=== PATIENT | male | born 1955 | race American Indian/Alaskan Native ===

== ENCOUNTER 2017-06-05 14:18 | Inpatient (IN) | payer MEDICARE, OTHER ==
[2017-06-05 14:28] VITALS: BMI 31.3
[2017-06-05] MEDS ORDERED: Levalbuterol 1.25 MG/3 ML Inhal Soln UD IH STA (14:48)
--- NOTE | 2017-06-05 14:50 | ED PDOC ---
Arrival/HPI - General Chief Complaint: Chest Pain Time Seen by Provider: 06/05/17 14:22 Historian: Patient - History of Present Illness Narrative History of Present Illness (Text): 06/05/17 14:45 A 61 year old male, whose past medical history includes dilated cardiomyopathy with ejection fraction of 25%, hypertension, hyperlipidemia, narcotic dependence and cocaine use, presents to the emergency department complaining of left sided chest pain for 2 days. Patient descries it as a squeezing sensation. He denies any relieving or exacerbating factors. Patient notes dyspnea on exertion but denies any fever, chills, nausea, vomiting, abdominal pain, cough, lower extremity pain, headache, dizziness or any other complaints. PMD: Dr. Ireland Time/Duration: Other (2 days) Symptom Course: Unchanged Quality: Other Context: Home Past Medical History - Provider Review Nursing Documentation Reviewed: Yes - Infectious Disease Hx of Infectious Diseases: None - Tetanus Immunization Tetanus Immunization: Unknown - Cardiac Hx Hypertension: Yes Other/Comment: weak heart - Pulmonary Hx Chronic Obstructive Pulmonary Disease (COPD): (dyspnea) - Neurological Hx Neurological Disorder: No - HEENT Hx HEENT Disorder: No - Renal Hx Renal Disorder: No - Endocrine/Metabolic Hx Endocrine Disorders: No - Hematological/Oncological Hx Blood Disorders: No - Integumentary Hx Dermatological Disorder: No - Musculoskeletal/Rheumatological Hx Musculoskeletal Disorders: Yes (BACK SX,ANKLE AND FOOT SX,HERNIATED DISC, BACK SX) Hx Arthritis: Yes Hx Back Pain: Yes Hx Falls: Yes Hx Fractures: Yes (ANKLE FX,) - Gastrointestinal Hx Gastrointestinal Disorders: Yes (POLYPS REMOVED -COLONOSCOPY) - Genitourinary/Gynecological Hx Genitourinary Disorders: No - Psychiatric Hx Psychophysiologic Disorder: No Hx Substance Use: Yes (H/O OF COCAINE USE.OPIATE USE) - Surgical History Hx Orthopedic Surgery: Yes (back surgery unspecified) - Anesthesia Hx Anesthesia: Yes Hx Anesthesia Reactions: No Hx Malignant Hyperthermia: No - Suicidal Assessment Feels Threatened In Home Enviroment: No Family/Social History - Physician Review Nursing Documentation Reviewed: Yes Family/Social History: No Known Family HX Smoking Status: Current Some Days Smoker Hx Alcohol Use: No Hx Substance Use: Yes (H/O OF COCAINE USE.OPIATE USE) Hx Substance Use Treatment: No Allergies/Home Meds Allergies/Adverse Reactions: Allergies No Known Allergies Allergy (Verified 08/28/16 14:24) Home Medications: Home Meds Medication Instructions Recorded Confirmed Oxycodone HCl [Oxycontin] 10 mg PO DAILY 01/28/17 06/05/17 Valsartan [Diovan] 80 mg PO DAILY 01/28/17 06/05/17 Furosemide [Lasix] 20 mg PO DAILY 06/05/17 06/05/17 Metoprolol Succinate [Toprol XL] 25 mg PO BRK 06/05/17 06/05/17 Review of Systems - Physician Review All systems were reviewed & negative as marked: Yes - Review of Systems Constitutional: absent: Fevers, Night Sweats Respiratory: absent: Cough Cardiovascular: Chest Pain, LENTZ. absent: Edema Gastrointestinal: absent: Abdominal Pain, Nausea, Vomiting Neurological: absent: Headache, Dizziness Physical Exam Vital Signs Pulse Pulse Resp BP Pulse Ox 06/05/17 15:51 119/78 06/05/17 15:17 91 H 18 136/89 100 06/05/17 14:20 99 H Temperature: Afebrile Blood Pressure: Normal Pulse: Tachycardic Respiratory Rate: Tachypneic (mild) Appearance: Positive for: Well-Appearing, Non-Toxic, Comfortable Pain Distress: None Mental Status: Positive for: Alert and Oriented X 3 - Systems Exam Head: Present: Atraumatic, Normocephalic Pupils: Present: PERRL Conjunctiva: Present: Normal Mouth: Present: Moist Mucous Membranes Pharnyx: Present: Normal. No: ERYTHEMA, EXUDATE Neck: Present: Normal Range of Motion, JVD Respiratory/Chest: Present: Decreased Breath Sounds (left side). No: Respiratory Distress, Accessory Muscle Use Cardiovascular: Present: Normal S1, S2, Tachycardic. No: Murmurs Abdomen: Present: Normal Bowel Sounds. No: Tenderness, Distention, Peritoneal Signs Back: Present: Normal Inspection Upper Extremity: Present: Normal Inspection, NORMAL PULSES. No: Cyanosis, Edema Lower Extremity: Present: Edema (1+ edema bilaterally), NORMAL PULSES. No: CALF TENDERNESS Neurological: Present: GCS=15, CN II-XII Intact, Speech Normal Skin: Present: Warm, Dry, Normal Color. No: Rashes Psychiatric: Present: Alert, Oriented x 3, Normal Insight, Normal Concentration Medical Decision Making ED Course and Treatment: 06/05/17 14:45 Impression: A 61 year old male with left sided chest pain. Patient notes dyspnea on exertion. Diff: CHF vs pneumonia vs acs Plan: -- Duplex lower extremity ultrasound -- Chest xray -- Labs -- Urinalysis -- Lasix and Xopenex -- Reassess and disposition Progress Notes: 06/05/17 16:21 Patient with history of DCM with EF of 25% - exam and history consistent with CHF, as well as possible cocaine induced chest pain. EKG is unchanged from previous. First CE is indeterminate at 0.06; creatinine is baseline. Anemia is noted, a change from previous levels. Given lasix - will need further observation in the hospital and diuresis for treatment. Discussed with hospitalist, Dr. Gentile, for placement on the hospitalist service. - Lab Interpretations Lab Results: 06/05/17 14:11 06/05/17 14:11 Lab Results 06/05/17 14:11: Sodium 146, Potassium 3.7, Chloride 110 H, Carbon Dioxide 24, Anion Gap 16, BUN 11, Creatinine 1.7 H, Est GFR ( Amer) 50, Est GFR (Non- Af Amer) 41, Random Glucose 135 H, Calcium 8.5, Magnesium 1.7, Total Bilirubin 1.0, Direct Bilirubin 0.4, AST 25, ALT 41, Alkaline Phosphatase 56, Lactate Dehydrogenase 562, Total Creatine Kinase 325 H, CK-MB (CK-2) 3.4, CK-MB (CK-2) % Cancelled, Troponin I 0.06, NT-Pro-B Natriuret Pep 5280 H, Total Protein 6.7, Albumin 3.9, Globulin 2.8, Albumin/Globulin Ratio 1.4, Lipase 23 06/05/17 14:11: PT 12.3, INR 1.13 H, APTT 34.0 06/05/17 14:11: WBC 5.3 D, RBC 3.35 L, Hgb 10.6 L, Hct 31.9 L, MCV 95.2, MCH 31.6, MCHC 33.2, RDW 13.7, Plt Count 136, MPV 10.0, Gran % 62.6, Lymph % (Auto) 26.6, Faulkner % (Auto) 6.6 H, Eos % (Auto) 4.0, Baso % (Auto) 0.2, Gran # 3.30, Lymph # 1.4, Faulkner # 0.4, Eos # 0.2, Baso # 0.01 I have reviewed the lab results: Yes - RAD Interpretation Narrative RAD Interpretations (Text): 06/05/17 15:22 CXR: FINDINGS: LUNGS: No active pulmonary disease. PLEURA: No significant pleural effusion identified, no pneumothorax apparent. CARDIOVASCULAR: Mild vascular congestion. The heart is normal in size OSSEOUS STRUCTURES: No significant abnormalities. VISUALIZED UPPER ABDOMEN: Normal. OTHER FINDINGS: None. IMPRESSION: Mild vascular congestion Radiology Orders: 06/05/17 14:45 CHEST PORTABLE [RAD] Stat 06/05/17 14:47 DUPLEX LOWER EXTRM VEIN BILAT [US] Stat Cell Technician: Radiologist - EKG Interpretation EKG Interpretation (Text): 06/05/17 16:26 sinus tachycardia @ 108; normal intervals; normal axis; nonspecific ST/T changes are old and similar to 08/30/16. - Medication Orders Current Medication Orders: Discontinued Medications Furosemide (Lasix) 40 mg IVP STAT STA Stop: 06/05/17 14:49 Last Admin: 06/05/17 15:51 Dose: 40 mg MAR Blood Pressure Document 06/05/17 15:51 [email or web address] (Rec: 06/05/17 15:51 [email or web address] [id number]) Blood Pressure Blood Pressure (100/60-150/90) 119/78 IVP Administration Document 06/05/17 15:51 [email or web address] (Rec: 06/05/17 15:51 [email or web address] [id number]) Charges for Administration # of IVP Administrations 1 Levalbuterol HCl (Xopenex) 1.25 mg IH STAT STA Stop: 06/05/17 14:49 Last Admin: 06/05/17 15:47 Dose: 1.25 mg - Scribe Statement The provider has reviewed the documentation as recorded by the Kwasi Mandujano Provider Scribe Attestation: All medical record entries made by the Scribe were at my direction and personally dictated by me. I have reviewed the chart and agree that the record accurately reflects my personal performance of the history, physical exam, medical decision making, and the department course for this patient. I have also personally directed, reviewed, and agree with the discharge instructions and disposition. Disposition/Present on Arrival - Present on Arrival Any Indicators Present on Arrival: No History of DVT/PE: No History of Uncontrolled Diabetes: No Urinary Catheter: No History of Decub. Ulcer: No History Surgical Site Infection Following: None - Disposition Have Diagnosis and Disposition been Completed?: Yes Diagnosis: Congestive heart failure Disposition: HOSPITALIZED Disposition Time: 16:00 Patient Plan: Observation, Telemetry Condition: FAIR Discharge Instructions (ExitCare): Heart Failure (ED) Forms: [employer] (Swedish)
[2017-06-05 15:08] LABS: BASO # 0.01 K/mm3 (0.0-2.0); BASO % 0.2 % (0.0-3.0); EOS # 0.2 (0.0-0.7); GRAN # 3.3 (1.4-6.5); GRAN % 62.6 % (50.0-68.0); HEMATOCRIT 31.9 % (42.0-52.0); LYMPH # 1.4 (1.2-3.4); LYMPH % 26.6 % (22.0-35.0); MEAN CELL VOLUME 95.2 fl (80.0-105.0); MEAN CORPUSCULAR HEMOGLOBIN 31.6 pg (25.0-35.0); MEAN CORPUSCULAR HGB CONC 33.2 g/dl (31.0-37.0); MONO # 0.4 (0.1-0.6); MONO % 6.6 % (1.0-6.0); RED CELL DISTRIBUTION WIDTH 13.7 % (11.5-14.5); WHITE BLOOD COUNT 5.3 10^3/ul (4.5-11.0)
[2017-06-05 15:18] LABS: ALB/GLOB RATIO 1.4 (1.1-1.8); BILIRUBIN,DIRECT 0.4 mg/dL (0.0-0.4); CALCIUM 8.5 mg/dL (8.4-10.5); MAGNESIUM 1.7 mg/dL (1.7-2.2); POTASSIUM 3.7 mmol/L (3.6-5.0); TOTAL PROTEIN 6.7 g/dL (5.8-8.3)
--- NOTE | 2017-06-05 15:18 | RAD ---
HISTORY: cp; sob COMPARISON: 08/30/2016 FINDINGS: LUNGS: No active pulmonary disease. PLEURA: No significant pleural effusion identified, no pneumothorax apparent. CARDIOVASCULAR: Mild vascular congestion. The heart is normal in size OSSEOUS STRUCTURES: No significant abnormalities. VISUALIZED UPPER ABDOMEN: Normal. OTHER FINDINGS: None. IMPRESSION: Mild vascular congestion
[2017-06-05 15:19] LABS: INR 1.13 (0.93-1.08)
[2017-06-05 15:29] LABS: TROPONIN I 0.06 ng/mL
[2017-06-05] MEDS ORDERED: Levalbuterol 1.25 MG/3 ML Inhal Soln UD ONE (15:44)
[2017-06-05 16:09] LABS: URINE BILIRUBIN NEGATIVE (NEGATIVE); URINE BLOOD NEGATIVE (NEGATIVE); URINE GLUCOSE (UA) NEGATIVE (NEGATIVE); URINE KETONE NEGATIVE (NEGATIVE); URINE LEUKOCYTE ESTERASE SMALL Leu/uL (NEGATIVE); URINE PROTEIN TRACE mg/dL (<30 mg/dL); URINE UROBILINOGEN 0.2 E.U./dL (<1 E.U./dL)
[2017-06-05 16:24] LABS: URINE APPEARANCE CLEAR (CLEAR); URINE COLOR YELLOW (YELLOW)
[2017-06-05 16:28] LABS: URINE BACTERIA FEW (NEG); URINE RBC NEGATIVE /hpf (0-2)
[2017-06-05] MEDS ORDERED: Metoprolol Succinate 50 mg XL Tab PO SCH (17:15)
[2017-06-05] MEDS ORDERED: Levalbuterol 0.63 MG/3 ML Inhal Soln UD IH PRN (17:21)
--- NOTE | 2017-06-05 17:47 | CP.PCM.HP ---
<Junior Bojorquez - Last Filed: 06/05/17 17:23> History of Present Illness - History of Present Illness History of Present Illness: IM H&P for Hospitalist Service CC: Chest pain x2 days HPI: This is a 61 yo M with PMH of HTN, HLD, Dilated CM with EF 29% (last echo on record 08/29/16), narcotic dependence, cocaine use, and suspected medication non-compliance who presents to [facility] with complaint of left-sided chest pain x2 days. Patient reports pain present on awakening, not worse with exertion, but does admit to some dyspnea on exertion. Initially tried to ignore the pain, and did not mention it to his PMD 2 days ago when presenting at the office for abdominal pain (now resolved), but the pain has persisted and slightly worsening through yesterday and today, so he presented to the ED. Admits to continued tobacco use (currently 1/2 ppd, previously 1.5-2 ppd x20yrs), admits to illicits (Cocaine) but denies IVDA. Initially reported complaint with medications, only missed today, but later told attending physician that he hasn' t taken his medications for the last 2-3 days. Also admits to worsening chest pain with deep breathing, but denies worse pain with palpation. Denies radiation of chest pain, shortness of breath at rest, nausea/emesis, fevers/ chills, diarrhea/constipation, melena/hematochezia, hemoptysis/hematemesis, dysuria/hematuria, focal weakness/parethesias, or acute vision changes. All other ROS in 12-point system review negative. Of note, labs in the ED were notable for a lower than usual Hgb (10.6, baseline per prior charting 13-14), and patient reports that his stomach pain was from taking non-coated aspirins for 2-3 weeks prior to his visit with [facility] PMD. Also admits to Colonoscopy in 2012 at [facility] where he had "numerous polyps," and was told to obtain a follow-up in 3 years, which he has not done. PMH: as above PSH: 4 back surgeries (unspecified), ankle and foot surgery with ORIF and plate/ screws placement, later removal of plate and screws (unspecified reason for removal) SHx: Admits cigarettes (currently 1/2 ppd x2-3 months, previously 1.5-2ppd, total time ~20 yrs), denies alcohol, admits to illicits (cocaine, recently, no additional detail provided) but denies ever IVDA FHx: HTN (mother) Home Meds:Oxycodone 15mg 5x daily PRN, Ambien 10mg nightly, Mobic 15mg daily, Diovan 80mg daily, Lopressor 25mg BID, Lasix 20mg daily, Protonix 40mg daily ( new prescription, not yet picked up) PMD: Dr. Ireland Cardio: Dr. Newberry Pain Management: Dr. Hinojosa (pain management in [place]) Pharmacy: [facility] Present on Admission - Present on Admission Any Indicators Present on Admission: No History of DVT/PE: No History of Uncontrolled Diabetes: No Review of Systems - Review of Systems All systems: reviewed and no additional remarkable complaints except (as per HPI ) Past Patient History - Infectious Disease Hx of Infectious Diseases: None - Tetanus Immunizations Tetanus Immunization: Unknown - Past Medical History & Family History Past Medical History?: Yes - Past Social History Smoking Status: Current Some Days Smoker - CARDIAC Hx Hypertension: Yes Other/Comment: weak heart - PULMONARY Hx Chronic Obstructive Pulmonary Disease (COPD): (dyspnea) - NEUROLOGICAL Hx Neurological Disorder: No - HEENT Hx HEENT Problems: No - RENAL Hx Chronic Kidney Disease: No - ENDOCRINE/METABOLIC Hx Endocrine Disorders: No - HEMATOLOGICAL/ONCOLOGICAL Hx Blood Disorders: No - INTEGUMENTARY Hx Dermatological Problems: No - MUSCULOSKELETAL/RHEUMATOLOGICAL Hx Musculoskeletal Disorders: Yes (BACK SX,ANKLE AND FOOT SX,HERNIATED DISC, BACK SX) Hx Arthritis: Yes Hx Back Pain: Yes Hx Falls: Yes Hx Fractures: Yes (ANKLE FX,) - GASTROINTESTINAL Hx Gastrointestinal Disorders: Yes (POLYPS REMOVED -COLONOSCOPY) - GENITOURINARY/GYNECOLOGICAL Hx Genitourinary Disorders: No - PSYCHIATRIC Hx Psychophysiologic Disorder: No Hx Substance Use: Yes (H/O OF COCAINE USE.OPIATE USE) - SURGICAL HISTORY Hx Orthopedic Surgery: Yes (back surgery unspecified) - ANESTHESIA Hx Anesthesia: Yes Hx Anesthesia Reactions: No Hx Malignant Hyperthermia: No Meds Allergies/Adverse Reactions: Allergies Allergy/AdvReac Type Severity Reaction Status Date / Time No Known Allergies Allergy Verified 08/28/16 14:24 Physical Exam - Constitutional Appears: Well, Non-toxic, No Acute Distress - Head Exam Head Exam: ATRAUMATIC, NORMAL INSPECTION, NORMOCEPHALIC - Eye Exam Eye Exam: EOMI, Normal appearance. absent: Conjunctival injection, Scleral icterus Pupil Exam: absent: Irregular, Unequal - ENT Exam ENT Exam: Mucous Membranes Moist. absent: Mucous Membranes Dry - Neck Exam Neck exam: Positive for: Full Rom. Negative for: Lymphadenopathy, Thyromegaly - Respiratory Exam Respiratory Exam: Decreased Breath Sounds (moderately decreased breath sounds in all griffith), Prolonged Expiratory Phase, Rales (mild bibasilar rales). absent: Accessory Muscle Use, Chest Wall Tenderness, Clear to Auscultation Bilateral, Rhonchi, Wheezes, Respiratory Distress, Stridor, NORMAL BREATHING PATTERN - Cardiovascular Exam Cardiovascular Exam: Tachycardia, REGULAR RHYTHM, RRR, +S1, +S2. absent: Bradycardia, Irregular Rhythm, JVD, +S4 - GI/Abdominal Exam GI & Abdominal Exam: Normal Bowel Sounds, Soft. absent: Diminished Bowel Sounds , Distended (obese, not distended), Firm, Hyperactive Bowel Sounds, Hypoactive Bowel Sounds, Rigid, Tenderness - Extremities Exam Extremities exam: Positive for: full ROM, pedal edema (LLE +1-2 pitting edema up to bottom 1/3rd gill, RLE trace pitting edema in foot and ankle), pedal pulses present (+2 radials, +1 dorsalis pedis, bilaterally). Negative for: calf tenderness, joint swelling, tenderness - Neurological Exam Neurological exam: Alert, CN II-XII Intact, Oriented x3 - Psychiatric Exam Psychiatric exam: Normal Affect, Normal Mood - Skin Skin Exam: Dry, Intact, Normal Color, Warm Results - Vital Signs Recent Vital Signs: Last Vital Signs Temp Pulse 91 H 06/05/17 15:17 Resp 18 06/05/17 15:17 BP 119/78 06/05/17 15:51 Pulse Ox 100 06/05/17 15:17 - Labs Result Diagrams: 06/05/17 14:11 06/05/17 14:11 Labs: Laboratory Results - last 24 hr 06/05/17 06/05/17 06/05/17 14:11 14:11 14:11 WBC 5.3 D RBC 3.35 L Hgb 10.6 L Hct 31.9 L MCV 95.2 MCH 31.6 MCHC 33.2 RDW 13.7 Plt Count 136 MPV 10.0 Gran % 62.6 Lymph % (Auto) 26.6 Hubbard % (Auto) 6.6 H Eos % (Auto) 4.0 Baso % (Auto) 0.2 Gran # 3.30 Lymph # 1.4 Hubbard # 0.4 Eos # 0.2 Baso # 0.01 PT 12.3 INR 1.13 H APTT 34.0 Sodium 146 Potassium 3.7 Chloride 110 H Carbon Dioxide 24 Anion Gap 16 BUN 11 Creatinine 1.7 H Est GFR ( Amer) 50 Est GFR (Non-Af Amer) 41 Random Glucose 135 H Calcium 8.5 Magnesium 1.7 Total Bilirubin 1.0 Direct Bilirubin 0.4 AST 25 ALT 41 Alkaline Phosphatase 56 Lactate Dehydrogenase 562 Total Creatine Kinase 325 H CK-MB (CK-2) 3.4 CK-MB (CK-2) % Cancelled Troponin I 0.06 NT-Pro-B Natriuret Pep 5280 H Total Protein 6.7 Albumin 3.9 Globulin 2.8 Albumin/Globulin Ratio 1.4 Lipase 23 Urine Color Urine Appearance Urine pH Ur Specific [place] Urine Protein Urine Glucose (UA) Urine Ketones Urine Blood Urine Nitrate Urine Bilirubin Urine Urobilinogen Ur Leukocyte Esterase Urine RBC Urine WBC Ur Epithelial Cells Urine Bacteria Urine Opiates Screen Urine Methadone Screen Ur Barbiturates Screen Ur Phencyclidine Scrn Ur Amphetamines Screen U Benzodiazepines Scrn U Oth Cocaine Metabols U Cannabinoids Screen 06/05/17 06/05/17 16:00 16:00 WBC RBC Hgb Hct MCV MCH MCHC RDW Plt Count MPV Gran % Lymph % (Auto) Hubbard % (Auto) Eos % (Auto) Baso % (Auto) Gran # Lymph # Hubbard # Eos # Baso # PT INR APTT Sodium Potassium Chloride Carbon Dioxide Anion Gap BUN Creatinine Est GFR ( Amer) Est GFR (Non-Af Amer) Random Glucose Calcium Magnesium Total Bilirubin Direct Bilirubin AST ALT Alkaline Phosphatase Lactate Dehydrogenase Total Creatine Kinase CK-MB (CK-2) CK-MB (CK-2) % Troponin I NT-Pro-B Natriuret Pep Total Protein Albumin Globulin Albumin/Globulin Ratio Lipase Urine Color Yellow Urine Appearance Clear Urine pH 6.0 Ur Specific [place] 1.015 Urine Protein Trace H Urine Glucose (UA) Negative Urine Ketones Negative Urine Blood Negative Urine Nitrate Negative Urine Bilirubin Negative Urine Urobilinogen 0.2 Ur Leukocyte Esterase Small H Urine RBC Negative Urine WBC 1 - 3 Ur Epithelial Cells 1 - 3 Urine Bacteria Few Urine Opiates Screen Positive H Urine Methadone Screen Negative Ur Barbiturates Screen Negative Ur Phencyclidine Scrn Negative Ur Amphetamines Screen Negative U Benzodiazepines Scrn Positive H U Oth Cocaine Metabols Positive H U Cannabinoids Screen Negative Assessment & Plan - Assessment and Plan (Free Text) Assessment: This is a 61 yo M with PMH of HTN, HLD, Dilated CM with EF 29% (last echo on record 08/29/16), narcotic dependence, cocaine use, and suspected medication non- compliance who presents to [facility] with complaint of left-sided chest pain x2 days. He is being admitted for CHF exacerbation vs ACS, and is being admitted for observation. Plan: 1) Left-sided chest pain -CHF exacerbation vs ACS vs cocaine-induced vasospasm vs Costocondritis vs PE -CXR obtained in ED, suspicious for possible fluid overload, especially when compared to most recent CXR during last admission -Trop 0.06, indeterminate, may be renal leak due to SILVINA on CKD vs worsening CKD (Cr 1.7, prior elevations to 1.7, prior baseline appears to be 1.2-1.4), will trend 2 more q8h -USD in ED positive for opioids, benzos, and cocaine -Echo on 08/29/16 notable for global hypokinesis with EF 29%, reported dilated cardiomyopathy as per Cardio during last admission; repeat Echo ordered -EKG in ED only notable for sinus tachy, normal intervals and ST-T wave segments , repeat EKG in AM -LE Duplex negative for DVT, not grossly tachycardic, and satting well on room air, so less likely PE; if symptoms persist or worsen, could consider V/Q scan, would avoid CTA given current elevated creatinine -Continue home metoprolol, aspirin; holding home diovan due to worsening Creatinine -holding home lasix, starting on IVP lasix 40mg daily, received one dose in ED -Cardio (Dr. Newberry) consulted, appreciate all recs -Given suspicion for fluid overload and pt currently hemodynamically stable, will hold off on IV fluids at this time 2) Dyspnea on Exertion -likely due to suspected fluid overload vs ACS vs presumed COPD (active tobacco abuser, > 30 pack years) -encourage smoking cessation -given Xopenex IH 1x in ED, will continue q6h adrianna and q4h prn -actively diuresing with Lasix, 40mg IVP x1 in ED, will continue with 40mg IVP daily -ACS vs CHF management as above 3) Elevated Cr (1.7) -SILVINA vs SILVINA on CKD -during prior admission from 08/28/16-09/01/16, Cr was noted to be 1.5-1.7, however previous baseline was 1.2-1.4 with noted elevations to 1.7 -unclear if worsening baseline renal disease with or without acute exacerbation -will hold home ARB for now due to elevated Cr, but will continue Lasix for diuresis in setting of suspected fluid overload/suspected CHF exacerbation; if creatinine worsens can consider holding lasix -Holding home Mobic, avoid NSAIDs for now 4) Suspected Hgb drop -10.6 on admission in ED, prior charting shows baseline of 13-14 -Reports recent use of non-enteric coated ASA, abd pain 2 days prior, and hx of multiple colonic polyps now overdue for followup Colonoscopy -Stool occult ordered -Currently only borderline tachycardic (more likely 2/2 chest pain/discomfort), hemodynamically stable (SBP in Ed 110's-130's), so unlikely active bleed occurring at this time; continue to monitor, will follow up Hgb on AM labs 5) HTN -holding home ARB, continue Lasix and Lopressor as above 6) HLD -Lipid panel ordered, heart-healthy diet ordered Dispo: Tele obs, pending Echo, repeat EKG, trended trops, Cardio eval and recs FEN: Heart-healthy, No IVF Access: Peripheral IV Consults: Cardio Ppx: SCDs for DVT (avoid AC given recent drop in Hgb, concern for possible GI loss), Protonix for GI Patient seen, reviewed, and discussed with attending, Dr. Gentile. Decision To Admit - Pt Status Changed To: Hospital Disposition Of: Observation - . Bed Request Type: Telemetry <Demar Gentile - Last Filed: 06/06/17 07:17> Results - Vital Signs Recent Vital Signs: Last Vital Signs Temp 99.1 F 06/06/17 06:00 Pulse 91 H 06/06/17 06:00 Resp 22 06/06/17 06:00 BP 134/90 06/06/17 06:00 Pulse Ox 99 06/06/17 06:00 - Labs Result Diagrams: 06/06/17 05:30 06/06/17 05:30 Labs: Laboratory Results - last 24 hr 06/05/17 06/06/17 06/06/17 22:20 05:30 05:30 WBC 5.6 RBC 3.64 Hgb 11.5 L Hct 34.1 L MCV 93.7 MCH 31.6 MCHC 33.7 RDW 13.7 Plt Count 158 MPV 10.2 Gran % 56.1 Lymph % (Auto) 32.5 Hubbard % (Auto) 7.5 H Eos % (Auto) 3.9 Baso % (Auto) 0.0 Gran # 3.12 Lymph # 1.8 Hubbard # 0.4 Eos # 0.2 Baso # 0.00 Sodium 144 Potassium 3.7 Chloride 107 Carbon Dioxide 29 Anion Gap 12 BUN 13 Creatinine 1.7 H Est GFR ( Amer) 50 Est GFR (Non-Af Amer) 41 Random Glucose 88 Calcium 8.9 Phosphorus 3.2 Magnesium 1.7 Total Bilirubin 1.0 AST 23 ALT 33 Alkaline Phosphatase 57 Troponin I 0.05 0.06 Total Protein 6.9 Albumin 3.9 Globulin 3.0 Albumin/Globulin Ratio 1.3 Triglycerides 74 Cholesterol 138 LDL Cholesterol Direct 82 HDL Cholesterol 42 Attending/Attestation - Attestation I have personally seen and examined this patient.: Yes I have fully participated in the care of the patient.: Yes I have reviewed all pertinent clinical information: Yes Notes (Text): 06/05/17 61 year old male with past medical history of hypertension, CHF and substance abuse (admits to recent cocaine use) who presents with complaint of chest pain and shortness of breath. CXR shows mild congestion. Probnp is elevated and initial troponin is indeterminant at 0.06. Will admit to telemetry unit for acute CHF exacerbation and to rule out ACS. Serial cardiac enzymes are ordered. Echocardiogram and cardiology evaluation are requested. Continue with iv lasix and aspirin. Will hold metoprolol for now due to recent cocaine use and hold ARB as well due to CKD. He was counselled on medication compliance. Counselled on risks of continued substance abuse. Counselled on smoking cessation. Demar Gentile MD Hospitalist.
--- NOTE | 2017-06-05 18:29 | US ---
HISTORY: Leg pain and swelling. Evaluate for DVT PHYSICIAN(S): Mike Schroeder MD. TECHNIQUE: Duplex sonography and color-flow Doppler with graded compression were used to evaluate the deep venous systems of both lower extremities. FINDINGS: The visualized deep venous systems of both lower extremities are sonographically normal and compressible. Normal wave forms and augmentation are seen. There is no sonographic evidence for deep venous thrombosis in the visualized segments of both lower extremities. IMPRESSION: No sonographic evidence for deep venous thrombosis in the visualized segments of both lower extremities.
[2017-06-05] MEDS: Levalbuterol 1.25 MG/3 ML Inhal Soln UD IH SCH (19:35)
[2017-06-05] MEDS ORDERED: Pneumococcal 23-Valent Vaccine IM ONE (20:43)
[2017-06-05] MEDS ORDERED: Influenza Vaccine 60 mcg/0.5 mL SYR (4YR UP) IM ONE (20:43)
[2017-06-06] MEDS: Levalbuterol 1.25 MG/3 ML Inhal Soln UD IH SCH ×4 (02:00→19:35)
[2017-06-06] MEDS: Pantoprazole 40 mg EC Tab PO SCH (05:48)
--- NOTE | 2017-06-06 06:02 | CP.PCM.PN ---
Subjective - Date & Time of Evaluation Date of Evaluation: 06/06/17 Time of Evaluation: 06:00 - Subjective Subjective: S: It was requested to insert a heparin lock. Patient has no complaints now. Medical record was reviewed. O: Last Vital Signs 3 Temp 98.2 F 06/06/17 00:01 Pulse 84 06/06/17 02:00 Resp 22 06/06/17 00:01 BP 128/80 06/06/17 00:01 Pulse Ox 99 06/06/17 00:01 Awake,alert ,not in distress. LUNGS:Normal breathing pattern. A: Poor venous access. Encounter for intravenous line placement. P: # 20 angiocath was inserted in right upper arm. Objective - Vital Signs/Intake and Output Vital Signs (last 24 hours): Temp Pulse Resp BP Pulse Ox 98.2 F 84 22 128/80 99 06/06/17 00:01 06/06/17 02:00 06/06/17 00:01 06/06/17 00:01 06/06/17 00:01 - Medications Medications: Current Medications Aspirin (Ecotrin) 81 mg PO DAILY [facility] Furosemide (Lasix) 40 mg IVP DAILY [facility] Levalbuterol HCl (Xopenex) 1.25 mg IH [id number] [facility] Last Admin: 06/06/17 02:00 Dose: 1.25 mg Levalbuterol HCl (Xopenex) 0.63 mg IH [id number] PRN PRN Reason: Shortness of Breath Metoprolol Succinate (Toprol Xl) 25 mg PO BRK [facility] Last Admin: 06/05/17 17:48 Dose: 25 mg Ondansetron HCl (Zofran Inj) 4 mg IVP Q6H PRN PRN Reason: Nausea/Vomiting Oxycodone HCl (Oxycontin Extended Release Tab) 10 mg PO DAILY [facility] Stop: 06/09/17 10:01 Pantoprazole Sodium (Protonix Ec Tab) 40 mg PO 0630 [facility] Last Admin: 06/06/17 05:48 Dose: 40 mg Zolpidem Tartrate (Ambien) 10 mg PO HS PRN; Protocol PRN Reason: Insomnia - Labs Labs: PT 12.3 SECONDS (9.4-12.5) 06/05/17 14:11 INR 1.13 (0.93-1.08) H 06/05/17 14:11 APTT 34.0 Seconds (25.1-36.5) 06/05/17 14:11
[2017-06-06 06:28] LABS: EOS # 0.2 (0.0-0.7); EOS % 3.9 % (1.5-5.0); GRAN # 3.12 (1.4-6.5); GRAN % 56.1 % (50.0-68.0); HEMATOCRIT 34.1 % (42.0-52.0); LYMPH # 1.8 (1.2-3.4); LYMPH % 32.5 % (22.0-35.0); MEAN CELL VOLUME 93.7 fl (80.0-105.0); MEAN CORPUSCULAR HEMOGLOBIN 31.6 pg (25.0-35.0); MEAN CORPUSCULAR HGB CONC 33.7 g/dl (31.0-37.0); MEAN PLATELET VOLUME 10.2 fl (7.0-11.0); MONO # 0.4 (0.1-0.6); MONO % 7.5 % (1.0-6.0); RED CELL DISTRIBUTION WIDTH 13.7 % (11.5-14.5); WHITE BLOOD COUNT 5.6 10^3/ul (4.5-11.0)
[2017-06-06 06:36] LABS: ALB/GLOB RATIO 1.3 (1.1-1.8); CALCIUM 8.9 mg/dL (8.4-10.5); MAGNESIUM 1.7 mg/dL (1.7-2.2); PHOSPHOROUS 3.2 mg/dL (2.5-4.5); POTASSIUM 3.7 mmol/L (3.6-5.0); TOTAL PROTEIN 6.9 g/dL (5.8-8.3)
[2017-06-06 06:48] LABS: TROPONIN I 0.06 ng/mL
--- NOTE | 2017-06-06 08:56 | CARD ---
APPROVED REPORT EKG Measurement Heart [id number] [place] [id number] <Conclusion> Sinus tachycardia LVH by voltage Nonspecific T wave abnormality T waves flat or upright now 1,L, V 4 - 6, c/w ECG 08/30/16
[2017-06-06] MEDS ORDERED: oxyCODONE 10 mg ER Tab (oxyCONTIN) PO SCH (10:00)
--- NOTE | 2017-06-06 11:10 | CARD ---
APPROVED REPORT EKG Measurement Heart [id number] [place] 174P59 [id number] <Conclusion> Sinus rhythm PVCs LVH by volyage NSSTW changes
--- NOTE | 2017-06-06 11:48 | CARD ---
APPROVED REPORT EKG Measurement Heart [id number] 170P58 [id number] <Conclusion> Sinus rhythm with one premature ventricular complex Minimal voltage criteria for LVH, may be normal variant Nonspecific T wave abnormality
--- NOTE | 2017-06-06 11:49 | CP.PCM.PN ---
<MargerafyJaclyn ospinan - Last Filed: 06/06/17 15:19> Subjective - Date & Time of Evaluation Date of Evaluation: 06/06/17 Time of Evaluation: 09:30 - Subjective Subjective: Medicine progress note Patient seen and examined at bedside this morning. Patient have multiple runs of PVC last night. Denies chest pain, shortness of breath or heart palpitations. Patient states he is doing significantly better than yesterday. He is OOB and walking with minimal to no shortness of breath. Objective - Vital Signs/Intake and Output Vital Signs (last 24 hours): Temp Pulse Resp BP Pulse Ox 99.1 F 94 H 22 137/89 99 06/06/17 06:00 06/06/17 09:50 06/06/17 06:00 06/06/17 09:11 06/06/17 06:00 Intake and Output: 06/06/17 06/06/17 06:59 18:59 Output Total 850 Balance -850 - Medications Medications: Current Medications Aspirin (Ecotrin) 81 mg PO DAILY [facility] Last Admin: 06/06/17 09:10 Dose: 81 mg Atorvastatin Calcium (Lipitor) 10 mg PO DIN [facility] Furosemide (Lasix) 40 mg IVP DAILY [facility] Last Admin: 06/06/17 09:11 Dose: 40 mg Levalbuterol HCl (Xopenex) 1.25 mg IH [id number] [facility] Last Admin: 06/06/17 07:17 Dose: 1.25 mg Levalbuterol HCl (Xopenex) 0.63 mg IH [id number] PRN PRN Reason: Shortness of Breath Lorazepam (Ativan) 2 mg IVP Q2 PRN; Protocol PRN Reason: Anxiety Metoprolol Succinate (Toprol Xl) 25 mg PO BRK [facility] Last Admin: 06/05/17 17:48 Dose: 25 mg Ondansetron HCl (Zofran Inj) 4 mg IVP Q6H PRN PRN Reason: Nausea/Vomiting Oxycodone HCl (Oxycontin Extended Release Tab) 10 mg PO DAILY [facility] Stop: 06/09/17 10:01 Last Admin: 06/06/17 09:11 Dose: 10 mg Pantoprazole Sodium (Protonix Ec Tab) 40 mg PO 0630 [facility] Last Admin: 06/06/17 05:48 Dose: 40 mg Zolpidem Tartrate (Ambien) 10 mg PO HS PRN; Protocol PRN Reason: Insomnia - Labs Labs: 06/06/17 05:30 06/06/17 05:30 PT 12.3 SECONDS (9.4-12.5) 06/05/17 14:11 INR 1.13 (0.93-1.08) H 06/05/17 14:11 APTT 34.0 Seconds (25.1-36.5) 06/05/17 14:11 - Constitutional Appears: Non-toxic, No Acute Distress - Head Exam Head Exam: ATRAUMATIC - Eye Exam Eye Exam: EOMI. absent: Scleral icterus - ENT Exam ENT Exam: Mucous Membranes Moist - Respiratory Exam Respiratory Exam: NORMAL BREATHING PATTERN. absent: Accessory Muscle Use, Respiratory Distress - Cardiovascular Exam Cardiovascular Exam: +S1, +S2. absent: Bradycardia, Tachycardia - GI/Abdominal Exam GI & Abdominal Exam: Soft, Normal Bowel Sounds. absent: Distended, Tenderness - Extremities Exam Extremities Exam: Normal Inspection, Pedal Edema. absent: Calf Tenderness Additional comments: +1 pedal edema. palpable pulses. - Neurological Exam Neurological Exam: Alert, Awake, Oriented x3 - Psychiatric Exam Psychiatric exam: Normal Affect, Normal Mood - Skin Skin Exam: Normal Color Assessment and Plan - Assessment and Plan (Free Text) Assessment: 61M pmhx of hypertension, CHF and substance abuse including cocaine and benzos presented with complaint of chest pain and shortness of breath. CXR shows mild congestion. Probnp is elevated. Trop x3 0.05, 0.06, 0.05 respectively. CHF exacerbation vs cocaine-induced vasospasm CXR mild congestion Echo performed in August of 2016 showed EF 29% Repeat echo final read pending Trop indeterminate 0.05, 0.06, 0.05 LE Duplex negative for DVT Xopenex q6h adrianna and q4h prn Cardio c/s Dr. Newberry appreciate all recs Will continue diuresis w/ Lasix 40mg Elevated Cr Cr. 1.7 ARB held; continue Lasix No NSAIDs at this time If Cr worsens will hold lasix H/O Hypertension holding home ARB and lopressor continue Lasix Anemia h/o colon polyp recommend outpatient follow up colonoscopy H/H stable HLD Lipid panel LDL 84. Start Atorvastatin Counseled patient on risks of using recreational drugs and advised to quit. Counselled on quitting smoking <Demar Gentile - Last Filed: 06/06/17 16:20> Objective - Vital Signs/Intake and Output Vital Signs (last 24 hours): Temp Pulse Resp BP Pulse Ox 97.4 F L 80 20 134/104 H 99 06/06/17 12:00 06/06/17 12:00 06/06/17 12:00 06/06/17 12:00 06/06/17 06:00 Intake and Output: 06/06/17 06/06/17 06:59 18:59 Output Total 850 Balance -850 - Medications Medications: Current Medications Aspirin (Ecotrin) 81 mg PO DAILY [facility] Last Admin: 06/06/17 09:10 Dose: 81 mg Atorvastatin Calcium (Lipitor) 10 mg PO DIN [facility] Furosemide (Lasix) 40 mg IVP DAILY [facility] Last Admin: 06/06/17 09:11 Dose: 40 mg Levalbuterol HCl (Xopenex) 1.25 mg IH [id number] [facility] Last Admin: 06/06/17 13:43 Dose: 1.25 mg Levalbuterol HCl (Xopenex) 0.63 mg IH [id number] PRN PRN Reason: Shortness of Breath Lorazepam (Ativan) 2 mg IVP Q2 PRN; Protocol PRN Reason: Anxiety Metoprolol Succinate (Toprol Xl) 25 mg PO BRK [facility] Last Admin: 06/05/17 17:48 Dose: 25 mg Ondansetron HCl (Zofran Inj) 4 mg IVP Q6H PRN PRN Reason: Nausea/Vomiting Oxycodone HCl (Oxycontin Extended Release Tab) 10 mg PO DAILY [facility] Stop: 06/09/17 10:01 Last Admin: 06/06/17 09:11 Dose: 10 mg Pantoprazole Sodium (Protonix Ec Tab) 40 mg PO 0630 [facility] Last Admin: 06/06/17 05:48 Dose: 40 mg Zolpidem Tartrate (Ambien) 10 mg PO HS PRN; Protocol PRN Reason: Insomnia - Labs Labs: 06/06/17 05:30 06/06/17 05:30 PT 12.3 SECONDS (9.4-12.5) 06/05/17 14:11 INR 1.13 (0.93-1.08) H 06/05/17 14:11 APTT 34.0 Seconds (25.1-36.5) 06/05/17 14:11 Attending/Attestation - Attestation I have personally seen and examined this patient.: Yes I have fully participated in the care of the patient.: Yes I have reviewed all pertinent clinical information, including history, physical exam and plan: Yes Notes (Text): 06/06/17 16:16 61 year old male with past medical history of hypertension, CHF and substance abuse (admits to recent cocaine use) who presented with complaint of chest pain and shortness of breath. CXR showed mild congestion with elevated probnp. Troponins are indeterminant at 0.06. Symptoms are improved with iv lasix. Echocardiogram was done today with pending report. Cardiology evaluation is pending as well. Continue with aspirin, statin and iv lasix. Metoprolol is on hold for now due to recent cocaine use and ARB is on hold as well due to CKD. He was counselled on medication compliance and on risks of continued substance abuse. He was counselled on smoking cessation. Demar Gentile MD Hospitalist.
[2017-06-07] MEDS: Levalbuterol 1.25 MG/3 ML Inhal Soln UD IH SCH ×3 (01:12→14:01)
[2017-06-07] MEDS: Pantoprazole 40 mg EC Tab PO SCH (05:50)
[2017-06-07 06:35] VITALS: O2SAT 94
--- NOTE | 2017-06-07 07:51 | CARD ---
APPROVED REPORT EXAM: Two-dimensional and M-mode echocardiogram with Doppler and color Doppler. Other Information Quality : AverageRhythm : INDICATION Chest Pain 2D DIMENSIONS Left Atrium (2D)4.8 (1.6-4.0cm)IVSd1.2 (0.7-1.1cm) LVDd5.9 (3.9-5.9cm)PWd1.2 (0.7-1.1cm) LVDs5.1 (2.5-4.0cm)LVEF (%)30.0 (>50%) M-Mode DIMENSIONS Aortic Root2.80 (2.2-3.7cm)Aortic Cusp Exc.1.90 (1.5-2.0cm) Aortic Valve AoV Peak Xpayqhfn906.0cm/s Mitral Valve MV E Vxdzwsgi33.8cm/sMV A Bxjaebzp62.0cm/sE/A ratio1.2 TDI E/Lateral E'0.0E/Medial E'0.0 Tricuspid Valve TR Peak [id number]/sRAP [id number] Peak Gr.34mmHg [id number] LEFT VENTRICLE The left ventricle is normal size. There is normal left ventricular wall thickness. Left ventricle systolic function is moderately to severely impaired. The Ejection Fraction is 25-30%. There is moderate to severe global hypokinesis. RIGHT VENTRICLE The right ventricle is normal size. ATRIA The left atrium is moderately dilated. The right atrium size is normal. The interatrial septum is intact with no evidence for an atrial septal defect. AORTIC VALVE The aortic valve is normal in structure. MITRAL VALVE The mitral valve is normal in structure. Mitral regurgitation is moderate. TRICUSPID VALVE The tricuspid valve is normal in structure. There is mild tricuspid regurgitation. There is mild-moderate pulmonary hypertension. PULMONIC VALVE The pulmonic valve is not well visualized. GREAT VESSELS The aortic root is normal in size. PERICARDIAL EFFUSION There is no pericardial effusion. <Conclusion> The left ventricle is normal size. There is normal left ventricular wall thickness. Left ventricle systolic function is moderately to severely impaired. The Ejection Fraction is 25-30%. There is moderate to severe global hypokinesis. Mitral regurgitation is moderate. There is mild tricuspid regurgitation. There is mild-moderate pulmonary hypertension.
[2017-06-07] MEDS ORDERED: oxyCODONE 15 mg Immediate Release Tab PO PRN (08:12)
[2017-06-07 09:02] LABS: ALB/GLOB RATIO 1.3 (1.1-1.8); CALCIUM 9.5 mg/dL (8.4-10.5); MAGNESIUM 1.8 mg/dL (1.7-2.2); PHOSPHOROUS 3.1 mg/dL (2.5-4.5); POTASSIUM 3.5 mmol/L (3.6-5.0); TOTAL PROTEIN 7.3 g/dL (5.8-8.3)
--- NOTE | 2017-06-07 10:48 | CON ---
DATE: 06/06/2017 CARDIOLOGY CONSULTATION HISTORY OF PRESENT ILLNESS: The patient presented to the emergency room with atypical chest pain which has currently resolved. He also complains of shortness of breath. The patient has documented dilated cardiomyopathy in the past with an ejection fraction of 25%. He also suffers from hypertension, hyperlipidemia, narcotic and cocaine abuse. His symptoms have now resolved. His previous cardiac workup includes a catheterization performed earlier this year that showed no significant coronary lesions with a dilated cardiomyopathy. The patient is noncompliant to medical advice and is currently on chronic oxycodone. SOCIAL HISTORY: The patient is a smoker. REVIEW OF SYSTEMS: A 14-point review of systems is reviewed in detail. No additional symptoms were elicited. PHYSICAL EXAMINATION: VITAL SIGNS: Blood pressure is 138/98, the heart rate is in the 80s. NECK: Negative JVD. LUNGS: Clear to auscultation. HEART: Reveals S1 and S2. EXTREMITIES: Without edema. IMAGING: EKG shows normal sinus rhythm with no acute changes. LABORATORIES: Hemoglobin is 11.5. The troponin is 0.06, which is unchanged from his previous when he underwent catheterization that showed no coronary lesions. The ProBNP is 5280. IMPRESSION: 1. Congestive heart failure which is better. 2. Atypical chest pain which has resolved. 3. No evidence for acute coronary syndrome. 4. End-stage dilated cardiomyopathy. 5. Renal insufficiency. 6. Hypertension. 7. Chronic obstructive pulmonary disease. 8. Narcotic abuse. Given these findings, the patient's cardiac status is at its best at this time. I have discussed with the patient about the need to change his life and live a healthier lifestyle. The patient understands. There is no further cardiac workup necessary. He is currently on the correct medications. We will discontinue telemetry today. Mike Newberry MD
[2017-06-07 12:15] VITALS: BP 122/78; PULSE 92; RESP 19; TEMP 99
--- NOTE | 2017-06-07 13:56 | CP.PCM.DIS ---
<MargerafyJaclyn ospinan - Last Filed: 06/07/17 14:47> Provider - Provider Date of Admission: 06/06/17 16:15 Attending physician: Demar Gentile MD Time Spent in preparation of Discharge (in minutes): 45 Hospital Course - Lab Results Lab Results: Most Recent Lab Values WBC 5.6 10^3/ul (4.5-11.0) 06/06/17 05:30 RBC 3.64 10^6/uL (3.5-6.1) 06/06/17 05:30 Hgb 11.5 g/dL (14.0-18.0) L 06/06/17 05:30 Hct 34.1 % (42.0-52.0) L 06/06/17 05:30 MCV 93.7 fl (80.0-105.0) 06/06/17 05:30 MCH 31.6 pg (25.0-35.0) 06/06/17 05:30 MCHC 33.7 g/dl (31.0-37.0) 06/06/17 05:30 RDW 13.7 % (11.5-14.5) 06/06/17 05:30 Plt Count 158 10^3/uL (120.0-450.0) 06/06/17 05:30 MPV 10.2 fl (7.0-11.0) 06/06/17 05:30 Gran % 56.1 % (50.0-68.0) 06/06/17 05:30 Lymph % (Auto) 32.5 % (22.0-35.0) 06/06/17 05:30 Woods % (Auto) 7.5 % (1.0-6.0) H 06/06/17 05:30 Eos % (Auto) 3.9 % (1.5-5.0) 06/06/17 05:30 Baso % (Auto) 0.0 % (0.0-3.0) 06/06/17 05:30 Gran # 3.12 (1.4-6.5) 06/06/17 05:30 Lymph # 1.8 (1.2-3.4) 06/06/17 05:30 Woods # 0.4 (0.1-0.6) 06/06/17 05:30 Eos # 0.2 (0.0-0.7) 06/06/17 05:30 Baso # 0.00 K/mm3 (0.0-2.0) 06/06/17 05:30 PT 12.3 SECONDS (9.4-12.5) 06/05/17 14:11 INR 1.13 (0.93-1.08) H 06/05/17 14:11 APTT 34.0 Seconds (25.1-36.5) 06/05/17 14:11 Sodium 145 mmol/L (132-148) 06/07/17 08:30 Potassium 3.5 mmol/L (3.6-5.0) L 06/07/17 08:30 Chloride 106 mmol/L (98-107) 06/07/17 08:30 Carbon Dioxide 28 mmol/L (21-33) 06/07/17 08:30 Anion Gap 15 (10-20) 06/07/17 08:30 BUN 16 mg/dL (7-21) 06/07/17 08:30 Creatinine 1.8 mg/dL (0.8-1.5) H 06/07/17 08:30 Est GFR ( Amer) 46 06/07/17 08:30 Est GFR (Non-Af Amer) 38 06/07/17 08:30 Random Glucose 106 mg/dL (70-110) 06/07/17 08:30 Calcium 9.5 mg/dL (8.4-10.5) 06/07/17 08:30 Phosphorus 3.1 mg/dL (2.5-4.5) 06/07/17 08:30 Magnesium 1.8 mg/dL (1.7-2.2) 06/07/17 08:30 Total Bilirubin 1.0 mg/dL (0.2-1.3) 06/07/17 08:30 Direct Bilirubin 0.4 mg/dL (0.0-0.4) 06/05/17 14:11 AST 22 U/L (17-59) 06/07/17 08:30 ALT 35 U/L (7-56) 06/07/17 08:30 Alkaline Phosphatase 58 U/L (38-126) 06/07/17 08:30 Lactate Dehydrogenase 562 U/L (333-699) 06/05/17 14:11 Total Creatine Kinase 325 U/L (35-230) H 06/05/17 14:11 CK-MB (CK-2) 3.4 ng/mL (0.0-3.6) 06/05/17 14:11 CK-MB (CK-2) % Cancelled 06/05/17 14:11 Troponin I 0.06 ng/mL 06/06/17 05:30 NT-Pro-B Natriuret Pep 5280 pg/mL (0-450) H 06/05/17 14:11 Total Protein 7.3 g/dL (5.8-8.3) 06/07/17 08:30 Albumin 4.1 g/dL (3.0-4.8) 06/07/17 08:30 Globulin 3.2 gm/dL 06/07/17 08:30 Albumin/Globulin Ratio 1.3 (1.1-1.8) 06/07/17 08:30 Triglycerides 74 mg/dL (35-160) 06/06/17 05:30 Cholesterol 138 mg/dL (130-200) 06/06/17 05:30 LDL Cholesterol Direct 82 mg/dL (0-129) 06/06/17 05:30 HDL Cholesterol 42 mg/dL (29-60) 06/06/17 05:30 Lipase 23 U/L (23-300) 06/05/17 14:11 Urine Color Yellow (YELLOW) 06/05/17 16:00 Urine Appearance Clear (CLEAR) 06/05/17 16:00 Urine pH 6.0 (4.7-8.0) 06/05/17 16:00 Ur Specific [place] 1.015 (1.005-1.035) 06/05/17 16:00 Urine Protein Trace mg/dL (<30 mg/dL) H 06/05/17 16:00 Urine Glucose (UA) Negative mg/dL (NEGATIVE) 06/05/17 16:00 Urine Ketones Negative mg/dL (NEGATIVE) 06/05/17 16:00 Urine Blood Negative (NEGATIVE) 06/05/17 16:00 Urine Nitrate Negative (NEGATIVE) 06/05/17 16:00 Urine Bilirubin Negative (NEGATIVE) 06/05/17 16:00 Urine Urobilinogen 0.2 E.U./dL (<1 E.U./dL) 06/05/17 16:00 Ur Leukocyte Esterase Small Tim/uL (NEGATIVE) H 06/05/17 16:00 Urine RBC Negative /hpf (0-2) 06/05/17 16:00 Urine WBC 1 - 3 /hpf (0-6) 06/05/17 16:00 Ur Epithelial Cells 1 - 3 /hpf (0-5) 06/05/17 16:00 Urine Bacteria Few (NEG) 06/05/17 16:00 Urine Opiates Screen Positive (NEGATIVE) H 06/05/17 16:00 Urine Methadone Screen Negative (NEGATIVE) 06/05/17 16:00 Ur Barbiturates Screen Negative (NEGATIVE) 06/05/17 16:00 Ur Phencyclidine Scrn Negative (NEGATIVE) 06/05/17 16:00 Ur Amphetamines Screen Negative (NEGATIVE) 06/05/17 16:00 U Benzodiazepines Scrn Positive (NEGATIVE) H 06/05/17 16:00 U Oth Cocaine Metabols Positive (NEGATIVE) H 06/05/17 16:00 U Cannabinoids Screen Negative (NEGATIVE) 06/05/17 16:00 - Hospital Course Hospital Course: 61 year old male with past medical history of hypertension, CHF and substance abuse (admits to recent cocaine use) who presented with complaint of chest pain and shortness of breath. CXR showed mild congestion with elevated probnp. Troponins are indeterminant at 0.06. Symptoms are improved with iv lasix. Echocardiogram showed decreased ejection fraction at 24-30% similar to previous Echo. Lower extremeity dopplers were negative for DVT, and Electrocardiogram shows no acute changes. Cardiology was consulted during visit. Patient improved during hospital stay and is able to ambulate without shortness of breath. Patient was counselled on medication compliance and on risks of continued substance abuse. He was counselled on smoking cessation. Counselled patient cessation of cocaine use and told patient about the risks of using betablocker and cocaine. Patient discharged in stable condition. Discharge Exam - Head Exam Head Exam: ATRAUMATIC - Eye Exam Eye Exam: EOMI. absent: Scleral icterus - ENT Exam ENT Exam: Mucous Membranes Dry - Respiratory Exam Respiratory Exam: Clear to PA & Lateral, NORMAL BREATHING PATTERN. absent: Accessory Muscle Use, Decreased Breath Sounds, Rales, Wheezes, Respiratory Distress - Cardiovascular Exam Cardiovascular Exam: +S1, +S2. absent: Bradycardia, Tachycardia, Gallop, Rubs - GI/Abdominal Exam GI & Abdominal Exam: Normal Bowel Sounds, Soft. absent: Distended, Firm, Tenderness - Extremities Exam Extremities exam: normal inspection - Neurological Exam Neurological exam: Alert, Oriented x3 - Skin Skin Exam: Dry, Normal Color Discharge Plan - Discharge Medications Prescriptions: Atorvastatin [Lipitor] 10 mg PO DIN 10 Days tab - Follow Up Plan Condition: FAIR Disposition: HOME/ ROUTINE Additional Instructions: Follow up with your pain management doctor. Recommend cessation of cocaine use and high risk of using beta teri with cocaine. Follow up with primary care doctor in one to two weeks. if symptoms get worse or new symptoms arise go the the emergency department. <Demar Gentile - Last Filed: 06/07/17 15:49> Provider - Provider Date of Admission: 06/06/17 16:15 Attending physician: Demar Gentile MD Hospital Course - Lab Results Lab Results: Most Recent Lab Values WBC 5.6 10^3/ul (4.5-11.0) 06/06/17 05:30 RBC 3.64 10^6/uL (3.5-6.1) 06/06/17 05:30 Hgb 11.5 g/dL (14.0-18.0) L 06/06/17 05:30 Hct 34.1 % (42.0-52.0) L 06/06/17 05:30 MCV 93.7 fl (80.0-105.0) 06/06/17 05:30 MCH 31.6 pg (25.0-35.0) 06/06/17 05:30 MCHC 33.7 g/dl (31.0-37.0) 06/06/17 05:30 RDW 13.7 % (11.5-14.5) 06/06/17 05:30 Plt Count 158 10^3/uL (120.0-450.0) 06/06/17 05:30 MPV 10.2 fl (7.0-11.0) 06/06/17 05:30 Gran % 56.1 % (50.0-68.0) 06/06/17 05:30 Lymph % (Auto) 32.5 % (22.0-35.0) 06/06/17 05:30 Woods % (Auto) 7.5 % (1.0-6.0) H 06/06/17 05:30 Eos % (Auto) 3.9 % (1.5-5.0) 06/06/17 05:30 Baso % (Auto) 0.0 % (0.0-3.0) 06/06/17 05:30 Gran # 3.12 (1.4-6.5) 06/06/17 05:30 Lymph # 1.8 (1.2-3.4) 06/06/17 05:30 Woods # 0.4 (0.1-0.6) 06/06/17 05:30 Eos # 0.2 (0.0-0.7) 06/06/17 05:30 Baso # 0.00 K/mm3 (0.0-2.0) 06/06/17 05:30 PT 12.3 SECONDS (9.4-12.5) 06/05/17 14:11 INR 1.13 (0.93-1.08) H 06/05/17 14:11 APTT 34.0 Seconds (25.1-36.5) 06/05/17 14:11 Sodium 145 mmol/L (132-148) 06/07/17 08:30 Potassium 3.5 mmol/L (3.6-5.0) L 06/07/17 08:30 Chloride 106 mmol/L (98-107) 06/07/17 08:30 Carbon Dioxide 28 mmol/L (21-33) 06/07/17 08:30 Anion Gap 15 (10-20) 06/07/17 08:30 BUN 16 mg/dL (7-21) 06/07/17 08:30 Creatinine 1.8 mg/dL (0.8-1.5) H 06/07/17 08:30 Est GFR ( Amer) 46 06/07/17 08:30 Est GFR (Non-Af Amer) 38 06/07/17 08:30 Random Glucose 106 mg/dL (70-110) 06/07/17 08:30 Calcium 9.5 mg/dL (8.4-10.5) 06/07/17 08:30 Phosphorus 3.1 mg/dL (2.5-4.5) 06/07/17 08:30 Magnesium 1.8 mg/dL (1.7-2.2) 06/07/17 08:30 Total Bilirubin 1.0 mg/dL (0.2-1.3) 06/07/17 08:30 Direct Bilirubin 0.4 mg/dL (0.0-0.4) 06/05/17 14:11 AST 22 U/L (17-59) 06/07/17 08:30 ALT 35 U/L (7-56) 06/07/17 08:30 Alkaline Phosphatase 58 U/L (38-126) 06/07/17 08:30 Lactate Dehydrogenase 562 U/L (333-699) 06/05/17 14:11 Total Creatine Kinase 325 U/L (35-230) H 06/05/17 14:11 CK-MB (CK-2) 3.4 ng/mL (0.0-3.6) 06/05/17 14:11 CK-MB (CK-2) % Cancelled 06/05/17 14:11 Troponin I 0.06 ng/mL 06/06/17 05:30 NT-Pro-B Natriuret Pep 5280 pg/mL (0-450) H 06/05/17 14:11 Total Protein 7.3 g/dL (5.8-8.3) 06/07/17 08:30 Albumin 4.1 g/dL (3.0-4.8) 06/07/17 08:30 Globulin 3.2 gm/dL 06/07/17 08:30 Albumin/Globulin Ratio 1.3 (1.1-1.8) 06/07/17 08:30 Triglycerides 74 mg/dL (35-160) 06/06/17 05:30 Cholesterol 138 mg/dL (130-200) 06/06/17 05:30 LDL Cholesterol Direct 82 mg/dL (0-129) 06/06/17 05:30 HDL Cholesterol 42 mg/dL (29-60) 06/06/17 05:30 Lipase 23 U/L (23-300) 06/05/17 14:11 Urine Color Yellow (YELLOW) 06/05/17 16:00 Urine Appearance Clear (CLEAR) 06/05/17 16:00 Urine pH 6.0 (4.7-8.0) 06/05/17 16:00 Ur Specific [place] 1.015 (1.005-1.035) 06/05/17 16:00 Urine Protein Trace mg/dL (<30 mg/dL) H 06/05/17 16:00 Urine Glucose (UA) Negative mg/dL (NEGATIVE) 06/05/17 16:00 Urine Ketones Negative mg/dL (NEGATIVE) 06/05/17 16:00 Urine Blood Negative (NEGATIVE) 06/05/17 16:00 Urine Nitrate Negative (NEGATIVE) 06/05/17 16:00 Urine Bilirubin Negative (NEGATIVE) 06/05/17 16:00 Urine Urobilinogen 0.2 E.U./dL (<1 E.U./dL) 06/05/17 16:00 Ur Leukocyte Esterase Small Tim/uL (NEGATIVE) H 06/05/17 16:00 Urine RBC Negative /hpf (0-2) 06/05/17 16:00 Urine WBC 1 - 3 /hpf (0-6) 06/05/17 16:00 Ur Epithelial Cells 1 - 3 /hpf (0-5) 06/05/17 16:00 Urine Bacteria Few (NEG) 06/05/17 16:00 Urine Opiates Screen Positive (NEGATIVE) H 06/05/17 16:00 Urine Methadone Screen Negative (NEGATIVE) 06/05/17 16:00 Ur Barbiturates Screen Negative (NEGATIVE) 06/05/17 16:00 Ur Phencyclidine Scrn Negative (NEGATIVE) 06/05/17 16:00 Ur Amphetamines Screen Negative (NEGATIVE) 06/05/17 16:00 U Benzodiazepines Scrn Positive (NEGATIVE) H 06/05/17 16:00 U Oth Cocaine Metabols Positive (NEGATIVE) H 06/05/17 16:00 U Cannabinoids Screen Negative (NEGATIVE) 06/05/17 16:00 Attending/Attestation - Attestation I have personally seen and examined this patient.: Yes I have fully participated in the care of the patient.: Yes I have reviewed all pertinent clinical information, including history, physical exam and plan: Yes Notes (Text): 06/07/17 15:14 61 year old male with past medical history of hypertension, CHF and substance ( cocaine) abuse who presented with complaint of chest pain and shortness of breath. He was admitted for CHF exacerbation. Symptoms improved with iv lasix. He was seen by cardiology. He was counselled on risks of continued substance abuse. Counselled on risks of narcotic abuse. Counselled on risks of concominant cocaine and BB use. Counselled on smoking cessation. Overall patient's symptoms have improved. He is discharged home to follow up with his pmd. Monitor creatinine closely as outpatient and resume ARB per pmd if creatinine improves. Demar Gentile MD Hospitalist.
== END 2017-06-07 17:00 | disposition home or self-care (01) | DRG 293 ==
LOC: ED 14:18 → ERH 16:11 → 2RNO 17:33 → OBSVTOIN 06-06 16:15
PROVIDERS: ADMIT Internal Medicine; ATTEND Internal Medicine
DX: I13.0 Hypertensive heart and chronic kidney disease with heart failure and stage 1 through stage 4 chronic kidney disease, or unspecified chronic kidney disease (principal); I50.9 Heart failure, unspecified; I42.0 Dilated cardiomyopathy; N18.9 Chronic kidney disease, unspecified; F14.10 Cocaine abuse, uncomplicated; F13.10 Sedative, hypnotic or anxiolytic abuse, uncomplicated; F17.200 Nicotine dependence, unspecified, uncomplicated; E78.5 Hyperlipidemia, unspecified; R07.1 Chest pain on breathing; D64.9 Anemia, unspecified; J44.9 Chronic obstructive pulmonary disease, unspecified; Z86.010 Personal history of colon polyps; Z91.19 Patient's noncompliance with other medical treatment and regimen

== ENCOUNTER 2017-09-20 09:40 | Inpatient (IN) | payer MEDICARE, OTHER ==
--- NOTE | 2017-09-20 10:08 | ED PDOC ---
Arrival/HPI - General Time Seen by Provider: 09/20/17 09:44 Historian: Patient - History of Present Illness Narrative History of Present Illness (Text): 09/20/17 10:04 61 year old male, whose past medical history includes hypertension, arthritis and chronic back pain, presents to the Emergency department for possible substance abuse today. Patient was driving erratically when pulled over by the police. Police believes the patient is under the influence and requests medical evaluation. Patient currently denies any somatic complaints. Patient denies any fever, chills, nausea, vomiting, abdominal pain, diarrhea, chest pain, shortness of breath or any other complaints. Patient has a history of opiod abuse. 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 Past Medical History - Provider Review Nursing Documentation Reviewed: Yes - Infectious Disease Hx of Infectious Diseases: None - Tetanus Immunization Tetanus Immunization: Unknown - Cardiac Hx Congestive Heart Failure: Yes Hx Hypertension: Yes Hx Peripheral Edema: Yes (+1 pitting edema ble) - Pulmonary Hx Chronic Obstructive Pulmonary Disease (COPD): Yes (dyspnea) - Neurological Hx Seizures: No - HEENT Hx HEENT Disorder: No - Renal Hx Renal Disorder: No - Endocrine/Metabolic Hx Endocrine Disorders: No - Hematological/Oncological Hx Cancer: No - Integumentary Other/Comment: r ankle deformity from fx - Musculoskeletal/Rheumatological Hx Arthritis: Yes (knees hands) Hx Fractures: Yes (ANKLE FX,) - Gastrointestinal Hx Gastrointestinal Disorders: Yes Other/Comment[place] [facility] [place] - Genitourinary/Gynecological Hx Sexually Transmitted Diseases: No - Psychiatric Hx Substance Use: Yes - Surgical History Hx Orthopedic Surgery: Yes (back / L knee) Other/Comment: 4 back sx's fusion, plate and alen inserted, plate and alen removed , and another sx after that pt uncertain what was done, from work related injury , left ankle/ft fx orif with plate and screws, hardware was removed happened years ago not work related - Anesthesia Hx Anesthesia: Yes Hx Anesthesia Reactions: No Hx Malignant Hyperthermia: No - Suicidal Assessment Feels Threatened In Home Enviroment: No Family/Social History - Physician Review Nursing Documentation Reviewed: Yes Family/Social History: No Known Family HX Smoking Status: Former Smoker Hx Alcohol Use: No Hx Substance Use: Yes Hx Substance Use Treatment: No Allergies/Home Meds Allergies/Adverse Reactions: Allergies No Known Allergies Allergy (Verified 09/20/17 16:52) Home Medications: Home Meds Medication Instructions Recorded Confirmed Furosemide [Lasix] 20 mg PO DAILY 09/20/17 09/20/17 Pantoprazole Sodium [Protonix] 40 mg PO DAILY 09/20/17 09/20/17 Valsartan [Diovan] 160 mg PO DAILY 09/20/17 09/20/17 Zolpidem [Ambien] 10 mg PO HS 09/20/17 09/20/17 oxyCODONE [oxyCODONE Immediate 15 mg PO 5XD PRN 09/20/17 09/20/17 Release Tab] Review of Systems - Physician Review All systems were reviewed & negative as marked: Yes - Review of Systems Constitutional: Normal. absent: Fevers Eyes: Normal ENT: Normal Respiratory: Normal. absent: SOB Cardiovascular: Normal. absent: Chest Pain Gastrointestinal: Normal. absent: Abdominal Pain, Diarrhea, Nausea, Vomiting Genitourinary Male: Normal Musculoskeletal: Normal Skin: Normal Neurological: Normal Endocrine: Normal Hemo/Lymphatic: Normal Psychiatric: Normal Physical Exam Vital Signs Reviewed: Yes Vital Signs Temp Pulse Resp BP Pulse Ox 09/20/17 22:45 89 17 101/79 98 09/20/17 22:40 86 09/20/17 19:30 84 17 124/60 100 09/20/17 19:05 98.8 F 80 16 105/69 09/20/17 18:33 126/62 09/20/17 15:10 80 16 105/69 100 09/20/17 13:09 77 18 115/73 97 09/20/17 11:30 86 18 115/74 96 09/20/17 10:01 98.8 F 91 H 18 117/87 96 Temperature: Afebrile Blood Pressure: Normal Pulse: Regular Respiratory Rate: Normal Appearance: Positive for: Comfortable, Other (pinpoint pupils) Pain Distress: None Mental Status: Positive for: Alert and Oriented X 3 Finger Stick Blood Glucose: 126 - Systems Exam Head: Present: Atraumatic, Normocephalic Pupils: Present: Pinpoint Extroacular Muscles: Present: EOMI Conjunctiva: Present: Normal Mouth: Present: Moist Mucous Membranes Neck: Present: Normal Range of Motion Respiratory/Chest: Present: Clear to Auscultation, Good Air Exchange. No: Respiratory Distress, Accessory Muscle Use Cardiovascular: Present: Regular Rate and Rhythm, Normal S1, S2. No: Murmurs Abdomen: Present: Normal Bowel Sounds. No: Tenderness, Distention, Peritoneal Signs Back: Present: Normal Inspection Upper Extremity: Present: Normal Inspection. No: Cyanosis, Edema Lower Extremity: Present: Normal Inspection. No: Edema Neurological: Present: GCS=15, CN II-XII Intact, Speech Normal Skin: Present: Warm, Dry, Normal Color. No: Rashes Psychiatric: Present: Alert, Oriented x 3, Normal Insight, Normal Concentration Medical Decision Making ED Course and Treatment: 09/20/17 10:10 Impression: 61 year old male presents to the Emergency department for possible opiod abuse. pt somulent, easily arousable pinpoint pupuls no bradypnea, no indication for narcan. labs pending Plan: -- Labs -- Urinalysis -- Reassess and disposition Progress Notes: 09/20/17 10:10 EKG: Ordered, reviewed, and independently interpreted the EKG. Rate : 95 BPM Rhythm : NSR Interpretation : No ST-segment elevations or depressions, no T-wave inversions, normal intervals. 09/20/17 14:25 pt noted to have acute hyperkalemia, no ekg changes noted increased cr. pt of dr barron, accpeted by hospitalist. remains somulent, howver easily arousable in er. stable for tele. admitted for silvina with hyperkalemia. 09/24/17 11:36 - Lab Interpretations Lab Results: 09/20/17 10:20 09/20/17 10:20 Lab Results 09/20/17 10:20: Alcohol, Quantitative < 10 09/20/17 10:20: Salicylates < 1 L, Acetaminophen < 10.0 L 09/20/17 10:20: Sodium 143, Potassium 6.2 H* D, Chloride 108 H, Carbon Dioxide 19 L, Anion Gap 22 H, BUN 49 H, Creatinine 2.9 H, Est GFR ( Amer) 27, Est GFR (Non-Af Amer) 22, Random Glucose 122 H, Calcium 9.8, Total Bilirubin 0.4 , AST 105 H D, ALT 50, Alkaline Phosphatase 45, Total Protein 7.5, Albumin 4.2, Globulin 3.3, Albumin/Globulin Ratio 1.3 09/20/17 10:20: WBC 6.9 D, RBC 3.89, Hgb 12.6 L, Hct 38.6 L, MCV 99.2 D, MCH 32.4, MCHC 32.6, RDW 15.6 H, Plt Count 198, MPV 10.4, Gran % 66.9, Lymph % (Auto ) 24.0, [place] % (Auto) 8.6 H, Eos % (Auto) 0.4 L, Baso % (Auto) 0.1, Gran # 4.60 , Lymph # (Auto) 1.7, [place] # (Auto) 0.6, Eos # (Auto) 0.0, Baso # (Auto) 0.01 09/20/17 09:58: POC Glucose (mg/dL) 126 H - Medication Orders Current Medication Orders: Discontinued Medications Acetylcysteine (Acetylcysteine 20%) 6 ml PO STAT STA Stop: 09/20/17 15:34 Last Admin: 09/20/17 16:04 Dose: Acetylcysteine (Acetylcysteine 20%) 6 ml PO Q12H SHAMAR Stop: 09/21/17 20:31 Acetylcysteine (Acetylcysteine 20%) 6 ml PO 0600,1800 SHAMAR Stop: 09/22/17 06:01 Acetylcysteine (Acetylcysteine 20%) 6 ml PO 0600,1800 SHAMAR Stop: 09/22/17 06:01 Last Admin: 09/21/17 17:42 Dose: 6 ml Albuterol Sulfate (Albuterol 0.5% Inhal Vikki (2.5 Mg/0.5 Ml) Ud) 2.5 mg IH STAT STA Stop: 09/20/17 12:09 Last Admin: 09/20/17 15:00 Dose: 2.5 mg Aspirin (Aspirin) 325 mg PO STAT STA Stop: 09/20/17 16:19 Last Admin: 09/20/17 17:38 Dose: 325 mg Benzocaine/Menthol (Cepacol Sore Throat) 1 ramos MT Q2H PRN PRN Reason: Sore Throat Last Admin: 09/23/17 13:08 Dose: 1 ramos Carvedilol (Coreg) 3.125 mg PO BID SHAMAR Dextrose (Dextrose 50% Inj) 50 ml IVP STAT STA Stop: 09/20/17 11:11 Last Admin: 09/20/17 11:49 Dose: 50 ml IVP Administration Document 09/20/17 11:49 [facility] [place]: 09/20/17 11:49 [facility] [id number] Charges for Administration # of IVP Administrations 1 Furosemide (Lasix) 40 mg IVP STAT STA Stop: 09/20/17 18:11 Last Admin: 09/20/17 18:33 Dose: 40 mg MAR Blood Pressure Document 09/20/17 18:33 JJ (Rec: 09/20/17 18:35 [email or web address] Blood Pressure Blood Pressure (100/60-150/90) 126/62 IVP Administration Document 09/20/17 18:33 J (Rec: 09/20/17 18:35 [email or web address]) Charges for Administration # of IVP Administrations 1 Heparin Sodium (Porcine) (Heparin) 5,000 units SC Q8 [facility] PRN Reason: Protocol Last Admin: 09/23/17 15:26 Dose: Not Given Non-Admin Reason: Patient Refused Sodium Chloride (Sodium Chloride 0.9%) 1,000 mls @ 100 mls/hr IV .Q10H [facility] Last Admin: 09/21/17 01:30 Dose: 100 mls/hr eMAR Start Stop Document 09/21/17 01:30 SGG (Rec: 09/21/17 03:39 SGG [id number]) Intravenous Solution Start Date 09/21/17 Start Time 01:30 Sodium Chloride (Sodium Chloride 0.9%) 500 mls @ 500 mls/hr IV .Q1H [facility] Last Admin: 09/20/17 23:03 Dose: Sodium Chloride (Sodium Chloride 0.9%) 1,000 mls @ 50 mls/hr IV .Q20H [facility] Last Admin: 09/22/17 09:43 Dose: 50 mls/hr eMAR Start Stop Document 09/22/17 09:43 KL (Rec: 09/22/17 09:43 KL [id number]) Intravenous Solution Start Date 09/22/17 Start Time 09:43 Sodium Chloride (Sodium Chloride 0.9%) 1,000 mls @ 100 mls/hr IV .Q10H [facility] Last Admin: 09/22/17 17:59 Dose: 100 mls/hr eMAR Start Stop Document 09/22/17 17:59 KL (Rec: 09/22/17 17:59 [id number]) Intravenous Solution Start Date 09/22/17 Start Time 17:59 Dobutamine HCl/Dextrose (Dobutamine/Dextrose 5% 500mg/250ml) 500 mg in 250 mls @ 13.479 mls/hr IVPB .[id number] PRN; 5 MCG/KG/MIN PRN Reason: CMP Last Admin: 09/23/17 12:07 Dose: 13.479 mls/hr eMAR Start Stop Document 09/23/17 12:07 FG (Rec: 09/23/17 12:10 FG [id number]) Intravenous Solution Start Date 09/23/17 Start Time 12:09 MAR Pulse and Blood Pressure Document 09/23/17 12:07 FG (Rec: 09/23/17 12:10 FG [id number]) Pulse Pulse Rate (60-90) 87 Blood Pressure Blood Pressure (100/60-150/90) 161/99 Insulin Human Regular (Humulin R) 5 units IV STAT STA Stop: 09/20/17 11:11 Last Admin: 09/20/17 11:49 Dose: 5 units eMAR Start Stop Document 09/20/17 11:49 [facility] (Rec: 09/20/17 11:51 LM [id number]) Intravenous Solution Start Date 09/20/17 Start Time 11:49 End Date 09/20/17 End time 11:52 Total Infusion Time 3 MAR Blood Glucose Document 09/20/17 11:49 [facility] (Rec: 09/20/17 11:51 [facility] [id number]) Blood Glucose Finger Stick Blood Glucose (70-120) 190 Pantoprazole Sodium (Protonix Inj) 40 mg IVP DAILY [facility] Last Admin: 09/22/17 09:41 Dose: 40 mg IVP Administration Document 09/22/17 09:41 (Rec: 09/22/17 09:42 [id number]) Charges for Administration # of IVP Administrations 1 Pantoprazole Sodium (Protonix Ec Tab) 40 mg PO 0600 [facility] Last Admin: 09/23/17 05:33 Dose: 40 mg Pneumococcal Polyvalent Vaccine (Pneumovax 23 Vaccine) 0.5 ml IM .ONCE ONE Stop: 09/20/17 19:16 Sodium Polystyrene Sulfonate (Kayexalate Susp) 15 gm PO STAT STA Stop: 09/20/17 12:09 Last Admin: 09/20/17 16:00 Dose: 15 gm Sodium Polystyrene Sulfonate (Kayexalate Susp) 30 gm PO STAT STA Stop: 09/20/17 17:44 Last Admin: 09/20/17 18:32 Dose: 30 gm NIHSS Scale ([place]) Time Performed: 16:55 - How Severe is the Stoke Baseline Level of Consciousness: 0=Alert LOC to Questions: 0=Both comments correct LOC to commands: 0=Obeys both correctly Best Gaze: 0=Normal Visual: 0=No visual loss Facial: 0=Normal Motor Arm - Left: 0=No drift Motor Arm - Right: 0=No drift Motor Leg - Left: 0=No drift Motor Leg - Right: 0=No drift Limb Ataxia: 0=Absent Sensory: 0=Normal Best Language: 0=No aphasia Dysarthia: 0=Normal articulation Extinction & Inattention (Neglect): 0=Normal, no object Score: 0 Risk Level: No Stroke Risk rTPA Inclusion/Exclusion - Refusal of Treatment Patient Refused Treatment: No - Inclusion Criteria for Altepase Patient is 18 years or Older: Yes The Clinical Diagnosis of Ischemic Stroke That is Causing a Potentially Disabling Neurological Deficit: No Time of Onset is Well Established to be Less Than 270 Minute Before Treatment Would Begin: No Risk/Benefit Discussed With Patient/Family Member Present: No - Scribe Statement The provider has reviewed the documentation as recorded by the Scribe Jen Moraes. All medical record entries made by the Scribe were at my direction and personally dictated by me. I have reviewed the chart and agree that the record accurately reflects my personal performance of the history, physical exam, medical decision making, and the department course for this patient. I have also personally directed, reviewed, and agree with the discharge instructions and disposition. Disposition/Present on Arrival - Present on Arrival Any Indicators Present on Arrival: No History of DVT/PE: No History of Uncontrolled Diabetes: No Urinary Catheter: No History Surgical Site Infection Following: None - Disposition Have Diagnosis and Disposition been Completed?: Yes Diagnosis: SILVINA (acute kidney injury), Hyperkalemia, Substance abuse Disposition: HOSPITALIZED Disposition Time: 12:00 Condition: STABLE
[2017-09-20 10:43] LABS: BASO # 0.01 K/mm3 (0.0-2.0); BASO % 0.1 % (0.0-3.0); EOS % 0.4 % (1.5-5.0); GRAN # 4.6 (1.4-6.5); GRAN % 66.9 % (50.0-68.0); HEMOGLOBIN 12.6 g/dL (14.0-18.0); LYMPH # 1.7 (1.2-3.4); MEAN CELL VOLUME 99.2 fl (80.0-105.0); MEAN CORPUSCULAR HEMOGLOBIN 32.4 pg (25.0-35.0); MEAN CORPUSCULAR HGB CONC 32.6 g/dl (31.0-37.0); MEAN PLATELET VOLUME 10.4 fl (7.0-11.0); MONO # 0.6 (0.1-0.6); MONO % 8.6 % (1.0-6.0); RBC 3.89 10^6/uL (3.5-6.1); RED CELL DISTRIBUTION WIDTH 15.6 % (11.5-14.5); WHITE BLOOD COUNT 6.9 10^3/ul (4.5-11.0)
[2017-09-20 10:57] LABS: ACETAMINOPHEN < 10.0 ug/ml (10.0-20.0); SALICYLATE < 1 mg/dL (2.0-20.0)
[2017-09-20 11:08] LABS: ALB/GLOB RATIO 1.3 (1.1-1.8); ALBUMIN 4.2 g/dL (3.0-4.8); CALCIUM 9.8 mg/dL (8.4-10.5)
[2017-09-20] MEDS ORDERED: Insulin Regular 1 UNITS/0.01 ML ML IV STA (11:10)
[2017-09-20] MEDS ORDERED: Dextrose 50% SYRINGE Inj (50 ml) IVP STA (11:10)
[2017-09-20] MEDS ORDERED: Albuterol 0.5% Inhal Sol (2.5 mg/0.5 ml) UD IH STA (12:08)
[2017-09-20 12:19] VITALS: BMI 31.8
[2017-09-20 12:20] LABS: ARTERIAL BLOOD GAS HCO3 21.2 mmol/L (21-28); ARTERIAL BLOOD GAS HEMOGLOBIN 11.5 g/dL (11.7-17.4); ARTERIAL BLOOD GAS O2 CAPACITY 15.7 mL/dl (16-24); ARTERIAL BLOOD GAS O2 CONTENT 15.5 ML/dl (15-23); ARTERIAL BLOOD GAS O2 SAT 98.8 % (95-98); ARTERIAL BLOOD GAS PCO2 44 mm/Hg (35-45); ARTERIAL BLOOD GAS PH 7.29 (7.35-7.45); ARTERIAL BLOOD GAS TCO2 22.6 mmol.L (22-28)
[2017-09-20] MEDS: Sod Polystyrene Sulf 15 gm/60 ml Susp PO STA ×2 (12:30→16:00)
--- NOTE | 2017-09-20 13:47 | CP.PCM.HP ---
Addendum entered and electronically signed by Clover Baptiste DO 09/20/17 15:33 : CT head report read as interval acute or subacute left parietal infarct. Patient upgraded to ICU for closer monitoring and frequent neurochecks. Consulted neurology. Original Note: <Clover Baptiste - Last Filed: 09/20/17 13:41> History of Present Illness - History of Present Illness History of Present Illness: Clover Baptiste DO PGY1 - IM H&P CC: altered mental status HPI: 61 yo M with PMH of HTN, HLD, Dilated CM with EF 29% (last echo on record ), narcotic dependence, cocaine use, (obtained from chart review) who presents brought by police after being found driving erratically. Patient is lethargic, though easily arousable, seems somewhat confused. Patient is not aware of how he got to the hospital, and was unable to provide me details of the preceding events. He has no particular complaints, though does admit to bilateral thigh pain upon inquiry. Patient reports last using heroin 8 months ago. Patient unable to report how much oxycodone he has taken today or any of his other medications. Remainder of history obtained from chart review 12 point ROS was obtained and was negative, except as in HPI, though due to patient's current mental status, ROS was unreliable. PMH: As above PSH: 4 back surgeries (unspecified), ankle and foot surgery with ORIF and plate/ screws placement, later removal of plate and screws (unspecified reason for removal) SHx: Admits cigarettes (currently 1/2 ppd x2-3 months, previously 1.5-2ppd, total time ~20 yrs), denies alcohol, admits to illicits (heroin) but denies ever IVDA, last used 8 months ago. FHx: HTN (mother) Home Meds:Oxycodone 15mg 5x daily PRN, Ambien 10mg nightly, Mobic 15mg daily, Diovan 80mg daily, Lopressor 25mg BID, Lasix 20mg daily, Protonix 40mg daily PMD: Dr. Ireland Cardio: Dr. Newberry Pain Management: Dr. Hinojosa (pain management in [place]) Pharmacy: [facility] Present on Admission - Present on Admission Any Indicators Present on Admission: No Past Patient History - Infectious Disease Hx of Infectious Diseases: None - Tetanus Immunizations Tetanus Immunization: Unknown - Past Medical History & Family History Past Medical History?: Yes - Past Social History Smoking Status: Former Smoker - CARDIAC Hx Congestive Heart Failure: Yes Hx Hypertension: Yes Hx Peripheral Edema: Yes (+1 pitting edema ble) - PULMONARY Hx Chronic Obstructive Pulmonary Disease (COPD): Yes (dyspnea) - NEUROLOGICAL Hx Seizures: No - HEENT Hx HEENT Problems: No - RENAL Hx Chronic Kidney Disease: No - ENDOCRINE/METABOLIC Hx Endocrine Disorders: No - HEMATOLOGICAL/ONCOLOGICAL Hx Cancer: No - INTEGUMENTARY Other/Comment: r ankle deformity from fx - MUSCULOSKELETAL/RHEUMATOLOGICAL Hx Arthritis: Yes (knees hands) Hx Fractures: Yes (ANKLE FX,) - GASTROINTESTINAL Hx Gastrointestinal Disorders: Yes Other/Comment[place] [facility] [place] - GENITOURINARY/GYNECOLOGICAL Hx Sexually Transmitted Disorders: No - PSYCHIATRIC Hx Substance Use: Yes - SURGICAL HISTORY Hx Orthopedic Surgery: Yes (back / L knee) Other/Comment: 4 back sx's fusion, plate and alen inserted, plate and alen removed , and another sx after that pt uncertain what was done, from work related injury , left ankle/ft fx orif with plate and screws, hardware was removed happened years ago not work related - ANESTHESIA Hx Anesthesia: Yes Hx Anesthesia Reactions: No Hx Malignant Hyperthermia: No Meds Allergies/Adverse Reactions: Allergies Allergy/AdvReac Type Severity Reaction Status Date / Time No Known Allergies Allergy Verified 09/20/17 16:52 Physical Exam - Constitutional Appears: Non-toxic, No Acute Distress, Confused, Other (lethargic, easily arousable) - Head Exam Head Exam: ATRAUMATIC, NORMOCEPHALIC - Eye Exam Eye Exam: EOMI, Normal appearance Pupil Exam: Miosis - ENT Exam ENT Exam: Mucous Membranes Moist - Neck Exam Neck exam: Positive for: Normal Inspection - Respiratory Exam Respiratory Exam: Clear to Auscultation Bilateral, NORMAL BREATHING PATTERN - Cardiovascular Exam Cardiovascular Exam: RRR, +S1, +S2 - GI/Abdominal Exam GI & Abdominal Exam: Distended, Normal Bowel Sounds, Soft. absent: Tenderness Additional comments: Hyperresonant - Extremities Exam Extremities exam: Negative for: calf tenderness, pedal edema Additional comments: Mild bilateral thigh tenderness - Back Exam Back exam: CVA tenderness (L), CVA tenderness (R), NORMAL INSPECTION - Neurological Exam Additional comments: Patient is lethargic, poorly cooperating with exam. No obvious focal deficits. Moving bilateral upper extremities symmetrically, with 5/5 strength. Withdrawing to pain in bilateral lower extremities. Sensation intact throughout. CN II-XII grossly intact, but difficult to assess thoroughly - Psychiatric Exam Additional comments: Unable to assess - Skin Skin Exam: Dry, Intact, Normal Color Results - Vital Signs Recent Vital Signs: Last Vital Signs Temp 98.8 F 09/20/17 10:01 Pulse 77 09/20/17 13:09 Resp 18 09/20/17 13:09 BP 115/73 09/20/17 13:09 Pulse Ox 97 09/20/17 13:09 - Labs Result Diagrams: 09/20/17 10:20 09/20/17 10:20 Labs: Laboratory Results - last 24 hr 09/20/17 12:16 pCO2 44 pO2 94.0 HCO3 21.2 ABG pH 7.29 L ABG Total CO2 22.6 ABG O2 Saturation 98.8 H ABG O2 Content 15.5 ABG Base Excess -5.2 L ABG Hemoglobin 11.5 L ABG Carboxyhemoglobin 3.0 H POC ABG HHb (Measured) 1.2 ABG Methemoglobin 0.6 ABG O2 Capacity 15.7 L Hgb O2 Saturation 95.2 FiO2 21.0 Assessment & Plan - Assessment and Plan (Free Text) Assessment: 61 yo M with PMH of HTN, HLD, Dilated CM with EF 29% (last echo on record ), narcotic dependence, cocaine use brought to ER by police after being stopped for driving erratically. Patient is lethargic, with pinpoint and sluggish pupils, arousable, responding to questions appropriately. Also with SILVINA and hyperkalemia Altered mental status - Patient is lethargic, with pinpoint and sluggish pupils, arousable, responding to questions appropriately. - Likely 2/2 to opioid abuse vs overdose vs CVA vs metabolic encephalopathy ( uremia, hyperkalemia) - Ordered stat CT head - Alcohol level low; Ordered UDS - Start IVF NS @100cc/hr - Fall precautions - NPO; aspiration precautions - Neuro checks - Admit to telemetry for close monitoring SILVINA on CKD - Cr markedly elevated compared to baseline - Ordered urine studies to calculate FENa - Ordered CPK - Requested nephro consult; appreciate recs Hyperkalemia - Patient received D50 and insulin in the ER - Ordered albuterol and kayexalate - Ordered repeat BNP at 1415 - EKG unremarkable - Likely 2/2 renal failure vs rhabdomyolysis - Ordered CPK Metabolic acidosis - pH 7.29 with low bicarb and high/normal PCO2 - AG 16 - Likely 2/2 renal loss of bicarbonate vs hyperkalemia - Ordered lactate r/o lactic acidosis - Will likely improve with IVF administration h/o CHF - Patient had echocardiogram done on 05/2017 which showed global hypokinesis and LVEF 25-30% - Patient also had cardiac cath done 08/29/2017 which revealed diffuse atherosclerosis without any critical or physiologically significant stenosis; no stents placed - Hold all oral medications at this time - EKG unchanged from prior exams - CXR pending; clinically does not appear to be in acute CHF h/o HTN - BP stable - Hold oral antihypertensives at this time; monitor h/o HLD - Hold all oral medications at this time - Most recent lipid panel on record 05/2017, unremarkable GI/DVT Ppx: SCD's, IV Protonix Patient seen, discussed, and reviewed with attending Dr. Cabrera <Jesse Cabrera - Last Filed: 09/21/17 14:49> Results - Vital Signs Recent Vital Signs: Last Vital Signs Temp 98.3 F 09/21/17 12:00 Pulse 91 H 09/21/17 12:00 Resp 17 09/21/17 12:00 BP 122/79 09/21/17 12:00 Pulse Ox 94 L 09/21/17 06:00 - Labs Result Diagrams: 09/21/17 07:00 09/21/17 07:00 Labs: Laboratory Results - last 24 hr 09/20/17 09/20/17 09/20/17 15:20 15:20 15:45 WBC RBC Hgb Hct MCV MCH MCHC RDW Plt Count MPV Gran % Lymph % (Auto) [place] % (Auto) Eos % (Auto) Baso % (Auto) Gran # Lymph # (Auto) [place] # (Auto) Eos # (Auto) Baso # (Auto) Sodium 142 Potassium 6.2 H* Chloride 107 Carbon Dioxide 24 Anion Gap 17 BUN 48 H Creatinine 2.6 H Est GFR ( Amer) 30 Est GFR (Non-Af Amer) 25 Random Glucose 74 Lactic Acid 1.1 Calcium 9.5 Phosphorus Magnesium 2.0 Total Bilirubin AST ALT Alkaline Phosphatase Total Creatine Kinase 9183 H CK-MB (CK-2) 90.2 H CK-MB (CK-2) % 1.0 L Total Protein Albumin Globulin Albumin/Globulin Ratio Urine Color Yellow Urine Appearance Clear Urine pH 6.0 Ur Specific [place] 1.015 Urine Protein Negative Urine Glucose (UA) Negative Urine Ketones Negative Urine Blood Large H Urine Nitrate Negative Urine Bilirubin Negative Urine Urobilinogen 0.2 Ur Leukocyte Esterase Negative Urine RBC 1 - 3 Urine WBC 2 - 5 Ur Epithelial Cells 1 - 3 Urine Bacteria Many Hyaline Casts 0 - 2 Ur Random Creatinine Ur Random Sodium Ur Random Potassium Urine Microalbumin Urine Opiates Screen Urine Methadone Screen Ur Barbiturates Screen Ur Phencyclidine Scrn Ur Amphetamines Screen U Benzodiazepines Scrn U Oth Cocaine Metabols U Cannabinoids Screen 09/20/17 09/20/17 09/20/17 15:45 15:45 23:20 WBC RBC Hgb Hct MCV MCH MCHC RDW Plt Count MPV Gran % Lymph % (Auto) [place] % (Auto) Eos % (Auto) Baso % (Auto) Gran # Lymph # (Auto) [place] # (Auto) Eos # (Auto) Baso # (Auto) Sodium 143 Potassium 5.2 H Chloride 106 Carbon Dioxide 26 Anion Gap 17 BUN 45 H Creatinine 2.4 H Est GFR ( Amer) 33 Est GFR (Non-Af Amer) 28 Random Glucose 78 Lactic Acid Calcium 9.7 Phosphorus Magnesium Total Bilirubin AST ALT Alkaline Phosphatase Total Creatine Kinase CK-MB (CK-2) CK-MB (CK-2) % Total Protein Albumin Globulin Albumin/Globulin Ratio Urine Color Urine Appearance Urine pH Ur Specific [place] Urine Protein Urine Glucose (UA) Urine Ketones Urine Blood Urine Nitrate Urine Bilirubin Urine Urobilinogen Ur Leukocyte Esterase Urine RBC Urine WBC Ur Epithelial Cells Urine Bacteria Hyaline Casts Ur Random Creatinine 77 Ur Random Sodium 69 Ur Random Potassium 36.5 Urine Microalbumin Urine Opiates Screen Positive H Urine Methadone Screen Negative Ur Barbiturates Screen Negative Ur Phencyclidine Scrn Negative Ur Amphetamines Screen Negative U Benzodiazepines Scrn Positive U Oth Cocaine Metabols Negative U Cannabinoids Screen Negative 09/21/17 09/21/17 09/21/17 02:27 02:27 07:00 WBC 4.9 D RBC 4.02 Hgb 12.9 L Hct 38.9 L MCV 96.8 MCH 32.1 MCHC 33.2 RDW 15.5 H Plt Count 195 MPV 10.2 Gran % 53.8 Lymph % (Auto) 36.3 H [place] % (Auto) 6.6 H Eos % (Auto) 3.1 Baso % (Auto) 0.2 Gran # 2.61 Lymph # (Auto) 1.8 [place] # (Auto) 0.3 Eos # (Auto) 0.2 Baso # (Auto) 0.01 Sodium Potassium Chloride Carbon Dioxide Anion Gap BUN Creatinine Est GFR ( Amer) Est GFR (Non-Af Amer) Random Glucose Lactic Acid Calcium Phosphorus Magnesium Total Bilirubin AST ALT Alkaline Phosphatase Total Creatine Kinase CK-MB (CK-2) CK-MB (CK-2) % Total Protein Albumin Globulin Albumin/Globulin Ratio Urine Color Urine Appearance Urine pH Ur Specific [place] Urine Protein Urine Glucose (UA) Urine Ketones Urine Blood Urine Nitrate Urine Bilirubin Urine Urobilinogen Ur Leukocyte Esterase Urine RBC Urine WBC Ur Epithelial Cells Urine Bacteria Hyaline Casts Ur Random Creatinine 52 Ur Random Sodium Ur Random Potassium Urine Microalbumin 11.2 Urine Opiates Screen Urine Methadone Screen Ur Barbiturates Screen Ur Phencyclidine Scrn Ur Amphetamines Screen U Benzodiazepines Scrn U Oth Cocaine Metabols U Cannabinoids Screen 09/21/17 07:00 WBC RBC Hgb Hct MCV MCH MCHC RDW Plt Count MPV Gran % Lymph % (Auto) [place] % (Auto) Eos % (Auto) Baso % (Auto) Gran # Lymph # (Auto) [place] # (Auto) Eos # (Auto) Baso # (Auto) Sodium 142 Potassium 5.1 H Chloride 108 H Carbon Dioxide 25 Anion Gap 14 BUN 42 H Creatinine 2.2 H Est GFR ( Amer) 37 Est GFR (Non-Af Amer) 30 Random Glucose 83 Lactic Acid Calcium 9.1 Phosphorus 2.6 Magnesium 2.0 Total Bilirubin 0.7 AST 151 H D ALT 54 Alkaline Phosphatase 43 Total Creatine Kinase CK-MB (CK-2) CK-MB (CK-2) % Total Protein 6.8 Albumin 3.6 Globulin 3.1 Albumin/Globulin Ratio 1.2 Urine Color Urine Appearance Urine pH Ur Specific [place] Urine Protein Urine Glucose (UA) Urine Ketones Urine Blood Urine Nitrate Urine Bilirubin Urine Urobilinogen Ur Leukocyte Esterase Urine RBC Urine WBC Ur Epithelial Cells Urine Bacteria Hyaline Casts Ur Random Creatinine Ur Random Sodium Ur Random Potassium Urine Microalbumin Urine Opiates Screen Urine Methadone Screen Ur Barbiturates Screen Ur Phencyclidine Scrn Ur Amphetamines Screen U Benzodiazepines Scrn U Oth Cocaine Metabols U Cannabinoids Screen Attending/Attestation - Attestation I have personally seen and examined this patient.: Yes I have fully participated in the care of the patient.: Yes I have reviewed all pertinent clinical information: Yes Notes (Text): 09/21/17 14:45 attending note; Patient seen and examined with resident in ER. Patient is lethargic. Opens his eyes for commands. Moves all extremities. Pupil small/equal and reactive. additional history from chart review. Patient is a 61-year-old male with a past medical history of hypertension, hyperlipidemia Dilated cardiomyopathy with EF 29% (last echo on record 08/29/16) , narcotic dependence, cocaine use, (obtained from chart review) who presents brought by police after being found driving erratically. possible opiates and benzo overuse. Currently hemodynamically stable. Still lethargic. hyperkalemia; started on IV fluids. Dextrose and insulin given. Kayexalate ordered. EKG showed no acute T-wave changes. No QRS widening noted. acute on chronic kidney disease; monitor creatinine closely. Nephrology evaluation requested. CT head showed possible acute versus subacute infarct. MRI without contrast ordered. Neurology evaluation requested. monitor neurological status closely. Upon discharge the patient will follow-up with PMD of choice. 09/21/17 14:49
[2017-09-20] MEDS: Sodium Chloride 0.9% 1,000 ML IV SCH (13:56)
--- NOTE | 2017-09-20 14:20 | CT ---
PROCEDURE: CT HEAD WITHOUT CONTRAST. HISTORY: ams COMPARISON: Unenhanced head CT 05/17/2015. TECHNIQUE: Axial computed tomography images were obtained through the head/brain without intravenous contrast. Radiation dose: Total exam DLP = 916.96 mGy-cm. This CT exam was performed using one or more of the following dose reduction techniques: Automated exposure control, adjustment of the mA and/or kV according to patient size, and/or use of iterative reconstruction technique. FINDINGS: HEMORRHAGE: No intracranial hemorrhage. BRAIN: Interval lucency is appreciated and cytotoxic pattern and left parietal lobe suspicious for developing left parietal lobar infarction. Very limited local mass effect is appreciated. No midline shift is encountered nevertheless. Remaining owen white matter density is within normal limits once again with the ventricular sulcal and cisternal spaces stable. No suspicious extra-axial collection is identified in the posterior fossa contents appear unremarkable. VENTRICLES: Unremarkable. No hydrocephalus. CALVARIUM: Unremarkable. PARANASAL SINUSES: Unremarkable as visualized. No significant inflammatory changes. MASTOID AIR CELLS: Unremarkable as visualized. No inflammatory changes. OTHER FINDINGS: None. IMPRESSION: Findings suspicious for an acute or subacute infarct at the left parietal lobe for which follow-up CT or MRI is recommended for additional characterization. Remainder the examination appears stable in the interval. Findings were discussed with Dr. Cabrera 09/20/2017 2:15 p.m. with written down and read back verification.
--- NOTE | 2017-09-20 14:32 | RAD ---
HISTORY: ams COMPARISON: Chest radiograph dated 06/05/2017. FINDINGS: LUNGS: Prominence of pulmonary vasculature may be secondary to AP technique and/or pulmonary vascular congestion. No focal consolidation. PLEURA: No significant pleural effusion identified, no pneumothorax apparent. CARDIOVASCULAR: Cardiomediastinal silhouette stably enlarged. OSSEOUS STRUCTURES: Unchanged. VISUALIZED UPPER ABDOMEN: Normal. OTHER FINDINGS: None. IMPRESSION: Prominence of the pulmonary vasculature may be secondary to AP technique and/or pulmonary vascular congestion. No focal consolidation or pleural effusion.
[2017-09-20] MEDS ORDERED: Acetylcysteine 20% Inhal Soln (4ml) PO STA (15:33)
--- NOTE | 2017-09-20 15:48 | CP.PCM.PN ---
Subjective - Date & Time of Evaluation Date of Evaluation: 09/20/17 Time of Evaluation: 15:41 - Subjective Subjective: 61 yo M w/ pmh of CHF, CKD, drug abuse, presented with AMS; nephrology service being consulted for SILVINA; We are being asked regarding IV contrast risk as patient is in need of CTA due to finding of acute/subacute infarct on head CT; patient has moderately increased risk for SILVINA given that he has baseline CKD and may currently have some degree of volume depletion (BP lower than usual); if urgent need for CTA is is present, then should keep patient volume replete and give acetylcysteine; -ordering NS bolus 500 cc now, can continue with NS at 100 cc/hr thereafter; -ordering acetylcysteine 1200 mg PO now Full consult to follow. Objective - Vital Signs/Intake and Output Vital Signs (last 24 hours): Temp Pulse Resp BP Pulse Ox 98.8 F 80 16 105/69 100 09/20/17 10:01 09/20/17 15:10 09/20/17 15:10 09/20/17 15:10 09/20/17 15:10 - Medications Medications: Current Medications Sodium Chloride (Sodium Chloride 0.9%) 1,000 mls @ 100 mls/hr IV .Q10H SHAMAR Last Admin: 09/20/17 13:56 Dose: 100 mls/hr
[2017-09-20] MEDS: Sodium Chloride 0.9% 500 ML IV SCH ×4 (16:07→23:03)
--- NOTE | 2017-09-20 16:18 | CP.PCM.CON ---
History of Present Illness - History of Present Illness History of Present Illness: CRITICAL CARE CONSULT NOTE HPI Patient is 61yo male with PMhx of HTN, HLD, CHF EF 29%, narcotic abuse, cocaine use, presented after being found to be driving erratically by the police. Pt is currently awake, alert, in NAD, comfortable moving all 4 extremities, providing full history. Pt was initially drowsy. Pt reports he "took some medicine" for sleep and then drove. Pt currently denies any major complaints, reports to be doing well. PMH: As above PSH: 4 back surgeries (unspecified), ankle and foot surgery with ORIF and plate/ screws placement SHx: Admits cigarettes (currently 1/2 ppd, previously 1.5-2ppd, total time ~20 yrs), denies alcohol, admits to illicits (heroin) but denies ever IVDA, last used 8 months ago. FHx: HTN (mother) Home Meds:Oxycodone 15mg 5x daily PRN, Ambien 10mg nightly, Mobic 15mg daily, Diovan 80mg daily, Lopressor 25mg BID, Lasix 20mg daily, Protonix 40mg daily Review of Systems - Review of Systems Review of Systems: as per HPI Past Patient History - Infectious Disease Hx of Infectious Diseases: None - Tetanus Immunizations Tetanus Immunization: Unknown - Past Medical History & Family History Past Medical History?: Yes - Past Social History Smoking Status: Former Smoker - CARDIAC Hx Congestive Heart Failure: Yes Hx Hypertension: Yes Hx Peripheral Edema: Yes (+1 pitting edema ble) - PULMONARY Hx Chronic Obstructive Pulmonary Disease (COPD): Yes (dyspnea) - NEUROLOGICAL Hx Seizures: No - HEENT Hx HEENT Problems: No - RENAL Hx Chronic Kidney Disease: No - ENDOCRINE/METABOLIC Hx Endocrine Disorders: No - HEMATOLOGICAL/ONCOLOGICAL Hx Cancer: No - INTEGUMENTARY Other/Comment: r ankle deformity from fx - MUSCULOSKELETAL/RHEUMATOLOGICAL Hx Arthritis: Yes (knees hands) Hx Fractures: Yes (ANKLE FX,) - GASTROINTESTINAL Hx Gastrointestinal Disorders: Yes Other/Comment: [place] [facility] [place] - GENITOURINARY/GYNECOLOGICAL Hx Sexually Transmitted Disorders: No - PSYCHIATRIC Hx Substance Use: Yes - SURGICAL HISTORY Hx Orthopedic Surgery: Yes (back / L knee) Other/Comment: 4 back sx's fusion, plate and alen inserted, plate and alen removed , and another sx after that pt uncertain what was done, from work related injury , left ankle/ft fx orif with plate and screws, hardware was removed happened years ago not work related - ANESTHESIA Hx Anesthesia: Yes Hx Anesthesia Reactions: No Hx Malignant Hyperthermia: No Meds Allergies/Adverse Reactions: Allergies Allergy/AdvReac Type Severity Reaction Status Date / Time Unobtainable Allergy Verified 09/20/17 10:08 - Medications Medications: Current Medications Sodium Chloride (Sodium Chloride 0.9%) 1,000 mls @ 100 mls/hr IV .Q10H SHAMAR Last Admin: 09/20/17 13:56 Dose: 100 mls/hr Sodium Chloride (Sodium Chloride 0.9%) 500 mls @ 500 mls/hr IV .Q1H SHAMAR Last Admin: 09/20/17 16:07 Dose: 500 mls/hr Physical Exam - Constitutional Appears: Non-toxic, No Acute Distress - Head Exam Head Exam: NORMAL INSPECTION - Eye Exam Eye Exam: Normal appearance - ENT Exam ENT Exam: Mucous Membranes Moist - Neck Exam Neck exam: Positive for: Full Rom - Respiratory Exam Respiratory Exam: Clear to Auscultation Bilateral, NORMAL BREATHING PATTERN - Cardiovascular Exam Cardiovascular Exam: REGULAR RHYTHM, +S1, +S2 - GI/Abdominal Exam GI & Abdominal Exam: Normal Bowel Sounds, Soft - Extremities Exam Extremities exam: Positive for: normal inspection - Back Exam Back exam: NORMAL INSPECTION - Neurological Exam Neurological exam: Alert, CN II-XII Intact, Oriented x3 - Psychiatric Exam Psychiatric exam: Normal Affect - Skin Skin Exam: Normal Color, Warm Results - Vital Signs Recent Vital Signs: Last Vital Signs Temp 98.8 F 09/20/17 10:01 Pulse 80 09/20/17 15:10 Resp 16 09/20/17 15:10 BP 105/69 09/20/17 15:10 Pulse Ox 100 09/20/17 15:10 - Labs Result Diagrams: 09/20/17 10:20 09/20/17 10:20 Labs: Laboratory Results - last 24 hr 09/20/17 09/20/17 12:16 15:20 pCO2 44 pO2 94.0 HCO3 21.2 ABG pH 7.29 L ABG Total CO2 22.6 ABG O2 Saturation 98.8 H ABG O2 Content 15.5 ABG Base Excess -5.2 L ABG Hemoglobin 11.5 L ABG Carboxyhemoglobin 3.0 H POC ABG HHb (Measured) 1.2 ABG Methemoglobin 0.6 ABG O2 Capacity 15.7 L Hgb O2 Saturation 95.2 FiO2 21.0 Lactic Acid 1.1 - Imaging and Cardiology CT scan - head Status: Image reviewed by me, Report reviewed by me Assessment & Plan - Assessment and Plan (Free Text) Assessment: 61yo male a/w AMS, opiod abuse. AMS, resolved Opiod abuse CHF, chronic systolic - currnetly afebrile, HD stable, comfortable in NAD, awake, alert, providing full history - on exam, Lungs CTABL, benign abd exam, non focal neurological exam - labs with acute on chronic renal failure, hyperkalemia - CT head with questionable LEFT parietal acute vs subacute infarct - UTox pending Recommend: - supp o2 as needed - cheng culture - IVF hydration - repeat BMP, check K+ - neuro checks q4hrs - MRI BRAIN without contrast - neurology follow up - check lipid panel, HgbA1C - UA, Ulytes, Renal Sono, Renal consult - patient stable, can be monitored on telemetry
[2017-09-20 16:25] LABS: CALCIUM 9.5 mg/dL (8.4-10.5)
[2017-09-20 16:34] LABS: URINE BILIRUBIN NEGATIVE (NEGATIVE); URINE BLOOD LARGE (NEGATIVE); URINE GLUCOSE (UA) NEGATIVE (NEGATIVE); URINE LEUKOCYTE ESTERASE NEGATIVE Leu/uL (NEGATIVE); URINE NITRATE NEGATIVE (NEGATIVE); URINE PROTEIN NEGATIVE mg/dL (<30 mg/dL); URINE UROBILINOGEN 0.2 E.U./dL (<1 E.U./dL)
[2017-09-20 16:48] LABS: BARBITURATES, UR NEGATIVE (NEGATIVE); PHENCYCLIDINE, UR NEGATIVE (NEGATIVE)
[2017-09-20 16:53] LABS: URINE APPEARANCE CLEAR (CLEAR); URINE COLOR YELLOW (YELLOW)
[2017-09-20 16:54] LABS: BENZODIAZEPINES, UR POSITIVE (NEGATIVE); OPIATES, UR POSITIVE (NEGATIVE)
[2017-09-20 16:55] LABS: CK-MB 90.2 ng/mL (0.0-3.6)
[2017-09-20 17:12] LABS: URINE BACTERIA MANY (NEG); URINE HYALINE CAST 0 - 2 /hpf
[2017-09-20] MEDS ORDERED: Sod Polystyrene Sulf 15 gm/60 ml Susp PO STA (17:43)
--- NOTE | 2017-09-20 18:16 | MRI ---
PROCEDURE: MRI of the brain dated 09/20/2017. HISTORY: Follow-up left parietal lobe infarct. COMPARISON: None. TECHNIQUE: Multiplanar, multisequence MR images of the brain were obtained without intravenous contrast enhancement. FINDINGS: HEMORRHAGE: No acute parenchymal, subarachnoid or extra-axial hemorrhage. No evidence of hemosiderin deposition is identified on gradient echo weighted sequence DWI: There is a relatively large wedge-shaped area of increased T2 signal in the left posterior temporoparietal watershed zone that demonstrates restricted diffusion and apparent shine through artifact on the ADC maps. Findings are consistent with chronic ischemic focus with what could represent a small amount of peripheral hemosiderin deposition seen on GRE weighted sequence. There are also linear areas of shortened (bright) T1 signal along the cortical surfaces which could represent laminar necrosis or residual methemoglobin. Clinical correlation recommended. . Clinical correlation recommended. A smaller area of increased T2 signal seen in the right periatrial/very occipital horn white matter is well also of uncertain etiology though felt to represent a nonspecific gliosis. Clinical correlation recommended. BRAIN PARENCHYMA: As above. Few tiny focal areas of increased T2 signal also seen scattered about the deep and subcortical white matter both cerebral hemispheres. VENTRICLES: No obstructive hydrocephalus. CRANIUM: Unremarkable. ORBITS: Hannah orbits and contents appear grossly unremarkable. PARANASAL SINUSES/MASTOIDS: Mild mucoperiosteal inflammatory changes seen within the ethmoid air complex. Minimal mucosal thickening both maxillary antra. VASCULAR SYSTEM: Visualized major vascular flow voids at skull base patent. OTHER FINDINGS: None. IMPRESSION: There is a relatively large wedge-shaped area of increased T2 signal in the left posterior temporoparietal watershed zone that demonstrates restricted diffusion and apparent shine through artifact on the ADC maps. Findings consistent with a chronic ischemic focus with what could represent a small amount of peripheral hemosiderin deposition seen on GRE weighted sequence. There are also linear areas shortened (bright) T1 signal along the cortical surfaces which could represent laminar necrosis or residual methemoglobin. Clinical correlation recommended. . Clinical correlation recommended. A smaller area of increased T2 signal seen in the right periatrial/very occipital horn white matter is well also of uncertain etiology though felt to represent a nonspecific gliosis. Clinical correlation recommended. Present
[2017-09-20] MEDS ORDERED: Pneumococcal 23-Valent Vaccine IM ONE (19:15)
[2017-09-20] MEDS ORDERED: Influenza Vaccine 60 mcg/0.5 mL SYR (4YR UP) IM ONE (19:15)
[2017-09-20] MEDS ORDERED: Acetylcysteine 20% Inhal Soln (4ml) PO SCH (20:30)
--- NOTE | 2017-09-20 23:34 | CARD ---
APPROVED REPORT EKG Measurement Heart [id number] <Conclusion> Normal sinus rhythm Nonspecific ST and T wave abnormality Abnormal ECG
[2017-09-20 23:38] LABS: CALCIUM 9.7 mg/dL (8.4-10.5)
[2017-09-21] MEDS: Sodium Chloride 0.9% 1,000 ML IV SCH ×3 (01:30→17:46)
[2017-09-21] MEDS ORDERED: Acetylcysteine 20% Inhal Soln (4ml) PO SCH (06:05)
[2017-09-21] MEDS: Acetylcysteine 20% Inhal Soln (4ml) PO SCH ×2 (06:30→17:42)
--- NOTE | 2017-09-21 07:37 | CON ---
DATE: NEPHROLOGY CONSULTATION HISTORY OF PRESENT ILLNESS: A 61-year-old male with past medical history of hypertension, dilated cardiomyopathy with EF 29%, illicit drug use, chronic back pain, presented after being brought by police, after being found to be driving erratically; patient found to have increased serum creatinine. Nephrology being consulted for acute renal failure. Per review of chart, patient was initially found to be lethargic and confused on presentation, was not able to provide details of the events leading up to his presentation, was admitting to bilateral thigh pain. Patient is seen several hours after his presentation and is not giving more history; patient reports having chronic back pain for which he takes oxycodone and was taking Mobic up until he saw his continuous improvement coach yesterday who was subsequently stopped Mobic; patient reports also being told by continuous improvement coach that his heart function had improved significantly; patient went to continuous improvement coach in order to get clearance for upcoming back surgery. Patient, otherwise, reports having no shortness of breath or dyspnea on exertion, can walk many blocks; denies any swelling in his legs; patient also was started on valsartan yesterday. Patient denies any difficulty urinating, but does urinate 3 to 4 times per night; no difficulty with urinary stream; no urgency. Patient denies any trauma lately; he is very uncomfortable during the initial encounter, but denied having any pain at the moment; history from patient, however, is somewhat unreliable as he denied having any surgeries to me while he has had several surgeries as mentioned in the medical record. PAST MEDICAL HISTORY: As above. PAST SURGICAL HISTORY: Four back surgeries and foot and ankle surgery. SOCIAL HISTORY: Reports quitting smoking several months ago. FAMILY HISTORY: Mother with hypertension. REVIEW OF SYSTEMS: CONSTITUTIONAL: Denies any decreased appetite, had been eating well. HEENT: Denies any change in vision. No sore throat, no runny nose. RESPIRATORY: Denies any cough. CARDIOVASCULAR: Denies any chest pain. GASTROINTESTINAL: Denies any nausea, vomiting or diarrhea. GENITOURINARY: As per HPI. MUSCULOSKELETAL: Currently, denies any pain; reports taking Mobic 1 to 2 times per week, otherwise was taking oxycodone once a day. NEUROLOGIC: Denies any numbness in feet. SKIN: Denies any foot ulcers. PHYSICAL EXAMINATION: VITAL SIGNS: In the ED, blood pressure 105/69, heart rate 80, respirations 16, temperature 98.8, O2 sat 100% on room air. GENERAL: No distress. Initially drowsy during interview. HEENT: Moist mucous membranes. Nonicteric. No cervical lymphadenopathy. RESPIRATORY: Lungs clear to auscultation bilaterally. No rales, no rhonchi, no wheezes. CARDIOVASCULAR: Heart S1, S2 normal. No murmurs, no gallops, no rubs. GASTROINTESTINAL: Abdomen soft, nontender, nondistended. GENITOURINARY: No obvious bladder distention. EXTREMITIES: No leg edema. NEUROLOGIC: 3/5 motor strength in left lower extremity, 4+/5 in left upper extremity, 5/5 in right upper extremity, 4+/5 in right lower extremity. SKIN: Warm. No cyanosis. No ulcers of the feet. PSYCHIATRIC: Normal mood, normal affect. LABORATORY DATA: CBC: WBC 6.9, hemoglobin 12.6, hematocrit 38.6, platelets 198. Chemistry panel: Sodium 142, potassium 6.2, chloride 107, bicarb 24, BUN 48, creatinine 2.6, glucose 74, calcium 9.5, magnesium 2.0, albumin 4.2. CK level 9183. Urine studies: UA, large blood, negative protein, 1 to 3 rbc's, 2 to 5 wbc's per high-powered field, many bacteria. Urine toxicology positive for opiates and benzodiazepines. Blood gas on presentation: ABG, pH 7.29, pCO2 44, pO2 94 on 21% FiO2. ASSESSMENT AND PLAN: 1. Acute kidney injury on chronic kidney disease: Baseline serum creatinine approximately 1.5 back in 08/2016, increasing to 2.9 on presentation; mildly improved after receiving IV fluids with creatinine coming down to 2.6; patient appears has history of substance abuse and was taking NSAIDs; history is seemingly unreliable; patient may have continued taking NSAIDs and was also recently started on valsartan (although he reports that this was just started yesterday, so one dose should not have resulted in this much change in renal function). For now, we will continue intravenous fluids with NS at 100 mL/hour. Should call pharmacy to get any more accurate list of the medications that he has been on. 2. Hyperkalemia in the setting of acute kidney injury: Potassium not improved with first dose of Kayexalate; second dose given later today. We will give Lasix IV push 40 mg to force kaliuresis while continuing intravenous fluids as above. If no improvement on repeat labs, we will give one dose of Florinef 0.1 mg. Mild rhabdomyolysis is likely contributory as well, should intravenous fluids will help in this regard. 3. Chronic kidney disease: Patient appears to have mostly non-proteinuric kidney disease with etiology unclear. Patient does reportedly have a history of cocaine use, so he may have suffered ischemic injury causing renal infarcts at some point; we will check renal ultrasound. We will check bladder ultrasound with postvoid residual measurement as the patient may have some element of reflux nephropathy that is worsening his chronic kidney disease. 4. Metabolic acidosis with increased anion gap seen on presentation, but now resolved. Again, etiology is unclear. Lactate done on repeat labs is normal, but may have been elevated at presentation. We will check serum osmolality as well to assess for any osmolal gap. 5. Congestive heart failure with systolic dysfunction. Patient appears asymptomatic at this time; should be restarted on Coreg; hold angiotensin receptor teri for now in the setting of hyperkalemia. 6. Hypertension. Blood pressure currently on the lower end of normal; restart blood pressure medications with low-dose Coreg. Thank you for this referral. We will be following closely. Jefe So MD
[2017-09-21 08:11] LABS: BASO # 0.01 K/mm3 (0.0-2.0); BASO % 0.2 % (0.0-3.0); EOS # 0.2 (0.0-0.7); EOS % 3.1 % (1.5-5.0); GRAN # 2.61 (1.4-6.5); GRAN % 53.8 % (50.0-68.0); HEMOGLOBIN 12.9 g/dL (14.0-18.0); LYMPH # 1.8 (1.2-3.4); LYMPH % 36.3 % (22.0-35.0); MEAN CELL VOLUME 96.8 fl (80.0-105.0); MEAN CORPUSCULAR HEMOGLOBIN 32.1 pg (25.0-35.0); MEAN CORPUSCULAR HGB CONC 33.2 g/dl (31.0-37.0); MEAN PLATELET VOLUME 10.2 fl (7.0-11.0); MONO # 0.3 (0.1-0.6); MONO % 6.6 % (1.0-6.0); RBC 4.02 10^6/uL (3.5-6.1); RED CELL DISTRIBUTION WIDTH 15.5 % (11.5-14.5); WHITE BLOOD COUNT 4.9 10^3/ul (4.5-11.0)
[2017-09-21 08:39] LABS: ALB/GLOB RATIO 1.2 (1.1-1.8); ALBUMIN 3.6 g/dL (3.0-4.8); CALCIUM 9.1 mg/dL (8.4-10.5)
--- NOTE | 2017-09-21 12:56 | CP.PCM.PN ---
<ShaiRolando rodas - Last Filed: 09/21/17 12:43> Subjective - Date & Time of Evaluation Date of Evaluation: 09/21/17 Time of Evaluation: 09:00 - Subjective Subjective: Dr. Cabrera Service Patient was seen and examined at bedside. Patient was found to be resting comfortably. He does not endorse any acute complaints at this time. No acute or adverse events overnight. He states that he is tolerating oral intake and has been moving his bowels and bladder regularly. He denied fever, chills, shortness of breath, chest pains, abdominal pain, nausea, vomiting, diarrhea, constipation or urinary symptoms. Objective - Vital Signs/Intake and Output Vital Signs (last 24 hours): Temp Pulse Resp BP Pulse Ox 98.3 F 91 H 17 122/79 94 L 09/21/17 12:00 09/21/17 12:00 09/21/17 12:00 09/21/17 12:00 09/21/17 06:00 Intake and Output: 09/21/17 09/21/17 06:59 18:59 Intake Total 800 Output Total 650 Balance 150 - Medications Medications: Current Medications Acetylcysteine (Acetylcysteine 20%) 6 ml PO 0600,1800 SHAMAR Stop: 09/22/17 06:01 Last Admin: 09/21/17 06:30 Dose: 6 ml Sodium Chloride (Sodium Chloride 0.9%) 1,000 mls @ 50 mls/hr IV .Q20H SHAMAR Pantoprazole Sodium (Protonix Inj) 40 mg IVP DAILY [facility] Last Admin: 09/21/17 09:16 Dose: 40 mg - Labs Labs: 09/21/17 07:00 09/21/17 07:00 - Constitutional Appears: No Acute Distress - Head Exam Head Exam: ATRAUMATIC, NORMAL INSPECTION, NORMOCEPHALIC - Eye Exam Eye Exam: EOMI, Normal appearance, PERRL Pupil Exam: NORMAL ACCOMODATION, PERRL - ENT Exam ENT Exam: Mucous Membranes Moist, Normal Exam - Neck Exam Neck Exam: Full ROM, Normal Inspection. absent: Lymphadenopathy - Respiratory Exam Respiratory Exam: Clear to Ausculation Bilateral, NORMAL BREATHING PATTERN - Cardiovascular Exam Cardiovascular Exam: REGULAR RHYTHM, +S1, +S2. absent: Murmur - GI/Abdominal Exam GI & Abdominal Exam: Soft, Normal Bowel Sounds. absent: Tenderness - Extremities Exam Extremities Exam: Full ROM, Normal Capillary Refill, Normal Inspection. absent : Joint Swelling, Pedal Edema - Back Exam Back Exam: NORMAL INSPECTION - Neurological Exam Neurological Exam: Alert, Awake, CN II-XII Intact, Normal Gait, Oriented x3 - Psychiatric Exam Psychiatric exam: Normal Affect, Normal Mood - Skin Skin Exam: Dry, Intact, Normal Color, Warm Assessment and Plan - Assessment and Plan (Free Text) Assessment: 61 AA M with PMHx of HTN, HLD, Dilated CM with EF 29% (last echo on record ), narcotic dependence, cocaine use brought to ER by police after being stopped for driving erratically admitted with Acute renal failure and hyperkalemia Altered mental status - resolved - Patient is AAO3 responding to questions appropriately. - CT head with questionable LEFT parietal acute vs subacute infarct - MRI Head demonstrated large wedge shaped area of increased T2 signal in the left posterior temproparietal watershed zone, findings consistent with chronic ischemic focus - IVF NS @100cc/hr > 50cc/hr - Fall precautions - HHD low potassium - telemetry for close monitoring - Neurology consulted, Dr. Tomas appreciate reccs SILVINA on CKD - Cr elevated compared to baseline, downtrending 2.9 >2.2 - CPK elevated, conitnue hydration - Requested nephro consult; Dr. So, rec Renal US, NAC, IVF Hyperkalemia - improving, 6.2 >5.1 - EKG unremarkable - Likely 2/2 renal failure vs rhabdomyolysis Metabolic acidosis - improved with IVF administration h/o CHF - Patient had echocardiogram done on 05/2017 which showed global hypokinesis and LVEF 25-30% - Patient also had cardiac cath done 08/29/2017 which revealed diffuse atherosclerosis without any critical or physiologically significant stenosis; no stents placed - conservative fluids - EKG unchanged from prior exams - CXR negative for acute cardio-pulm pathology h/o HTN - BP stable - Hold oral antihypertensives at this time; monitor h/o HLD - Hold all oral medications at this time - Most recent lipid panel on record 05/2017, unremarkable GI/DVT Ppx: SCD's, IV Protonix Patient seen, discussed, and reviewed with attending Dr. Cabrera <Jesse Cabrera - Last Filed: 09/21/17 14:53> Objective - Vital Signs/Intake and Output Vital Signs (last 24 hours): Temp Pulse Resp BP Pulse Ox 98.3 F 91 H 17 122/79 94 L 09/21/17 12:00 09/21/17 12:00 09/21/17 12:00 09/21/17 12:00 09/21/17 06:00 Intake and Output: 09/21/17 09/21/17 06:59 18:59 Intake Total 800 Output Total 650 Balance 150 - Medications Medications: Current Medications Acetylcysteine (Acetylcysteine 20%) 6 ml PO 0600,1800 SHAMAR Stop: 09/22/17 06:01 Last Admin: 09/21/17 06:30 Dose: 6 ml Sodium Chloride (Sodium Chloride 0.9%) 1,000 mls @ 50 mls/hr IV .Q20H SHAMAR Pantoprazole Sodium (Protonix Inj) 40 mg IVP DAILY SHAMAR Last Admin: 09/21/17 09:16 Dose: 40 mg - Labs Labs: 09/21/17 07:00 09/21/17 07:00 Attending/Attestation - Attestation I have personally seen and examined this patient.: Yes I have fully participated in the care of the patient.: Yes I have reviewed all pertinent clinical information, including history, physical exam and plan: Yes Notes (Text): 09/21/17 14:50 attending note; Patient seen and examined with resident. patient is completely alert, awake and oriented. No focal neurological deficit. Patient apparently took Xanax and Roxicodone before started driving the car. He was stopped by police and brought in to the ER. Patient denies any suicidal, homicidal ideation. psychiatric evaluation requested. Patient is a 61-year-old male with a past medical history of hypertension, hyperlipidemia Dilated cardiomyopathy with EF 29% (last echo on record 08/29/16) , narcotic dependence, cocaine use, (obtained from chart review) who presents brought by police after being found driving erratically. possible opiates and benzo overuse. hyperkalemia; resolved. started on low potassium diet. acute on chronic kidney disease; monitor creatinine closely. Nephrology evaluation appreciated. Creatinine is improving. CT head showed chronic infarct. MRI showed chronic infarct and gliosis. Neurology evaluation appreciated. PT evaluation requested. patient was transferred to 's service from tomorrow. Case discussed with him in detail. 09/21/17 14:53
--- NOTE | 2017-09-21 13:38 | CP.PCM.CON ---
History of Present Illness - History of Present Illness History of Present Illness: 61 yr old male who was admitted to [facility], and found to have an incidental left parietal subacute stroke on CT Head. He was admitted to the hospital for an overdose of opiods and ambien, but now is well. He denies any old stroke, or symptoms of weakness or aphasia, seizures or headache. There is no history right sided symptoms. On my exam today, the patient has a normal neurological exam, with no focal deficits. Of note, he has an extensive pmh of htn, hld, dilated cm with ef of 29% ( last echo on 08/29/16), narcotic and cocaine use, and recent heroin use,and initially came in when he was found to be driving erratically. PMH: As above PSH: 4 back surgeries (unspecified), ankle and foot surgery with ORIF and plate/ screws placement, later removal of plate and screws (unspecified reason for removal) SHx: Admits cigarettes (currently 1/2 ppd x2-3 months, previously 1.5-2ppd, total time ~20 yrs), denies alcohol, admits to illicits (heroin) but denies ever IVDA, last used 8 months ago. FHx: HTN (mother) Home Meds:Oxycodone 15mg 5x daily PRN, Ambien 10mg nightly, Mobic 15mg daily, Diovan 80mg daily, Lopressor 25mg BID, Lasix 20mg daily, Protonix 40mg daily PMD: Dr. Ireland Cardio: Dr. Newberry Pain Management: Dr. Hinojosa (pain management in [place]) [facility]: normal strenght and mentation. MMS: 30/30 symmetric reflexes, normal gait. Past Patient History - Infectious Disease Hx of Infectious Diseases: None - Tetanus Immunizations Tetanus Immunization: Unknown - Past Medical History & Family History Past Medical History?: Yes - Past Social History Smoking Status: Former Smoker - CARDIAC Hx Congestive Heart Failure: Yes Hx Hypertension: Yes Hx Peripheral Edema: Yes (+1 pitting edema ble) - PULMONARY Hx Chronic Obstructive Pulmonary Disease (COPD): Yes (dyspnea) - NEUROLOGICAL Hx Seizures: No - HEENT Hx HEENT Problems: No - RENAL Hx Chronic Kidney Disease: No - ENDOCRINE/METABOLIC Hx Endocrine Disorders: No - HEMATOLOGICAL/ONCOLOGICAL Hx Cancer: No - INTEGUMENTARY Other/Comment: r ankle deformity from fx - MUSCULOSKELETAL/RHEUMATOLOGICAL Hx Arthritis: Yes (knees hands) Hx Fractures: Yes (ANKLE FX,) - GASTROINTESTINAL Hx Gastrointestinal Disorders: Yes Other/Comment: [place] [facility] [place] [place] - GENITOURINARY/GYNECOLOGICAL Hx Sexually Transmitted Disorders: No - PSYCHIATRIC Hx Substance Use: Yes - SURGICAL HISTORY Hx Orthopedic Surgery: Yes (back / L knee) Other/Comment: 4 back sx's fusion, plate and alen inserted, plate and alen removed , and another sx after that pt uncertain what was done, from work related injury , left ankle/ft fx orif with plate and screws, hardware was removed happened years ago not work related - ANESTHESIA Hx Anesthesia: Yes Hx Anesthesia Reactions: No Hx Malignant Hyperthermia: No Meds Allergies/Adverse Reactions: Allergies Allergy/AdvReac Type Severity Reaction Status Date / Time No Known Allergies Allergy Verified 09/20/17 16:52 - Medications Medications: Current Medications Sodium Chloride (Sodium Chloride 0.9%) 1,000 mls @ 100 mls/hr IV .Q10H SHAMAR Last Admin: 09/20/17 13:56 Dose: 100 mls/hr Sodium Chloride (Sodium Chloride 0.9%) 500 mls @ 500 mls/hr IV .Q1H SHAMAR Last Admin: 09/20/17 16:07 Dose: 500 mls/hr Results - Vital Signs Recent Vital Signs: Last Vital Signs Temp 98.8 F 09/20/17 10:01 Pulse 80 09/20/17 15:10 Resp 16 09/20/17 15:10 BP 105/69 09/20/17 15:10 Pulse Ox 100 09/20/17 15:10 - Labs Result Diagrams: 09/21/17 07:00 09/21/17 07:00 Labs: Laboratory Results - last 24 hr 09/20/17 09/20/17 09/20/17 12:16 15:20 15:20 pCO2 44 pO2 94.0 HCO3 21.2 ABG pH 7.29 L ABG Total CO2 22.6 ABG O2 Saturation 98.8 H ABG O2 Content 15.5 ABG Base Excess -5.2 L ABG Hemoglobin 11.5 L ABG Carboxyhemoglobin 3.0 H POC ABG HHb (Measured) 1.2 ABG Methemoglobin 0.6 ABG O2 Capacity 15.7 L Hgb O2 Saturation 95.2 FiO2 21.0 Sodium 142 Potassium 6.2 H* Chloride 107 Carbon Dioxide 24 Anion Gap 17 BUN 48 H Creatinine 2.6 H Est GFR ( Amer) 30 Est GFR (Non-Af Amer) 25 Random Glucose 74 Lactic Acid 1.1 Calcium 9.5 Magnesium 2.0 Total Creatine Kinase 9183 H Ur Random Creatinine Ur Random Sodium Ur Random Potassium 09/20/17 15:45 pCO2 pO2 HCO3 ABG pH ABG Total CO2 ABG O2 Saturation ABG O2 Content ABG Base Excess ABG Hemoglobin ABG Carboxyhemoglobin POC ABG HHb (Measured) ABG Methemoglobin ABG O2 Capacity Hgb O2 Saturation FiO2 Sodium Potassium Chloride Carbon Dioxide Anion Gap BUN Creatinine Est GFR ( Amer) Est GFR (Non-Af Amer) Random Glucose Lactic Acid Calcium Magnesium Total Creatine Kinase Ur Random Creatinine 77 Ur Random Sodium 69 Ur Random Potassium 36.5 Assessment & Plan - Assessment and Plan (Free Text) Assessment: 61 yr old male with old stroke on CT head and multiple risk factors for stroke. Plan: 1. Have counselled patient about aspirin and regular check ups with pmd. 2. ECHo needed, as is carotid doppler--can be done outpatient. 3. Psychiatry consult.
--- NOTE | 2017-09-21 14:44 | US ---
PROCEDURE: Ultrasound of the Kidneys HISTORY: acute renal failure COMPARISON: None available. TECHNIQUE: Sonogram of the kidneys. FINDINGS: RIGHT KIDNEY: Measures: 5.7 x 10.3 cm. Normal in size, contour and echogenicity. Nonobstructing calculus lower pole right kidney 7 mm. Incidental finding(s): Simple cyst 3.1 x 3.4 cm LEFT KIDNEY: Measures: 4.9 x 9.6 cm. Normal in size, contour and echogenicity. No stone, solid mass lesion or hydronephrosis visualized. Simple cyst midpole region 1.2 cm OTHER FINDINGS: None. IMPRESSION: No acute findings related to/accounting for the clinical presentation. Additional benign and/or incidental findings described above.
--- NOTE | 2017-09-21 14:45 | US ---
PROCEDURE: Bladder ultrasound HISTORY: nocturia COMPARISON: None TECHNIQUE: Standard protocol for this study/examination. FINDINGS: Dictation voided prior to this study. Postvoid residual 23.2 mL. IMPRESSION: Incomplete study. Postvoid residual 23.2 mL.
--- NOTE | 2017-09-21 22:04 | CP.PCM.PN ---
Subjective - Date & Time of Evaluation Date of Evaluation: 09/21/17 Time of Evaluation: 10:00 - Subjective Subjective: Patient reports feeling well; no shortness of breath, nausea/vomiting; Objective - Vital Signs/Intake and Output Vital Signs (last 24 hours): Temp Pulse Resp BP Pulse Ox 90 F L 87 20 114/68 94 L 09/21/17 18:00 09/21/17 18:00 09/21/17 18:00 09/21/17 18:00 09/21/17 06:00 - Medications Medications: Current Medications Acetylcysteine (Acetylcysteine 20%) 6 ml PO 0600,1800 [facility] Stop: 09/22/17 06:01 Last Admin: 09/21/17 17:42 Dose: 6 ml Sodium Chloride (Sodium Chloride 0.9%) 1,000 mls @ 50 mls/hr IV .Q20H [facility] Last Admin: 09/21/17 17:46 Dose: Not Given Pantoprazole Sodium (Protonix Inj) 40 mg IVP DAILY [facility] Last Admin: 09/21/17 09:16 Dose: 40 mg - Labs Labs: 09/21/17 07:00 09/21/17 07:00 - Constitutional Appears: Non-toxic, No Acute Distress - Eye Exam Eye Exam: Normal appearance - ENT Exam ENT Exam: Mucous Membranes Moist - Respiratory Exam Respiratory Exam: Clear to Ausculation Bilateral. absent: Respiratory Distress - Cardiovascular Exam Cardiovascular Exam: REGULAR RHYTHM, +S1, +S2 - GI/Abdominal Exam GI & Abdominal Exam: Soft. absent: Distended, Tenderness - Extremities Exam Additional comments: no leg edema; - Neurological Exam Neurological Exam: Alert, Awake - Psychiatric Exam Psychiatric exam: Normal Affect, Normal Mood. absent: Agitated - Skin Skin Exam: Warm. absent: Cyanosis Assessment and Plan (1) SILVINA (acute kidney injury) Assessment & Plan: Improving; etiology unclear but likely related to medication overdose with some pre-renal component as well (was on diuretics and recently started on valsartan , possibly overdosed on these); -continue NS at 50 cc/hr -hold diuretics and ARB Status: Acute (2) CKD (chronic kidney disease) stage 3, GFR 30-59 ml/min Assessment & Plan: CKD IIIA with baseline serum creat ~1.7; non-proteinuric kidney disease likely secondary to renovascular disease but may have also had previous ischemic injury from cocaine use; renal US images reviewed, scalloped appearance not normal but cortical echogenecity largely preserved; doubt any hemodynamically significant renal artery stenosis as BP are well controlled; no urinary retention to suggest reflux nephropathy; -continue atherosclerotic risk factor reduction; -checking PTH and vitamin D 25-OH levels; Status: Chronic (3) Hyperkalemia Assessment & Plan: Improved after multiple medical measures; likely worsened by ARB that was recently started; if BARRIE blockade is needed for CHF management, will need to be on standing dose of kayexalate/veltassa for potassium lowering; Status: Acute (4) Hypertension Assessment & Plan: BP well controlled off any anti-htn agents; apparently was on coreg so should restart at low dose for CHF management; Status: Chronic (5) Congestive heart failure Assessment & Plan: With severe systolic dysfunction though patient asymptomatic lately; see recs for LORI-I/ARB and B-teri above; Status: Chronic
[2017-09-22 07:35] LABS: BASO # 0.01 K/mm3 (0.0-2.0); BASO % 0.2 % (0.0-3.0); EOS # 0.2 (0.0-0.7); EOS % 3.5 % (1.5-5.0); GRAN # 2.45 (1.4-6.5); GRAN % 50.9 % (50.0-68.0); HEMOGLOBIN 12.7 g/dL (14.0-18.0); LYMPH # 1.8 (1.2-3.4); LYMPH % 38.3 % (22.0-35.0); MEAN CELL VOLUME 95.5 fl (80.0-105.0); MEAN CORPUSCULAR HEMOGLOBIN 31.7 pg (25.0-35.0); MEAN CORPUSCULAR HGB CONC 33.2 g/dl (31.0-37.0); MEAN PLATELET VOLUME 9.9 fl (7.0-11.0); MONO # 0.3 (0.1-0.6); MONO % 7.1 % (1.0-6.0); RBC 4.01 10^6/uL (3.5-6.1); RED CELL DISTRIBUTION WIDTH 15.1 % (11.5-14.5); WHITE BLOOD COUNT 4.8 10^3/ul (4.5-11.0)
[2017-09-22 07:51] LABS: TROPONIN I 0.07 ng/mL
[2017-09-22 08:00] LABS: FREE T4 0.69 ng/dL (0.78-2.19)
[2017-09-22 08:05] LABS: ALB/GLOB RATIO 1.1 (1.1-1.8); ALBUMIN 3.4 g/dL (3.0-4.8); ALT/SGPT 52 U/L (7-56); AST/SGOT 91 U/L (17-59); BILIRUBIN,DIRECT 0.4 mg/dL (0.0-0.4); BLOOD UREA NITROGEN 32 mg/dL (7-21); GFR AFRICAN-AMERICAN 39; GFR NON-AFRICAN AMERICAN 32; MAGNESIUM 1.7 mg/dL (1.7-2.2); URIC ACID 7.7 mg/dL (3.5-8.5)
[2017-09-22] MEDS: Sodium Chloride 0.9% 1,000 ML IV SCH (09:43)
[2017-09-22 10:37] LABS: CK-MB 11.7 ng/mL (0.0-3.6)
--- NOTE | 2017-09-22 11:53 | CP.PCM.PN ---
Subjective - Date & Time of Evaluation Date of Evaluation: 09/22/17 Time of Evaluation: 11:49 - Subjective Subjective: 61 yo M w/ pmh of CHF w/ systolic dysfunction, hyperlipidemia and CKD, presented with AMS after taking extra sedative/pain meds; Patient reports feeling well; no shortness of breath, nausea/vomiting; Objective - Vital Signs/Intake and Output Vital Signs (last 24 hours): Temp Pulse Resp BP Pulse Ox 98.0 F 74 20 109/63 98 09/22/17 06:00 09/22/17 10:00 09/22/17 06:00 09/22/17 06:00 09/22/17 06:00 Intake and Output: 09/22/17 09/22/17 06:59 18:59 Intake Total 1320 Output Total 1000 Balance 320 - Medications Medications: Current Medications Sodium Chloride (Sodium Chloride 0.9%) 1,000 mls @ 50 mls/hr IV .Q20H [facility] Last Admin: 09/22/17 09:43 Dose: 50 mls/hr Pantoprazole Sodium (Protonix Inj) 40 mg IVP DAILY [facility] Last Admin: 09/22/17 09:41 Dose: 40 mg - Labs Labs: 09/22/17 07:00 09/22/17 07:00 - Constitutional Appears: Non-toxic, No Acute Distress - Eye Exam Eye Exam: absent: Scleral icterus - ENT Exam ENT Exam: Mucous Membranes Moist - Respiratory Exam Respiratory Exam: Clear to Ausculation Bilateral. absent: Respiratory Distress - Cardiovascular Exam Cardiovascular Exam: RRR, +S1, +S2 - GI/Abdominal Exam GI & Abdominal Exam: Soft. absent: Distended, Tenderness - Extremities Exam Additional comments: no leg edema; - Neurological Exam Neurological Exam: Alert, Awake - Psychiatric Exam Psychiatric exam: Normal Affect, Normal Mood. absent: Agitated - Skin Skin Exam: Warm. absent: Cyanosis Assessment and Plan (1) SILVINA (acute kidney injury) Assessment & Plan: SILVINA on CKD; improving; appears to have been precipitate by meds including possibly extra dose of diuretics; may have also had an exaggerated response to valsartan which was just started on day of presentation; Otherwise, stable electrolyte and volume status; -continue gentle IVF w/ NS at 50 cc/hr (mild rhabdo which is resolving) Status: Acute (2) CKD (chronic kidney disease) stage 3, GFR 30-59 ml/min Assessment & Plan: CKD IIIA; non-proteinuric kidney disease possibly caused by ischemic injury from cocaine use; awaiting PTH level for evidence of CKD mineral bone disorder; vitamin D 25-OH level low, will start ergocalciferol 50,000 u weekly; Status: Chronic (3) Hyperkalemia Assessment & Plan: Resolved; however, concern for exaggerated response to valsartan; if felt needed by cardiology for cardiomyopathy, should restart at low dose (40 mg daily ) once renal function stabilizes; need to avoid NSAIDS: Status: Resolved (4) Hypertension Assessment & Plan: Reports SBP usually being around 100; was on metoprolol 25 mg bid per pharmacy records but not filled since June 2017; concern for unopposed alpha agonist activity with cocaine use (patient reports last use ~3 months ago), may benefit from change to low dose coreg; will defer to cardiology; Status: Chronic (5) Congestive heart failure Assessment & Plan: Currently asymptomatic; should restart lasix 20 mg daily as outpatient; counseled on need to avoid over-diuresis (takes additional dose haphazardly), needs to check weights daily; see above regarding B-teri/ARB; Status: Chronic
--- NOTE | 2017-09-22 12:46 | CP.PCM.PN ---
Subjective - Date & Time of Evaluation Date of Evaluation: 09/22/17 Time of Evaluation: 12:45 - Subjective Subjective: Mr. Packer was seenand examined at the bedside. He is alert, oriented in all spheres. He is able to answer questions appropriately and follow commands. He denies any headache, dizziness, lightheadedness, nausea, vomiting, blurred vision or diplopia. He had episode of disorientation yesterday but able to redirect. MRI of the brain showed left posterior tempoparietal watershed zone that demonstrate restricted diffusion and apparent shine through artifact on the ADC maps. Findings consistent of chronic ischemic focus with what would represent a small peripheral hemosiderin deposition seen on GRE weighted sequence.There was no untoward events overnight. Objective - Vital Signs/Intake and Output Vital Signs (last 24 hours): Temp Pulse Resp BP Pulse Ox 98.0 F 81 20 104/52 L 98 09/22/17 12:00 09/22/17 12:00 09/22/17 12:00 09/22/17 12:00 09/22/17 06:00 Intake and Output: 09/22/17 09/22/17 06:59 18:59 Intake Total 1320 Output Total 1000 Balance 320 - Medications Medications: Current Medications Sodium Chloride (Sodium Chloride 0.9%) 1,000 mls @ 50 mls/hr IV .Q20H [facility] Last Admin: 09/22/17 09:43 Dose: 50 mls/hr Pantoprazole Sodium (Protonix Inj) 40 mg IVP DAILY [facility] Last Admin: 09/22/17 09:41 Dose: 40 mg - Labs Labs: 09/22/17 07:00 09/22/17 07:00 - Constitutional Appears: No Acute Distress - Head Exam Head Exam: NORMAL INSPECTION - Neurological Exam Neurological Exam: Alert, Awake, Oriented x3 Neuro motor strength exam: Left Upper Extremity: 5, Right Upper Extremity: 5, Left Lower Extremity: 5, Right Lower Extremity: 5 Additional comments: He is alert, oriented, able to foloow simple commands. Sensation remains intact. Assessment and Plan (1) Ischemic stroke Assessment & Plan: Case discussed with Dr. Tomas, continue all current medical, physical, occupational therapies. Recommend echocardiogram and carotid doppler. Status: Acute
[2017-09-22] MEDS ORDERED: Sodium Chloride 0.9% 1,000 ML IV SCH (17:00)
[2017-09-22] MEDS: DOBUTamine 500mg/250ml D5W 500 MG/250 ML BAG IVPB PRN (17:57)
[2017-09-22] MEDS: Benzocaine/Menthol (Cepacol) Lozenge MT PRN ×3 (17:57→23:42)
--- NOTE | 2017-09-23 00:25 | CON ---
DATE: CARDIOLOGY CONSULTATION REASON FOR CONSULTATION: Cardiomyopathy and worsening renal insufficiency. HISTORY OF PRESENT ILLNESS: The patient is a 61-year-old male who has a history of hypertension, arthritis, chronic back pain and history of substance abuse, history of preexisting renal insufficiency, initially presented because of altered mental status. The patient denies any retrosternal chest pain. The patient was found to have on admission BUN and creatinine of 49 and 2.9 and his potassium was 6.2. The patient is positive for opiates. SOCIAL HISTORY: Nonsmoker. MEDICATIONS: Protonix 40 mg intravenously daily, normal saline 50 mL an hour. The patient's home medications include Ambien, Protonix, Percocet, Diovan and Lasix. The patient was recently placed on 160 mg of Diovan about a week ago. REVIEW OF SYSTEMS: No nausea or vomiting. No fever or chills. No palpitation. No dizziness or syncope. PHYSICAL EXAMINATION: GENERAL: The patient is a middle-aged male, who does not appear to be in any acute distress. VITAL SIGNS: Blood pressure 104/52, heart rate 81, temperature 98, respiration 20. HEENT: Normocephalic. CHEST: Minimal basilar rhonchi. HEART: S1 and S2 regular. ABDOMEN: Soft. EXTREMITIES: No edema. LABORATORY DATA: Today's SMA-7: Sodium 142, potassium 4.3, chloride 108, CO2 of 24, glucose 92, BUN 32, creatinine 2.1. TSH level is 0.14. T4 is within normal limit. Free T4 is below normal. Urine drug screen is positive for opiates. EKG revealed sinus rhythm with nonspecific ST-T wave changes. Heart rate is 95. Echocardiography study in 05/2017 revealed ejection fraction ranged 25-30%, [id number] pulmonary attention. The patient had moderate to severe global hypokinesis of the left ventricle. Cardiac catheterization in August of last year revealed was consistent with nonischemic cardiomyopathy with ejection fraction measured at 25%. ASSESSMENT: 1. Nonischemic cardiomyopathy. 2. Worsening renal insufficiency. 3. Hypertension. RECOMMENDATIONS: The case was discussed with assistant broker, Dr. So. Continue current normal saline infusion at 50 mL an hour. We will follow the patient for any signs of volume overload. Diovan is on hold for now. The patient is not a suitable candidate for Aldactone therapy either. Beta-blockers maybe used if there is any evidence of significant ventricular ectopy; however, in view of prior cocaine abuse documented last May, it is not safe to place the patient on beta-blockers as an outpatient. Dread Singh MD
[2017-09-23] MEDS: Benzocaine/Menthol (Cepacol) Lozenge MT PRN ×2 (05:34→13:08)
[2017-09-23] MEDS ORDERED: Pantoprazole 40 mg EC Tab PO SCH (06:00)
[2017-09-23 06:20] VITALS: RESP 20
[2017-09-23 06:42] LABS: EOS # 0.1 (0.0-0.7); GRAN # 3.74 (1.4-6.5); GRAN % 66.9 % (50.0-68.0); LYMPH # 1.4 (1.2-3.4); LYMPH % 24.5 % (22.0-35.0); MEAN CELL VOLUME 94.8 fl (80.0-105.0); MEAN CORPUSCULAR HEMOGLOBIN 31.2 pg (25.0-35.0); MEAN CORPUSCULAR HGB CONC 32.9 g/dl (31.0-37.0); MEAN PLATELET VOLUME 9.9 fl (7.0-11.0); MONO # 0.4 (0.1-0.6); MONO % 6.6 % (1.0-6.0); RBC 3.85 10^6/uL (3.5-6.1); RED CELL DISTRIBUTION WIDTH 14.8 % (11.5-14.5); WHITE BLOOD COUNT 5.6 10^3/ul (4.5-11.0)
[2017-09-23 07:38] LABS: ALB/GLOB RATIO 1.2 (1.1-1.8); ALBUMIN 3.4 g/dL (3.0-4.8); BILIRUBIN,DIRECT 0.4 mg/dL (0.0-0.4); CALCIUM 8.9 mg/dL (8.4-10.5); CK MB% 0.4 % (2.5-3.0); MAGNESIUM 1.7 mg/dL (1.7-2.2); TROPONIN I 0.07 ng/mL
--- NOTE | 2017-09-23 09:42 | CP.PCM.PCO ---
Physician Communication Note - Physician Communication Note Physician Communication Note: pt was at ECHO, discussed with RN, no agitation, no SI, will f/u tomorrow
--- NOTE | 2017-09-23 10:03 | PN ---
DATE: 09/22/2017 LOCATION: The patient is seen and examined in room 372, bed 1. SUBJECTIVE: The patient's diagnostic data and therapeutic intervention was reviewed. The patient is seen lying in the bed in room 372, bed 1. Overnight nurse's notes were reviewed. The patient has been found to be alert, awake, oriented. The patient denies any chest pain, denies shortness of breath, denies nausea, denies vomiting, denies diarrhea, denies hemoptysis, hematemesis, melena. PHYSICAL EXAMINATION: VITAL SIGNS: Telemetry monitoring shows sinus rhythm, heart rate 86, 74, 90, 82. Vital signs, T-max 98. Telemetry heart rate 81, 86, 74, 75. Blood pressure 109/63, 104/52, respiration 20, O2 sat 98%. HEENT: Head examination normocephalic, atraumatic. HEENT examination shows pinkish pale conjunctivae. Anicteric sclerae. No oropharyngeal lesion. No jugular venous distention. No audible carotid bruit. CHEST: Examination kyphosis. LUNG: Examination shows no rales, crackles, or wheezing. CARDIOVASCULAR: Examination is S1, S2, regular rhythm. Questionable soft systolic murmur, left sternal border, right second intercostal space, left second intercostal space. ABDOMEN: Soft. Positive bowel sounds. No hepatosplenomegaly. No guarding. No rigidity or rebound tenderness. GENITALIA: Male. RECTAL: Examination is deferred. EXTREMITY: Shows no pitting edema. No calf tenderness. No Homans' signs. NEUROLOGIC: The patient is alert, awake, oriented x3, is able to move upper and lower extremity without assistance. Gait examination is not tested. Cranial nerves II-XII intact. VASCULAR: Examination is palpable pulses. MUSCULOSKELETAL: Examination shows a body mass index of 31. LABORATORY DATA: September 22, WBC 4.8, hemoglobin/hematocrit 12.7/38.3, platelet 184. Sodium 142, potassium 4.3, chloride 108, CO2 of 24, anion gap 14, BUN down to 32, creatinine down to 2.1, glucose 92, uric acid 7.7, calcium 9.0. AST is down to 91. CPK greater than 1600. Initial CPK 9183. Troponin is 0.07 which is indeterminate. Vitamin D is less than 13. TSH 0.14, T4 is 6.0. Urine drug screen positive for opiates. IMAGING: Renal ultrasound, bladder ultrasound, brain MRI, chest x-ray, CT of the head all reviewed. IMPRESSION: 1. Altered mental status versus opioid overdose. 2. Acute renal failure with underlying chronic kidney disease. 3. Nonhemolyzed hyperkalemia. 4. Metabolic acidosis. 5. History of hypertension. 6. Drug overdose with altered mental status. 7. Acute kidney injury. 8. History of narcotic and cocaine abuse. 9. Altered mental status with opioid abuse. 10. Cardiomyopathy with history of cardiomyopathy and systolic congestive heart failure. 11. Acute kidney injury with underlying chronic kidney disease 3A. 12. Normocytic anemia. 13. Transaminitis. 14. Rhabdomyolysis. 15. Hypovitaminosis D. 16. Microscopic hematuria. 17. Urine drug screen positive for opiate. 19. Right nonobstructing nephrolithiasis. 20. Right renal cyst. 21. Chronic ischemic infarct of the left posterior temporoparietal area with some peripheral hemosiderin deposition. 22. Possible nonspecific gliosis of the right occipital horn white matter. 23. Bilateral areas of increased T2 signal in the deep and subcortical white matter. 24. Ethmoid and maxillary sinus area mucosal thickening and mucoperiosteal inflammatory processes. 25. History of congestive heart failure and cardiomyopathy. 26. History of lumbar, ankle, and foot surgery. 27. History of lumbar herniated disc. 28. History of lumbar spine surgery. 29. History of degenerative joint disease of the knees and arthritis in ankle. 30. History of substance abuse. 31. 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 32. Narcotic dependent pain syndrome. 33. Systolic congestive heart failure. 34. History of cocaine abuse. 35. Moderate mitral regurgitation. 36. Pulmonary arterial hypertension with right ventricular systolic pressure of 48 mmHg. 37. Diffuse left ventricular hypokinesis with severe left ventricular dysfunction, with left ventricular ejection fraction of 25%. 38. Chronic left posterior temporoparietal infarct. PLAN: At this time, the patient has been ordered repeat CMP, CPK, LFT, magnesium, troponin. The patient has been ordered repeat CBC. Current consultation Cardiology, next the patient is being seen by Nephrology, Neurology, and Psychiatry. CURRENT MEDICATIONS: Cepacol q.2 h. p.r.n. The patient is started on dobutamine drip at 5 mcg/kg/minute. The patient is started on DVT prophylaxis, heparin 5000 SubQ q.8, Protonix 40 mg daily. The patient is on IV fluid 0.9 at 100 mL an hour. Repeat chest x-ray PA and lateral ordered. The patient was seen by the Neurology service who had ordered an echo with Doppler. Carotid Doppler ordered by Neurology today. The patient is on heart healthy diet. The patient has been ordered out of bed, SHELLIE stockings, SCDs. MUGA scan has been ordered. Daily weights have been ordered. The patient has been advised about the details of his medical condition, diagnosis. All questions concerned answered, which he acknowledged and understands. At present, the patient's vital signs are stable. The patient home medications including Lasix and Diovan have been held. At present, the patient is undergoing further diagnostic therapeutic intervention. The patient will be cleared for discharge once the patient is cleared by all subspecialty. Again, the patient is transferred under my service as of today, September 22. The patient was admitted by the hospitalist service from September 20 and the patient was provided care by the hospitalist service on September 20 and September 21. Dictated and electronically signed, not read. Barber Sharma MD
[2017-09-23] MEDS: DOBUTamine 500mg/250ml D5W 500 MG/250 ML BAG IVPB PRN (12:07)
[2017-09-23 12:12] VITALS: BP 161/99; PULSE 87
[2017-09-23 12:42] VITALS: TEMP 97.8; O2SAT 100
--- NOTE | 2017-09-23 13:46 | CP.PCM.PN ---
Subjective - Date & Time of Evaluation Date of Evaluation: 09/23/17 Time of Evaluation: 13:44 - Subjective Subjective: Mr. Packer was seen and examined at the bedside. He is alert, oriented in all spheres. He is able to follow simple commands and answer questions appropriately. He states that he had his carotid ultrasound done this am. He had an episode of irregular heart rhythm this morning, Engineering Production Liaison made aware. Objective - Vital Signs/Intake and Output Vital Signs (last 24 hours): Temp Pulse Resp BP Pulse Ox 97.8 F 87 20 161/99 H 100 09/23/17 12:00 09/23/17 12:07 09/23/17 12:00 09/23/17 12:07 09/23/17 12:00 Intake and Output: 09/23/17 09/23/17 06:59 18:59 Intake Total 1761 Output Total 1300 Balance 461 - Medications Medications: Current Medications Benzocaine/Menthol (Cepacol Sore Throat) 1 ramos MT Q2H PRN PRN Reason: Sore Throat Last Admin: 09/23/17 13:08 Dose: 1 ramos Carvedilol (Coreg) 3.125 mg PO BID [facility] Heparin Sodium (Porcine) (Heparin) 5,000 units SC Q8 SHAMAR PRN Reason: Protocol Last Admin: 09/23/17 05:31 Dose: 5,000 units Pantoprazole Sodium (Protonix Ec Tab) 40 mg PO 0600 [facility] Last Admin: 09/23/17 05:33 Dose: 40 mg - Labs Labs: 09/23/17 06:00 09/23/17 06:00 - Constitutional Appears: No Acute Distress - Head Exam Head Exam: NORMAL INSPECTION - Neurological Exam Neurological Exam: Alert, Awake, Oriented x3 Neuro motor strength exam: Left Upper Extremity: 5, Right Upper Extremity: 5, Left Lower Extremity: 5, Right Lower Extremity: 5 Additional comments: Neurological unchanged from previous examination. Assessment and Plan (1) Ischemic stroke Assessment & Plan: Case discussed with Dr. Amos, continue all current medical, physical, and occupational therapies. Pending Carotid ultrasound and echocardiogram. Status: Acute
--- NOTE | 2017-09-23 15:03 | RAD ---
HISTORY: COMPARISON: 09/20/2017 TECHNIQUE: Chest PA and lateral FINDINGS: LINES AND TUBES: None. LUNG AND PLEURA: The lungs are well inflated and clear. There is mild pulmonary venous congestion. HEART AND MEDIASTINUM: There is persistent mild cardiomegaly. The hilar and mediastinal contours are within normal limits. SKELETAL STRUCTURES: The bony structures are within normal limits for the patient's age. VISUALIZED UPPER ABDOMEN: Normal. OTHER FINDINGS: None. IMPRESSION: Mild cardiomegaly and pulmonary venous congestion. No radiographic evidence for congestive heart failure.
--- NOTE | 2017-09-23 15:39 | CP.PCM.PCO ---
Physician Communication Note - Physician Communication Note Physician Communication Note: Elected to leave AMA. Understands risks, paperwork signed and witnessed.
--- NOTE | 2017-09-23 15:45 | PN ---
DATE: SUBJECTIVE: It was reported to me that the patient had a 10-beat run of non-sustained ventricular tachycardia. When I saw the patient earlier, the patient denied any symptoms of chest pain or shortness of breath. PHYSICAL EXAMINATION: VITAL SIGNS: Blood pressure 161/99, heart rate 87, temperature 97.8, and respirations 20. HEENT: Normocephalic. CHEST: Bilateral rhonchi. HEART: S1 and S2, regular. ABDOMEN: Soft. EXTREMITIES: No edema. LABORATORY DATA: Hemoglobin and hematocrit 12 and 36.5, white count and platelet count are within normal limit. SMA-7: Sodium 144, potassium 4, chloride 112, CO2 of 22, glucose 91, BUN 22, creatinine 1.8. Urine drug screen is positive for opiates and benzodiazepines. Today's chest x-ray revealed cardiomegaly with prominent bronchovascular markings, possible mild CHF. MUGA scan was performed, the report is still pending. ASSESSMENT: 1. Congestive heart failure, non-ischemic cardiomyopathy. 2. Worsening renal insufficiency. 3. Hypertension. 4. Non-sustained ventricular tachycardia. The patient is currently normokalemic and normomagnesemic. RECOMMENDATIONS: Discontinue Dobutrex, start Coreg 3.125 mg twice a day. Dread Singh MD
--- NOTE | 2017-09-23 17:35 | US ---
PROCEDURE: Bilateral carotid artery duplex ultrasound HISTORY: Carotid stenosis PHYSICIAN(S): Mike Schroeder MD. TECHNIQUE: Duplex sonography and color-flow Doppler were used to evaluate the carotid bifurcations and limited segments of the vertebral arteries bilaterally. FINDINGS: There is mild smooth heterogeneous plaque noted at the carotid bifurcations bilaterally. The peak systolic velocity in the proximal right internal carotid artery is 91 cm/sec. This corresponds to a 20 to 39% proximal right ICA stenosis. Normal systolic velocities are noted in the proximal right external carotid artery. There is antegrade flow in the right vertebral artery. The peak systolic velocity in the proximal left internal carotid artery is 134 cm/sec. This corresponds to a 40-59 percent proximal left ICA stenosis. Normal systolic velocities are noted in the proximal left external carotid artery. There is antegrade flow in the left vertebral artery. IMPRESSION: 1. 40-59 percent proximal left ICA stenosis. 2. 20- 39 percent proximal right ICA stenosis. 3. Antegrade flow in both vertebral arteries
--- NOTE | 2017-09-23 18:47 | CP.PCM.PN ---
Subjective - Date & Time of Evaluation Date of Evaluation: 09/23/17 Time of Evaluation: 10:00 - Subjective Subjective: Patient reports breathing well; wanting to go home; Objective - Vital Signs/Intake and Output Vital Signs (last 24 hours): Temp Pulse Resp BP Pulse Ox 97.8 F 87 20 161/99 H 100 09/23/17 12:00 09/23/17 12:07 09/23/17 12:00 09/23/17 12:07 09/23/17 12:00 Intake and Output: 09/23/17 09/23/17 06:59 18:59 Intake Total 1761 Output Total 1300 Balance 461 - Labs Labs: 09/23/17 06:00 09/23/17 06:00 - Constitutional Appears: Non-toxic, No Acute Distress - Eye Exam Eye Exam: absent: Scleral icterus - ENT Exam ENT Exam: Mucous Membranes Moist - Respiratory Exam Respiratory Exam: Clear to Ausculation Bilateral. absent: Respiratory Distress - Cardiovascular Exam Cardiovascular Exam: RRR, +S1, +S2 - GI/Abdominal Exam GI & Abdominal Exam: Soft. absent: Distended, Tenderness - Extremities Exam Additional comments: no leg edema; - Neurological Exam Neurological Exam: Alert, Awake - Psychiatric Exam Psychiatric exam: Normal Affect, Normal Mood. absent: Agitated - Skin Skin Exam: Warm. absent: Cyanosis Assessment and Plan (1) SILVINA (acute kidney injury) Assessment & Plan: Resolving; concern for exaggerated response to valsartan; patient advised that the med should be restarted at very low dose as outpatient (40 mg) and monitored closely; Status: Acute (2) CKD (chronic kidney disease) stage 3, GFR 30-59 ml/min Assessment & Plan: Non-proteinuric kidney disease; needs to avoid illicit drug use; advised about avoiding NSAIDS as well; Status: Chronic (3) Hyperkalemia Assessment & Plan: Possibly due to both NSAIDS and ARB combination; see above regarding restarting ARB; Status: Resolved (4) Hypertension Assessment & Plan: BP markedly elevated today after MUGA scan; IVF discontinued; Status: Chronic (5) Congestive heart failure Assessment & Plan: Clinically has appeared euvolemic; cardio recommending starting low dose coreg; Status: Chronic - Assessment and Plan (Free Text) Assessment: Patient noted to have signed out AMA later today; will seek to f/u with him as outpatient.
--- NOTE | 2017-09-23 22:06 | CARD ---
APPROVED REPORT INDICATION CMP,EVALUATE LV EJECTION FRACTION PROCEDURE The above named patient recieved 27.8 millicuries of Tc99m tagged red blood cells intravenously. After achieving equilibrium, gated imaging of 16/frame/cycle was performed utillizing Gamma camera interfaced with a digital computer and gated device. Gated imaging was then performed in the left anterior oblique, anterior, and the left lateral projections. Findings Left Ventricle: The quality of the study is good. The left ventricle is moderately enlarged. The right ventricle is normal in size. Wall motion study shows mild diffuse hypokinesis of the left ventricle. RV wall motion is normal. The right atrium is dynamic. The left atrium is prominent. The remainder of the study is unremarkable. Impressions MIld LV dysfunction with diffuse hypokinesis. LVEF = 46%. Normal RV wall motion. Prominent left atrium is suggestive of mitral regurgitation.
--- NOTE | 2017-09-24 09:26 | CP.PCM.PCO ---
Physician Communication Note - Physician Communication Note Physician Communication Note: pt was d/c AMA yesterday
--- NOTE | 2017-09-24 22:51 | DS ---
FINAL PROGRESS NOTE AND DISCHARGE SUMMARY HISTORY OF PRESENT ILLNESS: Patient signed out against medical advice on 09/29/2017, despite patient was advised against signing out medical advice, but patient was seen and examined by the territory sales manager medical. Patient was seen by Psychiatry, Cardiology, Neurology and Nephrology, but patient signed out against medical advice. Patient's AMA form was signed and witnessed by the nurses and the territory sales manager medical. PHYSICAL EXAMINATION: VITAL SIGNS: T-max 98.2, heart rate 92, 94, 81, 89. Telemetry shows sinus rhythm. Blood pressure in the last 24 hours 120/80, 148/84. Respirations 20, O2 sat 99% to 100%. Output 1000. Today's output is 800. DIAGNOSTIC DATA: From 09/23, WBC 5.6, hemoglobin/hematocrit 12 and 36.5, platelets 176. Sodium 144, potassium 4.0, chloride 112, CO2 22, anion gap 14, BUN 22, creatinine down to 1.8, GFR 46, glucose 91, calcium 8.9, magnesium 1.7. AST is down to 61. CPK is down to 5.0. PTH is high at 116. Patient had a carotid ultrasound, which shows 40% to 59% proximal left internal carotid artery stenosis and 20% to 39% proximal right internal carotid artery stenosis. MUGA scan shows diffuse LV hypokinesis and LV dysfunction with ejection fraction of 46% and prominent left atriums suggestive of mitral regurgitation. Chest x-ray was done, PA and lateral, which shows lungs are clear, mild pulmonary venous congestion, cardiomegaly. IMPRESSION AND PLAN: 1. Status post possible drug overdose. 2. Acute kidney injury and acute renal failure (resolving). 3. Chronic kidney disease, stage III. 4. Non-hemolyzed hyperkalemia. 5. Hypertension. 6. Chronic ischemic infarct of the brain. 7. Poor compliance and noncompliance. 8. Asymptomatic nonsustained ventricular tachycardia. 9. Obesity with elevated body mass index. 10. Normocytic anemia. 11. Transaminitis. 12. Rhabdomyolysis with elevated CPK. 13. Secondary hyperparathyroidism. 14. Hypovitaminosis D. 15. Microscopic hematuria. 16. Bacteriuria. 17. Urine drug screen positive for opiate. 18. Deconditioning. 19. A 40% to 59% proximal left internal carotid artery stenosis and 20% to 39% proximal right internal carotid artery stenosis. 20. Left ventricular diffuse hypokinesis and left ventricular dysfunction with left ventricle ejection fraction of 46%. 21. Prominent left atrium suggestive of mitral regurgitation. 22. Cardiomegaly with mild pulmonary vascular congestion. 23. Nonischemic cardiomyopathy. Patient signed out against medical advise. Patient's AMA formalities and paperwork was signed and witnessed by the nurses and the territory sales manager medical Dictated and electronically signed, not read. Barber Sharma MD
== END 2017-09-23 16:17 | disposition left against medical advice (07) | DRG 918 ==
LOC: ED 09:40 → OBSVTOIN 11:54 → ERH 11:54 → 3RSO 22:37
PROVIDERS: ADMIT Internal Medicine; ATTEND Internal Medicine
DX: T40.2X1A Poisoning by other opioids, accidental (unintentional), initial encounter (principal); I47.2 Ventricular tachycardia; N17.9 Acute kidney failure, unspecified; M62.82 Rhabdomyolysis; I13.0 Hypertensive heart and chronic kidney disease with heart failure and stage 1 through stage 4 chronic kidney disease, or unspecified chronic kidney disease; I50.22 Chronic systolic (congestive) heart failure; E87.2 Acidosis; I42.0 Dilated cardiomyopathy; G93.89 Other specified disorders of brain; F11.20 Opioid dependence, uncomplicated; E87.5 Hyperkalemia; N18.3 Chronic kidney disease, stage 3 (moderate); N28.1 Cyst of kidney, acquired; F14.10 Cocaine abuse, uncomplicated; E78.5 Hyperlipidemia, unspecified; D64.9 Anemia, unspecified; E55.9 Vitamin D deficiency, unspecified; N20.0 Calculus of kidney; M51.26 Other intervertebral disc displacement, lumbar region; M19.079 Primary osteoarthritis, unspecified ankle and foot; M17.0 Bilateral primary osteoarthritis of knee; I34.0 Nonrheumatic mitral (valve) insufficiency; I27.21 Secondary pulmonary arterial hypertension; Z86.73 Personal history of transient ischemic attack (TIA), and cerebral infarction without residual deficits; Z87.891 Personal history of nicotine dependence

== ENCOUNTER 2018-02-01 20:45 | Inpatient (IN) | payer MEDICARE, OTHER ==
[2018-02-01 21:53] LABS: BASO # 0.01 K/mm3 (0.0-2.0); BASO % 0.2 % (0.0-3.0); EOS # 0.2 (0.0-0.7); EOS % 3.7 % (1.5-5.0); GRAN # 3.25 (1.4-6.5); GRAN % 54.4 % (50.0-68.0); HEMOGLOBIN 11.5 g/dL (14.0-18.0); LYMPH # 1.9 (1.2-3.4); LYMPH % 32.6 % (22.0-35.0); MEAN CELL VOLUME 93.5 fl (80.0-105.0); MEAN CORPUSCULAR HEMOGLOBIN 31.3 pg (25.0-35.0); MEAN CORPUSCULAR HGB CONC 33.5 g/dl (31.0-37.0); MEAN PLATELET VOLUME 9.7 fl (7.0-11.0); MONO # 0.5 (0.1-0.6); MONO % 9.1 % (1.0-6.0); RBC 3.67 10^6/uL (3.5-6.1)
[2018-02-01 22:01] LABS: INR 1.01 (0.93-1.08); PARTIAL THROMBOPLASTIN TIME 28.5 Seconds (25.1-36.5); PROTHROMBIN TIME 11.5 SECONDS (9.4-12.5)
[2018-02-01 22:04] LABS: ALB/GLOB RATIO 1.3 (1.1-1.8); ALBUMIN 3.9 g/dL (3.0-4.8); CALCIUM 8.6 mg/dL (8.4-10.5)
[2018-02-01] MEDS ORDERED: Enoxaparin 100 mg Syringe SC SCH (22:15)
[2018-02-01 22:16] LABS: TROPONIN I 0.06 ng/mL
[2018-02-01 22:24] LABS: CK-MB 6.1 ng/mL (0.0-3.6)
[2018-02-01] MEDS ORDERED: Enoxaparin 100 mg Syringe SC STA (22:57)
[2018-02-02] MEDS ORDERED: Nitroglycerin 2% Ointment Foilpak UD TOP STA (00:38)
--- NOTE | 2018-02-02 00:45 | ED PDOC ---
Arrival/HPI - General Chief Complaint: Chest Pain Time Seen by Provider: 02/01/18 20:48 Historian: Patient - History of Present Illness Narrative History of Present Illness (Text): 02/02/18 00:42 62 year old male, with no significant past medical history, presents to the emergency department complaining of left sided chest pain. Patient denies any fevers, chills, shortness of breath, abdominal pain, nausea, vomiting, diarrhea , back pain, neck pain, headache, dizziness, or any other complaint. Symptom Onset: Gradual Symptom Course: Unchanged Activities at Onset: Light Context: Home Past Medical History - Provider Review Nursing Documentation Reviewed: Yes - Infectious Disease Hx of Infectious Diseases: None - Tetanus Immunization Tetanus Immunization: Unknown - Cardiac Hx Cardiac Disorders: Yes Hx Congestive Heart Failure: Yes Hx Hypertension: Yes Hx Peripheral Edema: Yes - Pulmonary Hx Respiratory Disorders: Yes Hx Asthma: Yes Hx Chronic Obstructive Pulmonary Disease (COPD): Yes Hx Tuberculosis: No Other/Comment: smoker - Neurological Hx Neurological Disorder: No - HEENT Hx HEENT Disorder: No - Renal Hx Renal Disorder: Yes Hx Renal Failure: Yes - Endocrine/Metabolic Hx Endocrine Disorders: No - Hematological/Oncological Hx Blood Disorders: No - Integumentary Hx Dermatological Disorder: No - Musculoskeletal/Rheumatological Hx Musculoskeletal Disorders: Yes Hx Arthritis: Yes Hx Back Pain: Yes Hx Fractures: Yes Hx Herniated Disk: Yes Hx Unsteady Gait: Yes Other/Comment: R SHOULDER PAIN - Gastrointestinal Hx Gastrointestinal Disorders: Yes Other/Comment: polyps removed - Genitourinary/Gynecological Hx Genitourinary Disorders: No - Psychiatric Hx Psychophysiologic Disorder: No Hx Substance Use: Yes - Surgical History Hx Musculoskeletal Surgery: Yes Hx Orthopedic Surgery: Yes (BACK, L ANKLE, R SHOULDER) - Anesthesia Hx Anesthesia: Yes Hx Anesthesia Reactions: No Hx Malignant Hyperthermia: No - Suicidal Assessment Feels Threatened In Home Enviroment: No Family/Social History - Physician Review Nursing Documentation Reviewed: Yes Family/Social History: No Known Family HX Smoking Status: Heavy Smoker > 10 Cigarettes Daily Hx Alcohol Use: No Hx Substance Use: Yes Hx Substance Use Treatment: No Allergies/Home Meds Allergies/Adverse Reactions: Allergies No Known Allergies Allergy (Verified 02/01/18 20:55) Home Medications: Home Meds Medication Instructions Recorded Confirmed Furosemide [Lasix] 20 mg PO DAILY 09/20/17 02/02/18 Valsartan [Diovan] 160 mg PO DAILY 09/20/17 02/02/18 Zolpidem [Ambien] 10 mg PO HS 09/20/17 02/02/18 oxyCODONE [oxyCODONE Immediate 15 mg PO 5XD PRN 09/20/17 02/02/18 Release Tab] Metoprolol Succinate XL [Toprol XL] 25 mg PO BID 11/25/17 02/02/18 Review of Systems - Physician Review All systems were reviewed & negative as marked: Yes - Review of Systems Constitutional: Normal Eyes: Normal ENT: Normal Respiratory: Normal. absent: SOB, Cough Cardiovascular: Chest Pain (left sided CP) Gastrointestinal: Normal. absent: Abdominal Pain, Diarrhea, Nausea, Vomiting Genitourinary Male: Normal. absent: Dysuria, Frequency Musculoskeletal: Normal. absent: Back Pain, Neck Pain Skin: Normal. absent: Rash Neurological: Normal. absent: Headache, Dizziness Endocrine: Normal Hemo/Lymphatic: Normal Psychiatric: Normal Physical Exam Vital Signs Reviewed: Yes Vital Signs Temp Pulse Resp BP Pulse Ox 02/02/18 03:32 99.3 F 92 H 20 02/02/18 02:52 98.6 F 86 20 132/96 H 100 02/02/18 02:13 131/95 H 02/02/18 02:08 96 H 20 131/95 H 100 02/01/18 23:13 98.8 F 83 20 133/93 H 100 Temperature: Afebrile Blood Pressure: Normal Pulse: Regular Respiratory Rate: Normal Appearance: Positive for: Well-Appearing, Non-Toxic, Comfortable Pain Distress: None Mental Status: Positive for: Alert and Oriented X 3 - Systems Exam Head: Present: Atraumatic, Normocephalic Pupils: Present: PERRL Extroacular Muscles: Present: EOMI Conjunctiva: Present: Normal Mouth: Present: Moist Mucous Membranes Neck: Present: Normal Range of Motion. No: Meningeal Signs, MIDLINE TENDERNESS Respiratory/Chest: Present: Clear to Auscultation, Good Air Exchange. No: Respiratory Distress, Accessory Muscle Use Cardiovascular: Present: Regular Rate and Rhythm, Normal S1, S2. No: Murmurs Abdomen: No: Tenderness, Distention, Peritoneal Signs Back: Present: Normal Inspection. No: CVA Tenderness, Midline Tenderness, Paraspinal Tenderness Upper Extremity: Present: Normal Inspection. No: Cyanosis, Edema Lower Extremity: Present: Normal Inspection. No: Edema, CALF TENDERNESS Neurological: Present: GCS=15, CN II-XII Intact, Speech Normal Skin: Present: Warm, Dry, Normal Color. No: Rashes Psychiatric: Present: Alert, Oriented x 3, Normal Insight, Normal Concentration Medical Decision Making ED Course and Treatment: 02/02/18 00:45 Impression: 62 year old male presents to the emergency department complaining of left sided chest pain. Plan: -- EKG -- Chest X-ray --- Lasix -- Lovenox -- Nitrogycerin -- Lung Perf & Vent Scan -- UA -- Reassess and disposition Progress Notes: 02/02/18 01:21 Lung Perf and Vent scan reviewed, shows: Ventilation: Unremarkable. No ventilation defects. Perfusion: Unremarkable. No perfusion defects. IMPRESSION: No acute findings. Low probability for PE. case d/w dr melissa will obs on tele for cp - Lab Interpretations Microbiology Results: Microbiology Results 02/02/18 11:00 Naris MRSA Culture (Admit) - Final MRSA NOT DETECTED Lab Results: 02/02/18 09:45 02/02/18 09:45 Lab Results 02/02/18 09:55: pCO2 31 L, pO2 128.0 H, HCO3 21.5, ABG pH 7.45, ABG Total CO2 22.5, ABG O2 Saturation 99.7 H, ABG Base Excess -1.6, ABG Potassium 3.9, Glucose 104, Lactate 1.2, FiO2 50.0, Sodium 144.0, Chloride 116.0 H, Arterial Blood Potassium 3.9 02/02/18 09:45: ESR 25 H 02/02/18 09:45: PT 12.8 H, INR 1.11 H 02/02/18 09:45: WBC 6.7, RBC 3.91, Hgb 12.4 L, Hct 36.1 L, MCV 92.3, MCH 31.7, MCHC 34.3, RDW 13.9, Plt Count 190, MPV 9.8 02/02/18 09:45: Sodium 147, Potassium 4.6, Chloride 110 H, Carbon Dioxide 26, Anion Gap 16, BUN 19, Creatinine 1.9 H, Est GFR ( Amer) 44, Est GFR (Non- Af Amer) 36, Random Glucose 110, Calcium 9.2, Phosphorus 3.8, Magnesium 1.8, Total Bilirubin 0.4, AST 22, ALT 30, Alkaline Phosphatase 67, Troponin I 0.05, Total Protein 7.4, Albumin 4.2, Globulin 3.2, Albumin/Globulin Ratio 1.3 02/02/18 06:30: Free T4 1.06, TSH 3rd Generation 0.25 L 02/02/18 06:30: Hemoglobin A1c 5.3 02/02/18 06:30: Sodium 146, Potassium 4.4, Chloride 111 H, Carbon Dioxide 23, Anion Gap 17, BUN 19, Creatinine 1.9 H, Est GFR ( Amer) 44, Est GFR (Non- Af Amer) 36, Random Glucose 111 H, Calcium 8.8, Phosphorus 4.1, Magnesium 1.8, Total Bilirubin 0.5, AST 23, ALT 32, Alkaline Phosphatase 68, Troponin I 0.05, Total Protein 7.2, Albumin 3.8, Globulin 3.4, Albumin/Globulin Ratio 1.1, Triglycerides 138, Cholesterol 153, LDL Cholesterol Direct 91, HDL Cholesterol 38 02/02/18 06:30: WBC 6.5, RBC 3.80, Hgb 12.0 L, Hct 35.2 L, MCV 92.6, MCH 31.6, MCHC 34.1, RDW 14.0, Plt Count 195, MPV 10.1, Gran % 52.9, Lymph % (Auto) 34.1, [place] % (Auto) 9.1 H, Eos % (Auto) 3.7, Baso % (Auto) 0.2, Gran # 3.43, Lymph # ( Auto) 2.2, [place] # (Auto) 0.6, Eos # (Auto) 0.2, Baso # (Auto) 0.01 02/02/18 02:23: Urine Opiates Screen Positive H, Urine Methadone Screen Negative , Ur Barbiturates Screen Negative, Ur Phencyclidine Scrn Negative, Ur Amphetamines Screen Negative, U Benzodiazepines Scrn Positive H, U Oth Cocaine Metabols Positive H, U Cannabinoids Screen Negative 02/02/18 02:23: Urine Color Yellow, Urine Appearance Clear, Urine pH 6.0, Ur Specific Fisher 1.015, Urine Protein Negative, Urine Glucose (UA) Negative, Urine Ketones Negative, Urine Blood Negative, Urine Nitrate Negative, Urine Bilirubin Negative, Urine Urobilinogen 0.2, Ur Leukocyte Esterase Negative 02/01/18 21:35: PT 11.5, INR 1.01, APTT 28.5, D-Dimer, Quantitative 452 H 02/01/18 21:35: Sodium 145, Potassium 4.2, Chloride 112 H, Carbon Dioxide 22, Anion Gap 15, BUN 21, Creatinine 2.0 H, Est GFR ( Amer) 41, Est GFR (Non- Af Amer) 34, Random Glucose 109, Calcium 8.6, Magnesium 1.9, Total Bilirubin 0.4 , AST 28, ALT 29, Alkaline Phosphatase 62, Lactate Dehydrogenase 602, Total Creatine Kinase 617 H, CK-MB (CK-2) 6.1 H, CK-MB (CK-2) % 1.0 L, Troponin I 0.06 , NT-Pro-B Natriuret Pep 581 H, Total Protein 7.0, Albumin 3.9, Globulin 3.1, Albumin/Globulin Ratio 1.3 02/01/18 21:35: WBC 6.0, RBC 3.67, Hgb 11.5 L, Hct 34.3 L, MCV 93.5, MCH 31.3, MCHC 33.5, RDW 14.0, Plt Count 183, MPV 9.7, Gran % 54.4, Lymph % (Auto) 32.6, [place] % (Auto) 9.1 H, Eos % (Auto) 3.7, Baso % (Auto) 0.2, Gran # 3.25, Lymph # ( Auto) 1.9, [place] # (Auto) 0.5, Eos # (Auto) 0.2, Baso # (Auto) 0.01 - RAD Interpretation Radiology Orders: 02/01/18 21:16 CHEST PORTABLE [RAD] Stat 02/01/18 22:06 LUNG PERF & VENT SCAN [NM] Stat 02/02/18 10:17 CXR [CHEST PORTABLE] [RAD] Stat 02/02/18 11:12 ABDOMEN & PELVIS [ABD & PELVIS W/O PO OR IV CONT] [CT] Routine - EKG Interpretation EKG Interpretation (Text): 02/02/18 04:35 sinus rate [address] s changes rare pvc - Medication Orders Current Medication Orders: Discontinued Medications Acetaminophen (Tylenol 325mg Tab) 650 mg PO Q6 PRN PRN Reason: TEMP>=99.5F Acetaminophen (Tylenol 650 Mg Supp) 650 mg RC Q6H PRN PRN Reason: TEMP>=99.5F Aspirin (Ecotrin) 81 mg PO DAILY [facility] Last Admin: 02/04/18 10:34 Dose: 81 mg Atorvastatin Calcium (Lipitor) 40 mg PO DIN [facility] Last Admin: 02/04/18 17:14 Dose: 40 mg Clopidogrel Bisulfate (Plavix) 75 mg PO DAILY [facility] Last Admin: 02/04/18 10:41 Dose: 75 mg Docusate Sodium (Colace) 100 mg PO TID [facility] Last Admin: 02/04/18 17:14 Dose: 100 mg Last Bowel Movement Document 02/04/18 17:14 BIR (Rec: 02/04/18 17:14 BIR [id number]) Last Bowel Movement Last Bowel Movement 02/04/18 Enoxaparin Sodium (Lovenox) 90 mg SC Q12H SHAMAR PRN Reason: Protocol Enoxaparin Sodium (Lovenox) 90 mg SC STAT STA PRN Reason: Protocol Stop: 02/01/18 22:58 Last Admin: 02/02/18 02:13 Dose: 90 mg Subcutaneous Administrations Document 02/02/18 02:13 (Rec: 02/02/18 02:14 [id number][facility] Charges for Administration # of Subcutaneous Administrations 1 Furosemide (Lasix) 20 mg IVP ONCE ONE Stop: 02/02/18 00:39 Last Admin: 02/02/18 02:13 Dose: 20 mg MAR Blood Pressure Document 02/02/18 02:13 (Rec: 02/02/18 02:13 [id number]) Blood Pressure Blood Pressure (100/60-150/90) 131/95 IVP Administration Document 02/02/18 02:13 (Rec: 02/02/18 02:13 [id number]) Charges for Administration # of IVP Administrations 1 Furosemide (Lasix) 20 mg IVP DAILY [facility] Last Admin: 02/04/18 10:36 Dose: 20 mg MAR Blood Pressure Document 02/04/18 10:36 DORIAN (Rec: 02/04/18 10:37 DORIAN [id number]) Blood Pressure Blood Pressure (100/60-150/90) 162/100 IVP Administration Document 02/04/18 10:36 DORIAN (Rec: 02/04/18 10:37 [facility] Charges for Administration # of IVP Administrations 1 Heparin Sodium (Porcine) (Heparin) 5,000 units SC Q8 SHAMAR PRN Reason: Protocol Last Admin: 02/04/18 05:34 Dose: 5,000 units Subcutaneous Administrations Document 02/04/18 05:34 B.P (Rec: 02/04/18 05:35 B.P [facility]) Charges for Administration # of Subcutaneous Administrations 1 Hydromorphone HCl (Dilaudid) 1 mg IVP STAT STA Stop: 02/02/18 12:05 Hydromorphone HCl (Dilaudid) 1 mg IVP STAT STA Stop: 02/02/18 12:09 Last Admin: 02/02/18 12:20 Dose: 1 mg MAR Pain Assessment Document 02/02/18 12:20 MMA (Rec: 02/02/18 12:20 MMA [facility]) Pain Reassessment Is this a pain reassessment? No Sleep Is patient sleeping during reassessment? No Presence of Pain Presence of Pain Yes Pain Scale Used Pain Scale Used Numeric Location Left, Right or Bilateral Left Upper or Lower Upper Pain Location Body Site Abdomen Description Description Constant Pain Behavior Moaning Rubbing Site Perspiration Facial Grimacing IVP Administration Document 02/02/18 12:20 MMA (Rec: 02/02/18 12:20 MMA [facility]) Charges for Administration # of IVP Administrations 1 Re-Assess: MAR Pain Assessment Document 02/02/18 13:20 MMA (Rec: 02/02/18 14:13 MMA [facility]) Pain Reassessment Is this a pain reassessment? Yes Sleep Is patient sleeping during reassessment? No Presence of Pain Presence of Pain Yes Pain Scale Used Pain Scale Used Numeric Location Left, Right or Bilateral Left Upper or Lower Upper Pain Location Body Site Abdomen Description Description Constant Intensity of Pain at present 5 Hydromorphone HCl (Dilaudid) 1 mg IVP Q6H PRN PRN Reason: Pain, severe (8-10) Last Admin: 02/02/18 23:17 Dose: 1 mg MAR Pain Assessment Document 02/02/18 23:17 AP (Rec: 02/02/18 23:18 AP [facility]) Pain Reassessment Is this a pain reassessment? No Presence of Pain Presence of Pain Yes Pain Scale Used Pain Scale Used Numeric Location Left, Right or Bilateral Left Pain Location Body Site Abdomen Description Description Constant Intensity of Pain at present 9 Pain Behavior Guarding Irritability Facial Grimacing Alleviating Factors/Management Medication Techniques IVP Administration Document 02/02/18 23:17 AP (Rec: 02/02/18 23:18 AP [facility]) Charges for Administration # of IVP Administrations 2 Re-Assess: MAR Pain Assessment Document 02/03/18 00:17 AP (Rec: 02/03/18 01:51 AP [facility]) Pain Reassessment Is this a pain reassessment? Yes Sleep Is patient sleeping during reassessment? Yes Hydromorphone HCl (Dilaudid) 0.5 mg IVP Q6H PRN PRN Reason: Pain, severe (8-10) Last Admin: 02/04/18 05:35 Dose: 0.5 mg [place]NER Pain Assessment Document 02/04/18 05:35 B.P (Rec: 02/04/18 05:35 B.P [facility]-[address] [place] [address]) Pain Reassessment Is this a pain reassessment? No Presence of Pain Presence of Pain Yes Description Intensity of Pain at present 9 IVP Administration Document 02/04/18 05:35 B.P (Rec: 02/04/18 05:35 B.P [id number]) Charges for Administration # of IVP Administrations 1 Nitroglycerin/Dextrose (Nitroglycerin 50 Mg/250 Ml D5w) 50 mg in 250 mls @ 1.5 mls/hr IV .Q24H PRN; Protocol; 5 MCG/MIN PRN Reason: Pain, severe (8-10) Last Titration: 02/02/18 13:00 Dose: 10 mcg/min, 3 mls/hr Titration Intervention Document 02/02/18 13:00 MMA (Rec: 02/02/18 14:14 MMA [facility]) Titration Intake Titration Intake 40 Cumulative Intake 50 Cumulative Intake (Rx) 50 Waste Amount 0 Container Volume 200 Titration Dosing Titration Dose 10 IV Rate 3 Intake/Decrease Decreased Cumulative Dose 10 Sodium Chloride (Sodium Chloride 0.9%) 1,000 mls @ 75 mls/hr IV .[id number] SHAMAR Last Admin: 02/02/18 17:49 Dose: 75 mls/hr eMAR Start Stop Document 02/02/18 17:49 MMA (Rec: 02/02/18 17:50 [facility]) Intravenous Solution Start Date 02/02/18 Start Time 17:50 End Date 02/03/18 Dextrose/Sodium Chloride (Dextrose 5%/0.9% Ns 1000 Ml) 1,000 mls @ 75 mls/hr IV .[id number] SHAMAR Last Admin: 02/02/18 18:58 Dose: 75 mls/hr eMAR Start Stop Document 02/02/18 18:58 MMA (Rec: 02/02/18 18:58 [facility]) Intravenous Solution Start Date 02/02/18 Start Time 18:58 End Date 02/03/18 Magnesium Sulfate (Magnesium Sulfate 2 Gm/50 Ml Water) 2 gm in 50 mls @ 50 mls/ hr IVPB Q3H SHAMAR Stop: 02/04/18 12:14 Last Admin: 02/04/18 10:45 Dose: 50 mls/hr eMAR Start Stop Document 02/04/18 10:45 DORIAN (Rec: 02/04/18 10:47 [facility]IAN [id number]) Intravenous Solution Start Date 02/04/18 Start Time 10:46 End Date 02/04/18 End time 11:45 Total Infusion Time 59 Levalbuterol HCl (Xopenex) 0.63 mg IH [id number] PRN PRN Reason: ATELACTASIS Levalbuterol HCl (Xopenex) 0.63 mg IH [id number] SHAMAR Last Admin: 02/04/18 19:50 Dose: 0.63 mg Lidocaine (Lidoderm) 1 ea TD DAILY [facility] Last Admin: 02/04/18 10:38 Dose: 1 ea MAR Transdermal Patch Site Document 02/04/18 10:38 DORIAN (Rec: 02/04/18 10:38 [facility]IAN [id number]) Transdermal Patch Site Transdermal Patch Site Right Shoulder Losartan Potassium (Cozaar) 100 mg PO DAILY [facility] Last Admin: 02/04/18 10:32 Dose: 100 mg Metoclopramide HCl (Reglan) 5 mg IVP Q6H PRN PRN Reason: BLOATING Last Admin: 02/03/18 01:52 Dose: 5 mg IVP Administration Document 02/03/18 01:52 AP (Rec: 02/03/18 01:52 AP [facility]) Charges for Administration # of IVP Administrations 1 Metoclopramide HCl (Reglan) 5 mg IVP Q6H [facility] Last Admin: 02/04/18 17:15 Dose: 5 mg IVP Administration Document 02/04/18 17:15 BIR (Rec: 02/04/18 17:15 BIR [id number]) Charges for Administration # of IVP Administrations 1 Metoprolol Tartrate (Lopressor) 25 mg PO BID [facility] Last Admin: 02/04/18 17:14 Dose: 25 mg MAR Pulse and Blood Pressure Document 02/04/18 17:14 BIR (Rec: 02/04/18 17:15 BIR [id number]) Pulse Pulse Rate (60-90) 76 Blood Pressure Blood Pressure (100/60-150/90) 140/80 Morphine Sulfate (Morphine) 2 mg IVP ONCE ONE Stop: 02/02/18 09:50 Last Admin: 02/02/18 10:02 Dose: 2 mg MAR Pain Assessment Document 02/02/18 10:02 BK (Rec: 02/02/18 10:03 BK [id number]) Pain Reassessment Is this a pain reassessment? No Sleep Is patient sleeping during reassessment? No Presence of Pain Presence of Pain Yes Location Pain Location Body Site Chest IVP Administration Document 02/02/18 10:02 BK (Rec: 02/02/18 10:03 BK [id number]) Charges for Administration # of IVP Administrations 1 Re-Assess: MAR Pain Assessment Document 02/02/18 11:02 MMA (Rec: 02/02/18 12:23 MMA [facility]) Pain Reassessment Is this a pain reassessment? Yes Sleep Is patient sleeping during reassessment? No Presence of Pain Presence of Pain Yes Nicotine (Nicoderm Cq) 1 patch TD DAILY [facility] Last Admin: 02/04/18 10:40 Dose: 1 patch MAR Transdermal Patch Site Document 02/04/18 10:40 DORIAN (Rec: 02/04/18 10:40 DORIAN [id number]) Transdermal Patch Site Transdermal Patch Site Right Outer Upper Arm Nitroglycerin (Nitro-Bid 2% Oint) 1 ea TOP ONCE STA Stop: 02/02/18 00:39 Last Admin: 02/02/18 02:41 Dose: 1 ea Ondansetron HCl (Zofran Inj) 4 mg IVP Q4H PRN PRN Reason: Nausea/Vomiting Pantoprazole Sodium (Protonix Inj) 40 mg IVP DAILY [facility] Last Admin: 02/04/18 10:42 Dose: 40 mg IVP Administration Document 02/04/18 10:42 DORIAN (Rec: 02/04/18 10:42 [facility]IAN [id number]) Charges for Administration # of IVP Administrations 1 Polyethylene Glycol (Miralax) 17 gm PO BID [facility] Polyethylene Glycol (Miralax) 17 gm PO TID [facility] Last Admin: 02/04/18 17:15 Dose: 17 gm Sodium Phosphate (Fleet Enema) 135 ml RC ONCE ONE Stop: 02/03/18 07:43 Last Admin: 02/03/18 16:27 Dose: Tamsulosin HCl (Flomax) 0.4 mg PO DAILY [facility] Last Admin: 02/04/18 10:35 Dose: 0.4 mg - Scribe Statement The provider has reviewed the documentation as recorded by the Scribannette Means All medical record entries made by the Kwasi were at my direction and personally dictated by me. I have reviewed the chart and agree that the record accurately reflects my personal performance of the history, physical exam, medical decision making, and the department course for this patient. I have also personally directed, reviewed, and agree with the discharge instructions and disposition. Disposition/Present on Arrival - Present on Arrival Any Indicators Present on Arrival: No History of DVT/PE: No History of Uncontrolled Diabetes: No Urinary Catheter: No History of Decub. Ulcer: No History Surgical Site Infection Following: None - Disposition Have Diagnosis and Disposition been Completed?: Yes Diagnosis: Chest pain Disposition: HOSPITALIZED Disposition Time: 01:15 Condition: GOOD
--- NOTE | 2018-02-02 02:40 | CP.PCM.HP ---
History of Present Illness - History of Present Illness History of Present Illness: History and Physical - Dr. Sharma CC: "My chest hurts" HPI: Patient is a 62 year old male with past medical history of HTN, dilated cardiomyopathy, polysubstance abuse presents to the ED for chest pain that started four hours ago prior to arrival. Patient states that he was walking in park when the chest pain started. States that the chest pain was located on his entire left side. Pain is constant in nature and rated 8/10. Pain is worse when laying down and better with sitting up. Admits to feeling diaphoretic and shortness of breath at that time. Reports that he is complaint with his medications. Denies fevers, chills, headaches, dizziness, palpitations, abdominal pain, urinary symptoms, changes in bowel habits. ED course: Lovenox 90mg SC, Lasix 20mg IV x 1, Nitroglycerin x 1 PMD: Dr Sharma Allergies: NKDA Medications: Metoprolol 25mg PO BID, Diovan 160mg PO daily, Lasix 20mg PO daily , Oxycodone 15mg 5x day, Ambien 10mg PO HS, Protonix 40mg PO daily Medical History: HTN, dilated cardiomyopathy, polysubstance abuse Surgical History: Rotator cuff repair, hemorroidectomy, 4 back surgeries, polypectomy Social History: Heavy cigarette smoker, denies alcohol, drug use Family History: Mother - Diabetes Mellitus; Father - Diabetes Mellitus; denies any family hx of cardiac problems Present on Admission - Present on Admission Any Indicators Present on Admission: No Past Patient History - Infectious Disease Hx of Infectious Diseases: None - Tetanus Immunizations Tetanus Immunization: Unknown - Past Medical History & Family History Past Medical History?: Yes - Past Social History Smoking Status: Heavy Smoker > 10 Cigarettes Daily - CARDIAC Hx Cardiac Disorders: Yes Hx Congestive Heart Failure: Yes Hx Hypertension: Yes Hx Peripheral Edema: Yes - PULMONARY Hx Respiratory Disorders: Yes Hx Asthma: Yes Hx Chronic Obstructive Pulmonary Disease (COPD): Yes Hx Tuberculosis: No Other/Comment: smoker - NEUROLOGICAL Hx Neurological Disorder: No - HEENT Hx HEENT Problems: No - RENAL Hx Chronic Kidney Disease: Yes Hx Renal Failure: Yes - ENDOCRINE/METABOLIC Hx Endocrine Disorders: No - HEMATOLOGICAL/ONCOLOGICAL Hx Blood Disorders: No - INTEGUMENTARY Hx Dermatological Problems: No - MUSCULOSKELETAL/RHEUMATOLOGICAL Hx Musculoskeletal Disorders: Yes Hx Arthritis: Yes Hx Back Pain: Yes Hx Fractures: Yes Hx Herniated Disk: Yes Hx Unsteady Gait: Yes Other/Comment: R SHOULDER PAIN - GASTROINTESTINAL Hx Gastrointestinal Disorders: Yes Other/Comment: polyps removed - GENITOURINARY/GYNECOLOGICAL Hx Genitourinary Disorders: No - PSYCHIATRIC Hx Psychophysiologic Disorder: No Hx Substance Use: Yes - SURGICAL HISTORY Hx Musculoskeletal Surgery: Yes Hx Orthopedic Surgery: Yes (BACK, L ANKLE, R SHOULDER) - ANESTHESIA Hx Anesthesia: Yes Hx Anesthesia Reactions: No Hx Malignant Hyperthermia: No Meds Allergies/Adverse Reactions: Allergies Allergy/AdvReac Type Severity Reaction Status Date / Time No Known Allergies Allergy Verified 02/01/18 20:55 Physical Exam - Constitutional Appears: Non-toxic, No Acute Distress - Head Exam Head Exam: NORMAL INSPECTION - Eye Exam Eye Exam: EOMI, Normal appearance Pupil Exam: NORMAL ACCOMODATION - Neck Exam Neck exam: Positive for: Full Rom - Respiratory Exam Respiratory Exam: Decreased Breath Sounds, NORMAL BREATHING PATTERN. absent: Rales, Rhonchi, Wheezes - Cardiovascular Exam Cardiovascular Exam: REGULAR RHYTHM - GI/Abdominal Exam GI & Abdominal Exam: Normal Bowel Sounds, Soft. absent: Guarding, Rebound, Rigid, Tenderness - Rectal Exam Rectal Exam: Deferred - Extremities Exam Extremities exam: Positive for: full ROM, normal inspection, pedal pulses present - Back Exam Back exam: NORMAL INSPECTION - Neurological Exam Neurological exam: Alert, Oriented x3 - Psychiatric Exam Psychiatric exam: Normal Affect, Normal Mood - Skin Skin Exam: Dry, Normal Color, Warm Results - Vital Signs Recent Vital Signs: Last Vital Signs Temp 98.8 F 02/01/18 23:13 Pulse 96 H 02/02/18 02:08 Resp 20 02/02/18 02:08 BP 131/95 H 02/02/18 02:13 Pulse Ox 100 02/02/18 02:08 - Labs Result Diagrams: 02/01/18 21:35 02/01/18 21:35 Assessment & Plan - Assessment and Plan (Free Text) Assessment: A/P: Patient is a 62 year old male with past medical history of HTN, dilated cardiomyopathy presents to [facility] [place] for chest pain that started a few hours ago. Patient was given Lovenox, Nitroglycerin, Lasix in the ED. Chest Pain R/O ACS -Stable, afebrile -Monitor on telemetry -EKG showed NSR HR 94, No ST-T wave changes -Last echo 08/2016 showed LVEF 29%, systolic function moderately to severely impaired; moderate MR; moderate/severe global hypokinesis -Initial troponin 0.06, Trend troponins q4 hours x 3 -F/U am EKG -F/U echocardiogram -F/U TSH/Free T4, Lipid panel, HgA1C -Continue aspirin 81mg PO daily, Plavix 75mg PO daily -D Dimer was elevated 452; Lung Perf and Vent scan No acute findings. Low probability for PE. -Cardiology on consult, help appreciated History of Dilated Cardiomyopathy/Systolic CHF -Continue Lasix 20mg IVP daily -F/U echocardiogram -Daily weights, strict I/Os History of Hypertension -Continue Metoprolol 25mg PO BID -Continue Diovan 160mg PO daily History of polysubstance -UTOX ordered GI/DVT ppx: -Protonix 40mg IVP daily -SCDs Plan discussed with Dr Edith Perales DO PGY-1
[2018-02-02 02:44] LABS: URINE BILIRUBIN NEGATIVE (NEGATIVE); URINE BLOOD NEGATIVE (NEGATIVE); URINE GLUCOSE (UA) NEGATIVE (NEGATIVE); URINE LEUKOCYTE ESTERASE NEGATIVE Leu/uL (NEGATIVE); URINE PROTEIN NEGATIVE mg/dL (<30 mg/dL); URINE UROBILINOGEN 0.2 E.U./dL (<1 E.U./dL)
[2018-02-02 02:53] LABS: URINE APPEARANCE CLEAR (CLEAR); URINE COLOR YELLOW (YELLOW)
[2018-02-02 04:25] VITALS: BMI 31.0
[2018-02-02 05:08] LABS: BARBITURATES, UR NEGATIVE (NEGATIVE); BENZODIAZEPINES, UR POSITIVE (NEGATIVE); OPIATES, UR POSITIVE (NEGATIVE); PHENCYCLIDINE, UR NEGATIVE (NEGATIVE)
[2018-02-02 07:27] LABS: BASO # 0.01 K/mm3 (0.0-2.0); BASO % 0.2 % (0.0-3.0); EOS # 0.2 (0.0-0.7); EOS % 3.7 % (1.5-5.0); GRAN # 3.43 (1.4-6.5); GRAN % 52.9 % (50.0-68.0); LYMPH # 2.2 (1.2-3.4); LYMPH % 34.1 % (22.0-35.0); MEAN CELL VOLUME 92.6 fl (80.0-105.0); MEAN CORPUSCULAR HEMOGLOBIN 31.6 pg (25.0-35.0); MEAN CORPUSCULAR HGB CONC 34.1 g/dl (31.0-37.0); MEAN PLATELET VOLUME 10.1 fl (7.0-11.0); MONO # 0.6 (0.1-0.6); MONO % 9.1 % (1.0-6.0); RBC 3.8 10^6/uL (3.5-6.1); WHITE BLOOD COUNT 6.5 10^3/ul (4.5-11.0)
[2018-02-02 07:39] LABS: ALB/GLOB RATIO 1.1 (1.1-1.8); ALBUMIN 3.8 g/dL (3.0-4.8); CALCIUM 8.8 mg/dL (8.4-10.5)
[2018-02-02 07:50] LABS: TROPONIN I 0.05 ng/mL
[2018-02-02 07:57] LABS: FREE T4 1.06 ng/dL (0.78-2.19)
[2018-02-02] MEDS ORDERED: Morphine 2 mg/ml ISec IVP ONE (09:49)
[2018-02-02] MEDS ORDERED: Nitroglycerin 50mg in D5W 50 MG/250 ML BOTTLE IV PRN (09:57)
[2018-02-02 09:59] LABS: ARTERIAL BLOOD GAS HCO3 21.5 mmol/L (21-28); ARTERIAL BLOOD GAS O2 SAT 99.7 % (95-98); ARTERIAL BLOOD GAS PCO2 31 mm/Hg (35-45); ARTERIAL BLOOD GAS PH 7.45 (7.35-7.45); ARTERIAL BLOOD GAS TCO2 22.5 mmol.L (22-28)
[2018-02-02 10:00] LABS: HEMOGLOBIN 12.4 g/dL (14.0-18.0); MEAN CELL VOLUME 92.3 fl (80.0-105.0); MEAN CORPUSCULAR HEMOGLOBIN 31.7 pg (25.0-35.0); MEAN CORPUSCULAR HGB CONC 34.3 g/dl (31.0-37.0); MEAN PLATELET VOLUME 9.8 fl (7.0-11.0); RBC 3.91 10^6/uL (3.5-6.1); RED CELL DISTRIBUTION WIDTH 13.9 % (11.5-14.5); WHITE BLOOD COUNT 6.7 10^3/ul (4.5-11.0)
[2018-02-02] MEDS ORDERED: Metoprolol Succinate 25 mg XL Tab PO SCH (10:00)
[2018-02-02 10:07] LABS: ALB/GLOB RATIO 1.3 (1.1-1.8); ALBUMIN 4.2 g/dL (3.0-4.8); CALCIUM 9.2 mg/dL (8.4-10.5)
[2018-02-02 10:18] LABS: TROPONIN I 0.05 ng/mL
[2018-02-02 10:31] LABS: INR 1.11 (0.93-1.08); PROTHROMBIN TIME 12.8 SECONDS (9.4-12.5)
[2018-02-02] MEDS ORDERED: HYDROmorphone 1 mg/ml ISec IVP STA (12:04)
[2018-02-02] MEDS ORDERED: HYDROmorphone 0.5 mg/0.5 ml ISec IVP STA (12:08)
[2018-02-02] MEDS ORDERED: Pantoprazole 40 mg EC Tab PO SCH (12:30)
--- NOTE | 2018-02-02 12:36 | CT ---
PROCEDURE: CT Abdomen and Pelvis without intravenous contrast HISTORY: Abdominal pain radiating to L chest COMPARISON: Comparison made with CT scan of the abdomen and pelvis dated 04/13/2014. TECHNIQUE: Contiguous helical/transaxial sections of the abdomen pelvis performed without oral or intravenous contrast material. Additional 2D sagittal and coronal reformats generated. Radiation dose: Total exam DLP = 1109.03 mGy-cm. This CT exam was performed using one or more of the following dose reduction techniques: Automated exposure control, adjustment of the mA and/or kV according to patient size, and/or use of iterative reconstruction technique. FINDINGS: LOWER THORAX: Heart is mildly enlarged. No significant pericardial effusion. There is a small hiatal hernia. Patchy bilateral atelectatic and or infiltrate is both posterior lower lower lobes. No effusion or basilar pneumothorax. . LIVER: Evaluation of the liver is somewhat limited due to crossing streak and beam hardening artifact arising from the upper extremities which have not been moved from the field of view. Liver exhibits normal size. Minimal fatty hepatic infiltration. . No obvious hepatic mass or collection. GALLBLADDER AND BILE DUCTS: Gallbladder appears collapsed likely due to nonfasting state. Collapse presumably accounts for thick-walled appearance. No definitive evidence of intraluminal gallbladder calculi. PANCREAS: The pancreas is atrophic and fatty replaced. . SPLEEN: Unremarkable. ADRENALS: Adrenal glands are nodular in appearance KIDNEYS AND URETERS: Kidneys that demonstrate relatively symmetric size. Bilateral renal cysts are present. There is a small approximately 3.7 mm nonobstructing calculus lower pole right kidney. VASCULATURE: Unremarkable. No aortic aneurysm. BOWEL: Evaluation of the bowel is somewhat limited due to the lack of oral contrast material. Stomach is distended with liquid food debris and air. Visualized loops of small bowel exhibit normal contour and caliber. No evidence of acute mechanical small bowel obstruction. Postoperative changes mid transverse colon evidence by an anastomosis at this level. This postoperative segment about bowel is patulous and dilated containing a large amount of stool consistent with localized fecal retention/ constipation. APPENDIX: Normal appendix PERITONEUM: Unremarkable. No free fluid. No free air. Small fat containing umbilical hernia. There is a small elliptical shaped left-sided inguinal hernia somewhat hyperdense appearance possibly contain some scar tissue. LYMPH NODES: Unremarkable. No enlarged lymph nodes. BLADDER: Significant urinary bladder distention. Rule out bladder outlet obstruction at the level of the prostate gland. Clinical correlation recommended. REPRODUCTIVE: Unremarkable. BONES: No acute fracture. Discectomy changes L5-S1 level with in situ metallic prostatic disc. Posterior bony fusion mass seen at the L4-L5 and L5-S1 levels. Degenerative changes both hip joints. OTHER FINDINGS: None. IMPRESSION: Bibasilar bilateral lower lobe atelectatic and or infiltrate changes. Cardiomegaly. Mild fatty hepatic infiltration. Multiple bilateral renal cysts. Nonobstructing calculus lower pole right kidney as described. Marked urinary bladder enlargement ; rule out bladder outlet obstruction. Postoperative changes mid transverse colon with a localized patulous dilatation of this segment of bowel of containing a large amount of stool consistent with focal fecal retention/ constipation. Postoperative discectomy L5-S1 level with posterior bony fusion mass L4-L5 and L5-S1 levels Small fat containing umbilical hernia. Small slightly dense appearing left inguinal hernia possibly containing some scar tissue See above discussion for additional details and findings.
[2018-02-02] MEDS ORDERED: Levalbuterol 0.63 MG/3 ML Inhal Soln UD IH PRN (12:47)
[2018-02-02] MEDS: Levalbuterol 0.63 MG/3 ML Inhal Soln UD IH SCH ×2 (13:36→20:47)
--- NOTE | 2018-02-02 13:42 | CARD ---
APPROVED REPORT EKG Measurement Heart [id number] <Conclusion> Normal sinus rhythm Possible Left atrial enlargement Cannot rule out Inferior infarct, age undetermined Abnormal ECG
--- NOTE | 2018-02-02 13:45 | CARD ---
APPROVED REPORT EKG Measurement Heart [id number] <Conclusion> Sinus rhythm with occasional premature ventricular complexes Possible Inferior infarct, age undetermined Cannot rule out Anterior infarct, age undetermined Abnormal ECG
[2018-02-02 14:04] LABS: VENOUS BLOOD GAS BASE EXCESS -1.2 mmol/L (0.0-2.0); VENOUS BLOOD GAS PO2 29 mm/Hg (30-55); VENOUS BLOOD PH 7.31 (7.32-7.43)
[2018-02-02] MEDS: POLYETHYLENE GLYCOL 3350 17 GM/Dose PACKET PO SCH ×2 (14:12→17:53)
--- NOTE | 2018-02-02 15:47 | CP.PCM.CON ---
History of Present Illness - History of Present Illness History of Present Illness: General Surgery Consult Re: R/O mesenteric ischemia. L inguinal and umbilical hernias HPI: 62M initially presented to ED for chest pain that started four hours prior to arrival. Pt was walking in park when the pain started. States that the chest pain was located on his entire left side to his hip. Pain is constant in nature. Pain is worse when laying down and better with sitting up. Admits to feeling diaphoretic and shortness of breath at that time. His last use of cocaine was 3 days ago. Currently he is complaining more of L sided abdominal pain but says it has improved slightly. Denies fevers, chills, dizziness, palpitations, abdominal pain, urinary symptoms, changes in bowel habits. Last BM was yesterday and was nonbloody but loose. His inguinal hernia has been present since he was young and the umbilical hernia occurred after the prostate surgery. The hernias do not bother him or cause him pain. PMH: HTN, dilated cardiomyopathy, polysubstance abuse, renal insufficiency, arthritis, chronic back pain PSH: Rotator cuff repair, prostatectomy, hemorroidectomy, 4 back surgeries, polypectomy. He does not recall having a bowel resection SH: Heavy cigarette smoker, denies alcohol, drug use FH: Non contributory All: NKDA Meds: See MAR Review of Systems - Review of Systems All systems: reviewed and no additional remarkable complaints except (as per HPI ) Past Patient History - Infectious Disease Hx of Infectious Diseases: None - Tetanus Immunizations Tetanus Immunization: Unknown - Past Medical History & Family History Past Medical History?: Yes - Past Social History Smoking Status: Heavy Smoker > 10 Cigarettes Daily - CARDIAC Hx Cardiac Disorders: Yes Hx Congestive Heart Failure: Yes Hx Hypertension: Yes Hx Peripheral Edema: Yes - PULMONARY Hx Respiratory Disorders: Yes Hx Asthma: Yes Hx Chronic Obstructive Pulmonary Disease (COPD): Yes Hx Tuberculosis: No Other/Comment: smoker - NEUROLOGICAL Hx Neurological Disorder: No - HEENT Hx HEENT Problems: No - RENAL Hx Chronic Kidney Disease: Yes Hx Renal Failure: Yes - ENDOCRINE/METABOLIC Hx Endocrine Disorders: No - HEMATOLOGICAL/ONCOLOGICAL Hx Blood Disorders: No - INTEGUMENTARY Hx Dermatological Problems: No - MUSCULOSKELETAL/RHEUMATOLOGICAL Hx Musculoskeletal Disorders: Yes Hx Arthritis: Yes Hx Back Pain: Yes Hx Fractures: Yes Hx Herniated Disk: Yes Hx Unsteady Gait: Yes Other/Comment: R SHOULDER PAIN - GASTROINTESTINAL Hx Gastrointestinal Disorders: Yes Other/Comment: polyps removed - GENITOURINARY/GYNECOLOGICAL Hx Genitourinary Disorders: No - PSYCHIATRIC Hx Psychophysiologic Disorder: No Hx Substance Use: Yes - SURGICAL HISTORY Hx Musculoskeletal Surgery: Yes Hx Orthopedic Surgery: Yes (BACK, L ANKLE, R SHOULDER) - ANESTHESIA Hx Anesthesia: Yes Hx Anesthesia Reactions: No Hx Malignant Hyperthermia: No Meds Allergies/Adverse Reactions: Allergies Allergy/AdvReac Type Severity Reaction Status Date / Time No Known Allergies Allergy Verified 02/01/18 20:55 - Medications Medications: Current Medications Acetaminophen (Tylenol 325mg Tab) 650 mg PO Q6 PRN PRN Reason: TEMP>=99.5F Acetaminophen (Tylenol 650 Mg Supp) 650 mg RC Q6H PRN PRN Reason: TEMP>=99.5F Aspirin (Ecotrin) 81 mg PO DAILY [facility] Last Admin: 02/02/18 11:08 Dose: 81 mg Atorvastatin Calcium (Lipitor) 40 mg PO DIN [facility] Clopidogrel Bisulfate (Plavix) 75 mg PO DAILY [facility] Last Admin: 02/02/18 11:07 Dose: 75 mg Docusate Sodium (Colace) 100 mg PO TID [facility] Last Admin: 02/02/18 14:12 Dose: 100 mg Furosemide (Lasix) 20 mg IVP DAILY [facility] Last Admin: 02/02/18 11:07 Dose: 20 mg Heparin Sodium (Porcine) (Heparin) 5,000 units SC Q8 SHAMAR PRN Reason: Protocol Last Admin: 02/02/18 14:13 Dose: 5,000 units Levalbuterol HCl (Xopenex) 0.63 mg IH [id number] [facility] Last Admin: 02/02/18 13:36 Dose: 0.63 mg Losartan Potassium (Cozaar) 100 mg PO DAILY [facility] Last Admin: 02/02/18 11:07 Dose: 100 mg Metoclopramide HCl (Reglan) 5 mg IVP Q6H PRN PRN Reason: BLOATING Nicotine (Nicoderm Cq) 1 patch TD DAILY [facility] Last Admin: 02/02/18 14:11 Dose: 1 patch Ondansetron HCl (Zofran Inj) 4 mg IVP Q4H PRN PRN Reason: Nausea/Vomiting Pantoprazole Sodium (Protonix Inj) 40 mg IVP DAILY [facility] Last Admin: 02/02/18 11:07 Dose: 40 mg Polyethylene Glycol (Miralax) 17 gm PO TID [facility] Last Admin: 02/02/18 14:12 Dose: 17 gm Tamsulosin HCl (Flomax) 0.4 mg PO DAILY [facility] Last Admin: 02/02/18 14:13 Dose: 0.4 mg Physical Exam - Constitutional Appears: Non-toxic, No Acute Distress - Head Exam Head Exam: ATRAUMATIC, NORMOCEPHALIC - Eye Exam Eye Exam: EOMI. absent: Scleral icterus - ENT Exam ENT Exam: Mucous Membranes Dry Additional comments: trachea midline - Neck Exam Neck exam: Positive for: Full Rom. Negative for: Tenderness - Respiratory Exam Respiratory Exam: absent: Chest Wall Tenderness, Respiratory Distress, NORMAL BREATHING PATTERN (short inspirations due to pain) - Cardiovascular Exam Cardiovascular Exam: RRR. absent: Bradycardia, Tachycardia - GI/Abdominal Exam GI & Abdominal Exam: Hernia (umbilical and L inguinal), Soft, Tenderness (over L side from almost the umbilicus to the L flank from hip to rib 7-8). absent: Distended, Firm, Guarding, Rebound, Rigid Additional comments: old surgical scars present. Small reducible umbilical hernia Small reducible L inguinal hernia - Rectal Exam Rectal Exam: Deferred - Extremities Exam Extremities exam: Positive for: normal capillary refill. Negative for: calf tenderness - Back Exam Back exam: absent: CVA tenderness (L), CVA tenderness (R) - Neurological Exam Neurological exam: Alert, Oriented x3 - Skin Skin Exam: Dry, Warm Results - Vital Signs Recent Vital Signs: Last Vital Signs Temp 98 F 02/02/18 13:58 Pulse 89 02/02/18 13:46 Resp 25 H 02/02/18 13:46 BP 141/53 L 02/02/18 13:46 Pulse Ox 100 02/02/18 13:46 - Labs Result Diagrams: 02/02/18 09:45 02/02/18 09:45 Labs: Laboratory Results - last 24 hr 02/02/18 13:55 pO2 29 L VBG pH 7.31 L VBG pCO2 51.0 VBG HCO3 25.7 VBG Total CO2 27.3 VBG O2 Sat (Calc) 62.6 VBG Base Excess -1.2 L VBG Potassium 4.7 Sodium 142.0 Chloride 111.0 H Glucose 116 H Lactate 1.1 FiO2 21.0 Venous Blood Potassium 4.7 - Imaging and Cardiology CT scan - abdomen Status: Image reviewed by me, Report reviewed by me Assessment & Plan - Assessment and Plan (Free Text) Assessment: 62M with L sided abdominal pain, constipation, R/O mesenteric ischemia Plan: F/U ultrasound of abd NPO IVF Analgesia PRN Serial abd exams, monitor for BMs Repeat CBC and lactate tonight, sooner if exam worsens F/U GI evaluation Hernias are not painful, are reducible, and can be repaired electively. D/W Dr. Aleshia Hillman PGY4
--- NOTE | 2018-02-02 16:08 | RAD ---
HISTORY: cp COMPARISON: Comparison chest 11/29/2017. FINDINGS: LUNGS: Mild bibasilar atelectasis. Questionable small amount of pleural thickening or pleural fat right CP angle region. PLEURA: No significant pleural effusion identified, no pneumothorax apparent. CARDIOVASCULAR: Heart appears enlarged OSSEOUS STRUCTURES: No significant abnormalities. VISUALIZED UPPER ABDOMEN: Normal. OTHER FINDINGS: None. IMPRESSION: Mild bibasilar atelectasis. Questionable small amount of pleural thickening or pleural fat right CP angle region.
--- NOTE | 2018-02-02 16:18 | RAD ---
HISTORY: chf COMPARISON: Comparison chest dated 02/02/2018. Study was read in conjunction with CT scan abdomen pelvis obtained same day FINDINGS: LUNGS: Mild bibasilar atelectasis and/or infiltrates PLEURA: No significant pleural effusion identified, no pneumothorax apparent. CARDIOVASCULAR: Normal. OSSEOUS STRUCTURES: No significant abnormalities. VISUALIZED UPPER ABDOMEN: Normal. OTHER FINDINGS: None. IMPRESSION: Mild bibasilar atelectasis and/or infiltrates. . Pleural fat noted right CP angle better ability generalized on CT scan
--- NOTE | 2018-02-02 17:40 | US ---
PROCEDURE: Duplex ultrasound of the mesenteric arteries. HISTORY: Abdominal pain. Evaluate for mesenteric ischemia. PHYSICIAN(S): Mike Schroeder MD. TECHNIQUE: Duplex sonography with color-flow Doppler was used to evaluate limited segments of the abdominal aorta and proximal segments of the mesenteric arteries. FINDINGS: The exam is very limited by body habitus and bowel gas Visualization of the origin of the celiac axis and SMA is suboptimal. The peak systolic velocity in the proximal celiac axis is 155cm/sec. This is consistent with a 0-49 percentstenosis of the proximal celiac axis. The peak systolic velocity in the proximal SMA is 195cm/sec. This is consistent with a 0 to 49% proximal SMA stenosis. The PAMELA was not visualized and evaluated. IMPRESSION: 1. 0-49 percent proximal celiac axis stenosis. 2. 0 to 49% proximal SMA stenosis. 3. The PAMELA was not visualized.
[2018-02-02] MEDS ORDERED: Sodium Chloride 0.9% 1,000 ML IV SCH (17:45)
[2018-02-02] MEDS: HYDROmorphone 0.5 mg/0.5 ml ISec IVP PRN ×2 (17:54→23:17)
[2018-02-02] MEDS ORDERED: POLYETHYLENE GLYCOL 3350 17 GM/Dose PACKET PO SCH (18:00)
[2018-02-02] MEDS ORDERED: Dextrose 5%/0.9% NS 1,000 ML IV SCH (19:00)
[2018-02-02 19:54] LABS: ARTERIAL BLOOD GAS HCO3 21.5 mmol/L (21-28); ARTERIAL BLOOD GAS O2 SAT 97.5 % (95-98); ARTERIAL BLOOD GAS PCO2 31 mm/Hg (35-45); ARTERIAL BLOOD GAS PH 7.45 (7.35-7.45); ARTERIAL BLOOD GAS TCO2 22.5 mmol.L (22-28)
[2018-02-02] MEDS: Lidocaine 5% Patch TD SCH (20:09)
[2018-02-02 20:19] LABS: EOS # 0.1 (0.0-0.7); EOS % 0.7 % (1.5-5.0); GRAN # 4.93 (1.4-6.5); GRAN % 72.5 % (50.0-68.0); HEMOGLOBIN 12.4 g/dL (14.0-18.0); LYMPH # 1.3 (1.2-3.4); LYMPH % 19.6 % (22.0-35.0); MEAN CELL VOLUME 92.3 fl (80.0-105.0); MEAN CORPUSCULAR HEMOGLOBIN 31.6 pg (25.0-35.0); MEAN CORPUSCULAR HGB CONC 34.3 g/dl (31.0-37.0); MEAN PLATELET VOLUME 9.7 fl (7.0-11.0); MONO # 0.5 (0.1-0.6); MONO % 7.2 % (1.0-6.0); RBC 3.92 10^6/uL (3.5-6.1); RED CELL DISTRIBUTION WIDTH 13.6 % (11.5-14.5); WHITE BLOOD COUNT 6.8 10^3/ul (4.5-11.0)
--- NOTE | 2018-02-02 21:32 | CON ---
HISTORY OF PRESENT ILLNESS: This is a 62-year-old gentleman who presented with left-sided chest pain to [facility] yesterday, which was somewhat alleviated by nitroglycerin. Concern for acute coronary syndrome was raised and the patient was given Lovenox first therapeutic dose. He was also given Lasix and nitroglycerin. Pain was severe and constant in nature, worse when lying down and better when sitting up . At times, the patient reports diaphoresis associated with chest pain as well as shortness of breath. No fever, no chills, no sweats, no headache, no dizziness, no palpitation, no losing consciousness. No abdominal pain. Pain appeared to be sharp. During another episode of chest pain later in the morning today, ICU consult was called out of concern for ongoing myocardial ischemia. Upon questioning, the patient reports that the pain occurs mostly on deep inspiration and related to respiratory cycle. He is diaphoretic and appears that morphine as well as nitroglycerin helped pain as well. The patient has crackles in the left basilar area; however, right basilar area is clear. Chest x-ray yesterday did not show any active pulmonary disease. PAST MEDICAL HISTORY: Dilated cardiomyopathy, hypertension, polysubstance abuse, questionable history of COPD and asthma. HOME MEDICATIONS: Metoprolol, Diovan, Lasix, oxycodone, Ambien, and Protonix. SURGICAL HISTORY: Rotator cuff repair, hemorrhoidectomy, and back surgeries. SOCIAL HISTORY: Patient is active smoker about pack a day. The patient denied alcohol abuse. He, however, admits using of cocaine. FAMILY HISTORY: Noncontributory. REVIEW OF SYSTEMS: Review of 12-organ system other than mentioned in the history of present illness is negative. ALLERGIES: NKDA. CURRENT MEDICATIONS: Aspirin, Plavix, Lovenox, Lasix, Cozaar, nitroglycerin drip, and Protonix. PHYSICAL EXAMINATION: GENERAL: The patient is in distress, diaphoretic. VITAL SIGNS: Blood pressure 119/76, temperature 97, oxygen saturation 98% on room air, heart rate 81. ENT, HEAD, AND NECK: Atraumatic. LUNGS: Scattered crackles in the left basilar area, otherwise clear to auscultation. HEART: Regular rate and rhythm. S1 and S2 normal. ABDOMEN: Soft, nontender, and nondistended. MUSCULOSKELETAL: Trace bilateral pedal and ankle edema. NEURO: The patient moves all extremities spontaneously. SKIN: Moist. PSYCH: The patient is alert and awake, but in some distress due to chest pain. LABORATORY DATA: Sodium 147, potassium 4.6, chloride 110, carbon dioxide 26. BUN 19, creatinine 1.9 down from 2. Glucose 110. AST 22, ALT 30, total bilirubin 0.4. Troponin 0.05 which is negative x3. Free T4 of 1.06. ABG showed 7.45/31/128 on FiO2 of 50%. Lactic acid 1.2. D-dimer is 452. U-tox positive for opiates, benzodiazepines, and cocaine. Urinalysis negative for nitrites and leukocyte esterase. EKG did not reveal significant new ischemic changes. ASSESSMENT AND PLAN: This is a 62-year-old gentleman with chest pain of unclear etiology. The patient has three troponin's negative. No EKG changes. At the time of patient reports that the pain associated with respiratory cycle. Nevertheless, cannot rule out myocardial ischemia at the present time. However, I will proceed with repeating chest x-ray to rule out pneumothorax and new findings that would point toward diagnosis. Cardiology service is on its way to evaluate the patient as well. V/Q scan reportedly was low probability and the patient did receive therapeutic Lovenox early in the morning. The patient does not have fever and does not have leukocytosis as well as his worse chest x-ray did not show any distinct infiltrate. His abdominal exam is benign and his urine negative for urine nitrites and leukocyte esterase. Until further information available, the patient will be going to ICU for nitroglycerin drip, aspirin, Plavix, and beta-blockade. Cardiologic followup. GI prophylaxis. Echocardiogram. Pascual Stinson MD
[2018-02-03] MEDS: Levalbuterol 0.63 MG/3 ML Inhal Soln UD IH SCH ×4 (03:58→20:04)
[2018-02-03 07:15] LABS: EOS # 0.1 (0.0-0.7); EOS % 0.7 % (1.5-5.0); GRAN # 5.36 (1.4-6.5); GRAN % 74.1 % (50.0-68.0); HEMOGLOBIN 12.1 g/dL (14.0-18.0); LYMPH # 1.3 (1.2-3.4); LYMPH % 18.3 % (22.0-35.0); MEAN CELL VOLUME 91.3 fl (80.0-105.0); MEAN CORPUSCULAR HEMOGLOBIN 30.9 pg (25.0-35.0); MEAN CORPUSCULAR HGB CONC 33.9 g/dl (31.0-37.0); MEAN PLATELET VOLUME 10.2 fl (7.0-11.0); MONO # 0.5 (0.1-0.6); MONO % 6.9 % (1.0-6.0); RBC 3.91 10^6/uL (3.5-6.1); RED CELL DISTRIBUTION WIDTH 13.5 % (11.5-14.5); WHITE BLOOD COUNT 7.2 10^3/ul (4.5-11.0)
--- NOTE | 2018-02-03 07:21 | HP ---
HISTORY OF PRESENT ILLNESS: Patient is a 62-year-old male who presented to the emergency room according to the emergency room triage notes and the ER physician and the director medical science evaluation when the patient complained of evaluation. The patient came to the emergency room as an ambulatory walk-in, complaining of left-sided chest pain, rib cage pain, left-sided flank pain, abdominal pain associated with shortness of breath according to the patient. The patient states that he was in the usual state of health till yesterday. According to the director medical science evaluation, patient stated that he was walking in the park last night when the chest pain started and patient stated that the pain was around the entire left rib cage, radiating to the left side of the abdomen, left flank associated with diaphoresis, shortness of breath and pain increased with movements. The patient was examined in ICU. The patient's vital sign, diagnostic data was reviewed. Please refer to the history and physical examination by the director medical science for further details. IMPRESSION AND PLAN: 1. Left-sided chest pain and rib cage pain, etiology undetermined. 2. Left-sided abdominal pain, left flank pain, etiology undetermined. 3. Transient tachycardia. 4. Transient uncontrolled hypertension. 5. Tachypnea. 6. Shortness of breath. 7. Mild normocytic anemia. 8. Elevated erythrocyte sedimentation rate of 25. 9. Elevated D-dimer of 452. 10. Acute kidney injury versus underlying chronic kidney disease, stage III. 11. Mild rhabdomyolysis. 12. Indeterminate troponin. 13. Hyperlipidemia. 14. Urine drug screen positive for opiates, benzodiazepines and cocaine. 15. Positive nicotine and polysubstance abuse and dependence. 16. Bibasilar atelectasis and possible right pleural effusion versus infiltrate. 17. History of poor compliance. 18. Bibasilar infiltrates versus atelectasis. 19. Cardiomegaly. 20. Small hiatal hernia. 21. Bibasilar atelectasis and patchy infiltrate at the lower lobes. 22. Hepatic steatosis. 23. Questionable gallbladder wall thickening. 24. Atrophic and fatty replacement of the pancreas. 25. Bilateral renal cyst. 26. Right nonobstructing nephrolithiasis, 3.7 mm. 27. Gastric distention versus gastroparesis. 28. Mid-transverse colon anastomotic postoperative changes. 29. Fecal stasis, fecal retention and constipation. 30. Small fat-containing umbilical hernia. 31. Left inguinal hernia. 32. Urinary bladder distention versus questionable bladder outlet obstruction. 33. L5-S1 diskectomy and L4-L5 and L5-S1 bony fusion. 34. Degenerative joint disease of the hips. 35. Fatty infiltration of the liver. 36. History of dilated cardiomyopathy and congestive heart failure. 37. History of hypertension. 38. History of hemorrhoidectomy. 39. History of lumbar laminectomy. 40. History of polypectomy. 41. History of right rotator cuff shoulder surgery. 42. Age indeterminate inferior and anterior infarct. 43. History of heroin abuse and cocaine abuse. 44. History of narcotic-dependent pain syndrome. 45. History of opiate withdrawal, cocaine use disorder and opiate use disorder. 46. History of drug overdose. 47. History of hyperkalemia. 48. Chronic ischemic infarct of the brain with left posterior temporoparietal area and peripheral hemosiderin deposition. 49. History of asymptomatic nonsustained ventricular tachycardia. 50. Obesity. 51. Transaminitis. 52. Secondary hyperparathyroidism. 53. Hypovitaminosis D. 54. Deconditioning. 55. History of 40% to 59% proximal left internal carotid artery stenosis and 20% to 39% proximal right internal carotid artery stenosis. 56. Left ventricular diffuse hypokinesis and left ventricular dysfunction with ejection fraction of 46%. 57. Questionable mitral regurgitation. 58. 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 59. Altered mental status. 60. History of narcotic and cocaine abuse. 61. Nonspecific gliosis of the right occipital horn white matter. 62. History of lumbar spine degenerative disk disease. 63. Moderate mitral regurgitation. Tricuspid regurgitation. 64. Pulmonary hypertension with elevated right ventricular systolic pressure. 65. Chronic left posterior temporoparietal infarct. 66. History of intra-abdominal abscess. 67. Left knee medial meniscal tear and degenerative joint disease of the left knee. 68. History of abdominal abscess surgery and drainage. 69. History of partial right colectomy. 70. History of ileocolonic anastomotic abscess. 71. History of nonobstructive coronary artery disease. 72. History of multiple lumbar spine surgery. Plan at this time, the patient was admitted and upgraded to ICU because of persistent chest pain. The patient has to be ordered repeat labs, CBC, CMP, thyroid panel, lipid panel, LFTs, magnesium, phosphorus. PSA has been ordered. The patient has been ordered repeat troponin, vitamin D. Repeat CBC has been ordered. CURRENT CONSULTATIONS: Cardiology, Gastroenterology, Surgery. CURRENT MEDICATIONS: Colace 100 mg three times a day, Cozaar 100 mg daily. Patient is started on D5 normal saline at 75 mL an hour. The patient started on Dilaudid 1 mg IV every 6 hours p.r.n., aspirin 81 daily, Flomax 0.4 mg daily, heparin 5000 subcu every 8 hours, Lasix 20 mg IV daily, Lipitor 40 mg daily. The patient is on MiraLax 17 g three times a day. The patient is on received a dose of Lovenox 90 mg last night. Patient is on nicotine patch 21 mg daily. The patient is on Plavix 75 daily, Protonix 40 daily, Reglan 5 mg IV every 6 hours p.r.n., Tylenol p.r.n., Xopenex nebulizer 0.63 mg every 6 hours, Zofran 4 IV every 4 hours. Patient's V/Q scan was done in the ER, which was negative. Chest PT ordered. Oxygen 2 liters continuous. Repeat EKG ordered. Echo with Doppler ordered. The patient has been consulted with Gastroenterology, Cardiology, Surgery. Their recommendation by GI and Surgery is n.p.o. diet. The patient has been put on out of bed, SCDs, SHELLIE stockings. At present, the patient has been continued on the above therapeutic interventions. At present, the patient is to be continued in the ICU setting. The patient was initially started on Tridil drip. At present, the patient was seen and evaluated. The patient was updated about his condition, diagnoses, test results, recommendation. The patient was counseled about cessation of smoking and polysubstance abuse/use and drug use, which he acknowledged and understand. The patient will be continued on ICU till patient is stabilized. Please refer to the detailed history and physical examination by the director medical science from this morning for further details. The patient will be continued to be treated as above mentioned. The patient's further management will be dependent upon the patient's clinical condition, hemodynamic status and as per the patient response to therapeutic intervention as per the patient's subjective and objective data and as per Cardiology, Gastroenterology, and Surgical recommendations. Please refer to the detailed history and physical examination by the director medical science from 02/02/2018. Dictated and electronically signed, not read. Barber MD [facility] # [id number]
[2018-02-03 07:34] LABS: ALB/GLOB RATIO 1.2 (1.1-1.8); ALBUMIN 3.8 g/dL (3.0-4.8); BILIRUBIN,DIRECT 0.3 mg/dL (0.0-0.4)
[2018-02-03 07:35] LABS: TROPONIN I 0.06 ng/mL
--- NOTE | 2018-02-03 07:43 | CON ---
DATE: 02/02/[address] Mike Newberry. REASON FOR CONSULTATION: Chest pain and abdominal pain. BRIEF CLINICAL HISTORY: This is a 62-year-old male with past medical history of significant hypertension, dilated cardiomyopathy status post cardiac catheterization nonobstructive coronary artery disease, polysubstance abuse, came to the emergency room with complaint of chest pain, left upper quadrant pain, very tender. The patient was keep on complaining of chest pain, I have been called while he was in the [facility]. On talking to the resident, Dr. Gentile suggested to start Tridil and move the patient to ICU. I saw the patient in ICU. The patient has severe tenderness in the left upper quadrant, but no complaint of chest pain. The patient was on IV Tridil. CAT scan reviewed no fracture. The patient has no history of fall. Discussed with Dr. Stinson. Discussed with Dr. Caceres. Discussed with Dr. Gentile. So far, no evidence of acute angina or ischemic chest pain. PAST MEDICAL HISTORY: Significant for hypertension, dilated cardiomyopathy, history of cardiac catheterization a year ago, nonobstructive coronary artery disease. PREVIOUS CARDIAC WORKUP: As follows, the patient had MUGA scan done dated 09/23/2017 that shows ejection fraction 46%. The patient had echocardiography done on 06/06/2017 that showed ejection fraction 25% to 30%, moderate to severe global hypokinesis, moderate mitral regurgitation, mild tricuspid regurgitation, RV systolic pressure 44. Mitral regurgitation moderate as mentioned. Ejection fraction 25% to . This patient had a MUGA scan done that shows ejection fraction 46%. The patient had a cardiac catheterization done dated 08/29/2016 that shows left main unremarkable LAD and diagonal revealed diffuse without any critical disease. Circumflex and obtuse marginal 1 obstructive stenosis noted. Right coronary artery centrally cannulated, diffuse interval but no flow obstructive stenosis noted. In summary, procedure revealed cardiomyopathy ejection fraction 25%. His coronary revealed critical stenosis, done by Dr. Newberry dated 08/29/2016. The patient had also a stress test on 01/28/2017 that showed abnormal study, no reversible ischemia, ejection fraction 25%, pattern show suggestive of cardiomyopathy. CURRENT MEDICATIONS: The patient is taking at home oxycodone, zolpidem, valsartan, , metoprolol, furosemide. REVIEW OF SYSTEMS: As per HPI. LABORATORY DATA: EKG shows normal sinus, LVH, no acute ST-T changes noted. Workup, WBC 6.3, hemoglobin 12.4, hematocrit 36.1, platelets of 190. Chemistry shows sodium 140, potassium 4.6, chloride 110, carbon dioxide 26, anion gap of 16, BUN 19, creatinine 1.9. Troponin 0.05. IMPRESSION: This is a 62-year-old male with past medical history significant for nonobstructive coronary artery disease status post cardiac catheterization a year ago, history of MUGA scan, ejection fraction 46%, nonischemic cardiomyopathy, history of substance abuse, admitted with abdominal pain, complaining of chest pain. So far, troponin remains indeterminate range. Toxicology screen is positive for opium, benzodiazepine and cocaine. Tenderness noted in the lateral abdominal wall. No evidence of acute myocardial infarction. EKG is pretty benign. RECOMMENDATIONS: We will discontinue Tridil. Discussed with Dr. Stinson, discussed with Dr. Caceres. Discussed with Dr. Gentile also. Continue aggressive medical treatment. No further cardiac workup is planned. May consider echo to assess LV function. We will transfer care tomorrow to Dr. Newberry. We will get lipid profile, TSH, hemoglobin A1c. Further recommendations depending on the hospital course. We will follow with you. Thank you, Dr. Gentile for providing us the opportunity in taking care of our patient Howard Packer. Juan Pablo Ireland MD
[2018-02-03 07:47] LABS: FREE T4 0.99 ng/dL (0.78-2.19); T4 6.4 ug/dL (5.5-11.0)
--- NOTE | 2018-02-03 07:51 | CP.PCM.PN ---
Subjective - Date & Time of Evaluation Date of Evaluation: 02/03/18 Time of Evaluation: 06:50 - Subjective Subjective: Tripp Craig PGY1 Surgery Progress Note for Dr. Monk Patient was seen and examined at bedside. Patient states that his abdominal pain has slightly improved, and that he is passing flatus but no BM. He also states that his hernia has been there for many years and has not given him issues. no acute overnight events. Objective - Vital Signs/Intake and Output Vital Signs (last 24 hours): Temp Pulse Resp BP Pulse Ox 98 F 103 H 21 138/90 100 02/02/18 13:58 02/03/18 05:50 02/03/18 05:00 02/03/18 05:00 02/03/18 05:00 Intake and Output: 02/03/18 02/03/18 06:59 18:59 Intake Total 975 Output Total 750 Balance 225 - Medications Medications: Current Medications Acetaminophen (Tylenol 325mg Tab) 650 mg PO Q6 PRN PRN Reason: TEMP>=99.5F Acetaminophen (Tylenol 650 Mg Supp) 650 mg RC Q6H PRN PRN Reason: TEMP>=99.5F Aspirin (Ecotrin) 81 mg PO DAILY [facility] Last Admin: 02/02/18 11:08 Dose: 81 mg Atorvastatin Calcium (Lipitor) 40 mg PO DIN [facility] Last Admin: 02/02/18 17:53 Dose: 40 mg Clopidogrel Bisulfate (Plavix) 75 mg PO DAILY [facility] Last Admin: 02/02/18 11:07 Dose: 75 mg Docusate Sodium (Colace) 100 mg PO TID [facility] Last Admin: 02/02/18 17:53 Dose: 100 mg Furosemide (Lasix) 20 mg IVP DAILY [facility] Last Admin: 02/02/18 11:07 Dose: 20 mg Heparin Sodium (Porcine) (Heparin) 5,000 units SC Q8 SH[facility]AR PRN Reason: Protocol Last Admin: 02/03/18 05:07 Dose: 5,000 units Hydromorphone HCl (Dilaudid) 1 mg IVP Q6H PRN PRN Reason: Pain, severe (8-10) Last Admin: 02/02/18 23:17 Dose: 1 mg Dextrose/Sodium Chloride (Dextrose 5%/0.9% Ns 1000 Ml) 1,000 mls @ 75 mls/hr IV .[id number] [facility] Last Admin: 02/02/18 18:58 Dose: 75 mls/hr Levalbuterol HCl (Xopenex) 0.63 mg IH [id number] [facility] Last Admin: 02/03/18 07:38 Dose: 0.63 mg Lidocaine (Lidoderm) 1 ea TD DAILY [facility] Last Admin: 02/02/18 20:09 Dose: 1 ea Losartan Potassium (Cozaar) 100 mg PO DAILY [facility] Last Admin: 02/02/18 11:07 Dose: 100 mg Metoclopramide HCl (Reglan) 5 mg IVP Q6H PRN PRN Reason: BLOATING Last Admin: 02/03/18 01:52 Dose: 5 mg Metoprolol Tartrate (Lopressor) 25 mg PO BID [facility] Nicotine (Nicoderm Cq) 1 patch TD DAILY [facility] Last Admin: 02/02/18 14:11 Dose: 1 patch Ondansetron HCl (Zofran Inj) 4 mg IVP Q4H PRN PRN Reason: Nausea/Vomiting Pantoprazole Sodium (Protonix Inj) 40 mg IVP DAILY [facility] Last Admin: 02/02/18 11:07 Dose: 40 mg Polyethylene Glycol (Miralax) 17 gm PO TID [facility] Last Admin: 02/02/18 17:53 Dose: 17 gm Sodium Phosphate (Fleet Enema) 135 ml RC ONCE ONE Stop: 02/03/18 07:43 Tamsulosin HCl (Flomax) 0.4 mg PO DAILY [facility] Last Admin: 02/02/18 14:13 Dose: 0.4 mg - Labs Labs: 02/03/18 06:00 02/03/18 06:00 PT 12.8 SECONDS (9.4-12.5) H 02/02/18 09:45 INR 1.11 (0.93-1.08) H 02/02/18 09:45 APTT 28.5 Seconds (25.1-36.5) 02/01/18 21:35 - Constitutional Appears: Well, Non-toxic, No Acute Distress - Head Exam Head Exam: NORMAL INSPECTION - Eye Exam Eye Exam: Normal appearance - ENT Exam ENT Exam: Normal Exam - Neck Exam Neck Exam: Normal Inspection - Respiratory Exam Respiratory Exam: NORMAL BREATHING PATTERN - Cardiovascular Exam Cardiovascular Exam: RRR - GI/Abdominal Exam GI & Abdominal Exam: Guarding (mild epigastric guarding), Soft, Hernia. absent : Distended, Rigid, Tenderness, Rebound Additional comments: old surgical scars present Small reducible umbilical hernia Small reducible L inguinal hernia - Extremities Exam Extremities Exam: Full ROM, Normal Inspection - Back Exam Back Exam: NORMAL INSPECTION - Neurological Exam Neurological Exam: Alert, Awake - Psychiatric Exam Psychiatric exam: Normal Mood - Skin Skin Exam: Normal Color Assessment and Plan - Assessment and Plan (Free Text) Assessment: 62yo AAM with L sided abdominal pain, and constipation. given improvement in symptoms and abd US showing <50% stenoses in celiac and proximal SMA, this is unlikely due to mesenteric ischemia. Hernias are reproducible. Likely, etiology is constipation. Plan: - advanced to CLD; monitor tolerance - monitor abdomen w/ serial exams, monitor for BMs - f/u GI recommendations - Hernias can be repaired electively - cont IVF, can d/c if patient tolerated CLD well - No surgical intervention needed at this time - Further recs per attending Case will be reviewed and discussed with Dr. Monk
[2018-02-03] MEDS: POLYETHYLENE GLYCOL 3350 17 GM/Dose PACKET PO SCH ×3 (11:07→19:08)
[2018-02-03] MEDS: Lidocaine 5% Patch TD SCH (11:07)
--- NOTE | 2018-02-03 12:33 | NM ---
COMPARISON: 02/02/2018. Single-view chest TECHNIQUE: 30.3 mCi technetium 99-m DTPA aerosol. 5.1 mCI technetium 99-m MAA administered intravenously. FINDINGS: VENTILATION COMPONENT: Mildly heterogeneous ventilation. Retention of radionuclide in the tracheobronchial tree and ingestion of radionuclide in the stomach, incidental findings PERFUSION COMPONENT: Heterogeneous distribution of radionuclide. No geographic, segmental, lobar abnormalities apparent on the present examination. IMPRESSION: Low probability ventilation perfusion scan for pulmonary embolism. Concordant results (preliminary interpretation) provided by [facility]. Procedure Completed: 23:52 Preliminary ([facility]) Report: Dictated and Authenticated: 00:20 Final Interpretation: 12:31 February 03, 2018.
--- NOTE | 2018-02-03 12:36 | CP.PCM.PN ---
Subjective - Date & Time of Evaluation Date of Evaluation: 02/03/18 Time of Evaluation: 07:30 - Subjective Subjective: Clover Baptiste DO PGY1 - IM Progress Note for Dr. Sharma Patient seen and examined at bedside in the ICU. Per nursing staff, no acute events overnight. Patient reports that chest pain, abdominal pain are slightly improved. He is passing gas, but has not had a bowel movement since Saturday. He denies fever, chills, nausea, vomiting, diarrhea, shortness of breath, cough. Worst pain is in left lower ribs. Pain is worse with palpation and with deep inspiration. Objective - Vital Signs/Intake and Output Vital Signs (last 24 hours): Temp Pulse Resp BP Pulse Ox 98 F 108 H 21 136/91 H 100 02/02/18 13:58 02/03/18 11:06 02/03/18 05:00 02/03/18 11:21 02/03/18 05:00 Intake and Output: 02/03/18 02/03/18 06:59 18:59 Intake Total 975 Output Total 750 Balance 225 - Medications Medications: Current Medications Acetaminophen (Tylenol 325mg Tab) 650 mg PO Q6 PRN PRN Reason: TEMP>=99.5F Acetaminophen (Tylenol 650 Mg Supp) 650 mg RC Q6H PRN PRN Reason: TEMP>=99.5F Aspirin (Ecotrin) 81 mg PO DAILY [facility] Last Admin: 02/03/18 11:06 Dose: 81 mg Atorvastatin Calcium (Lipitor) 40 mg PO DIN [facility] Last Admin: 02/02/18 17:53 Dose: 40 mg Clopidogrel Bisulfate (Plavix) 75 mg PO DAILY [facility] Last Admin: 02/03/18 11:06 Dose: 75 mg Docusate Sodium (Colace) 100 mg PO TID [facility] Last Admin: 02/02/18 17:53 Dose: 100 mg Furosemide (Lasix) 20 mg IVP DAILY [facility] Last Admin: 02/03/18 11:21 Dose: 20 mg Heparin Sodium (Porcine) (Heparin) 5,000 units SC Q8 [facility] PRN Reason: Protocol Last Admin: 02/03/18 05:07 Dose: 5,000 units Hydromorphone HCl (Dilaudid) 0.5 mg IVP Q6H PRN PRN Reason: Pain, severe (8-10) Dextrose/Sodium Chloride (Dextrose 5%/0.9% Ns 1000 Ml) 1,000 mls @ 75 mls/hr IV .[id number] [facility] Last Admin: 02/02/18 18:58 Dose: 75 mls/hr Levalbuterol HCl (Xopenex) 0.63 mg IH [id number] [facility] Last Admin: 02/03/18 07:38 Dose: 0.63 mg Lidocaine (Lidoderm) 1 ea TD DAILY [facility] Last Admin: 02/03/18 11:07 Dose: 1 ea Losartan Potassium (Cozaar) 100 mg PO DAILY [facility] Last Admin: 02/03/18 11:06 Dose: 100 mg Metoclopramide HCl (Reglan) 5 mg IVP Q6H [facility] Metoprolol Tartrate (Lopressor) 25 mg PO BID [facility] Last Admin: 02/03/18 11:06 Dose: 25 mg Nicotine (Nicoderm Cq) 1 patch TD DAILY [facility] Last Admin: 02/03/18 11:07 Dose: 1 patch Ondansetron HCl (Zofran Inj) 4 mg IVP Q4H PRN PRN Reason: Nausea/Vomiting Pantoprazole Sodium (Protonix Inj) 40 mg IVP DAILY [facility] Last Admin: 02/03/18 11:06 Dose: 40 mg Polyethylene Glycol (Miralax) 17 gm PO TID [facility] Last Admin: 02/03/18 11:07 Dose: 17 gm Tamsulosin HCl (Flomax) 0.4 mg PO DAILY [facility] Last Admin: 02/03/18 11:06 Dose: 0.4 mg - Labs Labs: 02/03/18 06:00 02/03/18 06:00 PT 12.8 SECONDS (9.4-12.5) H 02/02/18 09:45 INR 1.11 (0.93-1.08) H 02/02/18 09:45 APTT 28.5 Seconds (25.1-36.5) 02/01/18 21:35 - Additional Findings Additional findings: - Constitutional Appears: Non-toxic, No Acute Distress - Head Exam Head Exam: NORMAL INSPECTION - Eye Exam Eye Exam: EOMI, Normal appearance Pupil Exam: NORMAL ACCOMODATION - Neck Exam Neck exam: Positive for: Full Rom - Respiratory Exam Respiratory Exam: Decreased Breath Sounds, NORMAL BREATHING PATTERN, chest wall tenderness. Absent: Rales, Rhonchi, Wheezes - Cardiovascular Exam Cardiovascular Exam: REGULAR RHYTHM - GI/Abdominal Exam GI & Abdominal Exam: Tender LUQ and left lower ribs - Rectal Exam Rectal Exam: Deferred - Extremities Exam Extremities exam: Positive for: full ROM, normal inspection, pedal pulses present - Back Exam Back exam: NORMAL INSPECTION - Neurological Exam Neurological exam: Alert, Oriented x3 - Psychiatric Exam Psychiatric exam: Normal Affect, Normal Mood - Skin Skin Exam: Dry, Normal Color, Warm Assessment and Plan - Assessment and Plan (Free Text) Assessment: A/P: Patient is a 62 year old male with past medical history of HTN, dilated cardiomyopathy presents to [facility] for chest pain and abdominal pain Chest Pain R/O ACS -Chest pain improved; ACS workup negative -Per cardio, no further cardio workup -Chest pain likely 2/2 polysubstance abuse vs costochondritis -Monitor on telemetry -Last echo 08/2016 showed LVEF 29%, systolic function moderately to severely impaired; moderate MR; moderate/severe global hypokinesis -F/U echocardiogram; done, pending report -Cardiology on consult, help appreciated Abdominal pain -Yesterday, surgery was consulted due to concern for mesenteric ischemia -Abd US done, shows 0-49 stenosis of proximal celiac and SMA; nonvisualized PAMELA -Abdominal pain improving; more likely 2/2 constipation -Rectal exam reveals no hematochezia -Advance diet as tolerated -Continue to monitor History of Dilated Cardiomyopathy/Systolic CHF -Continue Lasix 20mg IVP daily -F/U echocardiogram -Daily weights, strict I/Os History of Hypertension -Resume Metoprolol 25mg PO BID -Continue Diovan 160mg PO daily GI/DVT ppx: -Protonix 40mg IVP daily -SCDs Plan discussed with Dr Sharma
--- NOTE | 2018-02-03 12:57 | CARD ---
APPROVED REPORT EXAM: Two-dimensional and M-mode echocardiogram with Doppler and color Doppler. INDICATION Chest Pain CMP 2D DIMENSIONS Left Atrium (2D)4.3 (1.6-4.0cm)IVSd1.3 (0.7-1.1cm) LVDd6.1 (3.9-5.9cm)PWd1.1 (0.7-1.1cm) LVDs5.2 (2.5-4.0cm)FS (%) 15.3 % LVEF (%)31.7 (>50%) M-Mode DIMENSIONS Aortic Root2.80 (2.2-3.7cm)Aortic Cusp Exc.1.60 (1.5-2.0cm) Aortic Valve AoV Peak Dblpctac918.0cm/[place] Peak GR.10mmHg Mitral Valve E/A ratio0.0 TDI E/Lateral E'0.0E/Medial E'0.0 Tricuspid Valve TR Peak [id number] [id number] Peak Gr.23mmHg [id number] LEFT VENTRICLE The left ventricle is normal size. There is borderline concentric left ventricular hypertrophy. The systolic function is severely impaired. Severly Hypokinetic basal septum Transmitral Doppler flow pattern is Grade I-abnormal relaxation pattern. No left ventricle thrombus noted on this study. RIGHT VENTRICLE The right ventricle is normal size. There is normal right ventricular wall thickness. The right ventricular systolic function is normal. ATRIA The left atrium is borderline dilated. The right atrium size is normal. AORTIC VALVE The aortic valve is not well visualized. There is trace aortic regurgitation. MITRAL VALVE The mitral valve is not well visualized. Mitral regurgitation is mild to moderate. TRICUSPID VALVE There is mild tricuspid regurgitation. GREAT VESSELS The aortic root is normal in size. PERICARDIAL EFFUSION There is no pericardial effusion. <Conclusion> The left ventricle is normal size. There is borderline concentric left ventricular hypertrophy. The systolic function is severely impaired. Severly Hypokinetic basal septum Transmitral Doppler flow pattern is Grade I-abnormal relaxation pattern. No left ventricle thrombus noted on this study. Mitral regurgitation is mild to moderate. There is mild tricuspid regurgitation.
--- NOTE | 2018-02-03 13:05 | PN ---
DATE: 02/03/2018 SUBJECTIVE: The patient is seen in ICU bed 3. The patient is lying in the bed. The patient appears to be sleeping. Overnight nurse's notes were reviewed. The patient had intermittent mild complaint of the left-sided abdominal pain. The patient was noted by the nurses overnight to be sleeping without any adverse events documented. PHYSICAL EXAMINATION: VITAL SIGNS: T-max 99.3; telemetry shows sinus tachycardia, blood pressure is 138/90, heart rate 103, respirations 20, O2 sat 100%. HEENT: Head examination is normocephalic, atraumatic. HEENT examination shows pink conjunctivae, anicteric sclerae. No oropharyngeal lesion. No neck rigidity. CHEST: Kyphosis. LUNGS: Shows no rales, crackles or wheezing. CARDIOVASCULAR: S1 and S2. Regular rhythm. Questionable soft systolic murmur, left sternal border, right second intercostal space, left second intercostal space. ABDOMEN: Protuberant. Positive voluntary guarding of the left sided of the abdomen and left flank area. Questionable left costovertebral ankle tenderness. GENITALIA: Male. RECTAL: Deferred. EXTREMITY: Shows no pitting edema. No calf tenderness. No Homans sign. MUSCULOSKELETAL: Shows a body mass index of 32. NEUROLOGIC: The patient is alert, awake, oriented x3. Cranial nerves II through XII grossly intact. Motor strength is 5/5 in upper and lower extremity. Gait examination is not tested. DIAGNOSTICS: On 02/03/2018: WBC 7.2, hemoglobin and hematocrit 12.1 and 35.7, platelet 179, granulocytes 74. ABG done yesterday shows pH of 7.45, pCO2 of 31, pO2 of 70, bicarb 21, saturation of 97.5. WBC 7.2, hemoglobin and hematocrit 12.1 and 35.7, platelet 179, granulocytes 74% segs. Chemistry from 02/03/2018: Sodium 146, potassium 4, chloride 110, CO2 of 23, anion gap 18, BUN 19, creatinine 1.6, GFR 53. Glucose 123, 129, 105. Calcium 9, phosphorus 3, magnesium 1.7. LFTs are normal. Troponin is 0.06. Cholesterol is 147, LDL 94, HDL 37. PSA is 0.6. Thyroid profile shows a TSH of 0.10. EKG done today shows sinus tachycardia, Q-wave in III, hypertensive cardiovascular disease, heart rate 113. IMPRESSION AND PLAN: 1. Left-sided chest pain and left-sided abdominal pain, etiology unclear and undetermined at this time. 2. History of nonobstructive coronary artery disease. 3. Nonischemic cardiomyopathy. 4. Tachycardia. 5. Transient uncontrolled hypertension. 6. Normocytic anemia. 7. Elevated erythrocyte sedimentation rate of 25. 8. Elevated D-dimer, etiology undetermined. 9. Hypoxemia. 10. Acute kidney injury with underlying chronic kidney disease stage 3. 11. Hyperlipidemia with elevated LDL and decreased HDL. 12. Elevated CPK, questionable mild rhabdomyolysis. 13. Indeterminate troponin. 14. Decreased TSH level of 0.25 and 0.10. 15. Active nicotine and polysubstance abuse with urine drug screen positive for opiates, benzodiazepines and cocaine. 16. Sinus tachycardia. 17. Hypertensive cardiovascular disease. 18. Age indeterminate inferior infarct. 19. Age indeterminate anterior inferior infarct. 20. Left ventricular dysfunction. 21. Cardiomegaly. 22. Small hiatal hernia. 23. Bibasilar atelectasis versus infiltrate versus pleural effusion. 24. Hepatic steatosis with fatty infiltration of the liver. 25. Gallbladder wall thickening. 26. Atrophic fatty replacement of the pancreas. 27. Bilateral renal cyst. 28. Right-sided 3.7 mm nonobstructing nephrolithiasis. 29. Gastric distention. 30. Postoperative mid transverse colon anastomotic changes. 31. Fecal retention, fecal stasis and constipation. 32. Fat-containing umbilical hernia. 33. Left-inguinal hernia. 34. Urinary bladder distention. 35. L5-S1 diskectomy with L4-L5 and L5-S1 posterior bony fusion. 36. Degenerative joint disease of the hips. 37. Constipation. 38. Prostatic hypertrophy. 39. Hyperlipidemia. 40. History of poor compliance. 41. Obesity with elevated body mass index. Plan at this time, the patient will be considered for transfer out of the Intensive Care Unit after cleared by Cardiology. The patient has been ordered repeat labs. Current consultation: Cardiology, Gastroenterology, Surgery. The patient's current medications: Colace 100 mg three times a day, Cozaar 100 mg daily, IV fluid D5 normal saline at 75 mL an hour. The patient's parenteral pain medications will be adjusted depending on the patient's severity of symptoms. The patient is on Ecotrin 81 mg daily. The patient was seen by the surgical services tech. Ordered the Fleet Enema. The patient is on Flomax 0.4 mg daily, heparin 5000 subcutaneous every 8, Lasix 20 mg IV daily, Lidoderm 5% patch to the affected area, Lipitor 40 mg daily, Lopressor 25 mg twice a day, MiraLax 17 g three times a day, nicotine patch 21 mg daily, Plavix 75 mg daily, Protonix 40 IV daily, Reglan 5 mg IV push every 6, Tylenol p.r.n. Xopenex nebulizer every 6 hours, Zofran 4 IV every 4. Chest PT, oxygen 2 L, EKG. Echocardiogram with Doppler ordered, results pending. The patient is started on liquid diet by the Surgery. The patient has been ordered tap water enema. Out of bed, thromboembolic disease stockings, sequential compression devices. The patient has been updated about his condition, diagnoses, test results, recommendations by all the physicians involving the care with the patient was explained to the patient at length and all questions concerned answered. The patient was again counseled about cessation of smoking and polysubstance drug use. Time spent is more than 35 minutes. Dictated and electronically signed, not read. Barber Sharma MD
--- NOTE | 2018-02-03 13:21 | CP.CCUPN ---
<Conchita Still - Last Filed: 02/03/18 13:34> CCU Subjective - Physician Review Subjective (Free Text): 02/03/18 13:09 No more chest pain. LUQ pain improves. Controlled by current pain regimen. Refused enema, but able to produce 1 big pasty bowel movement around noon CCU Objective - Vital Signs / Intake & Output Vital Signs (Last 4 hours): Vital Signs Pulse BP 02/03/18 11:21 136/91 H 02/03/18 11:06 108 H 136/91 H Intake and Output (Last 8hrs): Intake & Output 02/02/18 02/03/18 02/03/18 22:59 06:59 14:59 Intake Total 75 975 Output Total 1500 750 Balance -1425 225 Weight 200 lb 9.6 oz Intake: IV 75 975 Right AC 975 Right Proximal Port 75 Forearm Output: Urine 1500 750 Urine, Voided 1500 750 - Physical Exam Head: Positive for: Atraumatic, Normocephalic Pupils: Positive for: PERRL Extroacular Muscles: Positive for: EOMI Conjunctiva: Positive for: Normal Mouth: Positive for: Moist Mucous Membranes Neck: Positive for: Normal Range of Motion. Negative for: Meningeal Signs, MIDLINE TENDERNESS Respiratory/Chest: Positive for: Clear to Auscultation, Good Air Exchange. Negative for: Respiratory Distress, Accessory Muscle Use Cardiovascular: Positive for: Regular Rate and Rhythm, Normal S1, S2. Negative for: Murmurs Abdomen: Positive for: Other (tender LUQ, LLQ). Negative for: Tenderness, Distention, Normal Bowel Sounds (hypoactive), Peritoneal Signs, Rebound Back: Positive for: Normal Inspection. Negative for: CVA Tenderness, Midline Tenderness, Paraspinal Tenderness Upper Extremity: Positive for: Normal Inspection. Negative for: Cyanosis, Edema Lower Extremity: Positive for: Normal Inspection. Negative for: Edema, CALF TENDERNESS Neurological: Positive for: GCS=15, CN II-XII Intact, Speech Normal Skin: Positive for: Warm, Dry, Normal Color. Negative for: Rashes Psychiatric: Positive for: Alert, Oriented x 3, Normal Insight, Normal Concentration - Medications Active Medications: Active Medications Generic Name Dose Route Start Last Admin Trade Name Freq PRN Reason Stop Dose Admin Acetaminophen 650 mg 02/02/18 12:20 Tylenol 325mg Tab PO Q6 PRN TEMP>=99.5F Acetaminophen 650 mg 02/02/18 12:20 Tylenol 650 Mg Supp RC Q6H PRN TEMP>=99.5F Aspirin 81 mg 02/02/18 10:00 02/03/18 11:06 Ecotrin PO 81 mg DAILY ADRIANNA Administration Atorvastatin Calcium 40 mg 02/02/18 17:00 02/02/18 17:53 Lipitor PO 40 mg DIN ADRIANNA Administration Clopidogrel Bisulfate 75 mg 02/02/18 10:00 02/03/18 11:06 Plavix PO 75 mg DAILY ADRIANNA Administration Docusate Sodium 100 mg 02/02/18 14:00 02/02/18 17:53 Colace PO 100 mg TID ADRIANNA Administration Furosemide 20 mg 02/02/18 10:00 02/03/18 11:21 Lasix IVP 20 mg DAILY ADRIANNA Administration Heparin Sodium (Porcine) 5,000 units 02/02/18 14:00 02/03/18 05:07 Heparin SC 5,000 units Q8 ADRIANNA Administration Protocol Hydromorphone HCl 0.5 mg 02/03/18 11:15 Dilaudid IVP Q6H PRN Pain, severe (8-10) Dextrose/Sodium Chloride 1,000 mls @ 75 mls/hr 02/02/18 19:00 02/02/18 18:58 Dextrose 5%/0.9% Ns 1000 Ml IV 75 mls/hr .[id number] ADRIANNA Administration Levalbuterol HCl 0.63 mg 02/02/18 12:50 02/03/18 07:38 Xopenex IH 0.63 mg [id number] ADRIANNA Administration Lidocaine 1 ea 02/02/18 20:00 02/03/18 11:07 Lidoderm TD 1 ea DAILY ADRIANNA Administration Losartan Potassium 100 mg 02/02/18 10:00 02/03/18 11:06 Cozaar PO 100 mg DAILY ADRIANNA Administration Metoclopramide HCl 5 mg 02/03/18 11:15 Reglan IVP Q6H ADRIANNA Metoprolol Tartrate 25 mg 02/03/18 07:00 02/03/18 11:06 Lopressor PO 25 mg BID ADRIANNA Administration Nicotine 1 patch 02/02/18 13:15 02/03/18 11:07 Nicoderm Cq TD 1 patch DAILY ADRIANNA Administration Ondansetron HCl 4 mg 02/02/18 12:20 Zofran Inj IVP Q4H PRN Nausea/Vomiting Pantoprazole Sodium 40 mg 02/02/18 10:00 02/03/18 11:06 Protonix Inj IVP 40 mg DAILY ADRIANNA Administration Polyethylene Glycol 17 gm 02/02/18 14:00 02/03/18 11:07 Miralax PO 17 gm TID ADRIANNA Administration Tamsulosin HCl 0.4 mg 02/02/18 13:00 02/03/18 11:06 Flomax PO 0.4 mg DAILY ADRIANNA Administration - Patient Studies Lab Studies: Lab Studies 02/03/18 02/03/18 02/03/18 Range/Units 06:01 06:00 06:00 WBC (4.5-11.0) 10^3/ul RBC (3.5-6.1) 10^6/uL Hgb (14.0-18.0) g/dL Hct (42.0-52.0) % MCV (80.0-105.0) fl MCH (25.0-35.0) pg MCHC (31.0-37.0) g/dl RDW (11.5-14.5) % Plt Count (120.0-450.0) 10^3/uL MPV (7.0-11.0) fl Gran % (50.0-68.0) % Lymph % (Auto) (22.0-35.0) % [place] % (Auto) (1.0-6.0) % Eos % (Auto) (1.5-5.0) % Baso % (Auto) (0.0-3.0) % Gran # (1.4-6.5) Lymph # (Auto) (1.2-3.4) [place] # (Auto) (0.1-0.6) Eos # (Auto) (0.0-0.7) Baso # (Auto) (0.0-2.0) K/mm3 pCO2 (35-45) mm/Hg pO2 (30-55) mm/Hg HCO3 (21-28) mmol/L ABG pH (7.35-7.45) ABG Total CO2 (22-28) mmol.L ABG O2 Saturation (95-98) % ABG Base Excess (-2.0-3.0) mmol/L ABG Potassium (3.6-5.2) mmol/L VBG pH (7.32-7.43) VBG pCO2 (40-60) VBG HCO3 (21-28) mmol/l VBG Total CO2 (22-28) mmol.L VBG O2 Sat (Calc) (40-65) % VBG Base Excess (0.0-2.0) mmol/L VBG Potassium (3.6-5.2) mmol/L Sodium (132-148) mmol/L Chloride (98-107) mmol/L Glucose (75-110) mg/dl Lactate (0.7-2.1) mmol/L FiO2 % Potassium (3.6-5.0) mmol/L Carbon Dioxide (21-33) mmol/L Anion Gap (10-20) BUN (7-21) mg/dL Creatinine (0.8-1.5) mg/dl Est GFR ( Amer) Est GFR (Non-Af Amer) POC Glucose (mg/dL) 123 H (65-110) mg/dL Random Glucose (70-110) mg/dL Calcium (8.4-10.5) mg/dL Phosphorus (2.5-4.5) mg/dL Magnesium (1.7-2.2) mg/dL Total Bilirubin (0.2-1.3) mg/dL Direct Bilirubin (0.0-0.4) mg/dL AST (17-59) U/L ALT (7-56) U/L Alkaline Phosphatase (38-126) U/L Total Creatine Kinase (35-230) U/L Troponin I ng/mL Total Protein (5.8-8.3) g/dL Albumin (3.0-4.8) g/dL Globulin gm/dL Albumin/Globulin Ratio (1.1-1.8) Triglycerides (35-160) mg/dL Cholesterol (130-200) mg/dL LDL Cholesterol Direct (0-129) mg/dL HDL Cholesterol (29-60) mg/dL Prostate Specific Ag 0.6 (0.00-2.5) ng/mL 25-OH Vitamin D Total 14.6 L (30.0-100.0) NG/ML Free T4 0.99 (0.78-2.19) ng/dL Thyroxine (T4) 6.4 (5.5-11.0) ug/dL TSH 3rd Generation 0.10 L (0.46-4.68) mIU/mL Arterial Blood Potassium (3.6-5.2) mmol/L Venous Blood Potassium (3.6-5.2) mmol/L 02/03/18 02/03/18 02/02/18 Range/Units 06:00 06:00 23:44 WBC 7.2 (4.5-11.0) 10^3/ul RBC 3.91 (3.5-6.1) 10^6/uL Hgb 12.1 L (14.0-18.0) g/dL Hct 35.7 L (42.0-52.0) % MCV 91.3 (80.0-105.0) fl MCH 30.9 (25.0-35.0) pg MCHC 33.9 (31.0-37.0) g/dl RDW 13.5 (11.5-14.5) % Plt Count 179 (120.0-450.0) 10^3/uL MPV 10.2 (7.0-11.0) fl Gran % 74.1 H (50.0-68.0) % Lymph % (Auto) 18.3 L (22.0-35.0) % [place] % (Auto) 6.9 H (1.0-6.0) % Eos % (Auto) 0.7 L (1.5-5.0) % Baso % (Auto) 0.0 (0.0-3.0) % Gran # 5.36 (1.4-6.5) Lymph # (Auto) 1.3 (1.2-3.4) [place] # (Auto) 0.5 (0.1-0.6) Eos # (Auto) 0.1 (0.0-0.7) Baso # (Auto) 0.00 (0.0-2.0) K/mm3 pCO2 (35-45) mm/Hg pO2 (30-55) mm/Hg HCO3 (21-28) mmol/L ABG pH (7.35-7.45) ABG Total CO2 (22-28) mmol.L ABG O2 Saturation (95-98) % ABG Base Excess (-2.0-3.0) mmol/L ABG Potassium (3.6-5.2) mmol/L VBG pH (7.32-7.43) VBG pCO2 (40-60) VBG HCO3 (21-28) mmol/l VBG Total CO2 (22-28) mmol.L VBG O2 Sat (Calc) (40-65) % VBG Base Excess (0.0-2.0) mmol/L VBG Potassium (3.6-5.2) mmol/L Sodium 146 (132-148) mmol/L Chloride 110 H (98-107) mmol/L Glucose (75-110) mg/dl Lactate (0.7-2.1) mmol/L FiO2 % Potassium 4.0 (3.6-5.0) mmol/L Carbon Dioxide 23 (21-33) mmol/L Anion Gap 18 (10-20) BUN 19 (7-21) mg/dL Creatinine 1.6 H (0.8-1.5) mg/dl Est GFR ( Amer) 53 Est GFR (Non-Af Amer) 44 POC Glucose (mg/dL) 105 (65-110) mg/dL Random Glucose 129 H (70-110) mg/dL Calcium 9.0 (8.4-10.5) mg/dL Phosphorus 3.0 (2.5-4.5) mg/dL Magnesium 1.7 (1.7-2.2) mg/dL Total Bilirubin 0.9 (0.2-1.3) mg/dL Direct Bilirubin 0.3 (0.0-0.4) mg/dL AST 16 L D (17-59) U/L ALT 27 (7-56) U/L Alkaline Phosphatase 63 (38-126) U/L Total Creatine Kinase 148 (35-230) U/L Troponin I 0.06 ng/mL Total Protein 7.1 (5.8-8.3) g/dL Albumin 3.8 (3.0-4.8) g/dL Globulin 3.2 gm/dL Albumin/Globulin Ratio 1.2 (1.1-1.8) Triglycerides 111 (35-160) mg/dL Cholesterol 147 (130-200) mg/dL LDL Cholesterol Direct 94 (0-129) mg/dL HDL Cholesterol 37 (29-60) mg/dL Prostate Specific Ag (0.00-2.5) ng/mL 25-OH Vitamin D Total (30.0-100.0) NG/ML Free T4 (0.78-2.19) ng/dL Thyroxine (T4) (5.5-11.0) ug/dL TSH 3rd Generation (0.46-4.68) mIU/mL Arterial Blood Potassium (3.6-5.2) mmol/L Venous Blood Potassium (3.6-5.2) mmol/L 02/02/18 02/02/18 02/02/18 Range/Units 20:00 19:50 17:51 WBC 6.8 (4.5-11.0) 10^3/ul RBC 3.92 (3.5-6.1) 10^6/uL Hgb 12.4 L (14.0-18.0) g/dL Hct 36.2 L (42.0-52.0) % MCV 92.3 (80.0-105.0) fl MCH 31.6 (25.0-35.0) pg MCHC 34.3 (31.0-37.0) g/dl RDW 13.6 (11.5-14.5) % Plt Count 179 (120.0-450.0) 10^3/uL MPV 9.7 (7.0-11.0) fl Gran % 72.5 H (50.0-68.0) % Lymph % (Auto) 19.6 L (22.0-35.0) % [place] % (Auto) 7.2 H (1.0-6.0) % Eos % (Auto) 0.7 L (1.5-5.0) % Baso % (Auto) 0.0 (0.0-3.0) % Gran # 4.93 (1.4-6.5) Lymph # (Auto) 1.3 (1.2-3.4) [place] # (Auto) 0.5 (0.1-0.6) Eos # (Auto) 0.1 (0.0-0.7) Baso # (Auto) 0.00 (0.0-2.0) K/mm3 pCO2 31 L (35-45) mm/Hg pO2 70.0 L (30-55) mm/Hg HCO3 21.5 (21-28) mmol/L ABG pH 7.45 (7.35-7.45) ABG Total CO2 22.5 (22-28) mmol.L ABG O2 Saturation 97.5 (95-98) % ABG Base Excess -1.6 (-2.0-3.0) mmol/L ABG Potassium 3.8 (3.6-5.2) mmol/L VBG pH (7.32-7.43) VBG pCO2 (40-60) VBG HCO3 (21-28) mmol/l VBG Total CO2 (22-28) mmol.L VBG O2 Sat (Calc) (40-65) % VBG Base Excess (0.0-2.0) mmol/L VBG Potassium (3.6-5.2) mmol/L Sodium 145.0 (132-148) mmol/L Chloride 118.0 H (98-107) mmol/L Glucose 106 (75-110) mg/dl Lactate 1.3 (0.7-2.1) mmol/L FiO2 28.0 % Potassium (3.6-5.0) mmol/L Carbon Dioxide (21-33) mmol/L Anion Gap (10-20) BUN (7-21) mg/dL Creatinine (0.8-1.5) mg/dl Est GFR ( Amer) Est GFR (Non-Af Amer) POC Glucose (mg/dL) 87 (65-110) mg/dL Random Glucose (70-110) mg/dL Calcium (8.4-10.5) mg/dL Phosphorus (2.5-4.5) mg/dL Magnesium (1.7-2.2) mg/dL Total Bilirubin (0.2-1.3) mg/dL Direct Bilirubin (0.0-0.4) mg/dL AST (17-59) U/L ALT (7-56) U/L Alkaline Phosphatase (38-126) U/L Total Creatine Kinase (35-230) U/L Troponin I ng/mL Total Protein (5.8-8.3) g/dL Albumin (3.0-4.8) g/dL Globulin gm/dL Albumin/Globulin Ratio (1.1-1.8) Triglycerides (35-160) mg/dL Cholesterol (130-200) mg/dL LDL Cholesterol Direct (0-129) mg/dL HDL Cholesterol (29-60) mg/dL Prostate Specific Ag (0.00-2.5) ng/mL 25-OH Vitamin D Total (30.0-100.0) NG/ML Free T4 (0.78-2.19) ng/dL Thyroxine (T4) (5.5-11.0) ug/dL TSH 3rd Generation (0.46-4.68) mIU/mL Arterial Blood Potassium 3.8 (3.6-5.2) mmol/L Venous Blood Potassium (3.6-5.2) mmol/L 02/02/18 Range/Units 13:55 WBC (4.5-11.0) 10^3/ul RBC (3.5-6.1) 10^6/uL Hgb (14.0-18.0) g/dL Hct (42.0-52.0) % MCV (80.0-105.0) fl MCH (25.0-35.0) pg MCHC (31.0-37.0) g/dl RDW (11.5-14.5) % Plt Count (120.0-450.0) 10^3/uL MPV (7.0-11.0) fl Gran % (50.0-68.0) % Lymph % (Auto) (22.0-35.0) % [place] % (Auto) (1.0-6.0) % Eos % (Auto) (1.5-5.0) % Baso % (Auto) (0.0-3.0) % Gran # (1.4-6.5) Lymph # (Auto) (1.2-3.4) [place] # (Auto) (0.1-0.6) Eos # (Auto) (0.0-0.7) Baso # (Auto) (0.0-2.0) K/mm3 pCO2 (35-45) mm/Hg pO2 29 L (30-55) mm/Hg HCO3 (21-28) mmol/L ABG pH (7.35-7.45) ABG Total CO2 (22-28) mmol.L ABG O2 Saturation (95-98) % ABG Base Excess (-2.0-3.0) mmol/L ABG Potassium (3.6-5.2) mmol/L VBG pH 7.31 L (7.32-7.43) VBG pCO2 51.0 (40-60) VBG HCO3 25.7 (21-28) mmol/l VBG Total CO2 27.3 (22-28) mmol.L VBG O2 Sat (Calc) 62.6 (40-65) % VBG Base Excess -1.2 L (0.0-2.0) mmol/L VBG Potassium 4.7 (3.6-5.2) mmol/L Sodium 142.0 (132-148) mmol/L Chloride 111.0 H (98-107) mmol/L Glucose 116 H (75-110) mg/dl Lactate 1.1 (0.7-2.1) mmol/L FiO2 21.0 % Potassium (3.6-5.0) mmol/L Carbon Dioxide (21-33) mmol/L Anion Gap (10-20) BUN (7-21) mg/dL Creatinine (0.8-1.5) mg/dl Est GFR ( Amer) Est GFR (Non-Af Amer) POC Glucose (mg/dL) (65-110) mg/dL Random Glucose (70-110) mg/dL Calcium (8.4-10.5) mg/dL Phosphorus (2.5-4.5) mg/dL Magnesium (1.7-2.2) mg/dL Total Bilirubin (0.2-1.3) mg/dL Direct Bilirubin (0.0-0.4) mg/dL AST (17-59) U/L ALT (7-56) U/L Alkaline Phosphatase (38-126) U/L Total Creatine Kinase (35-230) U/L Troponin I ng/mL Total Protein (5.8-8.3) g/dL Albumin (3.0-4.8) g/dL Globulin gm/dL Albumin/Globulin Ratio (1.1-1.8) Triglycerides (35-160) mg/dL Cholesterol (130-200) mg/dL LDL Cholesterol Direct (0-129) mg/dL HDL Cholesterol (29-60) mg/dL Prostate Specific Ag (0.00-2.5) ng/mL 25-OH Vitamin D Total (30.0-100.0) NG/ML Free T4 (0.78-2.19) ng/dL Thyroxine (T4) (5.5-11.0) ug/dL TSH 3rd Generation (0.46-4.68) mIU/mL Arterial Blood Potassium (3.6-5.2) mmol/L Venous Blood Potassium 4.7 (3.6-5.2) mmol/L Laboratory Results - last 24 hr 02/02/18 02/02/18 02/02/18 13:55 17:51 19:50 WBC RBC Hgb Hct MCV MCH MCHC RDW Plt Count MPV Gran % Lymph % (Auto) [place] % (Auto) Eos % (Auto) Baso % (Auto) Gran # Lymph # (Auto) [place] # (Auto) Eos # (Auto) Baso # (Auto) pCO2 31 L pO2 29 L 70.0 L HCO3 21.5 ABG pH 7.45 ABG Total CO2 22.5 ABG O2 Saturation 97.5 ABG Base Excess -1.6 ABG Potassium 3.8 VBG pH 7.31 L VBG pCO2 51.0 VBG HCO3 25.7 VBG Total CO2 27.3 VBG O2 Sat (Calc) 62.6 VBG Base Excess -1.2 L VBG Potassium 4.7 Sodium 142.0 145.0 Chloride 111.0 H 118.0 H Glucose 116 H 106 Lactate 1.1 1.3 FiO2 21.0 28.0 Potassium Carbon Dioxide Anion Gap BUN Creatinine Est GFR ( Amer) Est GFR (Non-Af Amer) POC Glucose (mg/dL) 87 Random Glucose Calcium Phosphorus Magnesium Total Bilirubin Direct Bilirubin AST ALT Alkaline Phosphatase Total Creatine Kinase Troponin I Total Protein Albumin Globulin Albumin/Globulin Ratio Triglycerides Cholesterol LDL Cholesterol Direct HDL Cholesterol Prostate Specific Ag 25-OH Vitamin D Total Free T4 Thyroxine (T4) TSH 3rd Generation Arterial Blood Potassium 3.8 Venous Blood Potassium 4.7 02/02/18 02/02/18 02/03/18 20:00 23:44 06:00 WBC 6.8 7.2 RBC 3.92 3.91 Hgb 12.4 L 12.1 L Hct 36.2 L 35.7 L MCV 92.3 91.3 MCH 31.6 30.9 MCHC 34.3 33.9 RDW 13.6 13.5 Plt Count 179 179 MPV 9.7 10.2 Gran % 72.5 H 74.1 H Lymph % (Auto) 19.6 L 18.3 L [place] % (Auto) 7.2 H 6.9 H Eos % (Auto) 0.7 L 0.7 L Baso % (Auto) 0.0 0.0 Gran # 4.93 5.36 Lymph # (Auto) 1.3 1.3 [place] # (Auto) 0.5 0.5 Eos # (Auto) 0.1 0.1 Baso # (Auto) 0.00 0.00 pCO2 pO2 HCO3 ABG pH ABG Total CO2 ABG O2 Saturation ABG Base Excess ABG Potassium VBG pH VBG pCO2 VBG HCO3 VBG Total CO2 VBG O2 Sat (Calc) VBG Base Excess VBG Potassium Sodium Chloride Glucose Lactate FiO2 Potassium Carbon Dioxide Anion Gap BUN Creatinine Est GFR ( Amer) Est GFR (Non-Af Amer) POC Glucose (mg/dL) 105 Random Glucose Calcium Phosphorus Magnesium Total Bilirubin Direct Bilirubin AST ALT Alkaline Phosphatase Total Creatine Kinase Troponin I Total Protein Albumin Globulin Albumin/Globulin Ratio Triglycerides Cholesterol LDL Cholesterol Direct HDL Cholesterol Prostate Specific Ag 25-OH Vitamin D Total Free T4 Thyroxine (T4) TSH 3rd Generation Arterial Blood Potassium Venous Blood Potassium 02/03/18 02/03/18 02/03/18 06:00 06:00 06:00 WBC RBC Hgb Hct MCV MCH MCHC RDW Plt Count MPV Gran % Lymph % (Auto) [place] % (Auto) Eos % (Auto) Baso % (Auto) Gran # Lymph # (Auto) [place] # (Auto) Eos # (Auto) Baso # (Auto) pCO2 pO2 HCO3 ABG pH ABG Total CO2 ABG O2 Saturation ABG Base Excess ABG Potassium VBG pH VBG pCO2 VBG HCO3 VBG Total CO2 VBG O2 Sat (Calc) VBG Base Excess VBG Potassium Sodium 146 Chloride 110 H Glucose Lactate FiO2 Potassium 4.0 Carbon Dioxide 23 Anion Gap 18 BUN 19 Creatinine 1.6 H Est GFR ( Amer) 53 Est GFR (Non-Af Amer) 44 POC Glucose (mg/dL) Random Glucose 129 H Calcium 9.0 Phosphorus 3.0 Magnesium 1.7 Total Bilirubin 0.9 Direct Bilirubin 0.3 AST 16 L D ALT 27 Alkaline Phosphatase 63 Total Creatine Kinase 148 Troponin I 0.06 Total Protein 7.1 Albumin 3.8 Globulin 3.2 Albumin/Globulin Ratio 1.2 Triglycerides 111 Cholesterol 147 LDL Cholesterol Direct 94 HDL Cholesterol 37 Prostate Specific Ag 0.6 25-OH Vitamin D Total 14.6 L Free T4 0.99 Thyroxine (T4) 6.4 TSH 3rd Generation 0.10 L Arterial Blood Potassium Venous Blood Potassium 02/03/18 06:01 WBC RBC Hgb Hct MCV MCH MCHC RDW Plt Count MPV Gran % Lymph % (Auto) [place] % (Auto) Eos % (Auto) Baso % (Auto) Gran # Lymph # (Auto) [place] # (Auto) Eos # (Auto) Baso # (Auto) pCO2 pO2 HCO3 ABG pH ABG Total CO2 ABG O2 Saturation ABG Base Excess ABG Potassium VBG pH VBG pCO2 VBG HCO3 VBG Total CO2 VBG O2 Sat (Calc) VBG Base Excess VBG Potassium Sodium Chloride Glucose Lactate FiO2 Potassium Carbon Dioxide Anion Gap BUN Creatinine Est GFR ( Amer) Est GFR (Non-Af Amer) POC Glucose (mg/dL) 123 H Random Glucose Calcium Phosphorus Magnesium Total Bilirubin Direct Bilirubin AST ALT Alkaline Phosphatase Total Creatine Kinase Troponin I Total Protein Albumin Globulin Albumin/Globulin Ratio Triglycerides Cholesterol LDL Cholesterol Direct HDL Cholesterol Prostate Specific Ag 25-OH Vitamin D Total Free T4 Thyroxine (T4) TSH 3rd Generation Arterial Blood Potassium Venous Blood Potassium Fingerstick Blood Sugar Results: 123 Critical Care Progress Note - Nutrition Nutrition: Nutrition Category Date Time Status Liquid Diet [DIET] Diets 02/03/18 Breakfast Ordered Assessment/Plan - Assessment and Plan (Free Text) Plan: chest pain r/o ACS - negative trops/ EKG unchange Abdominal pain out of proportion with Cocaine use 3 days ago; Had ruled out ischemic bowel Likely withdrawal from cocaine or benzo - sinus tachycarida, diaphoresis, hightened sensation of pain Cardiomyopathy - EF 25-30% (2017) Constipation Neuro - seizure precaution, neuro check Q4, maintain nomothermia lidoderm nicoderm Card - ASA, Plavix 75, lopressor 25 bid; Lipitor 40, lasix 20 ivp; losartan 100 Pulm - No crackles on ascultation. xopenex 0.63 Q6 GI: DC fluid. CLD; colace 100 tid; miralax; protonix reglan 5q6 adrianna per primary dilaudid 0.5Q6 : flomax PVX: heparin sc q8; protonix Dispo: transfer to [facility]. cleared by Dr Newberry and Dr Sharma s/r/d/w Dr. Reid <Mg Reid - Last Filed: 02/03/18 14:19> CCU Objective - Vital Signs / Intake & Output Vital Signs (Last 4 hours): Vital Signs Pulse BP 02/03/18 11:21 136/91 H 02/03/18 11:06 108 H 136/91 H Intake and Output (Last 8hrs): Intake & Output 02/02/18 02/03/18 02/03/18 22:59 06:59 14:59 Intake Total 75 975 Output Total 1500 750 Balance -1425 225 Weight 200 lb 9.6 oz Intake: IV 75 975 Right AC 975 Right Proximal Port 75 Forearm Output: Urine 1500 750 Urine, Voided 1500 750 - Medications Active Medications: Active Medications Generic Name Dose Route Start Last Admin Trade Name Freq PRN Reason Stop Dose Admin Acetaminophen 650 mg 02/02/18 12:20 Tylenol 325mg Tab PO Q6 PRN TEMP>=99.5F Acetaminophen 650 mg 02/02/18 12:20 Tylenol 650 Mg Supp RC Q6H PRN TEMP>=99.5F Aspirin 81 mg 02/02/18 10:00 02/03/18 11:06 Ecotrin PO 81 mg DAILY ADRIANNA Administration Atorvastatin Calcium 40 mg 02/02/18 17:00 02/02/18 17:53 Lipitor PO 40 mg DIN ADRIANNA Administration Clopidogrel Bisulfate 75 mg 02/02/18 10:00 02/03/18 11:06 Plavix PO 75 mg DAILY ADRIANNA Administration Docusate Sodium 100 mg 02/02/18 14:00 02/02/18 17:53 Colace PO 100 mg TID ADRIANNA Administration Furosemide 20 mg 02/02/18 10:00 02/03/18 11:21 Lasix IVP 20 mg DAILY ADRIANNA Administration Heparin Sodium (Porcine) 5,000 units 02/02/18 14:00 02/03/18 05:07 Heparin SC 5,000 units Q8 ADRIANNA Administration Protocol Hydromorphone HCl 0.5 mg 02/03/18 11:15 Dilaudid IVP Q6H PRN Pain, severe (8-10) Levalbuterol HCl 0.63 mg 02/02/18 12:50 02/03/18 13:21 Xopenex IH 0.63 mg [id number] ADRIANNA Administration Lidocaine 1 ea 02/02/18 20:00 02/03/18 11:07 Lidoderm TD 1 ea DAILY ADRIANNA Administration Losartan Potassium 100 mg 02/02/18 10:00 02/03/18 11:06 Cozaar PO 100 mg DAILY ADRIANNA Administration Metoclopramide HCl 5 mg 02/03/18 11:15 Reglan IVP Q6H ADRIANNA Metoprolol Tartrate 25 mg 02/03/18 07:00 02/03/18 11:06 Lopressor PO 25 mg BID ADRIANNA Administration Nicotine 1 patch 02/02/18 13:15 02/03/18 11:07 Nicoderm Cq TD 1 patch DAILY ADRIANNA Administration Ondansetron HCl 4 mg 02/02/18 12:20 Zofran Inj IVP Q4H PRN Nausea/Vomiting Pantoprazole Sodium 40 mg 02/02/18 10:00 02/03/18 11:06 Protonix Inj IVP 40 mg DAILY ADRIANNA Administration Polyethylene Glycol 17 gm 02/02/18 14:00 02/03/18 11:07 Miralax PO 17 gm TID ADRIANNA Administration Tamsulosin HCl 0.4 mg 02/02/18 13:00 02/03/18 11:06 Flomax PO 0.4 mg DAILY ADRIANNA Administration - Patient Studies Lab Studies: Lab Studies 02/03/18 02/03/18 02/03/18 Range/Units 06:01 06:00 06:00 WBC (4.5-11.0) 10^3/ul RBC (3.5-6.1) 10^6/uL Hgb (14.0-18.0) g/dL Hct (42.0-52.0) % MCV (80.0-105.0) fl MCH (25.0-35.0) pg MCHC (31.0-37.0) g/dl RDW (11.5-14.5) % Plt Count (120.0-450.0) 10^3/uL MPV (7.0-11.0) fl Gran % (50.0-68.0) % Lymph % (Auto) (22.0-35.0) % [place] % (Auto) (1.0-6.0) % Eos % (Auto) (1.5-5.0) % Baso % (Auto) (0.0-3.0) % Gran # (1.4-6.5) Lymph # (Auto) (1.2-3.4) [place] # (Auto) (0.1-0.6) Eos # (Auto) (0.0-0.7) Baso # (Auto) (0.0-2.0) K/mm3 pCO2 (35-45) mm/Hg pO2 (80-100) mm/Hg HCO3 (21-28) mmol/L ABG pH (7.35-7.45) ABG Total CO2 (22-28) mmol.L ABG O2 Saturation (95-98) % ABG Base Excess (-2.0-3.0) mmol/L ABG Potassium (3.6-5.2) mmol/L Sodium (132-148) mmol/L Chloride (98-107) mmol/L Glucose (75-110) mg/dl Lactate (0.7-2.1) mmol/L FiO2 % Potassium (3.6-5.0) mmol/L Carbon Dioxide (21-33) mmol/L Anion Gap (10-20) BUN (7-21) mg/dL Creatinine (0.8-1.5) mg/dl Est GFR ( Amer) Est GFR (Non-Af Amer) POC Glucose (mg/dL) 123 H (65-110) mg/dL Random Glucose (70-110) mg/dL Calcium (8.4-10.5) mg/dL Phosphorus (2.5-4.5) mg/dL Magnesium (1.7-2.2) mg/dL Total Bilirubin (0.2-1.3) mg/dL Direct Bilirubin (0.0-0.4) mg/dL AST (17-59) U/L ALT (7-56) U/L Alkaline Phosphatase (38-126) U/L Total Creatine Kinase (35-230) U/L Troponin I ng/mL Total Protein (5.8-8.3) g/dL Albumin (3.0-4.8) g/dL Globulin gm/dL Albumin/Globulin Ratio (1.1-1.8) Triglycerides (35-160) mg/dL Cholesterol (130-200) mg/dL LDL Cholesterol Direct (0-129) mg/dL HDL Cholesterol (29-60) mg/dL Prostate Specific Ag 0.6 (0.00-2.5) ng/mL 25-OH Vitamin D Total 14.6 L (30.0-100.0) NG/ML Free T4 0.99 (0.78-2.19) ng/dL Thyroxine (T4) 6.4 (5.5-11.0) ug/dL TSH 3rd Generation 0.10 L (0.46-4.68) mIU/mL Arterial Blood Potassium (3.6-5.2) mmol/L 02/03/18 02/03/18 02/02/18 Range/Units 06:00 06:00 23:44 WBC 7.2 (4.5-11.0) 10^3/ul RBC 3.91 (3.5-6.1) 10^6/uL Hgb 12.1 L (14.0-18.0) g/dL Hct 35.7 L (42.0-52.0) % MCV 91.3 (80.0-105.0) fl MCH 30.9 (25.0-35.0) pg MCHC 33.9 (31.0-37.0) g/dl RDW 13.5 (11.5-14.5) % Plt Count 179 (120.0-450.0) 10^3/uL MPV 10.2 (7.0-11.0) fl Gran % 74.1 H (50.0-68.0) % Lymph % (Auto) 18.3 L (22.0-35.0) % [place] % (Auto) 6.9 H (1.0-6.0) % Eos % (Auto) 0.7 L (1.5-5.0) % Baso % (Auto) 0.0 (0.0-3.0) % Gran # 5.36 (1.4-6.5) Lymph # (Auto) 1.3 (1.2-3.4) [place] # (Auto) 0.5 (0.1-0.6) Eos # (Auto) 0.1 (0.0-0.7) Baso # (Auto) 0.00 (0.0-2.0) K/mm3 pCO2 (35-45) mm/Hg pO2 (80-100) mm/Hg HCO3 (21-28) mmol/L ABG pH (7.35-7.45) ABG Total CO2 (22-28) mmol.L ABG O2 Saturation (95-98) % ABG Base Excess (-2.0-3.0) mmol/L ABG Potassium (3.6-5.2) mmol/L Sodium 146 (132-148) mmol/L Chloride 110 H (98-107) mmol/L Glucose (75-110) mg/dl Lactate (0.7-2.1) mmol/L FiO2 % Potassium 4.0 (3.6-5.0) mmol/L Carbon Dioxide 23 (21-33) mmol/L Anion Gap 18 (10-20) BUN 19 (7-21) mg/dL Creatinine 1.6 H (0.8-1.5) mg/dl Est GFR ( Amer) 53 Est GFR (Non-Af Amer) 44 POC Glucose (mg/dL) 105 (65-110) mg/dL Random Glucose 129 H (70-110) mg/dL Calcium 9.0 (8.4-10.5) mg/dL Phosphorus 3.0 (2.5-4.5) mg/dL Magnesium 1.7 (1.7-2.2) mg/dL Total Bilirubin 0.9 (0.2-1.3) mg/dL Direct Bilirubin 0.3 (0.0-0.4) mg/dL AST 16 L D (17-59) U/L ALT 27 (7-56) U/L Alkaline Phosphatase 63 (38-126) U/L Total Creatine Kinase 148 (35-230) U/L Troponin I 0.06 ng/mL Total Protein 7.1 (5.8-8.3) g/dL Albumin 3.8 (3.0-4.8) g/dL Globulin 3.2 gm/dL Albumin/Globulin Ratio 1.2 (1.1-1.8) Triglycerides 111 (35-160) mg/dL Cholesterol 147 (130-200) mg/dL LDL Cholesterol Direct 94 (0-129) mg/dL HDL Cholesterol 37 (29-60) mg/dL Prostate Specific Ag (0.00-2.5) ng/mL 25-OH Vitamin D Total (30.0-100.0) NG/ML Free T4 (0.78-2.19) ng/dL Thyroxine (T4) (5.5-11.0) ug/dL TSH 3rd Generation (0.46-4.68) mIU/mL Arterial Blood Potassium (3.6-5.2) mmol/L 02/02/18 02/02/18 02/02/18 Range/Units 20:00 19:50 17:51 WBC 6.8 (4.5-11.0) 10^3/ul RBC 3.92 (3.5-6.1) 10^6/uL Hgb 12.4 L (14.0-18.0) g/dL Hct 36.2 L (42.0-52.0) % MCV 92.3 (80.0-105.0) fl MCH 31.6 (25.0-35.0) pg MCHC 34.3 (31.0-37.0) g/dl RDW 13.6 (11.5-14.5) % Plt Count 179 (120.0-450.0) 10^3/uL MPV 9.7 (7.0-11.0) fl Gran % 72.5 H (50.0-68.0) % Lymph % (Auto) 19.6 L (22.0-35.0) % [place] % (Auto) 7.2 H (1.0-6.0) % Eos % (Auto) 0.7 L (1.5-5.0) % Baso % (Auto) 0.0 (0.0-3.0) % Gran # 4.93 (1.4-6.5) Lymph # (Auto) 1.3 (1.2-3.4) [place] # (Auto) 0.5 (0.1-0.6) Eos # (Auto) 0.1 (0.0-0.7) Baso # (Auto) 0.00 (0.0-2.0) K/mm3 pCO2 31 L (35-45) mm/Hg pO2 70.0 L (80-100) mm/Hg HCO3 21.5 (21-28) mmol/L ABG pH 7.45 (7.35-7.45) ABG Total CO2 22.5 (22-28) mmol.L ABG O2 Saturation 97.5 (95-98) % ABG Base Excess -1.6 (-2.0-3.0) mmol/L ABG Potassium 3.8 (3.6-5.2) mmol/L Sodium 145.0 (132-148) mmol/L Chloride 118.0 H (98-107) mmol/L Glucose 106 (75-110) mg/dl Lactate 1.3 (0.7-2.1) mmol/L FiO2 28.0 % Potassium (3.6-5.0) mmol/L Carbon Dioxide (21-33) mmol/L Anion Gap (10-20) BUN (7-21) mg/dL Creatinine (0.8-1.5) mg/dl Est GFR ( Amer) Est GFR (Non-Af Amer) POC Glucose (mg/dL) 87 (65-110) mg/dL Random Glucose (70-110) mg/dL Calcium (8.4-10.5) mg/dL Phosphorus (2.5-4.5) mg/dL Magnesium (1.7-2.2) mg/dL Total Bilirubin (0.2-1.3) mg/dL Direct Bilirubin (0.0-0.4) mg/dL AST (17-59) U/L ALT (7-56) U/L Alkaline Phosphatase (38-126) U/L Total Creatine Kinase (35-230) U/L Troponin I ng/mL Total Protein (5.8-8.3) g/dL Albumin (3.0-4.8) g/dL Globulin gm/dL Albumin/Globulin Ratio (1.1-1.8) Triglycerides (35-160) mg/dL Cholesterol (130-200) mg/dL LDL Cholesterol Direct (0-129) mg/dL HDL Cholesterol (29-60) mg/dL Prostate Specific Ag (0.00-2.5) ng/mL 25-OH Vitamin D Total (30.0-100.0) NG/ML Free T4 (0.78-2.19) ng/dL Thyroxine (T4) (5.5-11.0) ug/dL TSH 3rd Generation (0.46-4.68) mIU/mL Arterial Blood Potassium 3.8 (3.6-5.2) mmol/L Laboratory Results - last 24 hr 02/02/18 02/02/18 02/02/18 17:51 19:50 20:00 WBC 6.8 RBC 3.92 Hgb 12.4 L Hct 36.2 L MCV 92.3 MCH 31.6 MCHC 34.3 RDW 13.6 Plt Count 179 MPV 9.7 Gran % 72.5 H Lymph % (Auto) 19.6 L [place] % (Auto) 7.2 H Eos % (Auto) 0.7 L Baso % (Auto) 0.0 Gran # 4.93 Lymph # (Auto) 1.3 [place] # (Auto) 0.5 Eos # (Auto) 0.1 Baso # (Auto) 0.00 pCO2 31 L pO2 70.0 L HCO3 21.5 ABG pH 7.45 ABG Total CO2 22.5 ABG O2 Saturation 97.5 ABG Base Excess -1.6 ABG Potassium 3.8 Sodium 145.0 Chloride 118.0 H Glucose 106 Lactate 1.3 FiO2 28.0 Potassium Carbon Dioxide Anion Gap BUN Creatinine Est GFR ( Amer) Est GFR (Non-Af Amer) POC Glucose (mg/dL) 87 Random Glucose Calcium Phosphorus Magnesium Total Bilirubin Direct Bilirubin AST ALT Alkaline Phosphatase Total Creatine Kinase Troponin I Total Protein Albumin Globulin Albumin/Globulin Ratio Triglycerides Cholesterol LDL Cholesterol Direct HDL Cholesterol Prostate Specific Ag 25-OH Vitamin D Total Free T4 Thyroxine (T4) TSH 3rd Generation Arterial Blood Potassium 3.8 02/02/18 02/03/18 02/03/18 23:44 06:00 06:00 WBC 7.2 RBC 3.91 Hgb 12.1 L Hct 35.7 L MCV 91.3 MCH 30.9 MCHC 33.9 RDW 13.5 Plt Count 179 MPV 10.2 Gran % 74.1 H Lymph % (Auto) 18.3 L [place] % (Auto) 6.9 H Eos % (Auto) 0.7 L Baso % (Auto) 0.0 Gran # 5.36 Lymph # (Auto) 1.3 [place] # (Auto) 0.5 Eos # (Auto) 0.1 Baso # (Auto) 0.00 pCO2 pO2 HCO3 ABG pH ABG Total CO2 ABG O2 Saturation ABG Base Excess ABG Potassium Sodium 146 Chloride 110 H Glucose Lactate FiO2 Potassium 4.0 Carbon Dioxide 23 Anion Gap 18 BUN 19 Creatinine 1.6 H Est GFR ( Amer) 53 Est GFR (Non-Af Amer) 44 POC Glucose (mg/dL) 105 Random Glucose 129 H Calcium 9.0 Phosphorus 3.0 Magnesium 1.7 Total Bilirubin 0.9 Direct Bilirubin 0.3 AST 16 L D ALT 27 Alkaline Phosphatase 63 Total Creatine Kinase 148 Troponin I 0.06 Total Protein 7.1 Albumin 3.8 Globulin 3.2 Albumin/Globulin Ratio 1.2 Triglycerides 111 Cholesterol 147 LDL Cholesterol Direct 94 HDL Cholesterol 37 Prostate Specific Ag 25-OH Vitamin D Total Free T4 Thyroxine (T4) TSH 3rd Generation Arterial Blood Potassium 02/03/18 02/03/18 02/03/18 06:00 06:00 06:01 WBC RBC Hgb Hct MCV MCH MCHC RDW Plt Count MPV Gran % Lymph % (Auto) [place] % (Auto) Eos % (Auto) Baso % (Auto) Gran # Lymph # (Auto) [place] # (Auto) Eos # (Auto) Baso # (Auto) pCO2 pO2 HCO3 ABG pH ABG Total CO2 ABG O2 Saturation ABG Base Excess ABG Potassium Sodium Chloride Glucose Lactate FiO2 Potassium Carbon Dioxide Anion Gap BUN Creatinine Est GFR ( Amer) Est GFR (Non-Af Amer) POC Glucose (mg/dL) 123 H Random Glucose Calcium Phosphorus Magnesium Total Bilirubin Direct Bilirubin AST ALT Alkaline Phosphatase Total Creatine Kinase Troponin I Total Protein Albumin Globulin Albumin/Globulin Ratio Triglycerides Cholesterol LDL Cholesterol Direct HDL Cholesterol Prostate Specific Ag 0.6 25-OH Vitamin D Total 14.6 L Free T4 0.99 Thyroxine (T4) 6.4 TSH 3rd Generation 0.10 L Arterial Blood Potassium Critical Care Progress Note - Nutrition Nutrition: Nutrition Category Date Time Status Liquid Diet [DIET] Diets 02/03/18 Breakfast Ordered Attending/Attestation - Attestation I have personally seen and examined this patient.: Yes I have fully participated in the care of the patient.: Yes I have reviewed all pertinent clinical information: Yes Notes (Text): 02/03/18 14:18 The patient was seen and examined at the bedside. Patient care was discussed with resident Medical records, lab studies were reviewed and management issues were discussed and formulated. Last 24H events reviewed. Agree with above treatment plans as outlined in 's note. Pt remains hemodynamically stable in no distress. No events overnight.
[2018-02-03] MEDS: HYDROmorphone 0.5 mg/0.5 ml ISec IVP PRN (22:42)
--- NOTE | 2018-02-03 22:43 | CARD ---
APPROVED REPORT EKG Measurement Heart [id number] <Conclusion> Sinus tachycardia with occasional premature ventricular complexes Possible Left atrial enlargement Left ventricular hypertrophy Nonspecific T wave abnormality Abnormal ECG
[2018-02-04] MEDS: Levalbuterol 0.63 MG/3 ML Inhal Soln UD IH SCH ×4 (02:41→19:50)
[2018-02-04] MEDS: HYDROmorphone 0.5 mg/0.5 ml ISec IVP PRN (05:35)
[2018-02-04 06:37] LABS: EOS % 0.3 % (1.5-5.0); GRAN # 7.05 (1.4-6.5); GRAN % 77.2 % (50.0-68.0); HEMOGLOBIN 12.5 g/dL (14.0-18.0); LYMPH # 1.5 (1.2-3.4); LYMPH % 16.4 % (22.0-35.0); MEAN CELL VOLUME 91.3 fl (80.0-105.0); MEAN CORPUSCULAR HEMOGLOBIN 31.2 pg (25.0-35.0); MEAN CORPUSCULAR HGB CONC 34.2 g/dl (31.0-37.0); MEAN PLATELET VOLUME 9.7 fl (7.0-11.0); MONO # 0.6 (0.1-0.6); MONO % 6.1 % (1.0-6.0); RBC 4.01 10^6/uL (3.5-6.1); RED CELL DISTRIBUTION WIDTH 13.5 % (11.5-14.5); WHITE BLOOD COUNT 9.1 10^3/ul (4.5-11.0)
[2018-02-04 07:07] LABS: ALB/GLOB RATIO 1.1 (1.1-1.8); BILIRUBIN,DIRECT 0.2 mg/dL (0.0-0.4); CALCIUM 9.3 mg/dL (8.4-10.5)
--- NOTE | 2018-02-04 07:26 | CP.PCM.PN ---
Subjective - Date & Time of Evaluation Date of Evaluation: 02/04/18 Time of Evaluation: 07:23 - Subjective Subjective: Tripp Craig PGY1 Surgery Progress Note for Dr. Monk Patient was seen and examined at bedside. He states that he has had BMs and that his pain has improved. he has also tolerated his diet and denies n/v, f/c. Objective - Vital Signs/Intake and Output Vital Signs (last 24 hours): Temp Pulse Resp BP Pulse Ox 98.0 F 88 18 138/90 99 02/03/18 13:14 02/04/18 06:00 02/04/18 05:00 02/04/18 06:00 02/04/18 06:00 Intake and Output: 02/04/18 02/04/18 06:59 18:59 Intake Total 1660 Output Total 1300 Balance 360 - Medications Medications: Current Medications Acetaminophen (Tylenol 325mg Tab) 650 mg PO Q6 PRN PRN Reason: TEMP>=99.5F Acetaminophen (Tylenol 650 Mg Supp) 650 mg RC Q6H PRN PRN Reason: TEMP>=99.5F Aspirin (Ecotrin) 81 mg PO DAILY [facility] Last Admin: 02/03/18 11:06 Dose: 81 mg Atorvastatin Calcium (Lipitor) 40 mg PO DIN [facility] Last Admin: 02/03/18 19:07 Dose: Not Given Clopidogrel Bisulfate (Plavix) 75 mg PO DAILY [facility] Last Admin: 02/03/18 11:06 Dose: 75 mg Docusate Sodium (Colace) 100 mg PO TID [facility] Last Admin: 02/03/18 18:00 Dose: Not Given Furosemide (Lasix) 20 mg IVP DAILY [facility] Last Admin: 02/03/18 11:21 Dose: 20 mg Heparin Sodium (Porcine) (Heparin) 5,000 units SC Q8 SHAMAR PRN Reason: Protocol Last Admin: 02/04/18 05:34 Dose: 5,000 units Hydromorphone HCl (Dilaudid) 0.5 mg IVP Q6H PRN PRN Reason: Pain, severe (8-10) Last Admin: 02/04/18 05:35 Dose: 0.5 mg Levalbuterol HCl (Xopenex) 0.63 mg IH [id number] [facility] Last Admin: 02/04/18 02:41 Dose: 0.63 mg Lidocaine (Lidoderm) 1 ea TD DAILY [facility] Last Admin: 02/03/18 11:07 Dose: 1 ea Losartan Potassium (Cozaar) 100 mg PO DAILY [facility] Last Admin: 02/03/18 11:06 Dose: 100 mg Metoclopramide HCl (Reglan) 5 mg IVP Q6H [facility] Last Admin: 02/04/18 05:34 Dose: 5 mg Metoprolol Tartrate (Lopressor) 25 mg PO BID [facility] Last Admin: 02/03/18 19:09 Dose: 25 mg Nicotine (Nicoderm Cq) 1 patch TD DAILY [facility] Last Admin: 02/03/18 11:07 Dose: 1 patch Ondansetron HCl (Zofran Inj) 4 mg IVP Q4H PRN PRN Reason: Nausea/Vomiting Pantoprazole Sodium (Protonix Inj) 40 mg IVP DAILY [facility] Last Admin: 02/03/18 11:06 Dose: 40 mg Polyethylene Glycol (Miralax) 17 gm PO TID [facility] Last Admin: 02/03/18 19:08 Dose: Not Given Tamsulosin HCl (Flomax) 0.4 mg PO DAILY [facility] Last Admin: 02/03/18 11:06 Dose: 0.4 mg - Labs Labs: 02/04/18 06:28 02/04/18 06:28 PT 12.8 SECONDS (9.4-12.5) H 02/02/18 09:45 INR 1.11 (0.93-1.08) H 02/02/18 09:45 APTT 28.5 Seconds (25.1-36.5) 02/01/18 21:35 - Additional Findings Additional findings: - Constitutional Appears: Well, Non-toxic, No Acute Distress - Head Exam Head Exam: NORMAL INSPECTION - Eye Exam Eye Exam: Normal appearance - ENT Exam ENT Exam: Normal Exam - Neck Exam Neck Exam: Normal Inspection - Respiratory Exam Respiratory Exam: NORMAL BREATHING PATTERN - Cardiovascular Exam Cardiovascular Exam: RRR - GI/Abdominal Exam GI & Abdominal Exam: Soft, Hernia. absent: Distended, Rigid, Tenderness, Rebound, Guarding Additional comments: old surgical scars present Small reducible umbilical hernia Small reducible L inguinal hernia - Extremities Exam Extremities Exam: Full ROM, Normal Inspection - Back Exam Back Exam: NORMAL INSPECTION - Neurological Exam Neurological Exam: Alert, Awake - Psychiatric Exam Psychiatric exam: Normal Mood - Skin Skin Exam: Normal Color Assessment and Plan - Assessment and Plan (Free Text) Assessment: 62yo AAM with L sided abdominal pain, and constipation. Given improvement in symptoms and abd US showing <50% stenoses in celiac and proximal SMA, this is unlikely due to mesenteric ischemia. Hernias are reproducible. Likely, etiology is constipation. Plan: - advanced to soft HHD; advance as tolerated - monitor abdomen w/ serial exams, monitor for BMs - f/u GI recommendations - Hernias can be repaired electively at a later time - No surgical intervention needed at this time - Further recs per attending Case reviewed and discussed with Dr. Monk
[2018-02-04] MEDS ORDERED: Magnesium Sulfate 2 gm/50 ml 2 GM/50 ML BAG IVPB SCH (08:15)
--- NOTE | 2018-02-04 08:32 | CON ---
DATE: 02/03/2018 GASTROENTEROLOGY CONSULTATION REQUESTING PHYSICIAN: Barber Sharma MD REASON FOR CONSULTATION AND HISTORY OF PRESENT ILLNESS: I have been asked to see this 62-year-old male with chronic back pain, on opioids at home who comes to the hospital with several days of left-sided chest pain and abdominal pain. He denies any nausea, vomiting, rectal bleeding or melena. CT scan of the abdomen and pelvis shows a dilated stool-filled transverse colon. The patient has a history of cocaine abuse. Duplex scan of the mesenteric vessels show nonsignificant stenosis of the celiac and SMA less than 50%. He denies any trauma to his chest or abdomen. He denies any shortness of breath, fevers or chills. PAST MEDICAL HISTORY: Notable for chronic back pain, hypertension, dilated cardiomyopathy, coronary artery disease. His last cardiac catheterization in August 2016 showed an ejection fraction 25%. SOCIAL HISTORY: He smokes between a half pack and a pack of cigarettes per day. He uses opiates for chronic back pain. He uses cocaine. He denies alcohol abuse. FAMILY HISTORY: Noncontributory. REVIEW OF SYSTEMS: A 14-point review of systems is positive for left-sided chest pain and abdominal pain. MEDICATIONS AT HOME: Include oxycodone, Ambien, , metoprolol and furosemide. PHYSICAL EXAMINATION GENERAL: Well-developed male lying in bed in no acute distress. He is afebrile. VITAL SIGNS: Blood pressure 136/91, heart rate of 108. HEENT: Reveals sclerae to be white. Conjunctivae pink. NECK: Supple. CHEST: Reveals scattered rales. HEART: Reveals regular rate and rhythm. ABDOMEN: Soft. There is mild tenderness over his left side of his abdomen, left flank and left chest. EXTREMITIES: Show no edema. LABORATORY DATA: Revealed white blood cell count 7.2, hemoglobin 12.1, sed rate of 25. Chemistries reveal BUN 19, creatinine 1.6, AST 16, ALT and alkaline phosphatase were all normal. IMPRESSION: A 62-year-old male with dilated cardiomyopathy, coronary artery disease with left-sided chest pain, abdominal pain and flank pain. His toxicology screen is positive for opiates, benzodiazepines and cocaine metabolites. Urinalysis is negative for blood. Etiology of the left-sided chest and abdominal pain most likely musculoskeletal. He does have chronic back pain. CT scan of the abdomen and pelvis shows a stool-filled dilated transverse colon. This may be related to his chronic opiate use. RECOMMENDATIONS: Continue stool softeners and MiraLax. There is no further GI workup planned at this time. Again, I believe his left-sided abdominal pain, flank pain and chest pain are musculoskeletal in etiology. Neto Mcclelland MD
--- NOTE | 2018-02-04 09:17 | PN ---
DATE: 02/03/2018 CARDIOLOGY FOLLOWUP SUBJECTIVE: The patient is resting comfortably without chest pain or shortness of breath. PHYSICAL EXAMINATION: VITAL SIGNS: Blood pressure is with the heart rate in the 90s. NECK: Negative JVD. LUNGS: Clear to auscultation. HEART: Reveals S1, S2. murmur. EXTREMITIES: Without edema. LABORATORY DATA: Reveals toxicology is positive for opiates as well as benzodiazepine. Laboratory also included the BUN and creatinine of 19 and 1.6 which is unchanged from previous. IMPRESSION: 1. Nonobstructive coronary artery disease, catheterization in the past. 2. History of cardiomyopathy. 3. Hyperlipidemia. 4. Hypertension. PLAN: Given these findings, patient is hemodynamically stable. findings. We will sign off the case today. Mike Newberry MD
[2018-02-04] MEDS: Lidocaine 5% Patch TD SCH (10:38)
[2018-02-04] MEDS: POLYETHYLENE GLYCOL 3350 17 GM/Dose PACKET PO SCH ×2 (10:40→17:15)
--- NOTE | 2018-02-04 11:37 | PN ---
DATE: 02/04/2018 CARDIOLOGY FOLLOWUP SUBJECTIVE: The patient is comfortable, eating. OBJECTIVE: VITAL SIGNS: Blood pressure is 138/90, heart rate is in the 80s. NECK: Negative JVD. LUNGS: Decreased breath sounds. HEART: Reveal S1, S2. EXTREMITIES: Without edema. DATA: Hemoglobin is 12.5, BUN and creatinine is 17 and 1.6. The glucose 154. IMPRESSION: 1. History of cardiomyopathy. 2. Hyperlipidemia. 3. Hypertension. 4. Recurrent drug abuse. Given these findings, the patient be transferred to Remote Telemetry. Mike Newberry MD
[2018-02-04 17:17] VITALS: BP 140/80
[2018-02-04 19:34] VITALS: PULSE 52; RESP 20; TEMP 98; O2SAT 98
--- NOTE | 2018-02-04 20:30 | CP.PCM.DIS ---
Provider - Provider Date of Admission: 02/02/18 13:39 Attending physician: Barber Sharma MD Hospital Course - Lab Results Lab Results: Most Recent Lab Values WBC 9.1 10^3/ul (4.5-11.0) D 02/04/18 06:28 RBC 4.01 10^6/uL (3.5-6.1) 02/04/18 06:28 Hgb 12.5 g/dL (14.0-18.0) L 02/04/18 06:28 Hct 36.6 % (42.0-52.0) L 02/04/18 06:28 MCV 91.3 fl (80.0-105.0) 02/04/18 06: MCH 31.2 pg (25.0-35.0) 02/04/18 06: MCHC 34.2 g/dl (31.0-37.0) 02/04/18 06: RDW 13.5 % (11.5-14.5) 02/04/18 06:28 Plt Count 168 10^3/uL (120.0-450.0) 02/04/18 06:28 MPV 9.7 fl (7.0-11.0) 02/04/18 06: Gran % 77.2 % (50.0-68.0) H 02/04/18 06:28 Lymph % (Auto) 16.4 % (22.0-35.0) L 02/04/18 06: [place] % (Auto) 6.1 % (1.0-6.0) H 02/04/18 06:28 Eos % (Auto) 0.3 % (1.5-5.0) L 02/04/18 06:28 Baso % (Auto) 0.0 % (0.0-3.0) 02/04/18 06: Gran # 7.05 (1.4-6.5) H 02/04/18 06: Lymph # (Auto) 1.5 (1.2-3.4) 02/04/18 06:28 [place] # (Auto) 0.6 (0.1-0.6) 02/04/18 06: Eos # (Auto) 0.0 (0.0-0.7) 02/04/18 06:28 Baso # (Auto) 0.00 K/mm3 (0.0-2.0) 02/04/18 06:28 ESR 25 mm/hr (0.00-15.0) H 02/02/18 09:45 PT 12.8 SECONDS (9.4-12.5) H 02/02/18 09:45 INR 1.11 (0.93-1.08) H 02/02/18 09:45 APTT 28.5 Seconds (25.1-36.5) 02/01/18 21:35 D-Dimer, Quantitative 452 ng/mL (0-243) H 02/01/18 21:35 pCO2 31 mm/Hg (35-45) L 02/02/18 19:50 pO2 70.0 mm/Hg (80-100) L 02/02/18 19:50 HCO3 21.5 mmol/L (21-28) 02/02/18 19:50 ABG pH 7.45 (7.35-7.45) 02/02/18 19:50 ABG Total CO2 22.5 mmol.L (22-28) 02/02/18 19:50 ABG O2 Saturation 97.5 % (95-98) 02/02/18 19:50 ABG Base Excess -1.6 mmol/L (-2.0-3.0) 02/02/18 19:50 ABG Potassium 3.8 mmol/L (3.6-5.2) 02/02/18 19:50 VBG pH 7.31 (7.32-7.43) L 02/02/18 13:55 VBG pCO2 51.0 (40-60) 02/02/18 13:55 VBG HCO3 25.7 mmol/l (21-28) 02/02/18 13:55 VBG Total CO2 27.3 mmol.L (22-28) 02/02/18 13:55 VBG O2 Sat (Calc) 62.6 % (40-65) 02/02/18 13:55 VBG Base Excess -1.2 mmol/L (0.0-2.0) L 02/02/18 13:55 VBG Potassium 4.7 mmol/L (3.6-5.2) 02/02/18 13:55 Sodium 145.0 mmol/L (132-148) 02/02/18 19:50 Chloride 118.0 mmol/L (98-107) H 02/02/18 19:50 Glucose 106 mg/dl (75-110) 02/02/18 19:50 Lactate 1.3 mmol/L (0.7-2.1) 02/02/18 19:50 FiO2 28.0 % 02/02/18 19:50 Sodium 146 mmol/L (132-148) 02/04/18 06:28 Potassium 4.0 mmol/L (3.6-5.0) 02/04/18 06:28 Chloride 108 mmol/L (98-107) H 02/04/18 06:28 Carbon Dioxide 26 mmol/L (21-33) 02/04/18 06:28 Anion Gap 16 (10-20) 02/04/18 06:28 BUN 17 mg/dL (7-21) 02/04/18 06:28 Creatinine 1.6 mg/dl (0.8-1.5) H 02/04/18 06:28 Est GFR ( Amer) 53 02/04/18 06:28 Est GFR (Non-Af Amer) 44 02/04/18 06:28 POC Glucose (mg/dL) 93 mg/dL (65-110) 02/03/18 23:40 Random Glucose 154 mg/dL (70-110) H 02/04/18 06:28 Hemoglobin A1c 5.3 % (4.2-6.5) 02/02/18 06:30 Calcium 9.3 mg/dL (8.4-10.5) 02/04/18 06:28 Phosphorus 3.3 mg/dL (2.5-4.5) 02/04/18 06:28 Magnesium 1.6 mg/dL (1.7-2.2) L 02/04/18 06:28 Total Bilirubin 0.8 mg/dL (0.2-1.3) 02/04/18 06:28 Direct Bilirubin 0.2 mg/dL (0.0-0.4) 02/04/18 06:28 AST 17 U/L (17-59) 02/04/18 06:28 ALT 20 U/L (7-56) 02/04/18 06:28 Alkaline Phosphatase 65 U/L (38-126) 02/04/18 06:28 Lactate Dehydrogenase 602 U/L (333-699) 02/01/18 21:35 Total Creatine Kinase 148 U/L (35-230) 02/03/18 06:00 CK-MB (CK-2) 6.1 ng/mL (0.0-3.6) H 02/01/18 21:35 CK-MB (CK-2) % 1.0 % (2.5-3.0) L 02/01/18 21:35 Troponin I 0.06 ng/mL 02/03/18 06:00 NT-Pro-B Natriuret Pep 581 pg/mL (0-450) H 02/01/18 21:35 Total Protein 7.7 g/dL (5.8-8.3) 02/04/18 06:28 Albumin 4.0 g/dL (3.0-4.8) 02/04/18 06:28 Globulin 3.6 gm/dL 02/04/18 06:28 Albumin/Globulin Ratio 1.1 (1.1-1.8) 02/04/18 06:28 Triglycerides 111 mg/dL (35-160) 02/03/18 06:00 Cholesterol 147 mg/dL (130-200) 02/03/18 06:00 LDL Cholesterol Direct 94 mg/dL (0-129) 02/03/18 06:00 HDL Cholesterol 37 mg/dL (29-60) 02/03/18 06:00 Prostate Specific Ag 0.6 ng/mL (0.00-2.5) 02/03/18 06:00 25-OH Vitamin D Total 14.6 NG/ML (30.0-100.0) L 02/03/18 06:00 Free T4 0.99 ng/dL (0.78-2.19) 02/03/18 06:00 Thyroxine (T4) 6.4 ug/dL (5.5-11.0) 02/03/18 06:00 TSH 3rd Generation 0.10 mIU/mL (0.46-4.68) L 02/03/18 06:00 Arterial Blood Potassium 3.8 mmol/L (3.6-5.2) 02/02/18 19:50 Venous Blood Potassium 4.7 mmol/L (3.6-5.2) 02/02/18 13:55 Urine Color Yellow (YELLOW) 02/02/18 02:23 Urine Appearance Clear (CLEAR) 02/02/18 02:23 Urine pH 6.0 (4.7-8.0) 02/02/18 02:23 Ur Specific [place] 1.015 (1.005-1.035) 02/02/18 02:23 Urine Protein Negative mg/dL (<30 mg/dL) 02/02/18 02:23 Urine Glucose (UA) Negative mg/dL (NEGATIVE) 02/02/18 02:23 Urine Ketones Negative mg/dL (NEGATIVE) 02/02/18 02:23 Urine Blood Negative (NEGATIVE) 02/02/18 02:23 Urine Nitrate Negative (NEGATIVE) 02/02/18 02:23 Urine Bilirubin Negative (NEGATIVE) 02/02/18 02:23 Urine Urobilinogen 0.2 E.U./dL (<1 E.U./dL) 02/02/18 02:23 Ur Leukocyte Esterase Negative Tim/uL (NEGATIVE) 02/02/18 02:23 Urine Opiates Screen Positive (NEGATIVE) H 02/02/18 02:23 Urine Methadone Screen Negative (NEGATIVE) 02/02/18 02:23 Ur Barbiturates Screen Negative (NEGATIVE) 02/02/18 02:23 Ur Phencyclidine Scrn Negative (NEGATIVE) 02/02/18 02:23 Ur Amphetamines Screen Negative (NEGATIVE) 02/02/18 02:23 U Benzodiazepines Scrn Positive (NEGATIVE) H 02/02/18 02:23 U Oth Cocaine Metabols Positive (NEGATIVE) H 02/02/18 02:23 U Cannabinoids Screen Negative (NEGATIVE) 02/02/18 02:23 Discharge Exam - Head Exam Head Exam: NORMAL INSPECTION Discharge Plan - Discharge Medications Prescriptions: Aspirin [Ecotrin] 81 mg PO DAILY #30 tabec Atorvastatin [Lipitor] 40 mg PO DIN #30 tab Docusate [Colace] 100 mg PO TID #90 cap Lidocaine [Lidocaine Pain Relief] 1 each TP DAILY #14 adh..patch Naloxegol Oxalate [Movantik] 25 mg PO DAILY #30 tab Nicotine 21 mg/24 hr [Nicoderm Cq] 1 patch TD DAILY #30 patch Tamsulosin [Flomax] 0.4 mg PO HS #30 cap - Follow Up Plan Condition: GOOD Disposition: HOME/ ROUTINE Additional Instructions: Follow up with Dr. Sharma in 7-10 days Follow up with Dr. Newberry in 7-10 days Continue taking all medications as previously prescribed You must quit smoking, as discussed, especially while using nicotine patches Return to the ER for any new or worsening concerns Referrals: Barber Sharma MD [Staff Provider] - Mike Newberry MD [Staff Provider] -
--- NOTE | 2018-02-04 22:24 | DS ---
The patient was initially seen in ICU, bed 3, then the patient was seen in room 364, bed 1. Overnight nurse's notes were reviewed. The patient states that his abdominal pain has completely resolved after having 4 to 5 large bowel movements. The patient states that his chest pain has completely resolved. REVIEW OF SYSTEMS: A 13-system review was done, pertinent positive and negative dictated above. PHYSICAL EXAMINATION: VITAL SIGNS: T-max 98. Telemetry shows sinus rhythm, heart rate 90, 92, 95, 88, and 84; respirations are 20; blood pressure is 139/85, 117/74, 139/90, 162/100, 140/80; O2 sat is 99%-98%. HEAD: Normocephalic, atraumatic. EENT: Shows pink conjunctivae. Anicteric sclerae. No oropharyngeal lesion. No neck rigidity. CHEST: Kyphosis. LUNGS: No rales, crackles, or wheezing. CARDIOVASCULAR: S1 and S2, regular rhythm. Questionable soft systolic murmur in left sternal border, right second intercostal space, left second intercostal space. ABDOMEN: Completely soft and nontender. No costovertebral angle tenderness. No left-sided abdominal tenderness. No rebound tenderness. No guarding. No rigidity noted. Positive bowel sounds noted. GENITALIA: Male. RECTAL: Deferred. EXTREMITIES: Show no pitting edema, no calf tenderness, no Homans sign. NEUROLOGIC: The patient is alert, awake, oriented x3. Cranial nerves II through XII intact. Motor strength is 5/5. Gait examination, not tested. MUSCULOSKELETAL: Shows a body mass index of 30. DIAGNOSTICS: On 02/04/2018, WBC 9.1, hemoglobin and hematocrit 12.5 and 36.6, platelets 168. Granulocytes 77. Sodium 146, potassium 4, chloride 108, CO2 of 26, anion gap 16, BUN 17, creatinine 1.6, GFR 53, glucose 154, calcium 9.3. Hemoglobin A1c 5.3. Calcium 9.3, phosphorus 3.3, magnesium 1.6. LFTs are normal. MRSA, naris undetected. The patient's echocardiogram results were reviewed. EKG from today was reviewed. The patient was seen by Surgery. The patient was cleared from surgical standpoint. The patient was seen by harpoon engagement planning operator. The patient was cleared by Cardiology for discharge. FINAL IMPRESSION, PLAN, AND DISCHARGE DIAGNOSES: 1. Left-sided abdominal pain and chest pain, probably musculoskeletal pain. 2. Opioid-induced constipation, causing left-sided abdominal pain. 3. Left flank pain. 4. Opioid-induced constipation, fecal stasis, fecal retention. 5. Hypertension. 6. Normocytic anemia. 7. Elevated ESR of 25. 8. Elevated D-dimer, etiology undetermined. 9. Transient hypoxemia. 10. Chronic kidney disease stage 3. 11. Prediabetes with hemoglobin A1c of 5.3. 12. Hypomagnesemia. 13. Hypovitaminosis D. 14. Questionable urinary retention. 15. History of nicotine, alcohol, and polysubstance abuse with urine drug screen positive for opiates, benzodiazepine, and cocaine. 16. Dilated cardiomyopathy with ejection fraction of 31% 17. Severely impaired left ventricular systolic function with severely hypokinetic basal septum. 18. Grade 1 abnormal relaxation pattern. 19. Aeve-zt-[id number] mitral regurgitation. 20. Mild tricuspid regurgitation. 21. Sinus tachycardia. 22. Elevated body mass index. 23. Questionable prostatic hypertrophy with questionable urinary retention. 24. Dyslipidemia. 25. Nicotine dependence. PLAN: At this time, the patient has been cleared for discharge. The patient will be considered for discharge once cleared by Cardiology. DISCHARGE MEDICATIONS: 1. Ecotrin 81 mg daily. 2. Lipitor 40 mg daily. 3. Colace 100 mg three times a day. 4. Lasix to be resumed 20 mg daily. 5. Lidoderm 5% patch to the affected area daily. 6. Toprol-XL 25 mg twice a day. 7. Movantik 25 mg daily. 8. Nicotine patch 21 mg daily. The patient is to resume oxycodone 15 mg five times per day p.r.n. The patient is started on Flomax 0.4 mg daily. The patient is to resume Diovan 160 mg daily and Ambien 10 mg at bedtime. The patient was advised high-fiber diet. The patient was advised cessation of smoking, alcohol and polysubstance abuse, and recreational drug use. The patient was advised high-fiber diet. The patient was cleared for discharge after Cardiology clearance. Discharge followup with Dr. Sharma within [address] Newberry within 7-10 days. The patient was advised to comply with medication. During this hospitalization, the patient was extensively explained about the details of his medical condition, diagnosis, test results, recommendation by all the physician involved in the care of the patient, was explained to the patient at length and all questions concerned answered, which he acknowledged understand all of the above. The patient was updated about his condition, diagnostic test results, recommendation on every day basis. Dictated and electronically signed, not read. Barber Sharma MD
--- NOTE | 2018-02-04 22:55 | CARD ---
APPROVED REPORT EKG Measurement Heart [id number] <Conclusion> Sinus tachycardia with occasional premature ventricular complexes Possible Left atrial enlargement Borderline ECG
== END 2018-02-04 21:51 | disposition home or self-care (01) | DRG 313 ==
LOC: ED 20:45 → ERH 02-02 01:13 → 2RNO 02-02 03:41 → ICU 02-02 10:30 → OBSVTOIN 02-02 13:39 → 3RNO 02-04 14:35
PROVIDERS: ADMIT Internal Medicine; ATTEND Internal Medicine
DX: R07.89 Other chest pain (principal); K59.03 Drug induced constipation; T40.2X5A Adverse effect of other opioids, initial encounter; I42.0 Dilated cardiomyopathy; M62.82 Rhabdomyolysis; I13.0 Hypertensive heart and chronic kidney disease with heart failure and stage 1 through stage 4 chronic kidney disease, or unspecified chronic kidney disease; I50.22 Chronic systolic (congestive) heart failure; N17.9 Acute kidney failure, unspecified; R10.12 Left upper quadrant pain; J44.9 Chronic obstructive pulmonary disease, unspecified; I25.10 Atherosclerotic heart disease of native coronary artery without angina pectoris; N18.3 Chronic kidney disease, stage 3 (moderate); R73.03 Prediabetes; G89.29 Other chronic pain; E78.5 Hyperlipidemia, unspecified; E55.9 Vitamin D deficiency, unspecified; N40.0 Benign prostatic hyperplasia without lower urinary tract symptoms; M16.0 Bilateral primary osteoarthritis of hip; F14.10 Cocaine abuse, uncomplicated; F17.210 Nicotine dependence, cigarettes, uncomplicated; N28.1 Cyst of kidney, acquired; K44.9 Diaphragmatic hernia without obstruction or gangrene; E66.9 Obesity, unspecified; Z68.30 Body mass index [BMI] 30.0-30.9, adult; I27.20 Pulmonary hypertension, unspecified; I08.1 Rheumatic disorders of both mitral and tricuspid valves

== ENCOUNTER 2018-10-08 14:39 | Inpatient (IN) | payer MEDICARE, OTHER ==
--- NOTE | 2018-10-08 15:00 | ED PDOC ---
Arrival/HPI - General Chief Complaint: Altered Mental Status Historian: Partner, EMS - History of Present Illness Narrative History of Present Illness (Text): 10/08/18 15:00 Patient is a 62 year old male with past medical history of HTN, dilated cardiomyopathy, and polysubstance abuse presents to the ED accompanied by for evaluation of dysarthria, difficulty finding words and left upper extremity weakness since prior to arrival. As per , patient was last seen at baseline at pain management's office prior to arrival. reports, while in the car, patient became confused and expressed seeing floaters prior to arrival. Upon arrival to the ED, patient expresses poor memory and mild dysarthria. Patient is unable to provide any history. denies any kind of medication at the pain management office or any history of somatic complaints at baseline. HPI and ROS limited secondary to patient's clinical condition. A more comprehensive HPI and ROS unable to be obtained secondary to patient's clinical condition. PMD: Dr. Sharma Time/Duration: Prior to Arrival Symptom Onset: Gradual Symptom Course: Unchanged Activities at Onset: Light Context: Other (Office) Past Medical History - Provider Review Nursing Documentation Reviewed: Yes - Travel History Have you recently traveled outside [place] w/in the past 3 mons?: No - Infectious Disease Hx of Infectious Diseases: None - Tetanus Immunization Tetanus Immunization: Unknown - Cardiac Hx Cardiac Disorders: Yes (CHF) Hx Hypertension: Yes - Pulmonary Hx Tuberculosis: No - Neurological HX Cerebrovascular Accident: No Hx Seizures: No - HEENT Hx HEENT Disorder: No - Renal Hx Renal Disorder: Yes - Endocrine/Metabolic Hx Endocrine Disorders: No - Hematological/Oncological Hx Cancer: No - Integumentary Hx Dermatological Disorder: No - Musculoskeletal/Rheumatological Hx Falls: No - Gastrointestinal Hx Gastrointestinal Disorders: Yes Other/Comment: polyps removed - Genitourinary/Gynecological Hx Sexually Transmitted Diseases: No - Psychiatric Hx Substance Use: Yes - Surgical History Hx Musculoskeletal Surgery: Yes Hx Orthopedic Surgery: Yes (BACK, L ANKLE, R SHOULDER) - Anesthesia Hx Anesthesia: Yes Hx Anesthesia Reactions: No Hx Malignant Hyperthermia: No - Suicidal Assessment Feels Threatened In Home Enviroment: No Family/Social History - Physician Review Nursing Documentation Reviewed: Yes Family/Social History: Unknown Family HX Smoking Status: Heavy Smoker > 10 Cigarettes Daily Hx Alcohol Use: No Hx Substance Use: Yes Hx Substance Use Treatment: No Allergies/Home Meds Allergies/Adverse Reactions: Allergies No Known Allergies Allergy (Verified 02/21/18 17:15) Home Medications: Home Meds Medication Instructions Recorded Confirmed Valsartan [Diovan] 160 mg PO DAILY 09/20/17 10/08/18 Zolpidem [Ambien] 10 mg PO HS 09/20/17 10/08/18 Morphine [Morphine Sulfate] 15 mg PO Q12 10/08/18 10/08/18 oxyCODONE [oxycodone Hydrochloride] 10 mg PO QID PRN 10/08/18 10/08/18 Review of Systems - Review of Systems Systems not reviewed;Unavailable: Altered Mental Status Physical Exam Vital Signs Reviewed: Yes Vital Signs Temp Pulse Resp BP Pulse Ox 10/08/18 14:57 98.4 F 105 H 19 110/79 98 Temperature: Afebrile Blood Pressure: Normal Pulse: Tachycardic Respiratory Rate: Normal Appearance: Positive for: Other (Agitated) Pain Distress: None Mental Status: Positive for: Confused - Systems Exam Head: Present: Atraumatic, Normocephalic Pupils: Present: PERRL Extroacular Muscles: Present: EOMI Conjunctiva: Present: Normal Mouth: Present: Moist Mucous Membranes Respiratory/Chest: Present: Clear to Auscultation, Good Air Exchange, Tachypneic. No: Respiratory Distress, Accessory Muscle Use Cardiovascular: Present: Normal S1, S2, Tachycardic. No: Murmurs Skin: Present: Warm, Dry, Normal Color. No: Rashes Psychiatric: Present: Agitated Medical Decision Making ED Course and Treatment: 10/08/18 15:12 Impression: 62 year old male presents to the ED for evaluation of AMS and difficulty finding words. Differential Diagnosis included but are not limited to: -- CVA --Seizure Plan: -- CT of Head -- Labs -- CXR -- Keppra --Ativan -- IV Fluids -- Urinalysis -- Reassess and disposition Prior Visits: Notes and results from previous visits were reviewed. Progress Notes: 10/08/18 15:00 Code Stroke Activated. 10/08/18 15:12 CTH reviewed with no evidence of intracranial bleeding. Patient starts seizing at the bedside after returning from CT scan. Ativan given with resolution of seizures. Discussed case with Dr. Amos(neurology), who is aware of patient's clinical disposition and agrees with ED management plan, and states patient is NOT a candidate for tPA secondary to seizure. Will give rectal aspirin and have CTA of head and neck as per Dr. Amos's request. 10/08/18 15:38 Spoke to collision technician, who states CT with contrast cannot be performed secondary to elevated creatinine of 2.2. Spoke to patient's who states patient has had history of CKD, but denies being initiated on dialysis. Call placed to Dr. Traylor(covering Dr. Sharma). 10/08/18 15:[address] Traylor, who is aware and agrees with ED management plan, accepts patient under her service. - RAD Interpretation Narrative RAD Interpretations (Text): 10/08/18 15:28 CT of Head reviewed by radiologist, shows: FINDINGS: HEMORRHAGE: No intracranial hemorrhage. BRAIN: No mass effect or edema. Chronic encephalomalacia is seen in the left parietal lobe. There are no acute intracranial findings. VENTRICLES: Unremarkable. No hydrocephalus. CALVARIUM: Unremarkable. PARANASAL SINUSES: Unremarkable as visualized. No significant inflammatory changes. MASTOID AIR CELLS: Unremarkable as visualized. No inflammatory changes. OTHER FINDINGS: None. IMPRESSION: Chronic encephalomalacia is seen in the left parietal lobe. There are no acute intracranial findings. Radiology Orders: 10/08/18 14:57 HEAD W/O (CODE STROKE) [CT] Stat CHEST PORTABLE [RAD] Stat Dredge Pipe Installer: Radiologist - Medication Orders Current Medication Orders: Sodium Chloride (Sodium Chloride 0.9%) 1,000 mls @ 100 mls/hr IV .Q10H SHAMAR rTPA Inclusion/Exclusion - Refusal of Treatment Patient Refused Treatment: No - Inclusion Criteria for Altepase Patient is 18 years or Older: Yes The Clinical Diagnosis of Ischemic Stroke That is Causing a Potentially Disabling Neurological Deficit: No Time of Onset is Well Established to be Less Than 270 Minute Before Treatment Would Begin: Yes Risk/Benefit Discussed With Patient/Family Member Present: Yes - Warning to TPA With Conditions Condition: Seizure at Onset of Stroke NIHSS Stroke Scale 3 - Date/Time Evaluation Performed Date Performed: 10/08/18 When Was NIHSS Performed: Baseline - How Severe is the Stroke Level of Consciousness: 0=Alert LOC to Questions: 1=One correct LOC to commands: 1=Obeys one correctly Best Gaze: 0=Normal Visual: 0=No visual loss Facial: 0=Normal Motor Arm - Left: 0=No drift Motor Arm - Right: 1=Drift noted before 10 sec Motor Leg - Left: 0=No drift Motor Leg - Right: 0=No drift Limb Ataxia: 0=Absent Sensory: 0=Normal Best Language: 0=No aphasia Dysarthia: 1=Mild to moderate slurring Extinction & Inattention (Neglect): 0=Normal, no object Score: 4 - Scribe Statement The provider has reviewed the documentation as recorded by the Scribe Jen Moraes. All medical record entries made by the Karthikeyanibannette were at my direction and personally dictated by me. I have reviewed the chart and agree that the record accurately reflects my personal performance of the history, physical exam, medical decision making, and the department course for this patient. I have also personally directed, reviewed, and agree with the discharge instructions and disposition. Disposition/Present on Arrival - Present on Arrival Any Indicators Present on Arrival: No History of DVT/PE: No History of Uncontrolled Diabetes: No Urinary Catheter: No History Surgical Site Infection Following: None - Disposition Have Diagnosis and Disposition been Completed?: Yes Diagnosis: Seizure Disposition: HOSPITALIZED Disposition Time: 15:30 Patient Plan: Admission Patient Problems: Current Active Problems Problem Status Onset Seizure Acute Condition: GUARDED
[2018-10-08] MEDS ORDERED: levETIRAcetam 1000mg/100ml NS 100 ML IVPB ONE (15:14)
[2018-10-08 15:20] LABS: BASO # 0.01 K/mm3 (0.0-2.0); BASO % 0.2 % (0.0-3.0); EOS # 0.1 (0.0-0.7); EOS % 1.9 % (1.5-5.0); HEMOGLOBIN 13.6 g/dL (14.0-18.0); LYMPH # 2.7 (1.2-3.4); LYMPH % 41.8 % (22.0-35.0); MEAN CELL VOLUME 93.9 fl (80.0-105.0); MEAN CORPUSCULAR HEMOGLOBIN 32.1 pg (25.0-35.0); MEAN CORPUSCULAR HGB CONC 34.2 g/dl (31.0-37.0); MEAN PLATELET VOLUME 10.5 fl (7.0-11.0); MONO # 0.3 (0.1-0.6); MONO % 4.6 % (1.0-6.0); RBC 4.24 10^6/uL (3.5-6.1); RED CELL DISTRIBUTION WIDTH 13.8 % (11.5-14.5); WHITE BLOOD COUNT 6.5 10^3/uL (4.5-11.0)
--- NOTE | 2018-10-08 15:20 | CT ---
Date of service: 10/08/2018 PROCEDURE: CT HEAD WITHOUT CONTRAST. HISTORY: Code Stroke COMPARISON: 09/20/2017 TECHNIQUE: Axial computed tomography images were obtained through the head/brain without intravenous contrast. Radiation dose: Total exam DLP = 908.58 mGy-cm. This CT exam was performed using one or more of the following dose reduction techniques: Automated exposure control, adjustment of the mA and/or kV according to patient size, and/or use of iterative reconstruction technique. FINDINGS: HEMORRHAGE: No intracranial hemorrhage. BRAIN: No mass effect or edema. Chronic encephalomalacia is seen in the left parietal lobe. There are no acute intracranial findings. VENTRICLES: Unremarkable. No hydrocephalus. CALVARIUM: Unremarkable. PARANASAL SINUSES: Unremarkable as visualized. No significant inflammatory changes. MASTOID AIR CELLS: Unremarkable as visualized. No inflammatory changes. OTHER FINDINGS: None. IMPRESSION: Chronic encephalomalacia is seen in the left parietal lobe. There are no acute intracranial findings.
[2018-10-08 15:29] LABS: INR 1.17; PARTIAL THROMBOPLASTIN TIME 36.3 Seconds (26.9-38.3)
[2018-10-08 15:30] LABS: ALB/GLOB RATIO 1.3 (1.1-1.8); ALBUMIN 4.6 g/dL (3.0-4.8); CALCIUM 9.1 mg/dL (8.4-10.5)
[2018-10-08 15:43] LABS: URINE BILIRUBIN NEGATIVE (NEGATIVE); URINE BLOOD SMALL (NEGATIVE); URINE GLUCOSE (UA) NEGATIVE (NEGATIVE); URINE LEUKOCYTE ESTERASE NEGATIVE Leu/uL (NEGATIVE); URINE PROTEIN 100 mg/dL (<30 mg/dL); URINE UROBILINOGEN 0.2 E.U./dL (<1 E.U./dL)
[2018-10-08 15:44] LABS: URINE COLOR LIGHT YELLOW (YELLOW)
[2018-10-08 15:44] LABS: TROPONIN I 0.08 ng/mL
[2018-10-08 15:51] LABS: URINE APPEARANCE SL CLOUDY (CLEAR); URINE BACTERIA MOD /hpf
[2018-10-08 15:57] LABS: BENZODIAZEPINES, UR NEGATIVE (NEGATIVE)
[2018-10-08] MEDS: Sodium Chloride 0.9% 1,000 ML IV SCH ×2 (15:58→17:38)
[2018-10-08] MEDS ORDERED: Sodium Chloride 0.9% 1,000 ML IV STA (16:10)
[2018-10-08 16:20] LABS: BARBITURATES, UR NEGATIVE (NEGATIVE); OPIATES, UR POSITIVE (NEGATIVE); PHENCYCLIDINE, UR NEGATIVE (NEGATIVE)
--- NOTE | 2018-10-08 16:28 | RAD ---
Date of service: 10/08/2018 HISTORY: Code Stroke COMPARISON: 02/02/2018 FINDINGS: LUNGS: No active pulmonary disease. PLEURA: No significant pleural effusion identified, no pneumothorax apparent. CARDIOVASCULAR: No aortic atherosclerotic calcification present. Mild cardiomegaly no pulmonary vascular congestion. OSSEOUS STRUCTURES: No significant abnormalities. VISUALIZED UPPER ABDOMEN: Normal. OTHER FINDINGS: None. IMPRESSION: No active disease.
[2018-10-08] MEDS ORDERED: Sodium Chloride 0.9% 1,000 ML IV SCH (17:32)
--- NOTE | 2018-10-08 19:24 | CP.PCM.HP ---
History of Present Illness - History of Present Illness History of Present Illness: This is a 62 year old male with history of hypertension, dilated cardiomyopathy, chronic kidney disease, polysubstance abuse and multiple back surgeries who was brought to the emergency room at the [facility] for dysarthria and altered mental state. CAT scan of the head was done, and afterwards the patient had a seizure. Patient does not have any prior history of seizure. CAT scan of the head is negative for acute abnormalities. Present on Admission - Present on Admission Any Indicators Present on Admission: No History of DVT/PE: No History of Uncontrolled Diabetes: No Urinary Catheter: No Decubitus Ulcer Present: No Review of Systems - Constitutional Constitutional: absent: Chills, Fever - Cardiovascular Cardiovascular: absent: Chest Pain, Diaphoresis, Dyspnea - Respiratory Respiratory: absent: Cough, Dyspnea, Hemoptysis - Gastrointestinal Gastrointestinal: absent: Abdominal Pain, Nausea, Vomiting - Neurological Neurological: As Per HPI Past Patient History - Infectious Disease Hx of Infectious Diseases: None - Tetanus Immunizations Tetanus Immunization: Unknown - Past Medical History & Family History Past Medical History?: Yes - Past Social History Smoking Status: Heavy Smoker > 10 Cigarettes Daily - CARDIAC Hx Cardiac Disorders: Yes (CHF) Hx Hypertension: Yes - PULMONARY Hx Tuberculosis: No - NEUROLOGICAL HX Cerebrovascular Accident: No Hx Seizures: No - HEENT Hx HEENT Problems: No - RENAL Hx Chronic Kidney Disease: Yes - ENDOCRINE/METABOLIC Hx Endocrine Disorders: No - HEMATOLOGICAL/ONCOLOGICAL Hx Cancer: No - INTEGUMENTARY Hx Dermatological Problems: No - MUSCULOSKELETAL/RHEUMATOLOGICAL Hx Falls: No - GASTROINTESTINAL Hx Gastrointestinal Disorders: Yes Other/Comment: polyps removed - GENITOURINARY/GYNECOLOGICAL Hx Sexually Transmitted Disorders: No - PSYCHIATRIC Hx Substance Use: Yes - SURGICAL HISTORY Hx Musculoskeletal Surgery: Yes Hx Orthopedic Surgery: Yes (BACK, L ANKLE, R SHOULDER) - ANESTHESIA Hx Anesthesia: Yes Hx Anesthesia Reactions: No Hx Malignant Hyperthermia: No Meds Allergies/Adverse Reactions: Allergies Allergy/AdvReac Type Severity Reaction Status Date / Time No Known Allergies Allergy Verified 02/21/18 17:15 Physical Exam - Constitutional Appears: No Acute Distress - Respiratory Exam Respiratory Exam: Clear to Auscultation Bilateral, NORMAL BREATHING PATTERN - Cardiovascular Exam Cardiovascular Exam: Tachycardia, +S1, +S2 - GI/Abdominal Exam GI & Abdominal Exam: Normal Bowel Sounds, Soft. absent: Tenderness Results - Vital Signs Recent Vital Signs: Last Vital Signs Temp 98.3 F 10/08/18 18:00 Pulse 97 H 10/08/18 18:00 Resp 20 10/08/18 18:00 BP 109/81 10/08/18 18:00 Pulse Ox 97 10/08/18 17:39 - Labs Result Diagrams: 10/08/18 15:00 10/08/18 15:00 Labs: Laboratory Results - last 24 hr 10/08/18 10/08/18 10/08/18 15:00 15:00 15:00 WBC 6.5 RBC 4.24 Hgb 13.6 L Hct 39.8 L MCV 93.9 MCH 32.1 MCHC 34.2 RDW 13.8 Plt Count 199 MPV 10.5 Neut % (Auto) 51.5 Lymph % (Auto) 41.8 H Caldwell % (Auto) 4.6 Eos % (Auto) 1.9 Baso % (Auto) 0.2 Lymph # (Auto) 2.7 Caldwell # (Auto) 0.3 Eos # (Auto) 0.1 Baso # (Auto) 0.01 Absolute Neuts (auto) 3.34 PT 13.0 H INR 1.17 APTT 36.3 Sodium 140 Potassium 3.8 Chloride 103 Carbon Dioxide 26 Anion Gap 15 BUN 27 H Creatinine 2.2 H Est GFR ( Amer) 37 Est GFR (Non-Af Amer) 30 Random Glucose 142 H Calcium 9.1 Total Bilirubin 0.7 AST 31 ALT 16 Alkaline Phosphatase 61 Troponin I 0.08 D Total Protein 8.1 Albumin 4.6 Globulin 3.5 Albumin/Globulin Ratio 1.3 Triglycerides 85 Cholesterol 170 LDL Cholesterol Direct 112 HDL Cholesterol 41 Urine Color Urine Appearance Urine pH Ur Specific Rupert Urine Protein Urine Glucose (UA) Urine Ketones Urine Blood Urine Nitrate Urine Bilirubin Urine Urobilinogen Ur Leukocyte Esterase Urine RBC Urine WBC Ur Epithelial Cells Urine Bacteria Urine Opiates Screen Urine Methadone Screen Ur Barbiturates Screen Ur Phencyclidine Scrn Ur Amphetamines Screen U Benzodiazepines Scrn U Oth Cocaine Metabols U Cannabinoids Screen 10/08/18 10/08/18 15:29 15:29 WBC RBC Hgb Hct MCV MCH MCHC RDW Plt Count MPV Neut % (Auto) Lymph % (Auto) Caldwell % (Auto) Eos % (Auto) Baso % (Auto) Lymph # (Auto) Caldwell # (Auto) Eos # (Auto) Baso # (Auto) Absolute Neuts (auto) PT INR APTT Sodium Potassium Chloride Carbon Dioxide Anion Gap BUN Creatinine Est GFR ( Amer) Est GFR (Non-Af Amer) Random Glucose Calcium Total Bilirubin AST ALT Alkaline Phosphatase Troponin I Total Protein Albumin Globulin Albumin/Globulin Ratio Triglycerides Cholesterol LDL Cholesterol Direct HDL Cholesterol Urine Color Light yellow Urine Appearance Sl cloudy Urine pH 6.0 Ur Specific Rupert >= 1.030 Urine Protein 100 H Urine Glucose (UA) Negative Urine Ketones Negative Urine Blood Small H Urine Nitrate Negative Urine Bilirubin Negative Urine Urobilinogen 0.2 Ur Leukocyte Esterase Negative Urine RBC 2 - 5 H Urine WBC 10 - 15 H Ur Epithelial Cells 6 - 8 H Urine Bacteria Mod Urine Opiates Screen Positive H Urine Methadone Screen Negative Ur Barbiturates Screen Negative Ur Phencyclidine Scrn Negative Ur Amphetamines Screen Negative U Benzodiazepines Scrn Negative U Oth Cocaine Metabols Negative U Cannabinoids Screen Negative Assessment & Plan - Assessment and Plan (Free Text) Assessment: New-onset seizure - Patient had a witnessed seizure in the emergency room. Dr. Amos, neurologist has been consulted. IV Keppra has been given in the ER. CT Head shows encephalomalacia. No acute abnormalities are seen. Urinary Tract Infection - will start Rocephin - Urine C&S is pending HTN - continue Toprol Chronic Kidney Disease - consult nephrology as patient may need CTA and/or MRI with contrast - continue IV fluids - re-check BMP in AM Dilated cardiomyopathy/tachycardia - will consult clip loading machine adjuster, Dr. Newberry - continue Lasix
[2018-10-08] MEDS ORDERED: cefTRIAXone 1 gm 1 GM/100 ML BAG IVPB STA (19:29)
[2018-10-08 20:28] VITALS: BMI 31.4
[2018-10-08] MEDS ORDERED: Influenza Vaccine 60 mcg/0.5 mL SYR (4YR UP) IM ONE (20:29)
[2018-10-08] MEDS ORDERED: Pneumococcal 23-Valent Vaccine IM ONE (20:29)
[2018-10-09 07:12] LABS: CALCIUM 8.8 mg/dL (8.4-10.5)
[2018-10-09 07:28] LABS: EOS # 0.1 (0.0-0.7); EOS % 1.5 % (1.5-5.0); HEMOGLOBIN 12.1 g/dL (14.0-18.0); LYMPH # 1.5 (1.2-3.4); MEAN CELL VOLUME 92.8 fl (80.0-105.0); MEAN CORPUSCULAR HEMOGLOBIN 30.9 pg (25.0-35.0); MEAN CORPUSCULAR HGB CONC 33.3 g/dl (31.0-37.0); MEAN PLATELET VOLUME 10.8 fl (7.0-11.0); MONO # 0.4 (0.1-0.6); MONO % 6.3 % (1.0-6.0); RBC 3.91 10^6/uL (3.5-6.1); WHITE BLOOD COUNT 5.9 10^3/uL (4.5-11.0)
--- NOTE | 2018-10-09 09:21 | CARD ---
APPROVED REPORT Date of service: 10/08/2018 EKG Measurement Heart [id number] <Conclusion> Sinus tachycardia with occasional premature ventricular complexes Possible Left atrial enlargement Left ventricular hypertrophy with repolarization abnormality Abnormal ECG
[2018-10-09] MEDS ORDERED: Metoprolol Succinate 25 mg XL Tab PO SCH (10:00)
[2018-10-09 10:35] LABS: CK-MB 1.7 ng/mL (0.0-3.6)
--- NOTE | 2018-10-09 12:01 | PN ---
DATE: 10/09/2018 SUBJECTIVE: The patient is admitted via the emergency room yesterday presented with questionable seizure disorder for the first time. The patient's past history significant that he has history of atherosclerotic heart disease with cardiomyopathy, low ejection fraction. The patient has history of hypertension, benign prostate hyperplasia. The patient has lower back pain with traumatic back. The patient had surgery for the lower back. The patient also has surgery for the left shoulder. The patient does work as a airport maintenance laborer cutting grass, he strenuous job. However, this morning the patient is resting, request for cardiac evaluation and consultation with neurological evaluation has been ordered. PHYSICAL EXAMINATION: VITAL SIGNS: Pulse is 98, blood pressure 115/79, respirations are 18, the patient is on 2 liters of oxygen nasal cannula. HEENT: Head is normocephalic. He is resting in the bed this morning. LUNGS: Clear. HEART: Normal sinus rhythm. S1 and S2, present. ABDOMEN: Soft. Liver and spleen not palpable. CENTRAL NERVOUS SYSTEM: The patient is conscious, oriented and answers all questions. MEDICATIONS: The patient's list of medication consists of aspirin, Flomax, Lasix, and metoprolol. LABORATORY DATA: His lab work done in the emergency room showed a hemoglobin 12.1. His chemistry; the blood sugar was 88 and his BUN and creatinine is within normal range. BUN is 25 and creatinine 1.9 they are slightly elevated. The patient had chronic mild renal failure stage II. Followup consultation with Automotive Parts Manager and the Neurologist and continue medical management. Mino Traylor MD
--- NOTE | 2018-10-09 14:20 | CP.PCM.PCO ---
Physician Communication Note - Physician Communication Note Physician Communication Note: pt. stable w. no seizure activity noted,awaiting neuro clearance
--- NOTE | 2018-10-09 14:36 | CP.PCM.PCO ---
Physician Communication Note - Physician Communication Note Physician Communication Note: Dr. Amos will see pt today for consult; bedside EEG ordered.
--- NOTE | 2018-10-09 16:47 | CP.PCM.CON ---
<KaydenDelfino Thang - Last Filed: 10/09/18 16:44> History of Present Illness - History of Present Illness History of Present Illness: Nephro consult note: Kayden PGY - 2 Reason for consult: Possible contrast studies in patient CKD 62 year old male with past medical history of HTN, dilated cardiomyopathy, polysubstance abuse presented to [facility] [place]. Patient apparently had a seizure once he got to the ED; neurology was called, head CT done which showed no acute abnormalities (but chronic encephalomalacia). Patient on our interview is completely lucid and recalls Dr. So from previous visits, Review of Systems: 12 point ROS obtained and negative except as per HPI PMD: Dr Sharma Allergies: NKDA Medications: Reviewed, as per MAR Medical History: HTN, dilated cardiomyopathy, polysubstance abuse Surgical History: Rotator cuff repair, hemorroidectomy, 4 back surgeries, polypectomy Social History: +Opiate use; Heavy cigarette smoker; denies alcohol Family History: Mother - Diabetes Mellitus; Father - Diabetes Mellitus; denies any family hx of cardiac problems Past Patient History - Infectious Disease Hx of Infectious Diseases: None - Tetanus Immunizations Tetanus Immunization: Unknown - Past Medical History & Family History Past Medical History?: Yes - Past Social History Smoking Status: Heavy Smoker > 10 Cigarettes Daily - CARDIAC Hx Cardiac Disorders: Yes (CHF) Hx Hypercholesterolemia: Yes Hx Hypertension: Yes Hx Peripheral Edema: Yes (lle +1) Other/Comment: dilated cardiomyopathy - PULMONARY Hx Respiratory Disorders: Yes Hx Asthma: Yes Hx Chronic Obstructive Pulmonary Disease (COPD): Yes - NEUROLOGICAL Hx Neurological Disorder: Yes HX Cerebrovascular Accident: No Hx Seizures: No Other/Comment: discovered by spouse to be dizzy/visual changes seeing floaters, "not feeling himself" unable to ambulate, weakness rle,confused, disoriented, spouse brought pt to ed barely got him in the car, began shaking on arrival, slurred speech, can't put words together, respiratory difficulty, difficulty holding head up,confused, no coughing on command, failed swallowing screen, code stroke called in ed, pupils pinpoint, became incontinent with seizure - HEENT Hx HEENT Problems: Yes (was seeing floaters today) - RENAL Hx Chronic Kidney Disease: Yes Hx Renal Failure: Yes - ENDOCRINE/METABOLIC Hx Endocrine Disorders: No - HEMATOLOGICAL/ONCOLOGICAL Hx Blood Disorders: No - INTEGUMENTARY Hx Dermatological Problems: No - MUSCULOSKELETAL/RHEUMATOLOGICAL Hx Falls: No - GASTROINTESTINAL Hx Gastrointestinal Disorders: Yes Other/Comment: polyps removed - GENITOURINARY/GYNECOLOGICAL Hx Genitourinary Disorders: Yes Other/Comment: was incontinent during seizure today as per spouse - PSYCHIATRIC Hx Substance Use: Yes (snorts heroin last used 1 wk ago) - SURGICAL HISTORY Hx Surgeries: Yes Hx Cardiac Catheterization: Yes (ptca 2017) Hx Musculoskeletal Surgery: Yes Hx Orthopedic Surgery: Yes (BACK, L ANKLE, R SHOULDER) Other/Comment: right shoulder reconstructive sx, was lifting a car seat and it "snapped" 6 mo ago, left ankle fx in sx with hardware, ws in left leg cast, second sx alen removed, had recent mri was told there may be some harware left, 3 back sx's work related at [employer] back 1997, 1998, 1999 - ANESTHESIA Hx Anesthesia: Yes Hx Anesthesia Reactions: No Hx Malignant Hyperthermia: No Meds Allergies/Adverse Reactions: Allergies Allergy/AdvReac Type Severity Reaction Status Date / Time No Known Allergies Allergy Verified 02/21/18 17:15 - Medications Medications: Current Medications Aspirin (Ecotrin) 81 mg PO DAILY [facility] Last Admin: 10/09/18 09:08 Dose: 81 mg Carvedilol (Coreg) 6.25 mg PO BID [facility] Furosemide (Lasix) 20 mg PO DAILY [facility] Sodium Chloride (Sodium Chloride 0.9%) 1,000 mls @ 999 mls/hr IV .Q1H1M [facility] Last Admin: 10/08/18 17:38 Dose: 999 mls/hr Losartan Potassium (Cozaar) 25 mg PO DAILY [facility] Last Admin: 10/09/18 14:38 Dose: 25 mg Tamsulosin HCl (Flomax) 0.4 mg PO HS [facility] Last Admin: 10/08/18 22:33 Dose: 0.4 mg Physical Exam - Constitutional Appears: Well - Head Exam Head Exam: ATRAUMATIC, NORMAL INSPECTION, NORMOCEPHALIC - Eye Exam Eye Exam: EOMI, Normal appearance, PERRL Pupil Exam: NORMAL ACCOMODATION, PERRL - ENT Exam ENT Exam: Mucous Membranes Moist, Normal Exam - Neck Exam Neck exam: Positive for: Normal Inspection - Respiratory Exam Respiratory Exam: Clear to Auscultation Bilateral, NORMAL BREATHING PATTERN - Cardiovascular Exam Cardiovascular Exam: REGULAR RHYTHM - GI/Abdominal Exam GI & Abdominal Exam: Normal Bowel Sounds, Soft. absent: Tenderness - Extremities Exam Extremities exam: Positive for: normal inspection - Back Exam Back exam: NORMAL INSPECTION - Neurological Exam Neurological exam: Alert, CN II-XII Intact, Normal Gait, Oriented x3, Reflexes Normal - Psychiatric Exam Psychiatric exam: Normal Affect, Normal Mood - Skin Skin Exam: Dry, Intact, Normal Color, Warm Results - Vital Signs Recent Vital Signs: Last Vital Signs Temp 98.1 F 10/09/18 12:00 Pulse 97 H 10/09/18 14:38 Resp 19 10/09/18 12:00 BP 107/70 10/09/18 14:38 Pulse Ox 97 10/09/18 05:41 - Labs Result Diagrams: 10/09/18 06:20 10/09/18 06:20 Labs: Laboratory Results - last 24 hr 10/08/18 10/09/18 10/09/18 15:00 06:20 06:20 WBC 5.9 RBC 3.91 Hgb 12.1 L Hct 36.3 L MCV 92.8 MCH 30.9 MCHC 33.3 RDW 14.0 Plt Count 150 MPV 10.8 Neut % (Auto) 66.2 Lymph % (Auto) 26.0 [place] % (Auto) 6.3 H Eos % (Auto) 1.5 Baso % (Auto) 0.0 Lymph # (Auto) 1.5 [place] # (Auto) 0.4 Eos # (Auto) 0.1 Baso # (Auto) 0.00 Absolute Neuts (auto) 3.87 Sodium 141 Potassium 4.6 Chloride 110 H Carbon Dioxide 25 Anion Gap 10 BUN 25 H Creatinine 1.9 H Est GFR ( Amer) 44 Est GFR (Non-Af Amer) 36 Random Glucose 88 Hemoglobin A1c 5.2 Calcium 8.8 Total Creatine Kinase CK-MB (CK-2) CK-MB (CK-2) % 10/09/18 09:50 WBC RBC Hgb Hct MCV MCH MCHC RDW Plt Count MPV Neut % (Auto) Lymph % (Auto) [place] % (Auto) Eos % (Auto) Baso % (Auto) Lymph # (Auto) [place] # (Auto) Eos # (Auto) Baso # (Auto) Absolute Neuts (auto) Sodium Potassium Chloride Carbon Dioxide Anion Gap BUN Creatinine Est GFR ( Amer) Est GFR (Non-Af Amer) Random Glucose Hemoglobin A1c Calcium Total Creatine Kinase 503 H CK-MB (CK-2) 1.7 CK-MB (CK-2) % Cancelled Assessment & Plan - Assessment and Plan (Free Text) Assessment: SILVINA on CKD, possibly 2/2 pre-renal - CPK obtained, negative - Cautious with fluid hydration given patient's low EF - MRI+DANTE cannot be used given patient's GFR < 45 (although studies show that is generally okay in > 30) - May obtain CTA if necessary, in which case patient should be adequately fluid hydrated with NS @ 75 mls/hr for 6 hrs prior - Hold Lasix to prevent further fluid depletion Proteinuria - Will need to monitor; previous visits without proteinuria HTN - Hold BP medications Cozaar and Coreg until such time that ischemic stroke is ruled out; patient pressure stable right now CHF - Recommend continuing CHF medications ASA; Toprol once ischemic stroke ruled out. Lipitor unnecessary given lipid panel Thank you for consult; we will follow closely. <Jefe So - Last Filed: 10/10/18 06:56> Meds - Medications Medications: Current Medications Aspirin (Ecotrin) 81 mg PO DAILY [facility] Last Admin: 10/09/18 09:08 Dose: 81 mg Carvedilol (Coreg) 6.25 mg PO BID [facility] Last Admin: 10/09/18 17:39 Dose: 6.25 mg Furosemide (Lasix) 20 mg PO DAILY [facility] Gabapentin (Neurontin) 900 mg PO HS [facility]; Protocol Last Admin: 10/09/18 22:00 Dose: 900 mg Gabapentin (Neurontin) 600 mg PO BID [facility]; Protocol Sodium Chloride (Sodium Chloride 0.9%) 1,000 mls @ 999 mls/hr IV .Q1H1M [facility] Last Admin: 10/08/18 17:38 Dose: 999 mls/hr Losartan Potassium (Cozaar) 25 mg PO DAILY [facility] Last Admin: 10/09/18 14:38 Dose: 25 mg Tamsulosin HCl (Flomax) 0.4 mg PO HS [facility] Last Admin: 10/09/18 22:00 Dose: 0.4 mg Results - Vital Signs Recent Vital Signs: Last Vital Signs Temp 98.3 F 10/10/18 05:49 Pulse 97 H 10/10/18 05:49 Resp 20 10/10/18 05:49 BP 110/66 10/10/18 05:49 Pulse Ox 98 10/10/18 05:49 - Labs Result Diagrams: 10/09/18 06:20 10/09/18 06:20 Labs: Laboratory Results - last 24 hr 10/09/18 10/09/18 10/09/18 06:20 06:20 09:50 WBC 5.9 RBC 3.91 Hgb 12.1 L Hct 36.3 L MCV 92.8 MCH 30.9 MCHC 33.3 RDW 14.0 Plt Count 150 MPV 10.8 Neut % (Auto) 66.2 Lymph % (Auto) 26.0 [place] % (Auto) 6.3 H Eos % (Auto) 1.5 Baso % (Auto) 0.0 Lymph # (Auto) 1.5 [place] # (Auto) 0.4 Eos # (Auto) 0.1 Baso # (Auto) 0.00 Absolute Neuts (auto) 3.87 Sodium 141 Potassium 4.6 Chloride 110 H Carbon Dioxide 25 Anion Gap 10 BUN 25 H Creatinine 1.9 H Est GFR ( Amer) 44 Est GFR (Non-Af Amer) 36 Random Glucose 88 Calcium 8.8 Total Creatine Kinase 503 H CK-MB (CK-2) 1.7 CK-MB (CK-2) % Cancelled Attending/Attestation - Attestation I have personally seen and examined this patient.: Yes I have fully participated in the care of the patient.: Yes I have reviewed all pertinent clinical information: Yes Notes (Text): Patient seen and examined; I agree with the resident's note as above with the following additions/edits: 62 yo M w/ pmh of htn, non-ischemic cardiomyopathy, substance abuse, and CKD IIIA, admitted for AMS, nephrology being consulted for renal insufficiency; Mild SILVINA noted, consistent with pre-renal etiology, improved with IVF; stable volume and electrolyte status currently; Regarding AMS, need to consider meds; med list shows he was taking morphine twice daily (presumably extended release); possibility of decreased renal clearance causing accumulation of morphine metabolites may have contributed to AMS; CKD workup previously showed no signficant proteinuria; albuminuria on current UA may be in the setting of possible infection; will f/u urine culture; BP appears very tightly controlled; agree with cutting back losartan to 25 mg daily; Thank you for this referral, we will be following closely.
--- NOTE | 2018-10-09 17:05 | CON ---
DATE: 10/09/2018 HISTORY: The patient is a 62-year-old male, who presents with a syncopal episode. PAST MEDICAL HISTORY: The patient's past medical history is notable for documented dilated cardiomyopathy which appears to be nonischemic. His ejection fraction is 27%. In addition, the patient was sent home on multiple medications including diuretics, Cozaar, beta-blockers, valsartan, as well as metoprolol. The patient had documented loss of consciousness and found to be mildly hypotensive. REVIEW OF SYSTEMS: He denies chest pain, denies shortness of breath. Review of systems otherwise noncontributory. PHYSICAL EXAMINATION: VITAL SIGNS: Blood pressure is 107/79, heart rate is in the 90s, normal sinus rhythm. NECK: Negative JVD. LUNGS: Without rales. HEART: Reveal S1, S2. EXTREMITIES: Without edema. EKG shows normal sinus rhythm without any acute changes. Hemoglobin is 12.1, BUN and creatinine are 25 and 1.9 with a troponin of 0.08, which is chronically elevated reviewing all his previous troponins. IMPRESSION: 1. Syncope with hypotension likely due to his medications. 2. Dilated cardiomyopathy with an ejection fraction of 27%. 3. Renal insufficiency. 4. High probability for coronary artery disease. 5. Lethargy. Given these findings, a combination of his alpha blockers for his prostate, LORI as well as ARB and beta-blockers along with a diuretic would clearly be the most obvious cause to him with loss of consciousness. We will change his medications to Coreg 6.25 and add Cozaar 25 mg daily. We will hold off on his alpha blockers if possible. Mike Newberry MD
--- NOTE | 2018-10-09 19:01 | CP.PCM.CON ---
History of Present Illness - History of Present Illness History of Present Illness: Neurology Consultation Note: Consult requested by Dr. Traylor Mr. Packer is a 62-year-old man with a past medical history of history of hypertension, dilated cardiomyopathy, chronic kidney disease, polysubstance abuse and multiple back surgeries who was brought to the ED after he was noted to have dysarthria and confusion. He had CT scan of the head, which did not show any acute findings, he then had a generalized tonic-clonic seizures. EEG was ordered for further evaluation. The patient is now back to baseline with no focal deficits. The patient has previous metal/hardware in his spine from surgery, and has had MRI before, but said there are special precautions that are taken by radiology. The patient states that prior to coming to the hospital, he noticed that he was seeing some flashing "disco lights", when he was in his house. He thought this was strange, then he began to feel confused. That is why he was brought to the ED. Review of Systems - Constitutional Constitutional: As Per HPI - EENT Eyes: absent: As Per HPI, Blind Spots, Blurred Vision, Change in Vision, Decreased Night Vision, Diplopia, Discharge, Dry Eye, Exophthalmos, Floaters, Irritation, Itchy Eyes, Loss of Peripheral Vision, Pain, Photophobia, Requires Corrective Lenses, Sees Flashes, Spots in Vision, Tunnel Vision, Other Visual Disturbances, Loss of Vision, Other Ears: absent: As Per HPI, Decreased Hearing, Ear Discharge, Ear Pain, Tinnitus, Abnormal Hearing, Disequilibrium, Dizziness, Other Nose/Mouth/Throat: absent: As Per HPI, Epistaxis, Nasal Congestion, Nasal Discharge, Nasal Obstruction, Nasal Trauma, Nose Pain, Post Nasal Drip, Sinus Pain, Sinus Pressure, Bleeding Gums, Change in Voice, Dental Pain, Dry Mouth, Dysphagia, Halitosis, Hoarsness, Lip Swelling, Mouth Lesions, Mouth Pain, Odynophagia, Sore Throat, Throat Swelling, Tongue Swelling, Facial Pain, Neck P ain, Neck Mass, Other - Cardiovascular Cardiovascular: absent: As Per HPI, Acrocyanosis, Chest Pain, Chest Pain at Rest, Chest Pain with Activity, Claudication, Diaphoresis, Dyspnea, Dyspnea on Exertion, Edema, Irregular Heart Rhythm, Pain Radiating to Arm/Neck/Jaw, Leg Edema, Leg Ulcers, Lightheadedness, Orthopnea, Palpitations, Paroxysmal Nocturnal Dyspnea, Pedal Edema, Radiating Pain, Rapid Heart Rate, Slow Heart Rate, Syncope, Other - Respiratory Respiratory: absent: As Per HPI, Cough, Dyspnea, Hemoptysis, Dyspnea on Exertion, Wheezing, Snoring, Stridor, Pain on Inspiration, Chest Congestion, Excessive Mucous Production, Change in Mucous Color, Pain with Coughing, Other - Musculoskeletal Musculoskeletal: absent: As Per HPI, Abnormal Gait, Arthralgias, Atrophy, Back Pain, Deformity, Joint Swelling, Limited Range of Motion, Loss of Height, Muscle Cramps, Muscle Weakness, Myalgias, Neck Pain, Numbness, Radiating Pain into Limb, Stiffness, Tingling, Other - Integumentary Integumentary: absent: As Per HPI, Acne, Alopecia, Bleeding Lesions, Change in Hair, Change in Nails, Change in Pigmentation, Changing Lesions, Dry Skin, Eryt jem, Furuncle, Hirsutism, Lesions, New Lesions, Non-Healing Lesions, Photosensitivity, Pruritus, Rash, Skin Pain, Skin Ulcer, Sores, Striae, Swelling, Unusual Bruising, Wounds, Jaundice, Other - Neurological Neurological: As Per HPI - Psychiatric Psychiatric: absent: As Per HPI, Abnormal Sleep Pattern, Anhedonia, Anxiety, Auditory Hallucinations, Behavioral Changes, Change in Appetite, Change in Libido, Confusion, Depression, Difficulty Concentrating, Hallucinations, Homicidal Ideation, Hopelessness, Irritability, Memory Loss, Mood Swings, Panic Attacks, Paranoia, Suicidal Ideation, Visual Hallucinations, Tactile Hallucinations, Other - Endocrine Endocrine: absent: As Per HPI, Change in Body Appearance, Change in Libido, Cold Intolorance, Deepening of Voice, Excessive Sweating, Fatigue, Flushing, Heat Intolorance, Increase in Ring/Shoe/Hat Size, Palpitations, Polydipsia, Polyphagia, Polyuria, Other Past Patient History - Infectious Disease Hx of Infectious Diseases: None - Tetanus Immunizations Tetanus Immunization: Unknown - Past Medical History & Family History Past Medical History?: Yes - Past Social History Smoking Status: Heavy Smoker > 10 Cigarettes Daily - CARDIAC Hx Cardiac Disorders: Yes (CHF) Hx Hypercholesterolemia: Yes Hx Hypertension: Yes Hx Peripheral Edema: Yes (lle +1) Other/Comment: dilated cardiomyopathy - PULMONARY Hx Respiratory Disorders: Yes Hx Asthma: Yes Hx Chronic Obstructive Pulmonary Disease (COPD): Yes - NEUROLOGICAL Hx Neurological Disorder: Yes HX Cerebrovascular Accident: No Hx Seizures: No Other/Comment: discovered by spouse to be dizzy/visual changes seeing floaters, "not feeling himself" unable to ambulate, weakness rle,confused, disoriented, spouse brought pt to ed barely got him in the car, began shaking on arrival, slurred speech, can't put words together, respiratory difficulty, difficulty holding head up,confused, no coughing on command, failed swallowing screen, code stroke called in ed, pupils pinpoint, became incontinent with seizure - HEENT Hx HEENT Problems: Yes (was seeing floaters today) - RENAL Hx Chronic Kidney Disease: Yes Hx Renal Failure: Yes - ENDOCRINE/METABOLIC Hx Endocrine Disorders: No - HEMATOLOGICAL/ONCOLOGICAL Hx Blood Disorders: No - INTEGUMENTARY Hx Dermatological Problems: No - MUSCULOSKELETAL/RHEUMATOLOGICAL Hx Falls: No - GASTROINTESTINAL Hx Gastrointestinal Disorders: Yes Other/Comment: polyps removed - GENITOURINARY/GYNECOLOGICAL Hx Genitourinary Disorders: Yes Other/Comment: was incontinent during seizure today as per spouse - PSYCHIATRIC Hx Substance Use: Yes (snorts heroin last used 1 wk ago) - SURGICAL HISTORY Hx Surgeries: Yes Hx Cardiac Catheterization: Yes (ptca 2016) Hx Musculoskeletal Surgery: Yes Hx Orthopedic Surgery: Yes (BACK, L ANKLE, R SHOULDER) Other/Comment: right shoulder reconstructive sx, was lifting a car seat and it "snapped" 6 mo ago, left ankle fx in sx with hardware, ws in left leg cast, second sx alen removed, had recent mri was told there may be some harware left, 3 back sx's work related at [employer] 1997, 1998, 1999 - ANESTHESIA Hx Anesthesia: Yes Hx Anesthesia Reactions: No Hx Malignant Hyperthermia: No Meds Allergies/Adverse Reactions: Allergies Allergy/AdvReac Type Severity Reaction Status Date / Time No Known Allergies Allergy Verified 02/21/18 17:15 - Medications Medications: Current Medications Aspirin (Ecotrin) 81 mg PO DAILY [facility] Last Admin: 10/09/18 09:08 Dose: 81 mg Carvedilol (Coreg) 6.25 mg PO BID [facility] Last Admin: 10/09/18 17:39 Dose: 6.25 mg Furosemide (Lasix) 20 mg PO DAILY [facility] Sodium Chloride (Sodium Chloride 0.9%) 1,000 mls @ 999 mls/hr IV .Q1H1M [facility] Last Admin: 10/08/18 17:38 Dose: 999 mls/hr Losartan Potassium (Cozaar) 25 mg PO DAILY [facility] Last Admin: 10/09/18 14:38 Dose: 25 mg Tamsulosin HCl (Flomax) 0.4 mg PO HS [facility] Last Admin: 10/08/18 22:33 Dose: 0.4 mg Physical Exam - Constitutional Appears: Well - Head Exam Head Exam: ATRAUMATIC, NORMAL INSPECTION, NORMOCEPHALIC - Eye Exam Eye Exam: EOMI, Normal appearance, PERRL Pupil Exam: NORMAL ACCOMODATION, PERRL - ENT Exam ENT Exam: Mucous Membranes Moist, Normal Exam - Neck Exam Neck exam: Positive for: Normal Inspection - Respiratory Exam Respiratory Exam: Clear to Auscultation Bilateral, NORMAL BREATHING PATTERN - Cardiovascular Exam Cardiovascular Exam: REGULAR RHYTHM, +S1, +S2 - GI/Abdominal Exam GI & Abdominal Exam: Normal Bowel Sounds, Soft. absent: Tenderness - Extremities Exam Extremities exam: Positive for: normal inspection - Back Exam Back exam: NORMAL INSPECTION - Neurological Exam Neurological exam: Alert, CN II-XII Intact, Normal Gait, Oriented x3, Reflexes Normal - Psychiatric Exam Psychiatric exam: Normal Affect, Normal Mood - Skin Skin Exam: Dry, Intact, Normal Color, Warm Results - Vital Signs Recent Vital Signs: Last Vital Signs Temp 97.9 F 10/09/18 18:00 Pulse 91 H 10/09/18 18:00 Resp 19 10/09/18 18:00 BP 119/85 10/09/18 18:00 Pulse Ox 97 10/09/18 05:41 - Labs Result Diagrams: 10/09/18 06:20 10/09/18 06:20 Labs: Laboratory Results - last 24 hr 10/08/18 10/09/18 10/09/18 15:00 06:20 06:20 WBC 5.9 RBC 3.91 Hgb 12.1 L Hct 36.3 L MCV 92.8 MCH 30.9 MCHC 33.3 RDW 14.0 Plt Count 150 MPV 10.8 Neut % (Auto) 66.2 Lymph % (Auto) 26.0 [place] % (Auto) 6.3 H Eos % (Auto) 1.5 Baso % (Auto) 0.0 Lymph # (Auto) 1.5 [place] # (Auto) 0.4 Eos # (Auto) 0.1 Baso # (Auto) 0.00 Absolute Neuts (auto) 3.87 Sodium 141 Potassium 4.6 Chloride 110 H Carbon Dioxide 25 Anion Gap 10 BUN 25 H Creatinine 1.9 H Est GFR ( Amer) 44 Est GFR (Non-Af Amer) 36 Random Glucose 88 Hemoglobin A1c 5.2 Calcium 8.8 Total Creatine Kinase CK-MB (CK-2) CK-MB (CK-2) % 10/09/18 09:50 WBC RBC Hgb Hct MCV MCH MCHC RDW Plt Count MPV Neut % (Auto) Lymph % (Auto) [place] % (Auto) Eos % (Auto) Baso % (Auto) Lymph # (Auto) [place] # (Auto) Eos # (Auto) Baso # (Auto) Absolute Neuts (auto) Sodium Potassium Chloride Carbon Dioxide Anion Gap BUN Creatinine Est GFR ( Amer) Est GFR (Non-Af Amer) Random Glucose Hemoglobin A1c Calcium Total Creatine Kinase 503 H CK-MB (CK-2) 1.7 CK-MB (CK-2) % Cancelled Assessment & Plan (1) Seizure Assessment and Plan: The patient's seizure started with what is consistent with an aura. He then had some confusion, followed by a generalized seizure. This is the first time this has happened to him. I recommend obtaining an EEG for one hour, and an MRI of the brain without contrast for further evaluation (will need to coordinate with radiology considering his history of back surgery and hardware). The patient is on Neurontin 600 mg TID, I recommend increasing the night time dose to 900 mg for added seizure protection. Thank you for this consultation. Status: Acute
[2018-10-10 08:01] LABS: BASO # 0.01 K/mm3 (0.0-2.0); BASO % 0.2 % (0.0-3.0); EOS # 0.2 (0.0-0.7); EOS % 2.7 % (1.5-5.0); LYMPH # 2.2 (1.2-3.4); LYMPH % 36.8 % (22.0-35.0); MEAN CELL VOLUME 93.1 fl (80.0-105.0); MEAN CORPUSCULAR HEMOGLOBIN 30.5 pg (25.0-35.0); MEAN CORPUSCULAR HGB CONC 32.8 g/dl (31.0-37.0); MEAN PLATELET VOLUME 10.7 fl (7.0-11.0); MONO # 0.4 (0.1-0.6); RBC 3.93 10^6/uL (3.5-6.1); RED CELL DISTRIBUTION WIDTH 13.9 % (11.5-14.5)
[2018-10-10 08:07] LABS: ALB/GLOB RATIO 1.2 (1.1-1.8); ALBUMIN 3.9 g/dL (3.0-4.8); BILIRUBIN,DIRECT 0.3 mg/dL (0.0-0.4); TROPONIN I 0.07 ng/mL; URIC ACID 8.1 mg/dL (3.5-8.5)
[2018-10-10 08:12] LABS: CK-MB 1.6 ng/mL (0.0-3.6)
[2018-10-10 08:13] LABS: FREE T4 1.11 ng/dL (0.78-2.19)
[2018-10-10] MEDS: POLYETHYLENE GLYCOL 3350 17 GM/Dose PACKET PO SCH ×2 (12:21→17:18)
[2018-10-10 12:40] LABS: TROPONIN I 0.06 ng/mL
[2018-10-10 12:48] LABS: CK-MB 2.1 ng/mL (0.0-3.6)
--- NOTE | 2018-10-10 12:52 | MRI ---
Date of service: 10/10/2018 PROCEDURE: MRI BRAIN WITHOUT CONTRAST HISTORY: seizure COMPARISON: 09/20/2017 TECHNIQUE: Multiplanar, multisequence MR images of the brain were obtained without intravenous contrast enhancement. FINDINGS: HEMORRHAGE: None DWI: There is a small 3 mm focus of restricted diffusion in the deep white matter of the posterior frontal lobe on the left. This is consistent with an acute infarct. Image 22 series 3 BRAIN PARENCHYMA: No mass effect or edema. There is chronic encephalomalacia in the left parietal lobe. This is unchanged. VENTRICLES: Unremarkable. No hydrocephalus. CRANIUM: Unremarkable. ORBITS: Grossly unremarkable. PARANASAL SINUSES/MASTOIDS: Mucosal thickening throughout the paranasal sinuses. VASCULAR SYSTEM: Skull base flow voids intact. OTHER FINDINGS: None. IMPRESSION: There is a small 3 mm focus of restricted diffusion in the deep white matter of the posterior frontal lobe on the left. This is consistent with an acute infarct. There is chronic encephalomalacia in the left parietal lobe. This is unchanged.
--- NOTE | 2018-10-10 14:12 | PCM.EEG ---
Electroencephalogram Report - Electroencephalogram Report Procedure Date: 10/09/18 Medication: ASa, Gabapentin. Interpretation: Technical Information: This was a 16 -channel EEG, 1-channel EKG routine EEG performed using an mYwindow machine. Electrodes were applied using the 10/20 international placement system. Start; 16;41 End; 17;30 Total; 49 min Clinical Information: Alter mental status During resting wakefulness there was a symmetric posterior dominant rhythm at 8.5-9.5 Hz, 30-50 uV, which was reactive to eye opening and closing, laurent EEG was normally reactive to eye opening and closure, and properly organized. Drowsiness was not seen. Light sleep was not recorded. Hyperventilation was not performed. Photic stimulation was performed and there were no changes on the record. Focal abnormality; none ECG was associated with a normal sinus rhythm. Impression: This is a normal awake electroencephalogram.
--- NOTE | 2018-10-10 14:57 | PN ---
DATE: 10/10/2018 LOCATION: The patient is seen in room 263, bed 1. SUBJECTIVE: The patient is seen after the patient returned from the MRI and the echo. The patient is seen sitting up in the bed. The patient denies any seizure activity. Denies syncope, denies loss of consciousness. Denies any mental status changes. Overnight nurse's notes were reviewed. No adverse events were documented, reported or notified. The patient was found to be alert, awake, oriented x3. OBJECTIVE: VITAL SIGNS: T-max 98.3, heart rate 94-97, blood pressure 110/66, respiration 20, O2 sat 98%. The patient's telemetry monitoring shows sinus rhythm with PVCs and bigeminy. HEENT: Head examination normocephalic, atraumatic. HEENT examination shows pink conjunctivae. Anicteric sclerae. No oropharyngeal lesion. NECK: No neck rigidity. CHEST: Kyphosis. LUNGS: Shows no audible crackle, rales or wheezing. CARDIOVASCULAR: S1 and S2, regular rhythm, questionable soft systolic murmur left sternal border, right second intercostal space, left second intercostal space. ABDOMEN: Soft, protuberant. Positive bowel sound. No palpable hepatosplenomegaly. GENITALIA: Male. RECTAL: Examination is deferred. EXTREMITIES: Shows no pitting edema, no calf tenderness, no Homans' sign. MUSCULOSKELETAL: Examination shows a body mass index of 28.3. NEUROLOGIC: The patient is alert, awake, oriented x3. Cranial nerves II-XII grossly intact. Gait examination is intact. VASCULAR: Examination palpable pulses. Motor strength is 5/5 in upper and lower extremities. DIAGNOSTICS: From October 10, hemoglobin/hematocrit 12 and 36.6. Chemistry shows BUN of 25, creatinine 2.1, magnesium 0.3. CPK is down to 341. Troponin is down to 0.07. Lipid panel, cholesterol 152, LDL 107. Thyroid profile is within normal limit. Urine cultures negative. IMPRESSION AND PLAN: 1. Questionable seizure-like activity with involuntary movement. 2. Episodic episode of dysarthria and altered mental status with confusion. 3. Questionable generalized tonic clonic seizures. 4. Mild normocytic anemia. 5. History of narcotic use and abuse. 6. Possible seizure with an aura with transient confusion. 7. Proteinuria. 8. History of hypertension. 9. Tachycardia. 10. Chronic kidney disease, stage III. 11. Mild rhabdomyolysis with elevated CPK of 503. 12. Hyperlipidemia with elevated LDL and decreased HDL. 13. Proteinuria, microscopic hematuria, bacteriuria. 14. Urine drug screen positive for opiates. 15. Left parietal lobe chronic encephalomalacia. 16. Cardiomegaly 17. Sinus tachycardia with premature ventricular contractions. 18. Left ventricular hypertrophy. 19. Left atrial enlargement. 20. Dilated cardiomyopathy with left ventricular ejection fraction around 20%-25%. 21. Pulmonary hypertension with right ventricular systolic pressure of 42 mmHg. 22. Questionable possible new-onset seizure. 23. History of chronic constipation. 24. Prostatic hypertrophy. 25. Neuropathy. PLAN: At this time, the patient is awaiting clearance by neurology. EEG results pending. MRI reports pending. The patient's current medications, Colace 100 three times a day, Coreg 12.5 twice a day, Ecotrin 81 mg daily, Flomax 0.4 mg daily, heparin 5000 subcutaneously every 8 hours, Lasix 20 mg p.o. daily, MiraLax 17 g twice a day, Neurontin 900 mg at bedtime and Neurontin 600 twice a day as per Neurology recommendation, Protonix 40 daily for GI prophylaxis, Tylenol p.r.n., Zofran four IV every 4 hours p.r.n. MRI of the brain result pending. Echo results pending. EEG results pending. The patient has been ordered SCDs, pharmacological, non-pharmacological DVT prophylaxis, head of the bed at 30 degrees, physical therapy, occupational therapy, out of bed to chair. At present, if the patient's MRI brain, echocardiogram, EEG is negative, the patient will be possibly considered for discharge after cleared by neurology. The patient updated about his condition, diagnosis, test results, recommendations at length and all questions concerned were answered. Dictated and electronically signed, not read. Barber Sharma MD
--- NOTE | 2018-10-10 15:06 | CP.PCM.PCO ---
Physician Communication Note - Physician Communication Note Physician Communication Note: MRI resulted acute infarct left frontal lobe,awaiting further rec by neuro,
--- NOTE | 2018-10-10 15:13 | CP.PCM.PCO ---
Physician Communication Note - Physician Communication Note Physician Communication Note: The patient has a small frontal lobe ischemic stroke. Addendum Addendum: The patient will require further work-up for stroke. I recommend the following; 1. CTA of the head/neck 2. Will follow up on echocardiogram to rule out cardiac thrombus 3. Start Lipitor 40 mg daily to bring LDL< 70 4. Start Plavix 75 mg daily in addition to Aspirin 81 mg daily for stroke prevention 5. PT/OT eval and treatment Thank you.
[2018-10-10 15:49] LABS: TROPONIN I 0.05 ng/mL
[2018-10-10 16:08] LABS: CK-MB 2.3 ng/mL (0.0-3.6)
--- NOTE | 2018-10-10 16:15 | CARD ---
APPROVED REPORT Date of service: 10/10/2018 EKG Measurement Heart [id number] ID [id number] <Conclusion> Normal sinus rhythm Possible Left atrial enlargement Nonspecific T wave abnormality Abnormal ECG
--- NOTE | 2018-10-10 17:19 | PN ---
DATE: 10/10/2018 SUBJECTIVE: The patient is feeling much better with alteration of his medications. OBJECTIVE: VITAL SIGNS: Blood pressure 122/86, heart rate in 90s. NECK: Negative JVD. LUNGS: Without rales. HEART: S1, S2. EXTREMITIES: Without edema. LABORATORY DATA: Hemoglobin is 12. Chemistries; BUN and creatinine 25 and 2.1. IMPRESSION: 1. Status post syncope. 2. Likely secondary to medication related. 3. History of hypertension. 4. Dilated cardiomyopathy. 5. Renal insufficiency. Given these findings, repeat echocardiogram shows no change in his LV function. From a cardiac perspective, the patient can be discharged. An outpatient followup has been given to the patient in detail. Mike Newberry MD
[2018-10-10] MEDS: Lactated Ringer's 1,000 ML IV SCH (21:24)
[2018-10-11] MEDS: Pantoprazole 40 mg EC Tab PO SCH (05:14)
[2018-10-11] MEDS: POLYETHYLENE GLYCOL 3350 17 GM/Dose PACKET PO SCH ×2 (09:49→18:19)
[2018-10-11] MEDS: Lactated Ringer's 1,000 ML IV SCH (11:00)
[2018-10-11 12:56] LABS: BASO # 0.01 K/mm3 (0.0-2.0); BASO % 0.2 % (0.0-3.0); EOS # 0.2 (0.0-0.7); EOS % 3.3 % (1.5-5.0); HEMOGLOBIN 12.8 g/dL (14.0-18.0); LYMPH % 30.5 % (22.0-35.0); MEAN CELL VOLUME 94.6 fl (80.0-105.0); MEAN CORPUSCULAR HEMOGLOBIN 31.3 pg (25.0-35.0); MEAN CORPUSCULAR HGB CONC 33.1 g/dl (31.0-37.0); MEAN PLATELET VOLUME 10.3 fl (7.0-11.0); MONO # 0.5 (0.1-0.6); MONO % 7.1 % (1.0-6.0); RBC 4.09 10^6/uL (3.5-6.1); RED CELL DISTRIBUTION WIDTH 14.1 % (11.5-14.5); WHITE BLOOD COUNT 6.6 10^3/uL (4.5-11.0)
[2018-10-11 13:07] LABS: ALB/GLOB RATIO 1.3 (1.1-1.8); ALBUMIN 4.1 g/dL (3.0-4.8); CALCIUM 9.3 mg/dL (8.4-10.5)
[2018-10-11] MEDS: Sodium Chloride 0.9% 1,000 ML IV SCH (14:30)
[2018-10-11 14:53] LABS: URINE APPEARANCE CLEAR (CLEAR); URINE BILIRUBIN NEGATIVE (NEGATIVE); URINE BLOOD NEGATIVE (NEGATIVE); URINE COLOR YELLOW (YELLOW); URINE GLUCOSE (UA) NEGATIVE (NEGATIVE); URINE LEUKOCYTE ESTERASE TRACE Leu/uL (NEGATIVE); URINE PROTEIN NEGATIVE mg/dL (<30 mg/dL); URINE UROBILINOGEN 0.2 E.U./dL (<1 E.U./dL)
--- NOTE | 2018-10-11 14:58 | PN ---
DATE: 10/11/2018 SUBJECTIVE: The patient is awake, alert. PHYSICAL EXAMINATION: VITAL SIGNS: Blood pressure 115/97, heart rate is in the 90s. NECK: Negative JVD. LUNGS: Without rales. HEART: S1, S2. EXTREMITIES: Without edema. IMAGING: MRI of the brain results reveal possible deep seated CVA. IMPRESSION: 1. Cerebrovascular accident. 2. Dilated cardiomyopathy. 3. History of hypertension. 4. Renal insufficiency. PLAN: Given these findings, the patient is hemodynamically stable. We will continue on telemetry for 24 hours. Mike Newberry MD
[2018-10-11 15:13] LABS: URINE BACTERIA NEG /hpf; URINE RBC 0 - 2 /hpf (0-2)
--- NOTE | 2018-10-11 16:21 | CP.PCM.PN ---
Subjective - Date & Time of Evaluation Date of Evaluation: 10/11/18 Time of Evaluation: 16:16 - Subjective Subjective: Neurology Progress Note: Mr. Packer was seen and examined at bedside. He had no new complaints. I reviewed the findings of the MRI brain with him and explained why we needed to obtain other tests to determine the origin. The infarct is left sided, frontal and tiny. It may be embolic in origin. Objective - Vital Signs/Intake and Output Vital Signs (last 24 hours): Temp Pulse Resp BP Pulse Ox 97.9 F 69 18 108/67 100 10/11/18 12:00 10/11/18 12:00 10/11/18 12:00 10/11/18 12:00 10/11/18 06:00 Intake and Output: 10/11/18 10/11/18 06:59 18:59 Intake Total 780 Output Total 2 Balance 778 - Medications Medications: Current Medications Acetaminophen (Tylenol 325mg Tab) 650 mg PO Q6 PRN PRN Reason: TEMP>=99.5F Acetaminophen (Tylenol 650 Mg Supp) 650 mg RC Q6H PRN PRN Reason: TEMP>=99.5F Aspirin (Ecotrin) 81 mg PO DAILY [facility] Last Admin: 10/11/18 09:45 Dose: 81 mg Atorvastatin Calcium (Lipitor) 40 mg PO DIN [facility] Last Admin: 10/10/18 17:16 Dose: 40 mg Carvedilol (Coreg) 12.5 mg PO Q12H [facility] Last Admin: 10/11/18 06:27 Dose: 12.5 mg Clopidogrel Bisulfate (Plavix) 75 mg PO DAILY [facility] Last Admin: 10/11/18 09:45 Dose: 75 mg Docusate Sodium (Colace) 100 mg PO TID [facility] Last Admin: 10/11/18 13:40 Dose: Not Given Furosemide (Lasix) 20 mg PO DAILY [facility] Gabapentin (Neurontin) 900 mg PO HS [facility]; Protocol Last Admin: 10/10/18 21:28 Dose: 900 mg Gabapentin (Neurontin) 600 mg PO BID [facility]; Protocol Last Admin: 10/11/18 09:48 Dose: 600 mg Heparin Sodium (Porcine) (Heparin) 5,000 units SC Q8 [facility]; Protocol Last Admin: 10/11/18 14:30 Dose: 5,000 units Sodium Chloride (Sodium Chloride 0.9%) 1,000 mls @ 80 mls/hr IV .[id number] [facility] Stop: 10/12/18 15:29 Last Admin: 10/11/18 14:30 Dose: 80 mls/hr Ondansetron HCl (Zofran Inj) 4 mg IVP Q4H PRN PRN Reason: Nausea/Vomiting Pantoprazole Sodium (Protonix Ec Tab) 40 mg PO 0600 [facility] Last Admin: 10/11/18 05:14 Dose: 40 mg Polyethylene Glycol (Miralax) 17 gm PO BID [facility] Last Admin: 10/11/18 09:49 Dose: Not Given Tamsulosin HCl (Flomax) 0.4 mg PO HS [facility] Last Admin: 10/10/18 21:23 Dose: 0.4 mg - Labs Labs: 10/11/18 12:46 10/11/18 12:46 PT 13.0 SECONDS (9.4-12.5) H 10/08/18 15:00 INR 1.17 10/08/18 15:00 APTT 36.3 Seconds (26.9-38.3) 10/08/18 15:00 - Constitutional Appears: Well - Head Exam Head Exam: ATRAUMATIC, NORMAL INSPECTION, NORMOCEPHALIC - Eye Exam Eye Exam: EOMI, Normal appearance, PERRL Pupil Exam: NORMAL ACCOMODATION, PERRL - ENT Exam ENT Exam: Mucous Membranes Moist, Normal Exam - Neck Exam Neck Exam: Full ROM, Normal Inspection. absent: Lymphadenopathy - Respiratory Exam Respiratory Exam: Clear to Ausculation Bilateral, NORMAL BREATHING PATTERN - Cardiovascular Exam Cardiovascular Exam: REGULAR RHYTHM, +S1, +S2. absent: Murmur - GI/Abdominal Exam GI & Abdominal Exam: Soft, Normal Bowel Sounds. absent: Tenderness - Extremities Exam Extremities Exam: Full ROM, Normal Capillary Refill, Normal Inspection. absent: Joint Swelling, Pedal Edema - Back Exam Back Exam: NORMAL INSPECTION - Neurological Exam Neurological Exam: Alert, Awake, CN II-XII Intact, Normal Gait, Oriented x3 - Psychiatric Exam Psychiatric exam: Normal Affect, Normal Mood - Skin Skin Exam: Dry, Intact, Normal Color, Warm Assessment and Plan (1) Seizure Assessment & Plan: The EEG was normal. Will continue the current dosing of Neurontin for neuropathy and seizure prevention. Status: Acute (2) Ischemic stroke Assessment & Plan: It appears to be embolic of origin, but no evidence of any cardiac arrhythmias on telemetry. Continue aspirin/plavix and high dose statin for secondary stroke prevention. His creatinine was elevated and he did not get CTA. I will order MRA of the head/neck without contrast. If this is normal, and the patient is cleared by PT, he may be discharged to follow up with neurology (Dr. Rush) as an outpatient. Status: Acute
--- NOTE | 2018-10-11 16:29 | US ---
Date of service: 10/11/2018 PROCEDURE: Ultrasound of the kidneys Ultrasound of the urinary bladder/residual urine HISTORY: worsening renal function COMPARISON: CT abdomen pelvis without contrast performed 02/02/18 TECHNIQUE: Sonogram of the kidneys and urinary bladder. FINDINGS: RIGHT KIDNEY: Measures: 10.1 x 5.4 x 5.5 cm. 1.2 x 1.5 x 1.2 cm upper pole septated cyst. 3.1 x 3.1 x 3.1 cm midpole cyst. 1.5 x 0.9 x 1.7 cm lower pole cyst. No obstructing calculus or hydronephrosis identified. LEFT KIDNEY: Measures: 9.7 x 4.7 x 5.5 cm. 0.70.3 x 0.5 cm lower pole cyst. 1.3 x 1.9 x 1.3 cm lower pole cyst. No obstructing calculus or hydronephrosis identified. OTHER FINDINGS: Prevoid urinary bladder volume 346.3 mL. Postvoid residual volume measures 75.4 mL. IMPRESSION: Bilateral renal cysts. No obstructing calculus or hydronephrosis identified. Prevoid urinary bladder volume 346.3 mL. Postvoid residual volume measures 75.4 mL.
[2018-10-11 17:04] LABS: CREATININE,RANDOM URINE 46 mg/dL
--- NOTE | 2018-10-11 19:00 | CP.PCM.PN ---
Subjective - Date & Time of Evaluation Date of Evaluation: 10/11/18 Time of Evaluation: 12:30 - Subjective Subjective: 2 yo M w/ pmh of htn, non-ischemic cardiomyopathy, substance abuse, and CKD IIIA, admitted for AMS, nephrology following for renal insufficiency; Patient reports feeling well; ambulating, having some mild dyspnea afterward; otherwise tolerating diet; Objective - Vital Signs/Intake and Output Vital Signs (last 24 hours): Temp Pulse Resp BP Pulse Ox 97.4 F L 89 18 124/89 100 10/11/18 17:54 10/11/18 18:00 10/11/18 17:54 10/11/18 18:16 10/11/18 17:54 Intake and Output: 10/11/18 10/11/18 06:59 18:59 Intake Total 780 900 Output Total 2 Balance 778 900 - Medications Medications: Current Medications Acetaminophen (Tylenol 325mg Tab) 650 mg PO Q6 PRN PRN Reason: TEMP>=99.5F Acetaminophen (Tylenol 650 Mg Supp) 650 mg RC Q6H PRN PRN Reason: TEMP>=99.5F Aspirin (Ecotrin) 81 mg PO DAILY [facility] Last Admin: 10/11/18 09:45 Dose: 81 mg Atorvastatin Calcium (Lipitor) 40 mg PO DIN [facility] Last Admin: 10/11/18 18:16 Dose: 40 mg Carvedilol (Coreg) 12.5 mg PO Q12H [facility] Last Admin: 10/11/18 18:16 Dose: 12.5 mg Clopidogrel Bisulfate (Plavix) 75 mg PO DAILY [facility] Last Admin: 10/11/18 09:45 Dose: 75 mg Docusate Sodium (Colace) 100 mg PO TID [facility] Last Admin: 10/11/18 18:18 Dose: Not Given Furosemide (Lasix) 20 mg PO DAILY [facility] Gabapentin (Neurontin) 900 mg PO HS [facility]; Protocol Last Admin: 10/10/18 21:28 Dose: 900 mg Gabapentin (Neurontin) 600 mg PO BID [facility]; Protocol Last Admin: 10/11/18 18:18 Dose: 600 mg Heparin Sodium (Porcine) (Heparin) 5,000 units SC Q8 [facility]; Protocol Last Admin: 10/11/18 14:30 Dose: 5,000 units Sodium Chloride (Sodium Chloride 0.9%) 1,000 mls @ 80 mls/hr IV .[id number] [facility] Stop: 10/12/18 15:29 Last Admin: 10/11/18 14:30 Dose: 80 mls/hr Ondansetron HCl (Zofran Inj) 4 mg IVP Q4H PRN PRN Reason: Nausea/Vomiting Pantoprazole Sodium (Protonix Ec Tab) 40 mg PO 0600 [facility] Last Admin: 10/11/18 05:14 Dose: 40 mg Polyethylene Glycol (Miralax) 17 gm PO BID [facility] Last Admin: 10/11/18 18:19 Dose: Not Given Tamsulosin HCl (Flomax) 0.4 mg PO HS [facility] Last Admin: 10/10/18 21:23 Dose: 0.4 mg - Labs Labs: 10/11/18 12:46 10/11/18 12:46 PT 13.0 SECONDS (9.4-12.5) H 10/08/18 15:00 INR 1.17 10/08/18 15:00 APTT 36.3 Seconds (26.9-38.3) 10/08/18 15:00 - Constitutional Appears: Non-toxic, No Acute Distress - Eye Exam Eye Exam: Normal appearance - Respiratory Exam Respiratory Exam: Clear to Ausculation Bilateral. absent: Respiratory Distress - Cardiovascular Exam Cardiovascular Exam: RRR Additional comments: systolic murmur at apex - GI/Abdominal Exam GI & Abdominal Exam: Soft. absent: Distended, Tenderness - Exam Additional comments: no over bladder distention - Extremities Exam Additional comments: no leg edema; - Neurological Exam Neurological Exam: Alert, Awake - Psychiatric Exam Psychiatric exam: Normal Affect, Normal Mood. absent: Agitated - Skin Skin Exam: Warm. absent: Cyanosis Assessment and Plan (1) SILVINA (acute kidney injury) Assessment & Plan: SILVINA on CKD III; likely represents hemodynamic fluctuations in serum creatinine rather than true worsening of renal function; overall CKD status has progressed since previous admission last year; borderline hyperkalemia noted; otherwise stable volume status despite being given IVF over past day with known cardiomyopathy; -Avoid nephrotoxic agents; -Obtaining renal/bladder US (to assess for hydronephrosis/post-void resdual volume); -Continuing gentle IVF for now (changing LR to NS in the setting of hyperkalemia); -Continue to hold ARB for now (can restart once renal function stabilized); -Continue to optimize CHF status with B-blockers; -Awaiting repeat UA, urine protein, microalbumin/creatinine; Status: Acute (2) Ischemic stroke Assessment & Plan: If contrast study needed (CTA), should continue IVF till time of study; Status: Acute (3) Congestive heart failure Assessment & Plan: see above; Status: Chronic (4) Hypertension Assessment & Plan: BP controlled, continue current med; Status: Chronic
[2018-10-12] MEDS: Sodium Chloride 0.9% 1,000 ML IV SCH (03:05)
--- NOTE | 2018-10-12 03:06 | PN ---
DATE: 10/11/2018 LOCATION: The patient is seen in room 263, bed 1. SUBJECTIVE: The patient was seen lying in the bed. The patient denies any altered mental status. Denies any loss of consciousness. Denies any falls. Overnight nurse's notes were reviewed. PHYSICAL EXAMINATION: VITAL SIGNS: T-max 98; telemetry shows sinus rhythm, heart rate 97, 87, 91, 103, 95, 97, 88; blood pressure 124/89, 174/89, 108/67, 113/97, 124/83, 116/82; respiration 18, O2 sat 100%. HEENT: Head is normocephalic, atraumatic. HEENT examination shows pinkish conjunctivae. Anicteric sclerae, dry oral mucosa. No neck rigidity. CHEST: Kyphosis. LUNGS: Shows no audible crackle, rales or wheezing. CARDIOVASCULAR: S1, S2, regular rhythm. Questionable soft systolic murmur, left sternal border, right second intercostal space, left second intercostal space. ABDOMEN: Soft. Positive bowel sound. No palpable hepatosplenomegaly. GENITALIA: Male. RECTAL: Deferred. EXTREMITIES: Shows no pitting edema, negative Homans' sign. NEUROLOGIC: The patient is alert, awake, oriented x3, is able to move upper and lower extremities without assistance. Gait examination is not tested. Vascular examination is palpable pulses. Plantars are downward. LABORATORY DATA: The patient's diagnostic data from this hospitalization reviewed and explained to the patient at length. IMPRESSION: 1. Left frontal lobe deep white matter acute infarct with 3-mm focus of restricted diffusion, chronic encephalomalacia of the left parietal lobe. 2. Paranasal sinus mucosal thickening. 3. Left posterior frontal lobe acute infarct with 3-mm focus of restricted diffusion and left parietal lobe chronic encephalomalacia. 4. Acute kidney injury with underlying chronic kidney disease stage 3/4. 5. Tachycardia. 6. Hypertension. 7. Normocytic anemia. 8. Chronic kidney disease stage 3/4. 9. Hypovitaminosis D. 10. Mild rhabdomyolysis with elevated creatine phosphokinase. 11. Non-hemolyzed hyperkalemia. 12. Urine drug screen positive for opiate. 13. Proteinuria, pyuria. 14. Bilateral renal cyst. 15. Left parietal lobe chronic encephalomalacia. 16. Cardiomegaly. 17. Left ventricular ejection fraction of 20% to 25%. 18. Dilated cardiomyopathy. 19. [id number] pulmonary hypertension with right ventricular systolic pressure of 42 mmHg. 20. Nonischemic dilated cardiomyopathy. 21. History of substance abuse and narcotic dependent pain syndrome. 22. Acute ischemic stroke. 23. Compensated congestive heart failure. 24. Seizure disorder with acute embolic left posterior frontal lobe acute infarct. 25. Neuropathy. 26. History of constipation. 27. Prostatic hypertrophy. 28. Non-hemolyzed hyperkalemia. PLAN: At this time, the patient was seen and evaluated by Neurology, Cardiology, Nephrology. Recommendations reviewed. The patient has been ordered repeat labs for the morning. Current consultation, Neurology, Cardiology, Nephrology. TCU evaluation pending. Current medications, Colace 100 mg three times a day, Coreg 12.5 mg twice a day, Ecotrin 81 mg daily, Flomax 0.4 mg daily, heparin 5000 subcu every 8 hours. The patient was given a dose of Kayexalate 30 g stat, Lasix 20 mg p.o. daily, Lipitor 40 mg daily, MiraLax 17 g twice a day, Neurontin 900 mg h.s., Neurontin 600 mg twice a day, Plavix 75 mg daily, Protonix 40 mg daily, IV fluid 0.9 normal saline at 80 mL/hour ordered by Nephrology, Tylenol 650 mg p.o. suppository every 6 hours p.r.n., Zofran 4 mg IV every 4 hours p.r.n. The patient has been ordered an MRA of the neck, MRA of the head by neuro hospitalist. The patient is unable to go a CT of the head and neck secondary to elevated creatinine and renal insufficiency. The patient has been ordered pharmacological and non-pharmacological DVT, GI prophylaxis. The patient is referred for physical therapy, occupational therapy. The patient was evaluated by a physical therapist yesterday. The patient's further management will be dependent upon the patient's repeat lab data, diagnostic workup and testing. The patient was updated about his condition, diagnosis, test results at length. All questions and concerns answered. Dictated and electronically signed, not read. Barber Sharma MD
[2018-10-12] MEDS: Pantoprazole 40 mg EC Tab PO SCH (05:57)
[2018-10-12 08:47] LABS: TROPONIN I 0.05 ng/mL
[2018-10-12 09:02] LABS: ALB/GLOB RATIO 1.2 (1.1-1.8); ALBUMIN 3.6 g/dL (3.0-4.8); BILIRUBIN,DIRECT 0.2 mg/dL (0.0-0.4); CALCIUM 8.3 mg/dL (8.4-10.5)
[2018-10-12 09:03] LABS: URIC ACID 7.3 mg/dL (3.5-8.5)
[2018-10-12] MEDS: POLYETHYLENE GLYCOL 3350 17 GM/Dose PACKET PO SCH ×2 (10:08→17:47)
[2018-10-12 13:16] LABS: COMPLEMENT C4 22.7 mg/dL (14.0-44.0)
--- NOTE | 2018-10-12 14:45 | PN ---
DATE: 10/12/2018 CARDIOLOGY FOLLOWUP SUBJECTIVE: The patient is ambulating without symptoms. PHYSICAL EXAMINATION: VITAL SIGNS: Blood pressure 122/89, heart rates in the 90s. NECK: Negative JVD. LUNGS: Without rales. HEART: Reveals S1 and S2. EXTREMITIES: Without edema. LABORATORY DATA: Hemoglobin was not drawn today. Chemistries, BUN and creatinine is 27 and 2.2. Troponin is stable at 0.05. IMPRESSION: 1. Status post status post cardiovascular accident. 2. Dilated cardiomyopathy. 3. Renal insufficiency. 4. History of hypertension. Given these findings, the patient is hemodynamically stable. Mike Newberry MD
[2018-10-12] MEDS ORDERED: Albuterol-Ipratrop 3 mg / 0.5 (3 ml) UD IH PRN (22:02)
--- NOTE | 2018-10-12 22:18 | PN ---
DATE: 10/12/2018 SUBJECTIVE: The patient is seen in room 263, bed 1. The patient is sitting up in the bed in the chair with the patient's at bedside. The patient denies any chest pain or shortness of breath. Denies nausea, vomiting, diarrhea or constipation. PHYSICAL EXAMINATION: VITAL SIGNS: T-max 98.6, 98.2; heart rate 96, 107, 84; blood pressure 122/89, 129/83; respiration 18; O2 sat is 97-96%. HEENT: Head is normocephalic and atraumatic. [place] conjunctivae. Anicteric sclerae. No oropharyngeal lesion. No neck rigidity. CHEST: Kyphosis. LUNGS: Shows no audible crackle, rales or wheezing. CARDIOVASCULAR: S1 and S2, regular rhythm. Positive systolic murmur left sternal border, right second intercostal space, left second intercostal space. ABDOMEN: Soft and protuberant. Positive bowel sound. No palpable hepatosplenomegaly. GENITALIA: Male. RECTAL: Examination is deferred. EXTREMITIES: Shows no pitting edema, no calf tenderness, no Homans' sign. NEUROLOGIC: The patient is alert, awake, and oriented x3. Gait examination is independent. Patient is observed ambulating on the hallway in the floor and in the room. MUSCULOSKELETAL: Shows a body mass index of 29. DIAGNOSTIC DATA: On 10/12/2018, sodium 142, potassium 4.0, chloride 111, CO2 of 23, anion gap 12, BUN 27, creatinine 2.2, GFR 37, glucose 79, uric acid 7.3, and calcium 8.3. LFTs are normal. Magnesium 1.9, phosphorus 3.5. CPK is down to 115. Peak troponin is 0.07. Urine cultures negative. The patient's MRA of the head and neck is pending. IMPRESSION AND PLAN: 1. Left frontal lobe deep white matter acute infarct with 3-mm focus of restricted diffusion and left parietal lobe chronic encephalomalacia. 2. Paranasal sinus mucosal thickening. 3. Sinus tachycardia. 4. Hypertension. 5. Dilated cardiomyopathy. 6. Acute kidney injury with underlying chronic kidney disease stage III/IV. 7. Chronic narcotic-dependent pain syndrome. 8. Mild normocytic anemia. 9. Non-hemolyzed hyperkalemia. 10. Mild rhabdomyolysis with elevated CPK. 11. Indeterminate troponin. 12. Hypovitaminosis D. 13. Proteinuria, microscopic hematuria, bacteriuria. 14. Urine drug screen positive for opiates. 15. Mild atherosclerotic changes of the left and right common carotid bifurcation with mild 0-39% stenosis bilaterally. 16. Bilateral renal cyst. 17. Chronic narcotic-dependent pain syndrome. 18. Prostatic hypertrophy. 19. Possible seizure disorder with aura. 20. Acute ischemic embolic stroke of the left posterior frontal lobe with 3-mm focus of restricted diffusion in the deep white matter. At present, we are awaiting official MRA of the head and neck report. If the patient's MRA of the head and neck report is negative and if the patient is cleared by Neurology, Dr. Amos the patient will be considered for discharge. The patient's current medications are Colace 100 mg three times a day, Coreg 12.5 mg twice a day, Ecotrin 81 mg daily, Flomax 0.4 mg daily, heparin 5000 units subcu every 8 hours, Lasix 20 mg daily, Lipitor 40 mg daily, MiraLax 17 g twice a day, Neurontin 100 mg at bedtime and Neurontin 600 mg twice a day, Plavix 75 mg daily, Protonix 40 mg daily, Tylenol 650 mg p.o. suppository every 6 hours p.r.n., Zofran 4 mg IV to every 4 hours p.r.n. The patient updated about his condition, diagnosis, test results, treatment plan at length, which she acknowledged and understand. All questions concerned answered. Dictated and electronically signed, not read. Barber Sharma MD
[2018-10-13 00:08] VITALS: O2SAT 98
[2018-10-13] MEDS: Pantoprazole 40 mg EC Tab PO SCH (05:32)
--- NOTE | 2018-10-13 09:53 | MRI ---
Date of service: 10/12/2018 PROCEDURE: Magnetic Resonance Angiography Brain HISTORY: stroke COMPARISON: None available. TECHNIQUE: 3D time of flight MR angiography of the intracranial arteries was performed. Rotating maximum intensity projection images were generated. FINDINGS: INTERNAL CAROTID ARTERIES: Unremarkable. The skull base, petrous, cavernous and supraclinoid segments are bilaterally widely patient. ANTERIOR CEREBRAL ARTERIES: Unremarkable. A1 and A2 segments are widely patent. Smaller distal branches unremarkable, as visualized. MIDDLE CEREBRAL ARTERIES: Unremarkable. M1 and M2 segments are widely patent. Perisylvian branches grossly symmetric. POSTERIOR CIRCULATION: Basilar Artery: Unremarkable. Distal Vertebral Arteries: Unremarkable. Posterior Cerebral Arteries: Unremarkable. Posterior Inferior Cerebellar Arteries: Unremarkable. ANEURYSM/ VASCULAR MALFORMATIONS: None. OTHER FINDINGS: The report concurs with the preliminary [facility] report IMPRESSION: Unremarkable MR angiography of the brain.
--- NOTE | 2018-10-13 09:58 | MRI ---
Date of service: 10/12/2018 PROCEDURE: MR Angiography of the neck without contrast HISTORY: stroke COMPARISON: None available. TECHNIQUE: 3D [id number] angiography of the neck was performed. Rotating maximum intensity projection images of the cervical carotid and vertebral arteries were generated. The origins of the common carotid arteries were not visualized, which is a limitation inherent to the non-contrast time of flight technique. FINDINGS: RIGHT CAROTID ARTERIES: Common Carotid Artery: Normal. Carotid Bifurcation: Normal. Internal Carotid Artery:Mild stenosis External Carotid Artery (proximal branches): Normal. LEFT CAROTID ARTERIES: Common Carotid Artery: Normal. Carotid Bifurcation: Normal. Internal Carotid Artery:Mild stenosis External Carotid Artery (proximal branches): Normal. VERTEBRAL ARTERIES: Right Vertebral Artery: Normal. Left Vertebral Artery: Normal. OTHER FINDINGS: None. IMPRESSION: Mild stenosis at the origin of the internal carotids. The degree of stenosis is less than 40 percent
[2018-10-13] MEDS: POLYETHYLENE GLYCOL 3350 17 GM/Dose PACKET PO SCH (10:14)
[2018-10-13 11:29] VITALS: BP 134/82
--- NOTE | 2018-10-13 12:38 | CARD ---
APPROVED REPORT Date of service: 10/10/2018 EXAM: Two-dimensional and M-mode echocardiogram with Doppler and color Doppler. INDICATION Cardiac Disease: CAD Cardiomyopathy Congestive Heart Failure 2D DIMENSIONS Left Atrium (2D)4.5 (1.6-4.0cm)IVSd1.1 (0.7-1.1cm) LVDd6.2 (3.9-5.9cm)PWd1.3 (0.7-1.1cm) LVDs5.6 (2.5-4.0cm)FS (%) 9.7 % LVEF (%)20.9 (>50%) M-Mode DIMENSIONS Aortic Root2.50 (2.2-3.7cm)Aortic Cusp Exc.1.70 (1.5-2.0cm) Aortic Valve AoV Peak Baxzazfi212.0cm/[place] GR.6mmHg Mitral Valve MV E Orcihkjj303.0cm/sMV A Iqkgszsy68.5cm/sE/A ratio1.6 TDI E/Lateral E'0.0E/Medial E'0.0 Tricuspid Valve TR Peak Ooyoodkt458pe/sRAP [id number] Peak Gr.32mmHg [id number] LEFT VENTRICLE The Left Ventricle is mildly dilated. The systolic function is severely impaired. RIGHT VENTRICLE The right ventricle is normal size. ATRIA The left atrium is moderately dilated. The right atrium size is normal. AORTIC VALVE The aortic valve is thickened but opens well. MITRAL VALVE The mitral valve is thickened but opens well. Mitral regurgitation is mild. TRICUSPID VALVE The tricuspid valve leaflets are thickened , but open well. There is moderate to severe tricuspid regurgitation. There is mild to moderate pulmonary hypertension. PULMONIC VALVE The pulmonic valve is not well visualized. PERICARDIAL EFFUSION There is no pericardial effusion. <Conclusion> Dilated and severely decreased LV systolic function Dilated LA Mild MR Moderate to severe TR Mild to moderate pulmonary hypertension
--- NOTE | 2018-10-13 13:54 | PN ---
DATE: 10/13/2018 SUBJECTIVE: The patient is ambulating without symptoms. OBJECTIVE: VITAL SIGNS: Blood pressure 124/91, heart rate in the 90s. NECK: Negative JVD. LUNGS: Without wheezing. HEART: Reveal S1, S2. EXTREMITIES: Without edema. LABORATORY DATA: Hemoglobin is 12.8. Chemistries, BUN and creatinine is 27 and 2.2. IMPRESSION: 1. Dilated cardiomyopathy. 3. Status post cerebrovascular accident. 3. Renal insufficiency. 4. History of hypertension. Given these findings, the patient's cardiac status is at its baseline. He is able to ambulate without symptoms. We will continue his aspirin and carvedilol. I have discussed with the patient need to live healthy. Mike Newberry MD
[2018-10-13 15:16] VITALS: PULSE 69; RESP 19; TEMP 97
--- NOTE | 2018-10-13 16:47 | CP.PCM.PN ---
Subjective - Date & Time of Evaluation Date of Evaluation: 10/13/18 Time of Evaluation: 16:41 - Subjective Subjective: Nephrology progress note Patient seen and examined at bedside. No acute overnight events. Patient admits to shortness of breath since his Lasix hsa been held. Patient is otherwise feeling well and denies any acute weakness. Objective - Vital Signs/Intake and Output Vital Signs (last 24 hours): Temp Pulse Resp BP Pulse Ox 97 F L 69 19 134/82 98 10/13/18 12:00 10/13/18 12:00 10/13/18 12:00 10/13/18 12:00 10/13/18 06:00 Intake and Output: 10/13/18 10/13/18 06:59 18:59 Intake Total 2320 Balance 2320 - Labs Labs: 10/11/18 12:46 10/12/18 07:00 PT 13.0 SECONDS (9.4-12.5) H 10/08/18 15:00 INR 1.17 10/08/18 15:00 APTT 36.3 Seconds (26.9-38.3) 10/08/18 15:00 - Constitutional Appears: Well - Head Exam Head Exam: ATRAUMATIC, NORMAL INSPECTION, NORMOCEPHALIC - Eye Exam Eye Exam: EOMI, Normal appearance, PERRL Pupil Exam: NORMAL ACCOMODATION, PERRL - ENT Exam ENT Exam: Mucous Membranes Moist, Normal Exam - Neck Exam Neck Exam: Full ROM, Normal Inspection. absent: Lymphadenopathy - Respiratory Exam Respiratory Exam: Clear to Ausculation Bilateral, NORMAL BREATHING PATTERN - Cardiovascular Exam Cardiovascular Exam: REGULAR RHYTHM, +S1, +S2. absent: Murmur - GI/Abdominal Exam GI & Abdominal Exam: Soft, Normal Bowel Sounds. absent: Tenderness - Extremities Exam Extremities Exam: Full ROM, Normal Capillary Refill, Normal Inspection. absent: Joint Swelling, Pedal Edema - Back Exam Back Exam: NORMAL INSPECTION - Neurological Exam Neurological Exam: Alert, Awake, CN II-XII Intact, Normal Gait, Oriented x3 - Psychiatric Exam Psychiatric exam: Normal Affect, Normal Mood - Skin Skin Exam: Dry, Intact, Normal Color, Warm Assessment and Plan - Assessment and Plan (Free Text) Assessment: SILVINA on CKD, possibly 2/2 pre-renal - CPK obtained, negative - Cautious with fluid hydration given patient's low EF - MRI+DANTE cannot be used given patient's GFR < 45 (although studies show that is generally okay in > 30) - MRA completed; any further imaging with contrast, please give IVF for 6 hours before study Proteinuria - Will need to monitor; previous visits without proteinuria. Microalbumin/CR ratio is mildly elevated, patient may benefit from renal biopsy. Not emergent. HTN - Patient had an ischemic stroke, but period for permissive hypertension has passed. Patient can restart his blood pressure medications, is well controlled on coreg for the time being. CHF - Recommend continuing CHF medications ASA, Toprol and ARB (Cozaar). Thank you for consult; we will follow closely.
--- NOTE | 2018-10-14 00:02 | DS ---
FINAL PROGRESS NOTE AND DISCHARGE SUMMARY SUBJECTIVE: The patient is in room 263, bed 2. Overnight nurse's notes were reviewed. MRA of head and neck preliminary results are available in the PACS system and [facility] system, which were reviewed, still awaiting for official MRA of the head and the neck reading and followup by the Neurology. If the patient is cleared by Neurology and if Neurology finds that the MRA of the head and the MRA of the neck is negative for discharge, the patient will be discharged. REVIEW OF SYSTEMS: A 14-system review was reviewed. The patient had very mild episode of wheezing last night, which was relieved by the DuoNeb nebulizer treatment. The patient does not have any wheezing at present. The patient had chronic baseline dyspnea on exertion. PHYSICAL EXAMINATION: VITAL SIGNS: Reviewed. The patient is afebrile; telemetry shows normal sinus rhythm; heart rate 79, 84, and 89; blood pressure is 130/84, 142/70, and 128/90; respirations 18 to 20; and O2 saturation is mid-to-high 90%. HEAD: Normocephalic and atraumatic. HEENT: Shows pink conjunctivae. Anicteric sclerae. No oropharyngeal lesion. NECK: No neck rigidity. CHEST: Kyphosis. LUNGS: Shows no audible crackle, rales, or wheezing. Occasional upper anterior lung field rhonchi noted. Questionable decreased breath sound at the base, left more than the right, but no audible crackles. CARDIOVASCULAR: S1 and S2, regular rhythm. Questionable soft systolic murmur, left sternal border, right second intercostal space, left second intercostal space. ABDOMEN: Soft, protuberant, obese, and positive bowel sounds. No palpable hepatosplenomegaly. GENITALIA: Male. RECTAL: Deferred. EXTREMITIES: Shows no pitting edema. No calf tenderness. No Homans' sign. NEUROLOGIC: The patient is alert, awake, and oriented x3. Cranial nerves II through XII intact. Gait examination is independent. VASCULAR: Palpable pulses. There was no documented seizure as per the nurse's notes. There was no syncope and no chest pain. FINAL IMPRESSION, PLAN, AND DISCHARGE DIAGNOSES: 1. Acute ischemic embolic infarct. 2. Seizure disorder. 3. Possible new onset seizure, etiology undetermined. 4. Hypertension. 5. Dilated cardiomyopathy. 6. History of congestive heart failure. 7. Chronic kidney disease, stage III/IV. 8. Nonhemolyzed hyperkalemia. 9. Narcotic-dependent pain syndrome. 10. Degenerative joint disease of the spine, shoulders. 11. Hyperlipidemia. 12. Prostatic hypertrophy. 13. Mild normocytic anemia of chronic kidney disease. Plan at this time; the patient's current medications will be continued as per the MAR of today. The patient will be considered for discharge home after cleared by Neurology and after the MRA of the head and the neck are negative as per the Neurology interpretation. The patient will be discharged on dual antiplatelet therapy, aspirin and Plavix. In addition, the patient will be discharged on Lipitor. The patient's Lasix will be resumed at 40 mg or 20 mg p.o. daily. The patient will be resumed on Flomax 0.4 mg daily. The patient will resume his narcotic pain medications, which are prescribed by the patient's pain management physician. The patient will be discharged on Protonix 40 mg daily in addition. The patient's discharge medications will be as per the updated ambulatory orders plus new prescriptions, which will be given to the patient upon discharge plus electronic will also be sent. During this hospitalization, the patient was extensively explained about the details of his medical condition, diagnosis, and test results. Recommendation by all physician were explained to the patient in layman's language almost on a daily basis, which he acknowledged and understood. All questions concerned answered. Time spent in the discharge process more than 45 minutes. Dictated and electronically signed, not read. Barber Sharma MD
== END 2018-10-13 15:29 | disposition home or self-care (01) | DRG 65 ==
LOC: ED 14:39 → ERH 15:42 → 2RNO 17:45
PROVIDERS: ADMIT Internal Medicine; ATTEND Internal Medicine
DX: I63.40 Cerebral infarction due to embolism of unspecified cerebral artery (principal); I42.0 Dilated cardiomyopathy; I13.0 Hypertensive heart and chronic kidney disease with heart failure and stage 1 through stage 4 chronic kidney disease, or unspecified chronic kidney disease; N39.0 Urinary tract infection, site not specified; N17.9 Acute kidney failure, unspecified; M62.82 Rhabdomyolysis; F11.20 Opioid dependence, uncomplicated; I25.10 Atherosclerotic heart disease of native coronary artery without angina pectoris; N18.3 Chronic kidney disease, stage 3 (moderate); R47.1 Dysarthria and anarthria; F19.10 Other psychoactive substance abuse, uncomplicated; G93.89 Other specified disorders of brain; J44.9 Chronic obstructive pulmonary disease, unspecified; N40.0 Benign prostatic hyperplasia without lower urinary tract symptoms; I65.23 Occlusion and stenosis of bilateral carotid arteries; I27.20 Pulmonary hypertension, unspecified; E87.5 Hyperkalemia; G40.409 Other generalized epilepsy and epileptic syndromes, not intractable, without status epilepticus; I50.9 Heart failure, unspecified; D63.1 Anemia in chronic kidney disease; F17.210 Nicotine dependence, cigarettes, uncomplicated; E55.9 Vitamin D deficiency, unspecified; K59.09 Other constipation; G62.9 Polyneuropathy, unspecified; G89.4 Chronic pain syndrome; E78.00 Pure hypercholesterolemia, unspecified; N28.1 Cyst of kidney, acquired; Z87.81 Personal history of (healed) traumatic fracture; Z87.891 Personal history of nicotine dependence

== ENCOUNTER 2018-11-06 19:14 | Inpatient (IN) | payer MEDICARE, OTHER ==
[2018-11-06 19:20] VITALS: BMI 30.8
--- NOTE | 2018-11-06 19:45 | ED PDOC ---
Arrival/HPI - General Chief Complaint: Shortness Of Breath Time Seen by Provider: 11/06/18 19:19 Historian: Patient - History of Present Illness Narrative History of Present Illness (Text): 11/06/18 19:39 63 year old M with pmh of hypertension, dilated cardiomyopathy and CHF presents with complains of shortness of breath w/ exertion and orthopnea for a few days. Patient also complains of occasional left sided pains. Patient was advised by his PMD to appear to the emergency department for his SOB. Patient denies any fevers, chills, headache, dizziness, chest pain, cough, diaphoresis, abdominal pain, nausea, vomiting, diarrhea, back pain, neck pain, or any other complaint. PMD: Dr. Sharma Time/Duration: < week Symptom Onset: Gradual Symptom Course: Unchanged Activities at Onset: Light Context: Home Past Medical History - Provider Review Nursing Documentation Reviewed: Yes - Infectious Disease Hx of Infectious Diseases: None - Tetanus Immunization Tetanus Immunization: Unknown - Cardiac Hx Cardiac Disorders: Yes (dilated cardiomyopathy.) Hx Congestive Heart Failure: Yes Hx Hypertension: Yes - Pulmonary Hx Tuberculosis: No - Neurological HX Cerebrovascular Accident: No Hx Seizures: No - HEENT Hx HEENT Disorder: No - Renal Hx Renal Disorder: Yes - Endocrine/Metabolic Hx Endocrine Disorders: No - Hematological/Oncological Hx Cancer: No - Integumentary Hx Dermatological Disorder: No - Musculoskeletal/Rheumatological Hx Falls: No - Gastrointestinal Hx Gastrointestinal Disorders: Yes Other/Comment: polyps removed - Genitourinary/Gynecological Hx Sexually Transmitted Diseases: No - Psychiatric Hx Substance Use: Yes Other/Comment: opoid use, snorts heroin last used last week, smokes 1 1/2 packs cigs a day, denies alcohol use - Surgical History Hx Musculoskeletal Surgery: Yes Hx Orthopedic Surgery: Yes (BACK, L ANKLE, R SHOULDER) - Anesthesia Hx Anesthesia: Yes Hx Anesthesia Reactions: No Hx Malignant Hyperthermia: No - Suicidal Assessment Feels Threatened In Home Enviroment: No Family/Social History - Physician Review Nursing Documentation Reviewed: Yes Family/Social History: Unknown Family HX Smoking Status: Heavy Smoker > 10 Cigarettes Daily Hx Alcohol Use: No Hx Substance Use: Yes Hx Substance Use Treatment: No Allergies/Home Meds Allergies/Adverse Reactions: Allergies No Known Allergies Allergy (Verified 02/21/18 17:15) Home Medications: Home Meds Medication Instructions Recorded Confirmed Zolpidem [Ambien] 10 mg PO HS 09/20/17 10/08/18 Morphine [Morphine Immediate 15 mg PO Q12 10/08/18 10/08/18 Release Tab] oxyCODONE [oxyCODONE Immediate 10 mg PO QID PRN 10/08/18 10/08/18 Release Tab] Review of Systems - Physician Review All systems were reviewed & negative as marked: Yes - Review of Systems Constitutional: Normal Eyes: Normal ENT: Normal Respiratory: SOB, Other (orthopnea) Cardiovascular: Normal Gastrointestinal: Normal Genitourinary Male: Normal Musculoskeletal: Other (occasional left sided pain) Skin: Normal Neurological: Normal Endocrine: Normal Hemo/Lymphatic: Normal Psychiatric: Normal Physical Exam Vital Signs Reviewed: Yes Vital Signs Temp Pulse Resp BP Pulse Ox 11/06/18 19:36 98.0 F 94 H 18 135/79 100 Temperature: Afebrile Blood Pressure: Normal Pulse: Tachycardic Respiratory Rate: Normal Appearance: Positive for: Well-Appearing, Non-Toxic, Comfortable Pain Distress: Mild Mental Status: Positive for: Alert and Oriented X 3 - Systems Exam Head: Present: Atraumatic, Normocephalic Pupils: Present: PERRL Extroacular Muscles: Present: EOMI Conjunctiva: Present: Normal Mouth: Present: Moist Mucous Membranes Neck: Present: Normal Range of Motion Respiratory/Chest: Present: Clear to Auscultation, Good Air Exchange, Rhonchi (scattered). No: Respiratory Distress, Accessory Muscle Use Cardiovascular: Present: Regular Rate and Rhythm, Normal S1, S2. No: Murmurs Abdomen: No: Tenderness, Distention, Peritoneal Signs Back: Present: Normal Inspection Upper Extremity: Present: Normal Inspection. No: Cyanosis, Edema Lower Extremity: Present: Edema (pedal edema +1) Neurological: Present: GCS=15, Speech Normal Skin: Present: Warm, Dry, Normal Color. No: Rashes Psychiatric: Present: Alert, Oriented x 3, Normal Insight, Normal Concentration Medical Decision Making ED Course and Treatment: 11/06/18 19:48 Impression: 63 year old M presents with complains of shortness of breath w/ exertion and orthopnea for a few days Differential Diagnosis included but are not limited to: -- PE -- CHF -- ACS Plan: -- EKG -- CXR -- Reassess and disposition Prior Visits: Notes and results from previous visits were reviewed. Progress Notes: EKG shows NSR at 94 BPM with non-specific t-wave changes. Interpreted by me. 11/06/18 20:23 CXR Impression: As read by me, increase pulmonary vascular congestion. 11/06/18 20:[address] Cee covering Dr. Sharma who is aware and agrees with the plan. Accepts patient into Dr. Sharma's service. Request Dr. Newberry for consult. Resident to be notified. - Lab Interpretations I have reviewed the lab results: Yes - RAD Interpretation Strip Polisher: ED Physician - EKG Interpretation Interpreted by ED Physician: Yes Type: 12 lead EKG - Scribe Statement The provider has reviewed the documentation as recorded by the Kwasi Walker All medical record entries made by the Karthikeyanibannette were at my direction and personally dictated by me. I have reviewed the chart and agree that the record accurately reflects my personal performance of the history, physical exam, medical decision making, and the department course for this patient. I have also personally directed, reviewed, and agree with the discharge instructions and disposition. Disposition/Present on Arrival - Present on Arrival Any Indicators Present on Arrival: No History of DVT/PE: No History of Uncontrolled Diabetes: No Urinary Catheter: No History of Decub. Ulcer: No History Surgical Site Infection Following: None - Disposition Have Diagnosis and Disposition been Completed?: Yes Diagnosis: CHF (congestive heart failure) Disposition: HOSPITALIZED Disposition Time: 20:33 Patient Plan: Admission Condition: STABLE Discharge Instructions (ExitCare): Heart Failure (ED) Forms: [email or web address] (Bel[place]ian)
[2018-11-06 19:52] LABS: HEMOGLOBIN 11.6 g/dL (14.0-18.0); MEAN CORPUSCULAR HEMOGLOBIN 31.3 pg (25.0-35.0); MEAN CORPUSCULAR HGB CONC 32.6 g/dl (31.0-37.0); MEAN PLATELET VOLUME 10.1 fl (7.0-11.0); RBC 3.71 10^6/uL (3.5-6.1); RED CELL DISTRIBUTION WIDTH 15.1 % (11.5-14.5); WHITE BLOOD COUNT 5.3 10^3/uL (4.5-11.0)
[2018-11-06 20:01] LABS: INR 1.26; PARTIAL THROMBOPLASTIN TIME 36.4 Seconds (26.9-38.3)
[2018-11-06 20:09] LABS: ALB/GLOB RATIO 1.1 (1.1-1.8); ALBUMIN 3.9 g/dL (3.0-4.8); CALCIUM 9.2 mg/dL (8.4-10.5)
[2018-11-06 20:15] LABS: TROPONIN I 0.06 ng/mL
--- NOTE | 2018-11-06 23:11 | CP.PCM.PCO ---
<Guillermo Ames - Last Filed: 11/06/18 23:07> Addendum Addendum: 11/06/18 23:07 Dr Ames House Resident 63M admitted for SOB, hx of CHF, CKD3, GI Polyps last scope 2013. Nursing called for one episode of blood tinged sputum upon cough. Pt examined, de creased breath sounds heard in bilateral lower griffith, second episode of cough produced clear sputum, no blood seen. Pt feeling better, less dyspnea since breathing treatment and lasix 40. Jamel CP SOB FC NV A: one episode of blood tinged sputum, second cough produced clear sputum P: f/u resultas of - VQ scan, repeat CBC w/ diff, FOBT CK PGY1 <Danial Ortega - Last Filed: 11/07/18 04:45> Attending/Attestation - Attestation I have personally seen and examined this patient.: Yes I have fully participated in the care of the patient.: Yes I have reviewed all pertinent clinical information: Yes Notes (Text): 11/07/18 04:43 Patient was seen at bedside. Has no complaints. Had an episode of sputum with blood . Denies sob, chest pain. Medical record was reviewed. Agree with the documentation by resident physician.
[2018-11-07 00:42] LABS: BASO # 0.01 K/mm3 (0.0-2.0); BASO % 0.2 % (0.0-3.0); EOS # 0.2 (0.0-0.7); EOS % 2.9 % (1.5-5.0); HEMOGLOBIN 11.5 g/dL (14.0-18.0); LYMPH # 1.5 (1.2-3.4); LYMPH % 29.2 % (22.0-35.0); MEAN CELL VOLUME 95.7 fl (80.0-105.0); MEAN CORPUSCULAR HGB CONC 32.4 g/dl (31.0-37.0); MEAN PLATELET VOLUME 10.4 fl (7.0-11.0); MONO # 0.4 (0.1-0.6); MONO % 7.5 % (1.0-6.0); RBC 3.71 10^6/uL (3.5-6.1); WHITE BLOOD COUNT 5.2 10^3/uL (4.5-11.0)
--- NOTE | 2018-11-07 04:48 | CP.PCM.PN ---
Subjective - Date & Time of Evaluation Date of Evaluation: 11/07/18 Time of Evaluation: 04:45 - Subjective Subjective: Patient seen at bedside . Had an episode of blood tinged sputum. Medical record was reviewed. This 63 year old male was admitted with sob, orthopnea, occasional left sided chest pain. PMH: HTN Dilated cardiomyopathy. CKD Polysubstance abuse Multiple back surgeries. Seizure UTI. Objective - Vital Signs/Intake and Output Vital Signs (last 24 hours): Temp Pulse Resp BP Pulse Ox 98.1 F 88 20 136/93 H 98 11/07/18 00:01 11/07/18 02:00 11/07/18 00:01 11/07/18 00:01 11/07/18 00:01 Intake and Output: 11/06/18 11/07/18 18:59 06:59 Output Total 650 Balance -650 - Labs Labs: 11/07/18 00:30 11/06/18 19:40 PT 14.0 SECONDS (9.4-12.5) H 11/06/18 19:40 INR 1.26 11/06/18 19:40 APTT 36.4 Seconds (26.9-38.3) 11/06/18 19:40 - Constitutional Appears: Well, No Acute Distress - Head Exam Head Exam: ATRAUMATIC, NORMAL INSPECTION, NORMOCEPHALIC - Eye Exam Eye Exam: Normal appearance - ENT Exam ENT Exam: Normal External Ear Exam - Neck Exam Neck Exam: Normal Inspection - Respiratory Exam Respiratory Exam: NORMAL BREATHING PATTERN - Cardiovascular Exam Cardiovascular Exam: absent: JVD - GI/Abdominal Exam GI & Abdominal Exam: absent: Distended - Rectal Exam Rectal Exam: Deferred - Exam Additional comments: Deferred. - Extremities Exam Extremities Exam: Normal Inspection - Back Exam Back Exam: NORMAL INSPECTION - Neurological Exam Neurological Exam: Alert, Awake, Oriented x3 - Psychiatric Exam Psychiatric exam: Normal Affect, Normal Mood - Skin Skin Exam: Normal Color Assessment and Plan - Assessment and Plan (Free Text) Assessment: Hemoptysis. HTN CHF. Renal insufficiency Elevated BNP Dilated cardiomyopathy. CKD Polysubstance abuse Multiple back surgeries. Seizure UTI. Plan: Follow up VQ scan. CBC with diff. Coag profile. As per PMD.
--- NOTE | 2018-11-07 08:36 | CP.PCM.HP ---
History of Present Illness - History of Present Illness History of Present Illness: This is a 63 year old male with history of hypertension, dilated cardiomyopathy, back pain with multiple back surgeries who came to the ER complaining of shortness of breath worsening over the last 2 weeks and orthopnea. Patient denies chest pain. +swelling of legs Patient denies fever or chills. Present on Admission - Present on Admission Any Indicators Present on Admission: No History of DVT/PE: No History of Uncontrolled Diabetes: No Urinary Catheter: No Decubitus Ulcer Present: No Review of Systems - Constitutional Constitutional: absent: Chills, Fever - Cardiovascular Cardiovascular: As Per HPI - Respiratory Respiratory: As Per HPI - Gastrointestinal Gastrointestinal: absent: Abdominal Pain, Nausea, Vomiting Past Patient History - Infectious Disease Hx of Infectious Diseases: None - Tetanus Immunizations Tetanus Immunization: Unknown - Past Medical History & Family History Past Medical History?: Yes - Past Social History Smoking Status: Light Smoker < 10 Cigarettes Daily - CARDIAC Hx Cardiac Disorders: Yes Hx Congestive Heart Failure: Yes Hx Hypercholesterolemia: Yes Hx Hypertension: Yes - PULMONARY Hx Respiratory Disorders: No - NEUROLOGICAL Hx Neurological Disorder: Yes Hx Seizures: Yes Hx Transient Ischemic Attacks (TIA): Yes - HEENT Hx HEENT Problems: No - RENAL Hx Chronic Kidney Disease: Yes Hx Renal Failure: Yes - ENDOCRINE/METABOLIC Hx Endocrine Disorders: No - HEMATOLOGICAL/ONCOLOGICAL Hx Blood Disorders: No - INTEGUMENTARY Hx Dermatological Problems: No - MUSCULOSKELETAL/RHEUMATOLOGICAL Hx Musculoskeletal Disorders: Yes Hx Back Pain: Yes Hx Falls: No - GASTROINTESTINAL Hx Gastrointestinal Disorders: No - GENITOURINARY/GYNECOLOGICAL Hx Genitourinary Disorders: Yes Hx Prostate Problems: Yes - PSYCHIATRIC Hx Psychophysiologic Disorder: No Hx Substance Use: Yes - SURGICAL HISTORY Hx Surgeries: No Hx Cardiac Catheterization: Yes - ANESTHESIA Hx Anesthesia: Yes Hx Anesthesia Reactions: No Hx Malignant Hyperthermia: No Meds Allergies/Adverse Reactions: Allergies Allergy/AdvReac Type Severity Reaction Status Date / Time No Known Allergies Allergy Verified 02/21/18 17:15 Physical Exam - Constitutional Appears: No Acute Distress - Head Exam Head Exam: ATRAUMATIC, NORMOCEPHALIC - Respiratory Exam Respiratory Exam: Rhonchi, NORMAL BREATHING PATTERN - Cardiovascular Exam Cardiovascular Exam: REGULAR RHYTHM, +S1, +S2 - GI/Abdominal Exam GI & Abdominal Exam: Normal Bowel Sounds, Soft. absent: Tenderness - Extremities Exam Extremities exam: Positive for: pedal edema - Neurological Exam Neurological exam: Alert, Oriented x3 Results - Vital Signs Recent Vital Signs: Last Vital Signs Temp 98.5 F 11/07/18 05:58 Pulse 93 H 11/07/18 07:57 Resp 20 11/07/18 05:58 BP 138/96 H 11/07/18 07:57 Pulse Ox 97 11/07/18 05:58 - Labs Result Diagrams: 11/07/18 00:30 11/06/18 19:40 Labs: Laboratory Results - last 24 hr 11/06/18 11/06/18 11/06/18 19:40 19:40 19:40 WBC 5.3 RBC 3.71 Hgb 11.6 L Hct 35.6 L MCV 96.0 MCH 31.3 MCHC 32.6 RDW 15.1 H Plt Count 140 MPV 10.1 Neut % (Auto) Lymph % (Auto) Kershaw % (Auto) Eos % (Auto) Baso % (Auto) Lymph # (Auto) Kershaw # (Auto) Eos # (Auto) Baso # (Auto) Absolute Neuts (auto) PT 14.0 H INR 1.26 APTT 36.4 D-Dimer, Quantitative 750 H Sodium 143 Potassium 4.2 Chloride 108 H Carbon Dioxide 26 Anion Gap 14 BUN 24 H Creatinine 1.9 H Est GFR ( Amer) 43 Est GFR (Non-Af Amer) 36 Random Glucose 97 Calcium 9.2 Total Bilirubin 1.6 H AST 20 ALT 12 Alkaline Phosphatase 59 Lactate Dehydrogenase 576 Total Creatine Kinase 146 Troponin I 0.06 NT-Pro-B Natriuret Pep 6450 H Total Protein 7.4 Albumin 3.9 Globulin 3.5 Albumin/Globulin Ratio 1.1 11/07/18 00:30 WBC 5.2 RBC 3.71 Hgb 11.5 L Hct 35.5 L MCV 95.7 MCH 31.0 MCHC 32.4 RDW 15.0 H Plt Count 146 MPV 10.4 Neut % (Auto) 60.2 Lymph % (Auto) 29.2 Kershaw % (Auto) 7.5 H Eos % (Auto) 2.9 Baso % (Auto) 0.2 Lymph # (Auto) 1.5 Kershaw # (Auto) 0.4 Eos # (Auto) 0.2 Baso # (Auto) 0.01 Absolute Neuts (auto) 3.11 PT INR APTT D-Dimer, Quantitative Sodium Potassium Chloride Carbon Dioxide Anion Gap BUN Creatinine Est GFR ( Amer) Est GFR (Non-Af Amer) Random Glucose Calcium Total Bilirubin AST ALT Alkaline Phosphatase Lactate Dehydrogenase Total Creatine Kinase Troponin I NT-Pro-B Natriuret Pep Total Protein Albumin Globulin Albumin/Globulin Ratio Assessment & Plan - Assessment and Plan (Free Text) Assessment: Acute exacerbation of congestive heart failure HTN Dilated cardiomyopathy Back pain Plan: Patient with SOB. Patient says last night, he coughed up sputum with blood. V/Q scan has been done. Report is pending. continue IV Lasix. Patient will have cardiology consultation with Dr. Nebwerry. continue Neurontin and Oxycodone as needed for pain. Patient says that he has had 4 back surgeries.
--- NOTE | 2018-11-07 08:58 | RAD ---
Date of service: 11/06/2018 HISTORY: sob COMPARISON: 10/08/2018 TECHNIQUE: 1 view obtained. FINDINGS: LUNGS: No active pulmonary disease. PLEURA: No significant pleural effusion identified, no pneumothorax apparent. CARDIOVASCULAR: No aortic atherosclerotic calcification present. Mild cardiomegaly. Mild vascular congestion OSSEOUS STRUCTURES: No significant abnormalities. VISUALIZED UPPER ABDOMEN: Normal. OTHER FINDINGS: None. IMPRESSION: Mild cardiomegaly and mild vascular congestion
[2018-11-07] MEDS: DOBUTamine 500mg/250ml D5W 500 MG/250 ML BAG IV PRN (09:28)
--- NOTE | 2018-11-07 09:48 | PN ---
DATE: 11/07/2018 HISTORY: The patient is a 63-year-old male who is recurrently noncompliant with medications, who presents with several days of pedal edema and progressive shortness of breath. His dietary issues are recurrent despite multiple consultation discussions. The patient has documented dilated cardiomyopathy which is a nonischemic cardiomyopathy with an EF of 27%. He is chronically on oxycodone. No chest pain, but chronic shortness of breath with minimal exertion. He suffers from hypercholesterolemia. There is a question of a TIA in the past. SOCIAL HISTORY: The patient does not smoke. REVIEW OF SYSTEMS: Dominated by pedal edema as well as exertional dyspnea including dyspnea at rest. PHYSICAL EXAMINATION: VITAL SIGNS: Blood pressure is 138/96, heart rates in the 90s. NECK: Negative JVD. LUNGS: Decreased breath sounds bilaterally. HEART: S1, S2. EXTREMITIES: 1+ edema. DIAGNOSTIC DATA: EKG shows normal sinus rhythm with nonspecific ST-T changes. Laboratories revealed a hemoglobin of 11.5. Chemistries: BUN and creatinine are 24 and 1.9 with an elevated pro ProBNP. IMPRESSION: 1. Acute systolic congestive heart failure. 2. End-stage dilated cardiomyopathy which is nonischemic. 3. Renal insufficiency. 4. Noncompliance with medication. 5. Oxycodone, chronic use. 6. Pedal edema. PLAN: Given these findings, we will increase his Lasix to 40 b.i.d. We will add IV dobutamine. I have discussed with the patient about the need to change his diet to low-salt diet to the fast foods. We will hold his clopidogrel given his recent hemoptysis. Mike Newberry MD
[2018-11-07 09:51] LABS: CALCIUM 9.1 mg/dL (8.4-10.5)
[2018-11-07] MEDS ORDERED: Magnesium Sulfate 2 gm/50 ml 2 GM/50 ML BAG IVPB ONE (10:22)
--- NOTE | 2018-11-07 11:08 | CP.PCM.PCO ---
Physician Communication Note - Physician Communication Note Physician Communication Note: continue dobutamine drip and lasix IV
--- NOTE | 2018-11-07 11:57 | NM ---
Date of service: 11/06/2018 COMPARISON: November 06, 2018. Single-view chest TECHNIQUE: 27.0 mCi technetium 99-m DTPA aerosol. 4.0 mCI technetium 99-m MAA administered intravenously. FINDINGS: VENTILATION COMPONENT: Heterogeneous ventilation. Retention of radionuclide in the tracheobronchial tree and ingestion of radionuclide in the stomach, incidental findings PERFUSION COMPONENT: Heterogeneous distribution of radionuclide. No geographic, segmental, lobar abnormalities apparent on the present examination. IMPRESSION: Low probability ventilation perfusion scan for pulmonary embolism.
[2018-11-07] MEDS: Magnesium Oxide 400 mg Tab UD PO SCH (17:19)
--- NOTE | 2018-11-07 21:03 | CARD ---
APPROVED REPORT Date of service: 11/06/2018 EKG Measurement Heart [id number] <Conclusion> Normal sinus rhythm Possible Left atrial enlargement Nonspecific T wave abnormality High Voltage -LVH.
[2018-11-07] MEDS: oxyCODONE 10 mg Immediate Release Tab PO PRN (22:45)
[2018-11-08] MEDS: DOBUTamine 500mg/250ml D5W 500 MG/250 ML BAG IV PRN ×2 (03:15→22:00)
[2018-11-08 08:11] LABS: BASO # 0.01 K/mm3 (0.0-2.0); BASO % 0.2 % (0.0-3.0); EOS # 0.2 (0.0-0.7); HEMOGLOBIN 11.4 g/dL (14.0-18.0); LYMPH # 1.4 (1.2-3.4); LYMPH % 28.9 % (22.0-35.0); MEAN CELL VOLUME 95.1 fl (80.0-105.0); MEAN CORPUSCULAR HEMOGLOBIN 30.7 pg (25.0-35.0); MEAN CORPUSCULAR HGB CONC 32.3 g/dl (31.0-37.0); MEAN PLATELET VOLUME 10.8 fl (7.0-11.0); MONO # 0.5 (0.1-0.6); MONO % 9.1 % (1.0-6.0); RBC 3.71 10^6/uL (3.5-6.1); WHITE BLOOD COUNT 4.9 10^3/uL (4.5-11.0)
--- NOTE | 2018-11-08 08:11 | CP.PCM.PN ---
Subjective - Date & Time of Evaluation Date of Evaluation: 11/08/18 Time of Evaluation: 07:45 - Subjective Subjective: (covering for Dr. Sharma) Patient is seen this morning. He appears to be breathing comfortably. He denies any change in his stool. Objective - Vital Signs/Intake and Output Vital Signs (last 24 hours): Temp Pulse Resp BP Pulse Ox 97.8 F 79 18 116/79 95 11/08/18 05:34 11/08/18 05:34 11/08/18 05:34 11/08/18 05:34 11/08/18 05:34 Intake and Output: 11/08/18 11/08/18 06:59 18:59 Intake Total 760 Balance 760 - Medications Medications: Current Medications Aspirin (Ecotrin) 81 mg PO DAILY [facility] Last Admin: 11/07/18 09:20 Dose: 81 mg Atorvastatin Calcium (Lipitor) 40 mg PO DIN [facility] Last Admin: 11/07/18 17:19 Dose: 40 mg Furosemide (Lasix) 40 mg IVP BID [facility] Last Admin: 11/07/18 17:19 Dose: 40 mg Gabapentin (Neurontin) 600 mg PO BID [facility]; Protocol Last Admin: 11/07/18 17:19 Dose: 600 mg Gabapentin (Neurontin) 900 mg PO HS [facility]; Protocol Last Admin: 11/07/18 22:42 Dose: 900 mg Dobutamine HCl/Dextrose (Dobutamine/Dextrose 5% 500mg/250ml) 500 mg in 250 mls @ 13.404 mls/hr IV .[id number] PRN PRN Reason: Dizziness Last Admin: 11/08/18 03:15 Dose: 13.404 mls/hr Magnesium Oxide (Mag-Ox) 400 mg PO BID [facility] Last Admin: 11/07/18 17:19 Dose: 400 mg Oxycodone HCl (Oxycodone Immediate Release Tab) 10 mg PO QID PRN PRN Reason: Pain, severe (8-10) Last Admin: 11/07/18 22:45 Dose: 10 mg Tamsulosin HCl (Flomax) 0.4 mg PO HS [facility] Last Admin: 11/07/18 22:42 Dose: 0.4 mg - Labs Labs: 11/07/18 00:30 11/07/18 09:20 PT 14.0 SECONDS (9.4-12.5) H 11/06/18 19:40 INR 1.26 11/06/18 19:40 APTT 36.4 Seconds (26.9-38.3) 11/06/18 19:40 - Constitutional Appears: No Acute Distress - Head Exam Head Exam: ATRAUMATIC, NORMOCEPHALIC - Respiratory Exam Respiratory Exam: Clear to Ausculation Bilateral, NORMAL BREATHING PATTERN - Cardiovascular Exam Cardiovascular Exam: +S1, +S2 - GI/Abdominal Exam GI & Abdominal Exam: Soft, Normal Bowel Sounds. absent: Tenderness - Extremities Exam Extremities Exam: Pedal Edema - Neurological Exam Neurological Exam: Alert, Awake, CN II-XII Intact, Oriented x3 Assessment and Plan - Assessment and Plan (Free Text) Assessment: Acute on Chronic systolic heart failure HTN Chronic back pain + Stool for occult blood Plan: Patient is seen this morning. He denies shortness of breath or chest pain. Cardiology consult appreciated. Patient is on Dobutamine and IV Lasix. continue as per cardiology. Stool for occult blood is positive. Patient's hemoglobin is stable around 11. He says he had a colonoscopy about 5 years ago by a pattern stamper in [place], but he cannot remember the name. He says he had some polyps removed. Will consult Dr. Mcclelland.
[2018-11-08 08:20] LABS: CALCIUM 8.8 mg/dL (8.4-10.5)
--- NOTE | 2018-11-08 09:45 | PN ---
DATE: 11/08/2018 CARDIOLOGY FOLLOWUP SUBJECTIVE: The patient's breathing is much improved on ionotropic therapy. PHYSICAL EXAMINATION VITAL SIGNS: Blood pressure is 116/80 and heart rates in the 80s. NECK: Negative JVD. LUNGS: Clear to auscultation. HEART: Reveals S1 and S2. EXTREMITIES: Without edema. LABORATORY DATA: BUN and creatinine is 33/2.3. Hemoglobin is 11.5. IMPRESSION: 1. Acute systolic congestive heart failure. 2. Dilated cardiomyopathy. 3. Renal insufficiency. 4. Noncompliance. 5. Pedal edema which is better. Given these findings, we will decrease his Lasix to once a day IV and we will continue the IV dobutamine for another 24 hours. Mike Newberry MD
[2018-11-08] MEDS: Magnesium Oxide 400 mg Tab UD PO SCH ×2 (10:12→17:38)
[2018-11-08] MEDS: oxyCODONE 10 mg Immediate Release Tab PO PRN (21:59)
[2018-11-09 06:34] LABS: EOS # 0.2 (0.0-0.7); EOS % 3.4 % (1.5-5.0); HEMOGLOBIN 11.9 g/dL (14.0-18.0); LYMPH # 1.2 (1.2-3.4); LYMPH % 27.3 % (22.0-35.0); MEAN CELL VOLUME 95.6 fl (80.0-105.0); MEAN CORPUSCULAR HGB CONC 32.4 g/dl (31.0-37.0); MEAN PLATELET VOLUME 10.6 fl (7.0-11.0); MONO # 0.4 (0.1-0.6); MONO % 7.9 % (1.0-6.0); RBC 3.84 10^6/uL (3.5-6.1); RED CELL DISTRIBUTION WIDTH 14.7 % (11.5-14.5); WHITE BLOOD COUNT 4.4 10^3/uL (4.5-11.0)
[2018-11-09 08:03] LABS: ALBUMIN 3.7 g/dL (3.0-4.8); CALCIUM 8.8 mg/dL (8.4-10.5)
--- NOTE | 2018-11-09 08:17 | CP.PCM.PN ---
Subjective - Date & Time of Evaluation Date of Evaluation: 11/09/18 Time of Evaluation: 07:45 - Subjective Subjective: (covering for Dr. Sharma) Patient is seen this morning. He is sitting up in the chair. His breathing has improved. Objective - Vital Signs/Intake and Output Vital Signs (last 24 hours): Temp Pulse Resp BP Pulse Ox 98.3 F 102 H 18 107/66 96 11/09/18 05:24 11/09/18 06:00 11/09/18 05:24 11/09/18 05:24 11/09/18 05:24 Intake and Output: 11/09/18 11/09/18 06:59 18:59 Intake Total 720 Balance 720 - Medications Medications: Current Medications Aspirin (Ecotrin) 81 mg PO DAILY [facility] Last Admin: 11/08/18 10:12 Dose: 81 mg Atorvastatin Calcium (Lipitor) 40 mg PO DIN [facility] Last Admin: 11/08/18 17:37 Dose: 40 mg Furosemide (Lasix) 40 mg IVP DAILY [facility] Last Admin: 11/08/18 10:11 Dose: 40 mg Gabapentin (Neurontin) 600 mg PO BID [facility]; Protocol Last Admin: 11/08/18 17:37 Dose: 600 mg Gabapentin (Neurontin) 900 mg PO HS [facility]; Protocol Last Admin: 11/08/18 22:00 Dose: 900 mg Dobutamine HCl/Dextrose (Dobutamine/Dextrose 5% 500mg/250ml) 500 mg in 250 mls @ 13.404 mls/hr IV .[id number] PRN PRN Reason: Dizziness Last Admin: 11/08/18 22:00 Dose: 13.404 mls/hr Magnesium Oxide (Mag-Ox) 400 mg PO BID [facility] Last Admin: 11/08/18 17:38 Dose: 400 mg Oxycodone HCl (Oxycodone Immediate Release Tab) 10 mg PO QID PRN PRN Reason: Pain, severe (8-10) Last Admin: 11/08/18 21:59 Dose: 10 mg Tamsulosin HCl (Flomax) 0.4 mg PO HS [facility] Last Admin: 11/08/18 22:00 Dose: 0.4 mg - Labs Labs: 11/09/18 06:00 11/09/18 06:00 PT 14.0 SECONDS (9.4-12.5) H 11/06/18 19:40 INR 1.26 11/06/18 19:40 APTT 36.4 Seconds (26.9-38.3) 11/06/18 19:40 - Constitutional Appears: No Acute Distress - Head Exam Head Exam: ATRAUMATIC, NORMOCEPHALIC - Respiratory Exam Respiratory Exam: Wheezes, NORMAL BREATHING PATTERN - Cardiovascular Exam Cardiovascular Exam: REGULAR RHYTHM, +S1, +S2 - GI/Abdominal Exam GI & Abdominal Exam: Soft, Normal Bowel Sounds. absent: Tenderness - Neurological Exam Neurological Exam: Alert, Awake, CN II-XII Intact, Oriented x3 Assessment and Plan - Assessment and Plan (Free Text) Assessment: Acute on chronic systolic heart failure CKD Chronic back pain + Stool for occult blood Plan: Patient is on IV dobutamine and IV lasix once a day as per cardiology. He has decreased shortness of breath and improvement of lower extremity swelling, but wheezing heard on auscultation. Will order respiratory treatments. Awaiting GI consultation for stool positive for occult blood. Patient denies seeing any blood in his stool.
[2018-11-09] MEDS: Magnesium Oxide 400 mg Tab UD PO SCH ×2 (10:12→18:00)
[2018-11-09] MEDS: DOBUTamine 500mg/250ml D5W 500 MG/250 ML BAG IV PRN ×2 (11:30→21:20)
[2018-11-09] MEDS: Potassium Chloride 20 mEq/15 ml LIQ UD PO STA ×2 (13:05→13:10)
[2018-11-09] MEDS: Levalbuterol 0.63 MG/3 ML Inhal Soln UD IH SCH ×2 (13:54→19:20)
--- NOTE | 2018-11-09 15:24 | PN ---
DATE: 11/09/2018 CARDIOLOGY FOLLOWUP SUBJECTIVE: The patient's breathing is stable on IV dobutamine. PHYSICAL EXAMINATION: VITAL SIGNS: Blood pressure 105/70, the heart rate is in the 90's. NECK: Negative JVD. LUNGS: Clear to auscultation. HEART: S1 and S2. EXTREMITIES: Improved edema. LABORATORY DATA: Hemoglobin is 11.9. Chemistry: His potassium is 3.6, his BUN and creatinine are 27 and 2.1. IMPRESSION: 1. Acute systolic congestive heart failure. 2. Dilated cardiomyopathy. 3. Pedal edema. 4. Resolution of dyspnea. 5. Renal insufficiency. 6. Recurrent noncompliance with medical advice. Given these findings, we will lower the dobutamine to 2.5 mcg. If the patient remains stable, we will discontinue dobutamine tomorrow. Mike Newberry MD
--- NOTE | 2018-11-09 20:28 | CON ---
DATE: 11/09/2018 GASTROENTEROLOGY CONSULTATION REQUESTING PHYSICIAN: Dr. Traylor. REASON FOR CONSULT: I have been asked to see this 63-year-old male with a history of dilated cardiomyopathy and congestive heart failure, who comes to the hospital with shortness of breath worsening over the last 2 weeks. The patient admits to dyspnea with minimal exertion and orthopnea. The patient also admits to spitting up some blood with cough. I have been asked to see this patient for heme-positive stool. He has chronic anemia as well as chronic renal insufficiency. Again, he denies any rectal bleeding, abdominal pain, nausea, vomiting, or diarrhea. The patient does have a history of colon polyp, requiring right hemicolectomy back [place] [address] Su at the [facility]. PAST MEDICAL HISTORY: Notable for congestive heart failure, dilated cardiomyopathy,hypertension, hypercholesterolemia, seizure disorder, TIA, chronic kidney disease, and chronic back pain. PAST SURGICAL HISTORY: Notable for right hemicolectomy and back surgery. SOCIAL HISTORY: He denies alcohol abuse. He smokes pack of cigarettes daily. FAMILY HISTORY: Noncontributory. REVIEW OF SYSTEMS: A 14-point review of systems is notable for shortness of breath, dyspnea on exertion, orthopnea, and spitting up blood. PHYSICAL EXAMINATION: GENERAL: A well-developed male lying in bed, in no acute distress. VITAL SIGNS: Reveal temperature of 98.3, blood pressure 107/66, and heart rate of 102. HEENT: Reveals sclerae to be white. Conjunctivae pink. NECK: Supple. CHEST: Reveals scattered coarse rales. HEART: Reveals regular rate and rhythm. ABDOMEN: Obese and soft. There is a well-healed vertical scar right at the midline. EXTREMITIES: Show no edema. LABORATORY DATA: Reveals white blood cell count of 4.4 and hemoglobin 11.9. Chemistries reveal BUN of 27 and creatinine 2.1. Chest x-ray shows vascular congestion with cardiomegaly. IMPRESSION: A 63-year-old male with cardiomyopathy, congestive heart failure, chronic anemia most likely secondary to chronic kidney disease without any history of overt gastrointestinal bleeding. He does have heme-positive stool. He does a history of colon polyps. The patient did have an episode of spitting up of blood, so the heme-positive stool may be secondary to swallow of blood. He is being treated for a congestive heart failure with dobutamine, intravenous Lasix. RECOMMENDATIONS: The patient can have an elective colonoscopy with his wastewater treatment supervisor who did his last colonoscopy back in 2013. He does not remember the name, but does have his name at home. There is no evidence of any active bleeding at this time. Neto Mcclelland MD
[2018-11-09] MEDS: oxyCODONE 10 mg Immediate Release Tab PO PRN (21:16)
[2018-11-10 07:35] LABS: BASO # 0.01 K/mm3 (0.0-2.0); BASO % 0.3 % (0.0-3.0); EOS # 0.2 (0.0-0.7); EOS % 5.4 % (1.5-5.0); HEMOGLOBIN 11.4 g/dL (14.0-18.0); LYMPH # 1.1 (1.2-3.4); LYMPH % 30.1 % (22.0-35.0); MEAN CELL VOLUME 95.4 fl (80.0-105.0); MEAN CORPUSCULAR HGB CONC 32.5 g/dl (31.0-37.0); MEAN PLATELET VOLUME 10.4 fl (7.0-11.0); MONO # 0.3 (0.1-0.6); MONO % 9.2 % (1.0-6.0); RBC 3.68 10^6/uL (3.5-6.1); RED CELL DISTRIBUTION WIDTH 14.7 % (11.5-14.5); WHITE BLOOD COUNT 3.7 10^3/uL (4.5-11.0)
[2018-11-10] MEDS: Levalbuterol 0.63 MG/3 ML Inhal Soln UD IH SCH ×2 (07:45→13:13)
[2018-11-10 08:11] LABS: ALB/GLOB RATIO 1.1 (1.1-1.8); ALBUMIN 3.6 g/dL (3.0-4.8); CALCIUM 8.8 mg/dL (8.4-10.5)
[2018-11-10] MEDS: Magnesium Oxide 400 mg Tab UD PO SCH ×2 (09:04→17:21)
[2018-11-10 09:05] VITALS: O2SAT 96
--- NOTE | 2018-11-10 13:57 | PN ---
DATE: 11/10/2018 SUBJECTIVE: The patient's breathing is stable. OBJECTIVE: VITAL SIGNS: Blood pressure 112/70, heart rates in the 90s. NECK: Negative JVD. LUNGS: Without rales. HEART: S1, S2. EXTREMITIES: Without edema. LABORATORY DATA: Hemoglobin is 11.4. Chemistries; potassium is 4.1 with a glucose of 129. IMPRESSION: 1. Resolution of congestive heart failure. 2. Dilated cardiomyopathy. 3. Resolution of pedal edema. 4. Resolution of dyspnea. 5. Renal insufficiency which is better on IV ionotropic therapy. Given these findings, we will discontinue the dobutamine today. From a cardiac perspective, the patient can be discharged. Followup instructions have been given to the patient in detail. Mike Newberry MD
--- NOTE | 2018-11-10 16:39 | CP.PCM.PN ---
<Delfino Monique Thang - Last Filed: 11/10/18 16:35> Subjective - Date & Time of Evaluation Date of Evaluation: 11/10/18 Time of Evaluation: 16:35 - Subjective Subjective: Medicine progress note (Dr. Sharma) - Kayden PGY - 2 Patient seen and examined at bedside. No acute overnight events. Dobutamine drip stopped this AM. Patient denies any complaints. States his sob has improved Objective - Vital Signs/Intake and Output Vital Signs (last 24 hours): Temp Pulse Resp BP Pulse Ox 98 F 96 H 19 118/77 96 11/10/18 12:00 11/10/18 14:00 11/10/18 12:00 11/10/18 12:00 11/10/18 09:05 Intake and Output: 11/10/18 11/10/18 06:59 18:59 Intake Total 1880 Output Total 7 Balance 1873 - Medications Medications: Current Medications Aspirin (Ecotrin) 81 mg PO DAILY [facility] Last Admin: 11/10/18 09:03 Dose: 81 mg Atorvastatin Calcium (Lipitor) 40 mg PO DIN [facility] Last Admin: 11/09/18 17:58 Dose: 40 mg Furosemide (Lasix) 40 mg IVP DAILY [facility] Last Admin: 11/10/18 09:04 Dose: 40 mg Gabapentin (Neurontin) 600 mg PO BID [facility]; Protocol Last Admin: 11/10/18 09:03 Dose: 600 mg Gabapentin (Neurontin) 900 mg PO HS [facility]; Protocol Last Admin: 11/09/18 21:17 Dose: 900 mg Levalbuterol HCl (Xopenex) 0.63 mg IH TIDRESP [facility] Last Admin: 11/10/18 13:13 Dose: 0.63 mg Magnesium Oxide (Mag-Ox) 400 mg PO BID [facility] Last Admin: 11/10/18 09:04 Dose: 400 mg Oxycodone HCl (Oxycodone Immediate Release Tab) 10 mg PO QID PRN PRN Reason: Pain, severe (8-10) Last Admin: 11/09/18 21:16 Dose: 10 mg Tamsulosin HCl (Flomax) 0.4 mg PO HS [facility] Last Admin: 11/09/18 21:16 Dose: 0.4 mg - Labs Labs: 11/10/18 06:30 04/01/19 06:30 PT 14.0 SECONDS (9.4-12.5) H 11/06/18 19:40 INR 1.26 11/06/18 19:40 APTT 36.4 Seconds (26.9-38.3) 11/06/18 19:40 - Constitutional Appears: Well - Head Exam Head Exam: ATRAUMATIC, NORMAL INSPECTION, NORMOCEPHALIC - Eye Exam Eye Exam: EOMI, Normal appearance, PERRL Pupil Exam: NORMAL ACCOMODATION, PERRL - ENT Exam ENT Exam: Mucous Membranes Moist, Normal Exam - Neck Exam Neck Exam: Full ROM, Normal Inspection. absent: Lymphadenopathy - Respiratory Exam Respiratory Exam: Clear to Ausculation Bilateral, NORMAL BREATHING PATTERN - Cardiovascular Exam Cardiovascular Exam: REGULAR RHYTHM, +S1, +S2. absent: Murmur - GI/Abdominal Exam GI & Abdominal Exam: Soft, Normal Bowel Sounds. absent: Tenderness - Exam Bimanual exam: Adenexal Mass, Adnexal, Cervical Motion Tendernes, NORMAL BIMANUAL EXAM, Uterine Enlargement, Uterine Tenderness - Extremities Exam Extremities Exam: Full ROM, Normal Capillary Refill, Normal Inspection. absent: Joint Swelling, Pedal Edema - Back Exam Back Exam: NORMAL INSPECTION - Neurological Exam Neurological Exam: Alert, Awake, CN II-XII Intact, Normal Gait, Oriented x3 - Psychiatric Exam Psychiatric exam: Normal Affect, Normal Mood - Skin Skin Exam: Dry, Intact, Normal Color, Warm Assessment and Plan - Assessment and Plan (Free Text) Assessment: 63 year old male with acute CHF exacerbation Plan Acute CHF Exacerbation - Resolved - Contnue ASA, Lipitor, Lasix - Discontinue dobutamine drip Acute hematochezia - Per GI, patient can have outpatient colonoscopy Hx HTN - Lasix; hold home coreg Hx Dilated Cardiomyopathy Hx Back Pain - Continue Neurontin and Oxycodone <Barber Sharma U - Last Filed: 11/11/18 16:34> Objective - Vital Signs/Intake and Output Vital Signs (last 24 hours): Temp Pulse Resp BP Pulse Ox 97.9 F 88 20 116/83 96 11/10/18 18:00 11/10/18 18:00 11/10/18 18:00 11/10/18 18:00 11/10/18 09:05 - Labs Labs: 11/10/18 06:30 11/10/18 06:30 PT 14.0 SECONDS (9.4-12.5) H 11/06/18 19:40 INR 1.26 11/06/18 19:40 APTT 36.4 Seconds (26.9-38.3) 11/06/18 19:40 Attending/Attestation - Attestation I have personally seen and examined this patient.: Yes I have fully participated in the care of the patient.: Yes I have reviewed all pertinent clinical information, including history, physical exam and plan: Yes Notes (Text): Please see/read my dictated notes.
[2018-11-10 18:37] VITALS: BP 116/83; PULSE 88; RESP 20; TEMP 97.9
--- NOTE | 2018-11-11 04:16 | DS ---
HISTORY OF PRESENT ILLNESS: The patient is seen in room 270, bed 1. The patient is lying in the bed, comfortable, in no distress. The patient does not offer any complaints of chest pain or shortness of breath. PHYSICAL EXAMINATION VITAL SIGNS: Telemetry shows sinus rhythm, heart rate in 90s, 80s, 78, 94. The patient's T-max is 98, blood pressure 118/77, respiration 18 to 19, and O2 sat 96%. HEENT: Head examination is normocephalic, atraumatic. HEENT examination shows pink conjunctivae. Anicteric sclerae. No oropharyngeal lesion. No neck rigidity. CHEST: Kyphosis. LUNGS: Shows no audible crackle, rales or wheezing. CARDIOVASCULAR: S1, S2, regular rhythm. Positive systolic murmur left sternal border, right second intercostal space, left second intercostal space. ABDOMEN: Soft. Positive bowel sounds. No palpable hepatosplenomegaly. GENITALIA: Male. RECTAL: Deferred. EXTREMITIES: No pitting edema. No calf tenderness. No Talia's sign. NEUROLOGIC: The patient is alert, awake and oriented x3. Cranial nerves II through XII intact. Gait examination not tested. MUSCULOSKELETAL: Shows a body mass index of 30. DIAGNOSTICS: 11/10/2018; WBC 3.7, hemoglobin/hematocrit 11.4, 35.1, platelet 158. Sodium 140, potassium 4.1, chloride 104, CO2 of 38, anion gap 11, BUN 25, creatinine 2.0, GFR 41, glucose 129, calcium 8.8, phosphorus 3.1, magnesium 2.4. LFTs are normal. Stool occult blood was positive. Patient's VQ scan was negative, low probability for PE. Chest x-ray shows cardiomegaly, mild vascular congestion. EKG was done. EKG shows sinus rhythm, left atrial enlargement, nonspecific T-wave abnormalities. Left ventricular hypertrophy. CONSULTANTS: The patient was seen by Cardiology, Gastroenterology. Their recommendations were reviewed. FINAL IMPRESSION, PLAN AND DISCHARGE DIAGNOSIS: 1. Symptomatic recurrent acute exacerbation of systolic congestive heart failure and dilated cardiomyopathy with symptoms of shortness of breath, dyspnea on exertion and orthopnea. 2. Hypertension. 3. History of poor compliance. 4. Leukopenia. 5. Normocytic anemia. 6. Elevated D-dimer of 750. 7. Chronic kidney disease, stage 3. 8. Hypomagnesemia. 9. Acute recurrent systolic congestive heart failure with elevated ProBNP. 10. Fecal occult blood positive, etiology undetermined. 11. Left ventricular hypertrophy with nonspecific T-wave abnormality. 12. Cardiomegaly with pulmonary vascular congestion. 13. Acute systolic recurrent congestive heart failure (resolved). 14. Anemia of chronic kidney disease. 15. History of colonic polyp. 16. Questionable hemoptysis. 17. Chronic narcotic-dependent pain syndrome. 18. History of noncompliance. 19. History of recent cerebrovascular infarct. 20. Prostatic hypertrophy. 21. Hyperlipidemia. 22. Hypomagnesemia. PLAN: At this time, the patient's IV dobutamine drip has been discontinued. The patient has been cleared by Cardiology for discharge. The patient is to be discharged home on following medications; Ecotrin 81 mg daily, Ambien 10 mg at bedtime p.r.n., Coreg 12.5 mg twice a day, Flomax 0.4 mg daily, Lasix 20 mg p.o. daily, Lipitor 40 mg daily, magnesium oxide 400 mg twice a day. The patient is to resume his Plavix 75 mg daily, Neurontin 900 mg at bedtime and Neurontin 600 mg twice a day. The patient is to resume his oxycodone IR 10 mg q.i.d. p.r.n. The patient is to be discharged home. Next discharge followup with Dr. Sharma this week. The patient's discharge medications as per updated ambulatory orders plus the new script. The patient is advised and updated about his medical condition, diagnosis, the patient is explained about his medical condition, diagnosis, treatment plan, management plan, outpatient followup in layman's language. All questions concerned answered. Time spent in the discharge process 45 minutes. Dictated and electronically signed, not read. Barber Sharma MD
== END 2018-11-10 21:36 | disposition home or self-care (01) | DRG 291 ==
LOC: ED 19:14 → ERH 20:31 → 2RSO 22:29
PROVIDERS: ADMIT Internal Medicine; ATTEND Internal Medicine
PROC: 3E0F7GC Introduction of Other Therapeutic Substance into Respiratory Tract, Via Natural or Artificial Opening (ICD-10-PCS; principal; 2018-11-09)
DX: I13.0 Hypertensive heart and chronic kidney disease with heart failure and stage 1 through stage 4 chronic kidney disease, or unspecified chronic kidney disease (principal); I50.23 Acute on chronic systolic (congestive) heart failure; R04.2 Hemoptysis; F11.20 Opioid dependence, uncomplicated; I42.0 Dilated cardiomyopathy; N18.3 Chronic kidney disease, stage 3 (moderate); D63.1 Anemia in chronic kidney disease; G89.29 Other chronic pain; N40.0 Benign prostatic hyperplasia without lower urinary tract symptoms; E78.00 Pure hypercholesterolemia, unspecified; E83.42 Hypomagnesemia; G40.909 Epilepsy, unspecified, not intractable, without status epilepticus; M54.9 Dorsalgia, unspecified; F17.210 Nicotine dependence, cigarettes, uncomplicated; Z86.73 Personal history of transient ischemic attack (TIA), and cerebral infarction without residual deficits; Z91.14 Patient's other noncompliance with medication regimen; Z91.19 Patient's noncompliance with other medical treatment and regimen; Z86.010 Personal history of colon polyps; Z87.891 Personal history of nicotine dependence

== ENCOUNTER 2018-11-24 18:56 | Inpatient (IN) | payer MEDICARE, OTHER ==
[2018-11-24] MEDS ORDERED: Sodium Chloride 0.9% 1,000 ML IV STA (19:22)
--- NOTE | 2018-11-24 19:23 | ED PDOC ---
Arrival/HPI - General Chief Complaint: Altered Mental Status Historian: Patient - History of Present Illness Narrative History of Present Illness (Text): 11/24/18 19:19 63 year old M with pmh of opioid abuse, hypertension, dilated cardiomyopathy and CHF presents complaining of dizziness and eye floaters today for a couple minutes. Patient reports that he didn't think much of the symptoms but advised him to present to the emergency department as it persisted. Patient denies any fevers, chills, headache, chest pain, shortness of breath, dyspnea on exertion, cough, diaphoresis, abdominal pain, nausea, vomiting, diarrhea, back pain, neck pain, or any other complaint. PCP: Dr. Sharma Time/Duration: Prior to Arrival Symptom Onset: Sudden Symptom Course: Unchanged Activities at Onset: Light Context: Home Past Medical History - Provider Review Nursing Documentation Reviewed: Yes - Infectious Disease Hx of Infectious Diseases: None - Tetanus Immunization Tetanus Immunization: Unknown - Cardiac Hx Cardiac Disorders: Yes Hx Congestive Heart Failure: Yes Hx Hypertension: Yes - Pulmonary Hx Respiratory Disorders: No - Neurological Hx Neurological Disorder: Yes Hx Seizures: Yes Hx Transient Ischemic Attacks (TIA): Yes - HEENT Hx HEENT Disorder: No - Renal Hx Renal Disorder: Yes Hx Renal Failure: Yes - Endocrine/Metabolic Hx Endocrine Disorders: No - Hematological/Oncological Hx Blood Disorders: No - Integumentary Hx Dermatological Disorder: No - Musculoskeletal/Rheumatological Hx Musculoskeletal Disorders: Yes Hx Back Pain: Yes Hx Falls: No - Gastrointestinal Hx Gastrointestinal Disorders: No - Genitourinary/Gynecological Hx Genitourinary Disorders: Yes Hx Prostate Problems: Yes - Psychiatric Hx Psychophysiologic Disorder: No Hx Substance Use: Yes - Surgical History Hx Cardiac Catheterization: Yes - Anesthesia Hx Anesthesia: Yes Hx Anesthesia Reactions: No Hx Malignant Hyperthermia: No - Suicidal Assessment Feels Threatened In Home Enviroment: No Family/Social History - Physician Review Nursing Documentation Reviewed: Yes Family/Social History: Unknown Family HX Smoking Status: Heavy Smoker > 10 Cigarettes Daily Hx Alcohol Use: No Hx Substance Use: Yes Substance used: heroin Hx Substance Use Treatment: No Allergies/Home Meds Allergies/Adverse Reactions: Allergies No Known Allergies Allergy (Verified 02/21/18 17:15) Home Medications: Home Meds Medication Instructions Recorded Confirmed Zolpidem [Ambien] 10 mg PO HS 09/20/17 11/24/18 Docusate [Colace] 100 mg PO TID 11/24/18 11/24/18 Ergocalciferol [Drisdol 50,000 1 cap PO Q36H 11/24/18 11/24/18 Intl Units Cap] Furosemide [Lasix] 20 mg PO BID 11/24/18 11/24/18 Morphine Sulfate [Morphabond ER] 1 tab PO Q12H 11/24/18 11/24/18 Pantoprazole [Protonix EC Tab] 40 mg PO DAILY 11/24/18 11/24/18 Review of Systems - Physician Review All systems were reviewed & negative as marked: Yes - Review of Systems Constitutional: absent: Fevers Respiratory: absent: SOB, Cough Cardiovascular: absent: Chest Pain, Palpitations Gastrointestinal: absent: Abdominal Pain, Diarrhea, Nausea, Vomiting Genitourinary Male: absent: Dysuria Musculoskeletal: absent: Arthralgias, Back Pain, Myalgias Skin: absent: Rash, Cellulitis Neurological: Dizziness. absent: Headache Physical Exam Vital Signs Reviewed: Yes Vital Signs Temp Pulse Resp BP Pulse Ox 11/24/18 19:15 97.6 F 93 H 18 148/106 H 100 Temperature: Afebrile Blood Pressure: Hypertensive Pulse: Regular Respiratory Rate: Normal Appearance: Positive for: Well-Appearing, Non-Toxic, Comfortable Pain Distress: Mild Mental Status: No: Alert and Oriented X 3 (A & 0 x1) - Systems Exam Head: Present: Atraumatic, Normocephalic Pupils: Present: PERRL Extroacular Muscles: Present: EOMI Conjunctiva: Present: Normal Mouth: Present: Moist Mucous Membranes Neck: Present: Normal Range of Motion Respiratory/Chest: Present: Clear to Auscultation, Good Air Exchange. No: Respiratory Distress, Accessory Muscle Use Cardiovascular: Present: Regular Rate and Rhythm, Normal S1, S2. No: Murmurs Abdomen: No: Tenderness, Distention, Peritoneal Signs Back: Present: Normal Inspection Upper Extremity: Present: Normal Inspection. No: Cyanosis, Edema Lower Extremity: Present: Normal Inspection. No: Edema Neurological: Present: GCS=15, CN II-XII Intact, Speech Normal Skin: Present: Warm, Dry, Normal Color. No: Rashes Psychiatric: Present: Alert. No: Oriented x 3 (0x1) Medical Decision Making ED Course and Treatment: 11/24/18 19:24 Impression: 63 year old M presents with complaining of dizziness and eye floaters today for a couple minutes NIHSS: 5 tPA: NOT given Plan: -- Labs --Ativan -- CT Head w/o contrast -- EKG -- Chest X-ray -- Urinalysis --UDS --Straight cath --Neurology Consult -- Reassess and disposition Prior Visits: Notes and results from previous visits were reviewed. On patient's previous admission on 10/10/2018, he was noted to have similar presentation with MRI of the brain revealing a left sided acute posterior frontal infarct. Progress Notes: 11/24/18 19:53 Patient noted to have increase anxiety and confusion. Ativan ordered and given. Patient evaluated by Dr. Sharma(PCP) who advises for TIA/CVA workup. 11/24/18 20:[address] and noted to have slurred speech, increased drowsiness and unable to follow commands. Code stroke called. CTH reviewed with no evidence of hemorrhage. 11/24/18 20:[address] Amos(neurology) who states patient is ineligble for tPA due to having an acute infarct in the last 3 months. He reccomends permissive hypertension as well as MRI brain and VEEG. Call placed to Dr. Sharma. 11/24/18 20:[address] Sharma who requests Narcan to be administered to patient and for patient to be straight cath'd for urine drug screen. He requests for the medical manager to be called for his admission. - Lab Interpretations Lab Results: 11/24/18 19:14 11/24/18 19:14 Lab Results 11/24/18 19:14: Sodium 143, Potassium 4.0, Chloride 104, Carbon Dioxide 30, Anion Gap 13, BUN 21, Creatinine 2.0 H, Est GFR ( Amer) 41, Est GFR (Non- Af Amer) 34, Random Glucose 131 H, Calcium 9.2, Phosphorus 3.3, Magnesium 1.6 L, Total Bilirubin 0.4, AST 19, ALT 14, Alkaline Phosphatase 55, Troponin I 0.04 D , NT-Pro-B Natriuret Pep 3300 H, Total Protein 7.3, Albumin 4.2, Globulin 3.1, Albumin/Globulin Ratio 1.3 11/24/18 19:14: PT 13.7 H, INR 1.23, APTT 33.1 11/24/18 19:14: WBC 5.6 D, RBC 4.06, Hgb 12.5 L, Hct 38.7 L, MCV 95.3, MCH 30.8, MCHC 32.3, RDW 14.0, Plt Count 186, MPV 10.2, Neut % (Auto) 50.8, Lymph % (Auto) 37.2 H, [place] % (Auto) 6.8 H, Eos % (Auto) 5.0, Baso % (Auto) 0.2, Lymph # (Auto) 2.1, [place] # (Auto) 0.4, Eos # (Auto) 0.3, Baso # (Auto) 0.01, Absolute Neuts (auto) 2.84 11/24/18 19:11: POC Glucose (mg/dL) 147 H I have reviewed the lab results: Yes - RAD Interpretation Narrative RAD Interpretations (Text): 11/24/18 20:52 CT Head Without IV contrast. CLINICAL HISTORY: AMS TECHNIQUE: Axial computed tomography images of the head/brain without intravenous contrast. COMPARISON: None provided. FINDINGS: BRAIN: No acute intraparenchymal hemorrhage. No mass lesion. No CT evidence for acute territorial infarct. No midline shift or extra-axial collections. A zone of decreased attenuation is seen in the posterior left parietal region thought compatible with subacute ischemic infarction. There are bilateral p eriventricular and subcortical white matter hypolucencies compatible with mild chronic microvascular disease. VENTRICLES: No hydrocephalus. ORBITS: The orbits are unremarkable. SINUSES AND MASTOIDS: There is mucoperiosteal thickening noted in the sphenoid, bilateral maxillary, bilateral ethmoid, and bilateral frontal sinuses compatible with pansinusitis. The mastoid air cells are clear. BONES: No fracture. SOFT TISSUES: Unremarkable. IMPRESSION: 1. Mild chronic microvascular disease. 2. A zone of decreased attenuation noted in the posterior left parietal region thought compatible with subacute ischemic infarction. 3. Evidence of pansinusitis. Pbx Operator: Radiologist - EKG Interpretation EKG Interpretation (Text): 11/24/18 19:46 EKG shows NSR @ 99 BPM, LVH, Peaked T waves in v2-v3. Interpreted by me. Interpreted by ED Physician: Yes Type: 12 lead EKG rTPA Inclusion/Exclusion - Refusal of Treatment Patient Refused Treatment: No - Inclusion Criteria for Altepase All of the below criteria for inclusion were reviewed: Yes Patient is 18 years or Older: Yes The Clinical Diagnosis of Ischemic Stroke That is Causing a Potentially Disabling Neurological Deficit: Yes Time of Onset is Well Established to be Less Than 270 Minute Before Treatment Would Begin: Yes Risk/Benefit Discussed With Patient/Family Member Present: Yes - Exclusion Criteria for Altepase Bleeding Diathesis Including but not limited to: Not Applicable - Warning to TPA With Conditions Following Conditions Weighed Against Anticipated Benefit: Yes Condition: Patients currently receiving anticoagulants Additional Condition (For 3-4.5 Hour Window): Prior Stroke and Diabetes NIHSS Stroke Scale 3 - Date/Time Evaluation Performed Date Performed: 11/24/18 Time Performed: 20:01 When Was NIHSS Performed: Baseline - How Severe is the Stroke Level of Consciousness: 1=Drowsy LOC to Questions: 1=One correct LOC to commands: 1=Obeys one correctly Best Gaze: 0=Normal Visual: 0=No visual loss Facial: 0=Normal Motor Arm - Left: 0=No drift Motor Arm - Right: 0=No drift Motor Leg - Left: 0=No drift Motor Leg - Right: 0=No drift Limb Ataxia: 0=Absent Sensory: 0=Normal Best Language: 1=Mild to moderate aphasia Dysarthia: 1=Mild to moderate slurring Extinction & Inattention (Neglect): 0=Normal, no object Score: 5 - Scribe Statement The provider has reviewed the documentation as recorded by the Kwasi Walker All medical record entries made by the Karthikeyanibannette were at my direction and personal ly dictated by me. I have reviewed the chart and agree that the record accurately reflects my personal performance of the history, physical exam, medical decision making, and the department course for this patient. I have also personally directed, reviewed, and agree with the discharge instructions and disposition. Disposition/Present on Arrival - Present on Arrival History of DVT/PE: No History of Uncontrolled Diabetes: No Urinary Catheter: No History of Decub. Ulcer: No History Surgical Site Infection Following: None - Disposition
[2018-11-24 19:34] LABS: BASO # 0.01 K/mm3 (0.0-2.0); BASO % 0.2 % (0.0-3.0); EOS # 0.3 (0.0-0.7); HEMOGLOBIN 12.5 g/dL (14.0-18.0); LYMPH # 2.1 (1.2-3.4); LYMPH % 37.2 % (22.0-35.0); MEAN CELL VOLUME 95.3 fl (80.0-105.0); MEAN CORPUSCULAR HEMOGLOBIN 30.8 pg (25.0-35.0); MEAN CORPUSCULAR HGB CONC 32.3 g/dl (31.0-37.0); MEAN PLATELET VOLUME 10.2 fl (7.0-11.0); MONO # 0.4 (0.1-0.6); MONO % 6.8 % (1.0-6.0); RBC 4.06 10^6/uL (3.5-6.1); WHITE BLOOD COUNT 5.6 10^3/uL (4.5-11.0)
[2018-11-24] MEDS ORDERED: Naloxone 0.4 mg/ml Inj (Adult) IVP ONE (19:40)
[2018-11-24 19:42] LABS: INR 1.23; PARTIAL THROMBOPLASTIN TIME 33.1 Seconds (26.9-38.3); PROTHROMBIN TIME 13.7 SECONDS (9.4-12.5)
[2018-11-24 19:50] LABS: ALB/GLOB RATIO 1.3 (1.1-1.8); ALBUMIN 4.2 g/dL (3.0-4.8); CALCIUM 9.2 mg/dL (8.4-10.5)
[2018-11-24 19:56] LABS: TROPONIN I 0.04 ng/mL
[2018-11-24] MEDS ORDERED: Ergocalciferol 50,000 Intl Units Cap PO SCH (20:30)
[2018-11-24 20:45] LABS: PH,URINE 6.5 (4.7-8.0); URINE APPEARANCE CLEAR (CLEAR); URINE BILIRUBIN NEGATIVE (NEGATIVE); URINE BLOOD NEGATIVE (NEGATIVE); URINE COLOR YELLOW (YELLOW); URINE GLUCOSE (UA) NEGATIVE (NEGATIVE); URINE LEUKOCYTE ESTERASE NEGATIVE Leu/uL (NEGATIVE); URINE PROTEIN NEGATIVE mg/dL (<30 mg/dL); URINE UROBILINOGEN 0.2 E.U./dL (<1 E.U./dL)
[2018-11-24] MEDS ORDERED: Magnesium Sulfate 2 gm/50 ml 2 GM/50 ML BAG IVPB ONE (20:51)
[2018-11-24 21:14] LABS: BARBITURATES, UR NEGATIVE (NEGATIVE); BENZODIAZEPINES, UR NEGATIVE (NEGATIVE); OPIATES, UR POSITIVE (NEGATIVE); PHENCYCLIDINE, UR NEGATIVE (NEGATIVE)
--- NOTE | 2018-11-24 23:05 | CP.PCM.HP ---
History of Present Illness - History of Present Illness History of Present Illness: PGY1 Medicine History and Physical Exam Note for Dr. Sharma This is a 63-year-old M with PMH of polysubstance abuse, HTN, CHF, dilated cardiomyopathy, CKD, and multiple back surgeries presents [place] [facility] for dizz iness and eye floaters today. Patient reports this lasted for a few minutes, and subsequently resolved. However, Patient states his compelled him to come to ED for evaluation. Patient otherwise denies fevers, chills, nausea, vomiting, diaphoresis, diarrhea, headache, chest pain, shortness of breath, dyspnea on exertion, cough, abdominal pain, back pain, and/or neck pain. PMH: polysubstance abuse, HTN, CHF, dilated cardiomyopathy, CKD, and multiple back surgeries PSH: Rotator cuff repair, hemorroidectomy, 4 back surgeries, polypectomy Meds: Per MAR Social Hx: Heavy smoker > 10 cig / day Family Hx: Diabetes Mellitus; Father - Diabetes Mellitus; denies any family hx of cardiac problems PMD: Dr. Sharma Present on Admission - Present on Admission Any Indicators Present on Admission: No History of DVT/PE: No History of Uncontrolled Diabetes: No Urinary Catheter: No Decubitus Ulcer Present: No Review of Systems - Review of Systems All systems: reviewed and no additional remarkable complaints except (as per HPI) Past Patient History - Infectious Disease Hx of Infectious Diseases: None - Tetanus Immunizations Tetanus Immunization: Unknown - Past Medical History & Family History Past Medical History?: Yes - Past Social History Smoking Status: Heavy Smoker > 10 Cigarettes Daily - CARDIAC Hx Cardiac Disorders: Yes Hx Congestive Heart Failure: Yes Hx Hypertension: Yes - PULMONARY Hx Respiratory Disorders: No - NEUROLOGICAL Hx Neurological Disorder: Yes Hx Seizures: Yes Hx Transient Ischemic Attacks (TIA): Yes - HEENT Hx HEENT Problems: No - RENAL Hx Chronic Kidney Disease: Yes Hx Renal Failure: Yes - ENDOCRINE/METABOLIC Hx Endocrine Disorders: No - HEMATOLOGICAL/ONCOLOGICAL Hx Blood Disorders: No - INTEGUMENTARY Hx Dermatological Problems: No - MUSCULOSKELETAL/RHEUMATOLOGICAL Hx Musculoskeletal Disorders: Yes Hx Back Pain: Yes Hx Falls: No - GASTROINTESTINAL Hx Gastrointestinal Disorders: No - GENITOURINARY/GYNECOLOGICAL Hx Genitourinary Disorders: Yes Hx Prostate Problems: Yes - PSYCHIATRIC Hx Psychophysiologic Disorder: No Hx Substance Use: Yes - SURGICAL HISTORY Hx Cardiac Catheterization: Yes - ANESTHESIA Hx Anesthesia: Yes Hx Anesthesia Reactions: No Hx Malignant Hyperthermia: No Meds Allergies/Adverse Reactions: Allergies Allergy/AdvReac Type Severity Reaction Status Date / Time No Known Allergies Allergy Verified 02/21/18 17:15 Physical Exam - Constitutional Appears: Non-toxic, No Acute Distress - Head Exam Head Exam: ATRAUMATIC, NORMAL INSPECTION, NORMOCEPHALIC - Eye Exam Eye Exam: EOMI, Normal appearance, PERRL. absent: Conjunctival injection, Nystagmus, Periorbital swelling, Periorbital tenderness Pupil Exam: NORMAL ACCOMODATION - ENT Exam ENT Exam: Mucous Membranes Moist, Normal Exam - Neck Exam Neck exam: Positive for: Normal Inspection. Negative for: Meningismus - Respiratory Exam Respiratory Exam: NORMAL BREATHING PATTERN. absent: Accessory Muscle Use, Respiratory Distress - Cardiovascular Exam Cardiovascular Exam: REGULAR RHYTHM, +S1, +S2 - GI/Abdominal Exam GI & Abdominal Exam: absent: Distended, Firm, Guarding, Tenderness - Extremities Exam Extremities exam: Positive for: full ROM, normal capillary refill, normal inspection. Negative for: pedal edema, tenderness - Back Exam Back exam: FULL ROM - Neurological Exam Neurological exam: Alert, CN II-XII Intact Additional comments: No pronator drift MS 5/5 in bilateral lower extremities; 5/5 in bilateral upper extremities Gross sensation in tact A&Ox4 - Psychiatric Exam Psychiatric exam: Normal Affect, Normal Mood - Skin Skin Exam: Dry, Intact, Normal Color, Warm Results - Vital Signs Recent Vital Signs: Last Vital Signs Temp 97.6 F 11/24/18 19:15 Pulse 91 H 11/24/18 21:40 Resp 18 11/24/18 21:35 BP 128/80 11/24/18 21:41 Pulse Ox 98 11/24/18 21:35 - Labs Result Diagrams: 11/24/18 19:14 11/24/18 19:14 Labs: Laboratory Results - last 24 hr 11/24/18 11/24/18 11/24/18 19:11 19:14 19:14 WBC 5.6 D RBC 4.06 Hgb 12.5 L Hct 38.7 L MCV 95.3 MCH 30.8 MCHC 32.3 RDW 14.0 Plt Count 186 MPV 10.2 Neut % (Auto) 50.8 Lymph % (Auto) 37.2 H [place] % (Auto) 6.8 H Eos % (Auto) 5.0 Baso % (Auto) 0.2 Lymph # (Auto) 2.1 [place] # (Auto) 0.4 Eos # (Auto) 0.3 Baso # (Auto) 0.01 Absolute Neuts (auto) 2.84 PT 13.7 H INR 1.23 APTT 33.1 Sodium Potassium Chloride Carbon Dioxide Anion Gap BUN Creatinine Est GFR ( Amer) Est GFR (Non-Af Amer) POC Glucose (mg/dL) 147 H Random Glucose Calcium Phosphorus Magnesium Total Bilirubin AST ALT Alkaline Phosphatase Troponin I NT-Pro-B Natriuret Pep Total Protein Albumin Globulin Albumin/Globulin Ratio Urine Color Urine Appearance Urine pH Ur Specific [place] Urine Protein Urine Glucose (UA) Urine Ketones Urine Blood Urine Nitrate Urine Bilirubin Urine Urobilinogen Ur Leukocyte Esterase Urine Opiates Screen Urine Methadone Screen Ur Barbiturates Screen Ur Phencyclidine Scrn Ur Amphetamines Screen U Benzodiazepines Scrn U Oth Cocaine Metabols U Cannabinoids Screen 11/24/18 11/24/18 11/24/18 19:14 20:30 20:30 WBC RBC Hgb Hct MCV MCH MCHC RDW Plt Count MPV Neut % (Auto) Lymph % (Auto) [place] % (Auto) Eos % (Auto) Baso % (Auto) Lymph # (Auto) [place] # (Auto) Eos # (Auto) Baso # (Auto) Absolute Neuts (auto) PT INR APTT Sodium 143 Potassium 4.0 Chloride 104 Carbon Dioxide 30 Anion Gap 13 BUN 21 Creatinine 2.0 H Est GFR ( Amer) 41 Est GFR (Non-Af Amer) 34 POC Glucose (mg/dL) Random Glucose 131 H Calcium 9.2 Phosphorus 3.3 Magnesium 1.6 L Total Bilirubin 0.4 AST 19 ALT 14 Alkaline Phosphatase 55 Troponin I 0.04 D NT-Pro-B Natriuret Pep 3300 H Total Protein 7.3 Albumin 4.2 Globulin 3.1 Albumin/Globulin Ratio 1.3 Urine Color Yellow Urine Appearance Clear Urine pH 6.5 Ur Specific [place] 1.010 Urine Protein Negative Urine Glucose (UA) Negative Urine Ketones Negative Urine Blood Negative Urine Nitrate Negative Urine Bilirubin Negative Urine Urobilinogen 0.2 Ur Leukocyte Esterase Negative Urine Opiates Screen Positive H Urine Methadone Screen Negative Ur Barbiturates Screen Negative Ur Phencyclidine Scrn Negative Ur Amphetamines Screen Negative U Benzodiazepines Scrn Negative U Oth Cocaine Metabols Negative U Cannabinoids Screen Negative Assessment & Plan - Assessment and Plan (Free Text) Assessment: Dizziness and blurred vision; unknown etiology - R/O new stroke: CODE STROKE called in ED - Neurology consulted (Dr. Amos); recommendations appreciated - CT head without contrast impression: mild chronic microvascular disease, decreased attenuation in posterior L parietal region compatible with subacute infarction, evidence of pansinusitis - Admit to telemetry - F/U CMP, Mg, Phos, Free T4, TSH, vitamin D, HgbA1C, lipid panel, RPR - UDS: positive for opioid; Narcan administered - Neuro checks Q2 - Elevated bed at 30 degrees - EEG ordered - Aspiration precautions - OOB with assist - PT/OT eval and treat - Swallow eval and treat - HHD - Continue home meds per OCT HTN - Continue home meds - Cardiology consulted (Dr. Newberry); recommendations appreciated - Monitor history of CKD - Continue IV fluids - Re-check CMP in AM PPx: - GI: pepcid 20mg po daily - DVT: SCDs Discussed with Dr. Edith Buckley
[2018-11-24] MEDS: POLYETHYLENE GLYCOL 3350 17 GM/Dose PACKET PO SCH (23:52)
[2018-11-25 02:01] VITALS: BMI 30.4
--- NOTE | 2018-11-25 02:59 | HP ---
DATE OF EXAM: 11/24/2018 HISTORY OF PRESENT ILLNESS: The patient is a 63-year-old male who walked in with the patient's . According to the patient's , the patient has been confused, disoriented and dizzy. According to the ER physician evaluation, the patient came to the emergency room accompanied by the patient's complaining of dizziness, eye floaters. The patient was found to be confused, disoriented in the emergency room. The patient was examined in the stretcher in bed 4. CODE STATUS: Full code. ALLERGIES NONE. VITAL SIGNS: Height is 5 feet 7 inches, weight is 195 pounds. BMI is 30. OCCUPATIONAL HISTORY: Disabled software quality automation engineer. FAMILY HISTORY Positive for hypertension, coronary artery disease. HOME MEDICATIONS: The patient's most updated home medications as per the most recent office visit records; Ambien 10 mg at bedtime p.r.n., Colace 100 mg three times a day, Drisdol 50,000 units once to twice a week, Ecotrin 81 mg daily, Flomax 0.4 mg daily, Lasix 20 mg twice a day, Coreg 12.5 mg twice a day, Lipitor 40 mg daily, magnesium oxide 400 mg twice a day, Neurontin 600 mg twice a day and Neurontin 900 mg at bedtime, Plavix 75 mg daily, Protonix 40 mg daily, morphine sulfate ER 15 mg every 12 hours. SOCIAL HISTORY: The patient's social history is positive for substance abuse, positive for former smoker, positive for alcohol use. PAST MEDICAL AND SURGICAL HISTORY: History of cerebral infarct, history of insomnia, history of narcotic dependent pain syndrome, history of dilated cardiomyopathy, history of hypovitaminosis D, history of prostatic hypertrophy, history of hyperlipidemia, history of chronic constipation, history of hypomagnesemia, history of narcotic dependent chronic constipation, history of neuropathy, history of lumbar herniated discs, history of insomnia, history of cerebral infarct, history of opioid use disorder, history of acute kidney injury with underlying chronic kidney disease, history of hyperkalemia, history of mild normocytic anemia, history of transient neutropenia, history of poor compliance and noncompliance, history of hypoxemia, history of systolic congestive heart failure with an elevated pro BNP, history of proteinuria, history of urine drug screen positive for opiates, cocaine and benzodiazepine, history of an internal carotid artery origin stenosis of less than 40%, history of bilateral renal cysts, history of posterior left frontal lobe acute infarct in 10/2018, history of left posterior frontal lobe deep white matter acute infarct, history of left parietal lobe chronic encephalomalacia, history of cardiomyopathy with left ventricular ejection fraction of 27% and severe LV dysfunction and diffuse hypokinesis, history of cardiomegaly, history of hepatic steatosis and fatty infiltration of the liver, history 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, history of bilateral renal cysts, history of urinary retention, history of degenerate joint disease with lumbar spine surgery at L5-S1, history of degenerative joint disease of the hips, history of umbilical and inguinal hernia, history of left ventricular ejection fraction of 21%, history of [id number] tricuspid regurgitation, history of moderate pulmonary hypertension, history of opiate use disorder, history of opiate withdrawal, history of acute ischemic left frontal lobe embolic infarcts, history of new onset seizure, history of left frontal lobe deep white matter acute infarct with encephalomalacia, history of dilated cardiomyopathy, history of questionable seizure and generalized tonic-clonic seizure, history of rhabdomyolysis. PHYSICAL EXAMINATION GENERAL: Patient was seen on stretcher number 4 in the emergency room. The patient's is at bedside. The patient is confused, disoriented, awake. VITAL SIGNS: T-max is 97.6. Telemetry sinus rhythm. Heart rate 93, blood pressure 148/106, respiration 18, O2 sat 100%. HEAD: Normocephalic, atraumatic. HEENT: Shows dry oral mucosa. Pinkish pale conjunctivae. Anicteric sclerae. Questionable soft carotid bruit. CHEST: Kyphosis. LUNGS: Show decreased breath sound at the bases. CARDIOVASCULAR: Shows S1, S2, regular rhythm. Positive systolic murmur left sternal border, right second intercostal space, left second intercostal space. ABDOMEN: Soft, positive bowel sounds. GENITALIA: Male. RECTAL: Deferred. EXTREMITIES: Show no pitting edema, no calf tenderness, no Homans' sign. NEUROLOGIC: The patient is alert, awake, responsive, lethargic, confused, disoriented, unable to follow any commands. Gait examination is not tested. DIAGNOSTICS: CBC; hemoglobin and hematocrit 12.5 and 38.7. PT and PTT 13.7 and 33.1. CMP; LFTs shows creatinine 2.0, glucose 147, magnesium 1.6, pro BNP 3300, troponin 0.04. Urinalysis negative. Urine drug screen positive for opiates. EKG shows sinus rhythm with lateral ischemic changes. CT scan of the head; official report is pending, but preliminary report was negative for any...CT of the head; left parietal region decreased attenuation, positive for subacute ischemic infarcts, pansinusitis. IMPRESSION AND PLAN 1. Questionable possible acute versus subacute ischemic infarct of the posterior left parietal region with decreased attenuation. 2. Pansinusitis probably chronic. 3. Altered mental status with confusion, disorientation and anxiety. 4. Questionable slurred speech. 5. Lethargy. 6. Dizziness. 7. Hypertension. 8. Normocytic anemia. 9. Chronic kidney disease stage III. 10. Hyperglycemia. 11. Hypomagnesemia. 12. Systolic congestive heart failure with elevated pro BNP of 3300. 13. Urine drug screen positive for opiates. 14. Left ventricular hypertrophy with hypertensive cardiovascular disease. 15. History of a recent left frontal lobe ischemic embolic infarct. 16. Constipation. 17. Hypovitaminosis D. 18. Prostatic hypertrophy. 19. Hyperlipidemia. 20. Hypomagnesemia. 21. History of seizure disorder and neuropathy. 22. History of poor compliance. 23. History of narcotic and opioid dependent pain syndrome. 24. History of insomnia. PLAN: At this time, the patient is to be admitted to telemetry. The patient while in the ER the ER physician called [facility]. Dr. Amos, was consulted by the ER physician. The patient was found not to be eligible for TPA because of within 3-month history of an acute infarct. The patient has been ordered repeat labs. Neurology consultation with Dr. Amos is requested. The patient has been ordered Colace 100 mg p.o. three times a day, Coreg 12.5 mg twice a day, Drisdol 50,000 units weekly, Ecotrin 81 mg daily, Flomax 0.4 mg daily, Lasix 20 mg IV daily, Lipitor 40 mg daily, Lovenox 40 mg subcu daily, magnesium oxide 400 mg twice a day, magnesium sulfate rider x1, MiraLax 17 g twice a day, Neurontin 900 mg at bedtime, Neurontin 600 mg twice a day, Pepcid 20 mg daily, Plavix 75 mg daily, Tessalon Perles 200 three times a day, Tylenol suppository p.o. every 6 hours p.r.n., Xopenex nebulizer every 6 hours, Zofran 4 mg IV every 4 hours p.r.n. MRI of the brain has been ordered. Video EEG has been ordered as per the request of the neurologist. At present, the patient is awaiting for a telemetry bed. The patient's further management will be dependent upon the patient's clinical condition, hemodynamic status and as per the patient's response to therapeutic intervention, as per the patient's diagnostic test results and as per recommendation by all the physicians involved in the care of the patient. At present, the patient's prognosis is overall guarded to poor because of patient's multiple complicated comorbidities and decompensated state and recurrent hospitalizations. Dictated and electronically signed, not read. Barber Sharma MD
[2018-11-25 06:38] LABS: BASO # 0.01 K/mm3 (0.0-2.0); BASO % 0.2 % (0.0-3.0); EOS # 0.3 (0.0-0.7); EOS % 4.5 % (1.5-5.0); HEMOGLOBIN 11.4 g/dL (14.0-18.0); LYMPH # 2.3 (1.2-3.4); LYMPH % 38.4 % (22.0-35.0); MEAN CELL VOLUME 93.3 fl (80.0-105.0); MEAN CORPUSCULAR HEMOGLOBIN 30.4 pg (25.0-35.0); MEAN CORPUSCULAR HGB CONC 32.6 g/dl (31.0-37.0); MEAN PLATELET VOLUME 10.5 fl (7.0-11.0); MONO # 0.4 (0.1-0.6); MONO % 6.4 % (1.0-6.0); RBC 3.75 10^6/uL (3.5-6.1); RED CELL DISTRIBUTION WIDTH 13.9 % (11.5-14.5)
[2018-11-25 06:49] LABS: ALB/GLOB RATIO 1.2 (1.1-1.8); ALBUMIN 3.6 g/dL (3.0-4.8); BILIRUBIN,DIRECT 0.2 mg/dL (0.0-0.4); CALCIUM 8.7 mg/dL (8.4-10.5)
[2018-11-25 07:02] LABS: FREE T4 1.49 ng/dL (0.78-2.19)
--- NOTE | 2018-11-25 07:43 | CP.PCM.CON ---
<Deborah Coelho - Last Filed: 11/25/18 14:22> History of Present Illness - History of Present Illness History of Present Illness: Deborah Coelho DO, PGY-2: Neurology Consult for Dr. Amos 63 year old, right handed old male with a past medical history of hypertension, dilated cardiomyopathy with EF of 21%, opioid dependence who presented with 3 days of dizziness and flashing lights. When asked what he meant by dizziness he stated that he was seeing "flashing lights, like a discoball was in his field of vision," that would not go away. He could not correlate the onset of his symptoms with any particular event. He denies having any associated headache, chest pain, nausea, vomiting, unilateral weakness/numbness or paresthesias. In the ED the patient was noted to be anxious and given Ativan. Thereafter, when the patient returned from CT he was noted to have slurred sp eech, increased drowsiness and was unable to follow commands. A code stroke called by the ED physician. CTH reviewed with no evidence of hemorrhage. At the time of my examination the patient denies any headache, visual disturbances, weakness, paresthesias, and is essentially without any symptoms this morning. A complete 12 point ROS is negative except as mentioned above. PMH: polysubstance abuse, HTN, CHF, dilated cardiomyopathy, CKD, and multiple back surgeries PSH: Rotator cuff repair, hemorroidectomy, 4 back surgeries, polypectomy Social Hx: Heavy smoker > 10 cig / day Family Hx: Diabetes Mellitus; Father - Diabetes Mellitus; denies any family hx of cardiac problems PMD: Dr. Sharma Review of Systems - Review of Systems All systems: reviewed and no additional remarkable complaints except (as per HPI) Past Patient History - Infectious Disease Hx of Infectious Diseases: None - Tetanus Immunizations Tetanus Immunization: Unknown - Past Medical History & Family History Past Medical History?: Yes - Past Social History Smoking Status: Heavy Smoker > 10 Cigarettes Daily - CARDIAC Hx Cardiac Disorders: Yes Hx Congestive Heart Failure: Yes Hx Hypertension: Yes - PULMONARY Hx Respiratory Disorders: No - NEUROLOGICAL Hx Neurological Disorder: Yes Hx Seizures: Yes Hx Transient Ischemic Attacks (TIA): Yes - HEENT Hx HEENT Problems: No - RENAL Hx Chronic Kidney Disease: Yes Hx Renal Failure: Yes - ENDOCRINE/METABOLIC Hx Endocrine Disorders: No - HEMATOLOGICAL/ONCOLOGICAL Hx Blood Disorders: No - INTEGUMENTARY Hx Dermatological Problems: No - MUSCULOSKELETAL/RHEUMATOLOGICAL Hx Falls: No - GASTROINTESTINAL Hx Gastrointestinal Disorders: No - GENITOURINARY/GYNECOLOGICAL Hx Genitourinary Disorders: Yes Hx Prostate Problems: Yes - PSYCHIATRIC Hx Psychophysiologic Disorder: No Hx Substance Use: Yes - SURGICAL HISTORY Hx Surgeries: No Hx Cardiac Catheterization: Yes - ANESTHESIA Hx Anesthesia: Yes Hx Anesthesia Reactions: No Hx Malignant Hyperthermia: No Meds Allergies/Adverse Reactions: Allergies Allergy/AdvReac Type Severity Reaction Status Date / Time No Known Allergies Allergy Verified 02/21/18 17:15 - Medications Medications: Current Medications Acetaminophen (Tylenol 325mg Tab) 650 mg PO Q6 PRN PRN Reason: TEMP>=99.5F Acetaminophen (Tylenol 650 Mg Supp) 650 mg RC Q6H PRN PRN Reason: TEMP>=99.5F Aspirin (Ecotrin) 81 mg PO DAILY REPLACED BY [facility] Atorvastatin Calcium (Lipitor) 40 mg PO DIN REPLACED BY [facility] Last Admin: 11/24/18 21:41 Dose: 40 mg Benzonatate (Tessalon Perles) 200 mg PO TID REPLACED BY [facility] Carvedilol (Coreg) 12.5 mg PO Q12H REPLACED BY [facility] Last Admin: 11/24/18 21:40 Dose: 12.5 mg Clopidogrel Bisulfate (Plavix) 75 mg PO DAILY REPLACED BY [facility] Docusate Sodium (Colace) 100 mg PO TID REPLACED BY [facility] Enoxaparin Sodium (Lovenox) 40 mg SC DAILY REPLACED BY [facility]; Protocol Ergocalciferol (Drisdol 50,000 Intl Units Cap) 1 cap PO Q7D REPLACED BY [facility] Last Admin: 11/24/18 21:40 Dose: 1 cap Famotidine (Pepcid) 20 mg PO DAILY REPLACED BY [facility] Furosemide (Lasix) 20 mg IVP DAILY REPLACED BY [facility] Last Admin: 11/24/18 21:41 Dose: 20 mg Gabapentin (Neurontin) 900 mg PO HS REPLACED BY [facility]; Protocol Last Admin: 11/24/18 21:41 Dose: 900 mg Gabapentin (Neurontin) 600 mg PO BID REPLACED BY [facility]; Protocol Levalbuterol HCl (Xopenex) 0.63 mg IH [id number] REPLACED BY [facility] Magnesium Oxide (Mag-Ox) 400 mg PO BID REPLACED BY [facility] Ondansetron HCl (Zofran Inj) 4 mg IVP Q4H PRN PRN Reason: Nausea/Vomiting Polyethylene Glycol (Miralax) 17 gm PO BID REPLACED BY [facility] Last Admin: 11/24/18 23:52 Dose: Not Given Tamsulosin HCl (Flomax) 0.4 mg PO HS REPLACED BY [facility] Last Admin: 11/24/18 21:41 Dose: 0.4 mg Physical Exam - Constitutional Appears: Non-toxic, No Acute Distress - Head Exam Head Exam: ATRAUMATIC, NORMOCEPHALIC - Eye Exam Eye Exam: EOMI, Normal appearance, PERRL Pupil Exam: NORMAL ACCOMODATION - ENT Exam ENT Exam: Mucous Membranes Moist, Normal Oropharynx - Neck Exam Neck exam: Positive for: Normal Inspection - Respiratory Exam Respiratory Exam: Clear to Auscultation Bilateral, NORMAL BREATHING PATTERN. absent: Accessory Muscle Use - Cardiovascular Exam Cardiovascular Exam: RRR, +S1, +S2 - GI/Abdominal Exam GI & Abdominal Exam: Normal Bowel Sounds, Soft - Extremities Exam Extremities exam: Positive for: normal inspection. Negative for: calf tende rness - Back Exam Back exam: NORMAL INSPECTION. absent: CVA tenderness (L), CVA tenderness (R) - Neurological Exam Neurological exam: Alert, CN II-XII Intact, Oriented x3, Reflexes Normal Additional comments: finger to nose testing within normal limits; able discriminate between soft and sharp touch in both arm, leg, and face; difficulty exhibited in drawing clock to 4:15; able to recognize objects and purpose of objects, CN 2-12 grossly intact; speech is fluent and sensible - Psychiatric Exam Psychiatric exam: Normal Affect, Normal Mood - Skin Skin Exam: Dry, Intact, Normal Color, Warm Results - Vital Signs Recent Vital Signs: Last Vital Signs Temp 98.0 F 11/25/18 06:00 Pulse 89 11/25/18 06:00 Resp 18 11/25/18 06:00 BP 123/86 11/25/18 06:00 Pulse Ox 99 11/25/18 06:00 - Labs Result Diagrams: 11/25/18 06:00 11/25/18 06:00 Labs: Laboratory Results - last 24 hr 11/24/18 11/24/18 11/24/18 19:11 19:14 19:14 WBC 5.6 D RBC 4.06 Hgb 12.5 L Hct 38.7 L MCV 95.3 MCH 30.8 MCHC 32.3 RDW 14.0 Plt Count 186 MPV 10.2 Neut % (Auto) 50.8 Lymph % (Auto) 37.2 H [place] % (Auto) 6.8 H Eos % (Auto) 5.0 Baso % (Auto) 0.2 Lymph # (Auto) 2.1 [place] # (Auto) 0.4 Eos # (Auto) 0.3 Baso # (Auto) 0.01 Absolute Neuts (auto) 2.84 PT 13.7 H INR 1.23 APTT 33.1 Sodium Potassium Chloride Carbon Dioxide Anion Gap BUN Creatinine Est GFR ( Amer) Est GFR (Non-Af Amer) POC Glucose (mg/dL) 147 H Random Glucose Calcium Phosphorus Magnesium Total Bilirubin Direct Bilirubin AST ALT Alkaline Phosphatase Troponin I NT-Pro-B Natriuret Pep Total Protein Albumin Globulin Albumin/Globulin Ratio Triglycerides Cholesterol LDL Cholesterol Direct HDL Cholesterol Free T4 Thyroxine (T4) TSH 3rd Generation Urine Color Urine Appearance Urine pH Ur Specific [place] Urine Protein Urine Glucose (UA) Urine Ketones Urine Blood Urine Nitrate Urine Bilirubin Urine Urobilinogen Ur Leukocyte Esterase Urine Opiates Screen Urine Methadone Screen Ur Barbiturates Screen Ur Phencyclidine Scrn Ur Amphetamines Screen U Benzodiazepines Scrn U Oth Cocaine Metabols U Cannabinoids Screen 11/24/18 11/24/18 11/24/18 19:14 20:30 20:30 WBC RBC Hgb Hct MCV MCH MCHC RDW Plt Count MPV Neut % (Auto) Lymph % (Auto) [place] % (Auto) Eos % (Auto) Baso % (Auto) Lymph # (Auto) [place] # (Auto) Eos # (Auto) Baso # (Auto) Absolute Neuts (auto) PT INR APTT Sodium 143 Potassium 4.0 Chloride 104 Carbon Dioxide 30 Anion Gap 13 BUN 21 Creatinine 2.0 H Est GFR ( Amer) 41 Est GFR (Non-Af Amer) 34 POC Glucose (mg/dL) Random Glucose 131 H Calcium 9.2 Phosphorus 3.3 Magnesium 1.6 L Total Bilirubin 0.4 Direct Bilirubin AST 19 ALT 14 Alkaline Phosphatase 55 Troponin I 0.04 D NT-Pro-B Natriuret Pep 3300 H Total Protein 7.3 Albumin 4.2 Globulin 3.1 Albumin/Globulin Ratio 1.3 Triglycerides Cholesterol LDL Cholesterol Direct HDL Cholesterol Free T4 Thyroxine (T4) TSH 3rd Generation Urine Color Yellow Urine Appearance Clear Urine pH 6.5 Ur Specific [place] 1.010 Urine Protein Negative Urine Glucose (UA) Negative Urine Ketones Negative Urine Blood Negative Urine Nitrate Negative Urine Bilirubin Negative Urine Urobilinogen 0.2 Ur Leukocyte Esterase Negative Urine Opiates Screen Positive H Urine Methadone Screen Negative Ur Barbiturates Screen Negative Ur Phencyclidine Scrn Negative Ur Amphetamines Screen Negative U Benzodiazepines Scrn Negative U Oth Cocaine Metabols Negative U Cannabinoids Screen Negative 11/25/18 11/25/18 11/25/18 06:00 06:00 06:00 WBC 6.0 RBC 3.75 Hgb 11.4 L Hct 35.0 L MCV 93.3 MCH 30.4 MCHC 32.6 RDW 13.9 Plt Count 172 MPV 10.5 Neut % (Auto) 50.5 Lymph % (Auto) 38.4 H [place] % (Auto) 6.4 H Eos % (Auto) 4.5 Baso % (Auto) 0.2 Lymph # (Auto) 2.3 [place] # (Auto) 0.4 Eos # (Auto) 0.3 Baso # (Auto) 0.01 Absolute Neuts (auto) 3.01 PT INR APTT Sodium 140 Potassium 3.7 Chloride 105 Carbon Dioxide 29 Anion Gap 10 BUN 21 Creatinine 1.8 H Est GFR ( Amer) 46 Est GFR (Non-Af Amer) 38 POC Glucose (mg/dL) Random Glucose 81 Calcium 8.7 Phosphorus 3.7 Magnesium 2.1 Total Bilirubin 0.3 Direct Bilirubin 0.2 AST 20 ALT 15 Alkaline Phosphatase 51 Troponin I NT-Pro-B Natriuret Pep Total Protein 6.6 Albumin 3.6 Globulin 3.0 Albumin/Globulin Ratio 1.2 Triglycerides 97 Cholesterol 98 L LDL Cholesterol Direct 51 HDL Cholesterol 33 Free T4 1.49 Thyroxine (T4) 9.3 TSH 3rd Generation 0.74 Urine Color Urine Appearance Urine pH Ur Specific [place] Urine Protein Urine Glucose (UA) Urine Ketones Urine Blood Urine Nitrate Urine Bilirubin Urine Urobilinogen Ur Leukocyte Esterase Urine Opiates Screen Urine Methadone Screen Ur Barbiturates Screen Ur Phencyclidine Scrn Ur Amphetamines Screen U Benzodiazepines Scrn U Oth Cocaine Metabols U Cannabinoids Screen Assessment & Plan - Assessment and Plan (Free Text) Assessment: 63 year old male with a past medical history of hypertension, CKD, prior CVA affecting the left posterior parietal lobe, and opioid dependence who presents with 3 days of visual changes and dizziness. Code stroke was called in the ED after the patient was given ativan and unable to follow commands. CT of the head showed no acute infarction while MRI of the brain showed no acute or subacute infarct. 1) Altered Mental Status, history of cryptogenic stroke - patient was ineligible for tPA due to having an acute infarct in the last 3 months (on 10/10/2018) - Permissive hypertension - MRI of brain showed no acute intracranial abnormality. Chronic left MCA territory infarction involving the posterior parietal lobe. Moderate chronic microangiopathic changes and mild age-related global parenchymal volume loss. Chronic pansinusitis, worse in the ethmoid sinuses. - VEEG to evaluate for seizures - Recommend cardiology evaluation with holter or Linq device to evaluate for any underlying arrhythmia - For stroke prophylaxis, patient appears to already be on statin, aspirin, and plavix. - The addition of Eliquis could be considered (and taking the patient off of Plavix) if the patient is found to have underlying paroxysmal atrial fibrillation. Case was reviewed and discussed with attending physician, Dr. Amos <Dwayne Amos - Last Filed: 11/25/18 16:34> Meds - Medications Medications: Current Medications Acetaminophen (Tylenol 325mg Tab) 650 mg PO Q6 PRN PRN Reason: TEMP>=99.5F Acetaminophen (Tylenol 650 Mg Supp) 650 mg RC Q6H PRN PRN Reason: TEMP>=99.5F Aspirin (Ecotrin) 81 mg PO DAILY REPLACED BY [facility] Last Admin: 11/25/18 09:22 Dose: 81 mg Atorvastatin Calcium (Lipitor) 40 mg PO DIN REPLACED BY [facility] Last Admin: 11/24/18 21:41 Dose: 40 mg Benzonatate (Tessalon Perles) 200 mg PO TID REPLACED BY [facility] Last Admin: 11/25/18 14:36 Dose: 200 mg Carvedilol (Coreg) 12.5 mg PO Q12H REPLACED BY [facility] Last Admin: 11/25/18 08:15 Dose: 12.5 mg Clopidogrel Bisulfate (Plavix) 75 mg PO DAILY REPLACED BY [facility] Last Admin: 11/25/18 09:21 Dose: 75 mg Docusate Sodium (Colace) 100 mg PO TID REPLACED BY [facility] Last Admin: 11/25/18 14:36 Dose: 100 mg Enoxaparin Sodium (Lovenox) 40 mg SC DAILY REPLACED BY [facility]; Protocol Last Admin: 11/25/18 09:22 Dose: 40 mg Ergocalciferol (Drisdol 50,000 Intl Units Cap) 1 cap PO Q7D REPLACED BY [facility] Last Admin: 11/24/18 21:40 Dose: 1 cap Famotidine (Pepcid) 20 mg PO DAILY REPLACED BY [facility] Last Admin: 11/25/18 09:22 Dose: 20 mg Furosemide (Lasix) 20 mg IVP DAILY REPLACED BY [facility] Last Admin: 11/25/18 09:23 Dose: 20 mg Gabapentin (Neurontin) 900 mg PO HS REPLACED BY [facility]; Protocol Last Admin: 11/24/18 21:41 Dose: 900 mg Gabapentin (Neurontin) 600 mg PO BID REPLACED BY [facility]; Protocol Last Admin: 11/25/18 09:21 Dose: 600 mg Levalbuterol HCl (Xopenex) 0.63 mg IH [id number] REPLACED BY [facility] Last Admin: 11/25/18 13:56 Dose: 0.63 mg Magnesium Oxide (Mag-Ox) 400 mg PO BID REPLACED BY [facility] Last Admin: 11/25/18 09:22 Dose: 400 mg Ondansetron HCl (Zofran Inj) 4 mg IVP Q4H PRN PRN Reason: Nausea/Vomiting Polyethylene Glycol (Miralax) 17 gm PO BID REPLACED BY [facility] Last Admin: 11/25/18 09:23 Dose: 17 gm Tamsulosin HCl (Flomax) 0.4 mg PO HS REPLACED BY [facility] Last Admin: 11/24/18 21:41 Dose: 0.4 mg Results - Vital Signs Recent Vital Signs: Last Vital Signs Temp 98 F 11/25/18 12:00 Pulse 87 11/25/18 14:00 Resp 18 11/25/18 12:00 BP 123/80 11/25/18 12:00 Pulse Ox 99 11/25/18 06:00 - Labs Result Diagrams: 11/25/18 06:00 11/25/18 06:00 Labs: Laboratory Results - last 24 hr 11/24/18 11/24/18 11/24/18 19:11 19:14 19:14 WBC 5.6 D RBC 4.06 Hgb 12.5 L Hct 38.7 L MCV 95.3 MCH 30.8 MCHC 32.3 RDW 14.0 Plt Count 186 MPV 10.2 Neut % (Auto) 50.8 Lymph % (Auto) 37.2 H [place] % (Auto) 6.8 H Eos % (Auto) 5.0 Baso % (Auto) 0.2 Lymph # (Auto) 2.1 [place] # (Auto) 0.4 Eos # (Auto) 0.3 Baso # (Auto) 0.01 Absolute Neuts (auto) 2.84 PT 13.7 H INR 1.23 APTT 33.1 Sodium Potassium Chloride Carbon Dioxide Anion Gap BUN Creatinine Est GFR ( Amer) Est GFR (Non-Af Amer) POC Glucose (mg/dL) 147 H Random Glucose Hemoglobin A1c Calcium Phosphorus Magnesium Total Bilirubin Direct Bilirubin AST ALT Alkaline Phosphatase Troponin I NT-Pro-B Natriuret Pep Total Protein Albumin Globulin Albumin/Globulin Ratio Triglycerides Cholesterol LDL Cholesterol Direct HDL Cholesterol 25-OH Vitamin D Total Free T4 Thyroxine (T4) TSH 3rd Generation Urine Color Urine Appearance Urine pH Ur Specific [place] Urine Protein Urine Glucose (UA) Urine Ketones Urine Blood Urine Nitrate Urine Bilirubin Urine Urobilinogen Ur Leukocyte Esterase Urine Opiates Screen Urine Methadone Screen Ur Barbiturates Screen Ur Phencyclidine Scrn Ur Amphetamines Screen U Benzodiazepines Scrn U Oth Cocaine Metabols U Cannabinoids Screen RPR 11/24/18 11/24/18 11/24/18 19:14 20:30 20:30 WBC RBC Hgb Hct MCV MCH MCHC RDW Plt Count MPV Neut % (Auto) Lymph % (Auto) [place] % (Auto) Eos % (Auto) Baso % (Auto) Lymph # (Auto) [place] # (Auto) Eos # (Auto) Baso # (Auto) Absolute Neuts (auto) PT INR APTT Sodium 143 Potassium 4.0 Chloride 104 Carbon Dioxide 30 Anion Gap 13 BUN 21 Creatinine 2.0 H Est GFR ( Amer) 41 Est GFR (Non-Af Amer) 34 POC Glucose (mg/dL) Random Glucose 131 H Hemoglobin A1c Calcium 9.2 Phosphorus 3.3 Magnesium 1.6 L Total Bilirubin 0.4 Direct Bilirubin AST 19 ALT 14 Alkaline Phosphatase 55 Troponin I 0.04 D NT-Pro-B Natriuret Pep 3300 H Total Protein 7.3 Albumin 4.2 Globulin 3.1 Albumin/Globulin Ratio 1.3 Triglycerides Cholesterol LDL Cholesterol Direct HDL Cholesterol 25-OH Vitamin D Total Free T4 Thyroxine (T4) TSH 3rd Generation Urine Color Yellow Urine Appearance Clear Urine pH 6.5 Ur Specific [place] 1.010 Urine Protein Negative Urine Glucose (UA) Negative Urine Ketones Negative Urine Blood Negative Urine Nitrate Negative Urine Bilirubin Negative Urine Urobilinogen 0.2 Ur Leukocyte Esterase Negative Urine Opiates Screen Positive H Urine Methadone Screen Negative Ur Barbiturates Screen Negative Ur Phencyclidine Scrn Negative Ur Amphetamines Screen Negative U Benzodiazepines Scrn Negative U Oth Cocaine Metabols Negative U Cannabinoids Screen Negative RPR 11/25/18 11/25/18 11/25/18 06:00 06:00 06:00 WBC 6.0 RBC 3.75 Hgb 11.4 L Hct 35.0 L MCV 93.3 MCH 30.4 MCHC 32.6 RDW 13.9 Plt Count 172 MPV 10.5 Neut % (Auto) 50.5 Lymph % (Auto) 38.4 H [place] % (Auto) 6.4 H Eos % (Auto) 4.5 Baso % (Auto) 0.2 Lymph # (Auto) 2.3 [place] # (Auto) 0.4 Eos # (Auto) 0.3 Baso # (Auto) 0.01 Absolute Neuts (auto) 3.01 PT INR APTT Sodium 140 Potassium 3.7 Chloride 105 Carbon Dioxide 29 Anion Gap 10 BUN 21 Creatinine 1.8 H Est GFR ( Amer) 46 Est GFR (Non-Af Amer) 38 POC Glucose (mg/dL) Random Glucose 81 Hemoglobin A1c 5.2 Calcium 8.7 Phosphorus 3.7 Magnesium 2.1 Total Bilirubin 0.3 Direct Bilirubin 0.2 AST 20 ALT 15 Alkaline Phosphatase 51 Troponin I NT-Pro-B Natriuret Pep Total Protein 6.6 Albumin 3.6 Globulin 3.0 Albumin/Globulin Ratio 1.2 Triglycerides 97 Cholesterol 98 L LDL Cholesterol Direct 51 HDL Cholesterol 33 25-OH Vitamin D Total Free T4 Thyroxine (T4) TSH 3rd Generation Urine Color Urine Appearance Urine pH Ur Specific [place] Urine Protein Urine Glucose (UA) Urine Ketones Urine Blood Urine Nitrate Urine Bilirubin Urine Urobilinogen Ur Leukocyte Esterase Urine Opiates Screen Urine Methadone Screen Ur Barbiturates Screen Ur Phencyclidine Scrn Ur Amphetamines Screen U Benzodiazepines Scrn U Oth Cocaine Metabols U Cannabinoids Screen RPR 11/25/18 11/25/18 11/25/18 06:00 06:00 06:00 WBC RBC Hgb Hct MCV MCH MCHC RDW Plt Count MPV Neut % (Auto) Lymph % (Auto) [place] % (Auto) Eos % (Auto) Baso % (Auto) Lymph # (Auto) [place] # (Auto) Eos # (Auto) Baso # (Auto) Absolute Neuts (auto) PT INR APTT Sodium Potassium Chloride Carbon Dioxide Anion Gap BUN Creatinine Est GFR ( Amer) Est GFR (Non-Af Amer) POC Glucose (mg/dL) Random Glucose Hemoglobin A1c Calcium Phosphorus Magnesium Total Bilirubin Direct Bilirubin AST ALT Alkaline Phosphatase Troponin I NT-Pro-B Natriuret Pep Total Protein Albumin Globulin Albumin/Globulin Ratio Triglycerides Cholesterol LDL Cholesterol Direct HDL Cholesterol 25-OH Vitamin D Total 19.5 L Free T4 1.49 Thyroxine (T4) 9.3 TSH 3rd Generation 0.74 Urine Color Urine Appearance Urine pH Ur Specific [place] Urine Protein Urine Glucose (UA) Urine Ketones Urine Blood Urine Nitrate Urine Bilirubin Urine Urobilinogen Ur Leukocyte Esterase Urine Opiates Screen Urine Methadone Screen Ur Barbiturates Screen Ur Phencyclidine Scrn Ur Amphetamines Screen U Benzodiazepines Scrn U Oth Cocaine Metabols U Cannabinoids Screen RPR Nonreactive Attending/Attestation - Attestation I have personally seen and examined this patient.: Yes I have fully participated in the care of the patient.: Yes I have reviewed all pertinent clinical information: Yes Notes (Text): I agree with the assessment and plan. A new infarct is less likely. Will evaluate as outlined above. Consult was requested by Dr. Sharma, thank you we will follow up.
--- NOTE | 2018-11-25 08:06 | CT ---
Date of service: 11/24/2018 PROCEDURE: CT HEAD WITHOUT CONTRAST. HISTORY: ams COMPARISON: 10/08/2018 TECHNIQUE: Axial computed tomography images were obtained through the head/brain without intravenous contrast. Radiation dose: Total exam DLP = 991.75 mGy-cm. This CT exam was performed using one or more of the following dose reduction techniques: Automated exposure control, adjustment of the mA and/or kV according to patient size, and/or use of iterative reconstruction technique. FINDINGS: HEMORRHAGE: No intracranial hemorrhage. BRAIN: No mass effect or edema. There is chronic encephalomalacia in the left parietal lobe. VENTRICLES: Unremarkable. No hydrocephalus. CALVARIUM: Unremarkable. PARANASAL SINUSES: Unremarkable as visualized. No significant inflammatory changes. MASTOID AIR CELLS: Unremarkable as visualized. No inflammatory changes. OTHER FINDINGS: The report concurs with the preliminary [facility] report IMPRESSION: Left parietal encephalomalacia. No acute intracranial findings
[2018-11-25] MEDS: Levalbuterol 1.25 MG/3 ML Inhal Soln UD IH SCH ×2 (08:12→13:56)
--- NOTE | 2018-11-25 08:52 | RAD ---
Date of service: 11/24/2018 PROCEDURE: CHEST RADIOGRAPH, 1 VIEW HISTORY: Sepsis Patient COMPARISON: 11/06/2018. FINDINGS: LUNGS: The lungs are well inflated and clear. PLEURA: No pneumothorax or pleural effusion. CARDIOVASCULAR: Persistent moderate cardiomegaly. No aortic atherosclerotic calcifications present. OSSEOUS STRUCTURES: Within normal limits for the patient's age. VISUALIZED UPPER ABDOMEN: Normal. OTHER FINDINGS: None. IMPRESSION: No active pulmonary disease.
[2018-11-25] MEDS: Magnesium Oxide 400 mg Tab UD PO SCH ×2 (09:22→17:48)
[2018-11-25] MEDS: Enoxaparin 40 mg Syringe SC SCH (09:22)
[2018-11-25] MEDS: POLYETHYLENE GLYCOL 3350 17 GM/Dose PACKET PO SCH ×2 (09:23→17:48)
--- NOTE | 2018-11-25 10:32 | MRI ---
Date of service: 11/25/2018 PROCEDURE: MRI BRAIN WITHOUT CONTRAST HISTORY: Altered mental status COMPARISON: CT head without contrast from 11/24/2018. TECHNIQUE: Multiplanar, multisequence MR images of the brain were obtained without intravenous contrast enhancement. FINDINGS: HEMORRHAGE: None DWI: No evidence of an acute or early subacute infarction. BRAIN PARENCHYMA: There is a chronic left posterior parietal infarction. There are mild chronic microangiopathic changes. There is no mass, mass effect or abnormal extra-axial fluid collection. VENTRICLES: There is mild age-related global parenchymal volume loss and proportionate enlargement of the ventricles and cortical sulci. CRANIUM: There is normal bone marrow signal pattern. ORBITS: Grossly unremarkable. PARANASAL SINUSES/MASTOIDS: There is severe polypoid mucosal thickening in the ethmoid air cells and moderate polypoid mucosal thickening in the maxillary and sphenoid sinuses. There is mild mucosal thickening in the frontal sinuses. VASCULAR SYSTEM: There are normal signal voids in the larger intracranial arteries. OTHER FINDINGS: None. IMPRESSION: 1. No acute intracranial abnormality. 2. Chronic left MCA territory infarction involving the posterior parietal lobe. 3. Moderate chronic microangiopathic changes and mild age-related global parenchymal volume loss. 4. Chronic pansinusitis, worse in the ethmoid sinuses.
--- NOTE | 2018-11-25 12:13 | CP.PCM.PCO ---
Physician Communication Note - Physician Communication Note Physician Communication Note: VEEG and PT eval pending
--- NOTE | 2018-11-25 16:38 | PN ---
DATE: 11/25/2018 LOCATION: The patient was seen yesterday in the emergency room, now the patient is in room 272, bed 1. SUBJECTIVE: Overnight nurse's notes were reviewed. The patient was found to be episodically confused, disoriented. The patient required Narcan and Ativan in the emergency room for neuro status stabilization. A 14-system review as above. PHYSICAL EXAMINATION: VITAL SIGNS: T-max 98. Telemetry shows sinus rhythm, heart rate 88, blood pressure 121/87 and 123/86, respirations 18-20, and O2 sat 94%-96%-97%. HEAD: Normocephalic, atraumatic. HEENT: Shows pink conjunctivae. Anicteric sclerae. No oropharyngeal lesion. No neck rigidity. CHEST: Kyphosis. LUNGS: Shows no audible crackle, rales or wheezing. Decreased breath sound at the bases, left more than the right. CARDIOVASCULAR: S1 and S2, regular rhythm. Positive systolic murmur left sternal border, right second intercostal space, left second intercostal space. ABDOMEN: Soft, protuberant, positive bowel sound. No palpable hepatosplenomegaly. GENITALIA: Male. RECTAL: Deferred. EXTREMITIES: Shows no pitting edema, no calf tenderness, no Homans' sign. NEUROLOGICAL: The patient is alert, awake, responsive, is able to move upper and lower extremity without assistance. Gait examination is not tested. Cranial nerves II-XII limited. MUSCULOSKELETAL: Shows an elevated body mass index. DIAGNOSTIC DATA: MRI of the brain pending. Video EEG pending. Diagnostics from 11/25/2018; WBC 6, hemoglobin/hematocrit 11.4/35, and platelet 172. Sodium 140, potassium 3.7, chloride 105, CO2 of 29, BUN 21, creatinine 1.8, glucose 81, calcium 8.7, phosphorus 3.7, magnesium 2.1, cholesterol 97, LDL 98, and HDL 51. Thyroid panel is within normal limits. RPR is pending. MRI of the brain pending. Video EEG pending. IMPRESSION: 1. Acute altered mental status with encephalopathy with episodic confusion, disorientation, agitation. 2. Questionable subacute cerebral infarct as per the CAT scan. 3. Hypertension. 4. History of frontal lobe infarct in 10/2018. 5. Normocytic anemia. 6. Chronic kidney disease. 7. History of questionable seizure disorder. 8. Questionable breakthrough seizure with possible postictal state. 9. History of dilated cardiomyopathy. 10. History of opioid use disorder. 11. History of poor compliance and noncompliance. 12. History of constipation. 13. Deconditioning. 14. Gait dysfunction. PLAN: At this time, the patient has been consulted with Neurology and Cardiology. The patient is awaiting MRI of the brain and video EEG. The patient has been ordered serial labs, neuro checks, seizure precautions. Physical therapy, occupational therapy, ambulation therapy, and gait training has been ordered. Out of bed to chair ordered. The patient's diagnostic data since the admission since yesterday reviewed. The patient's pending diagnostic data will be reviewed when available. The patient's case will be referred for TCU evaluation. The patient has been ordered physical therapy, occupational therapy, ambulation therapy, out of bed to chair. Dictated and electronically signed, not read. Barber Sharma MD
--- NOTE | 2018-11-25 20:56 | CARD ---
APPROVED REPORT Date of service: 11/24/2018 EKG Measurement Heart [id number] <Conclusion> Normal sinus rhythm Possible Left atrial enlargement Voltage criteria for LVH Nonspecific T wave abnormality Abnormal ECG
--- NOTE | 2018-11-26 00:18 | CON ---
DATE: 11/25/2018 CARDIOLOGY CONSULTATION HISTORY: The patient is a 63-year-old male who has a long history of noncompliance with medications, who presents with a transient dizziness. He is on intermittent oxycodone. In addition, the patient suffers from a dilated cardiomyopathy documented in the past with an ejection fraction of 27%. He denies shortness of breath, denies chest pain. In addition, he suffers from renal insufficiency. No angina noted. SOCIAL HISTORY: The patient does not smoke. REVIEW OF SYSTEMS: Unchanged from his previous admission. PHYSICAL EXAMINATION: VITAL SIGNS: Blood pressure is 123/80; there are no orthostatic changes, heart rate is in the 80s. NECK: Negative JVD. LUNGS: Without rales. HEART: S1, S2. EXTREMITIES: Without edema. LABORATORY DATA: The EKG is unchanged. The urine is positive for opiates. Chemistries: BUN and creatinine are 21 and 1.8 with a troponin of 0.04. The hemoglobin is 11.4. IMPRESSION: 1. Transient dizziness. 2. No evidence for orthostatic changes. 3. Dilated cardiomyopathy. 4. Recurrent noncompliance. 5. No evidence for congestive heart failure. 6. Intermittent oxycodone intake. RECOMMENDATIONS: Given these findings, his cardiac status appears to be stable. Will continue on telemetry for 24 hours. Mike Newberry MD
[2018-11-26 00:26] VITALS: RESP 20
[2018-11-26] MEDS: Levalbuterol 1.25 MG/3 ML Inhal Soln UD IH SCH ×3 (01:39→13:45)
[2018-11-26 06:40] VITALS: O2SAT 96
[2018-11-26 06:40] LABS: BASO # 0.01 K/mm3 (0.0-2.0); BASO % 0.2 % (0.0-3.0); EOS # 0.3 (0.0-0.7); EOS % 6.2 % (1.5-5.0); HEMOGLOBIN 11.9 g/dL (14.0-18.0); LYMPH # 2.3 (1.2-3.4); LYMPH % 43.9 % (22.0-35.0); MEAN CELL VOLUME 93.2 fl (80.0-105.0); MEAN CORPUSCULAR HEMOGLOBIN 30.1 pg (25.0-35.0); MEAN CORPUSCULAR HGB CONC 32.2 g/dl (31.0-37.0); MEAN PLATELET VOLUME 10.7 fl (7.0-11.0); MONO # 0.3 (0.1-0.6); MONO % 6.4 % (1.0-6.0); RBC 3.96 10^6/uL (3.5-6.1); RED CELL DISTRIBUTION WIDTH 13.8 % (11.5-14.5); WHITE BLOOD COUNT 5.3 10^3/uL (4.5-11.0)
[2018-11-26 08:04] LABS: ALB/GLOB RATIO 1.2 (1.1-1.8); ALBUMIN 3.6 g/dL (3.0-4.8); CALCIUM 8.6 mg/dL (8.4-10.5)
--- NOTE | 2018-11-26 09:30 | CP.PCM.PN ---
Subjective - Date & Time of Evaluation Date of Evaluation: 11/26/18 Time of Evaluation: 09:00 - Subjective Subjective: Deborah Coelho DO, PGY-2: Neurology Progress Note for Dr. Amos Patient was seen and examined at bedside. Patient is undergoing [address] Newberry, asset protection agent, stated the patient can be taken off of telemetry given there was no arrhythmias noted on his 24 ECG monitor. Patient reports feeling well and endorsed no complaints. He denies headache, visual changes, weakness, numbness, chest pain, or palpitations. Objective - Vital Signs/Intake and Output Vital Signs (last 24 hours): Temp Pulse Resp BP Pulse Ox 97.5 F L 84 20 121/82 96 11/26/18 06:00 11/26/18 06:00 11/26/18 06:00 11/26/18 06:00 11/26/18 06:00 Intake and Output: 11/26/18 11/26/18 06:59 18:59 Intake Total 1236 Output Total 220 Balance 1016 - Medications Medications: Current Medications Acetaminophen (Tylenol 325mg Tab) 650 mg PO Q6 PRN PRN Reason: TEMP>=99.5F Acetaminophen (Tylenol 650 Mg Supp) 650 mg RC Q6H PRN PRN Reason: TEMP>=99.5F Aspirin (Ecotrin) 81 mg PO DAILY [facility] Last Admin: 11/25/18 09:22 Dose: 81 mg Atorvastatin Calcium (Lipitor) 40 mg PO DIN [facility] Last Admin: 11/25/18 17:48 Dose: 40 mg Benzonatate (Tessalon Perles) 200 mg PO TID [facility] Last Admin: 11/25/18 17:47 Dose: 200 mg Carvedilol (Coreg) 12.5 mg PO Q12H [facility] Last Admin: 11/25/18 21:07 Dose: 12.5 mg Clopidogrel Bisulfate (Plavix) 75 mg PO DAILY [facility] Last Admin: 11/25/18 09:21 Dose: 75 mg Docusate Sodium (Colace) 100 mg PO TID [facility] Last Admin: 11/25/18 17:47 Dose: 100 mg Enoxaparin Sodium (Lovenox) 40 mg SC DAILY [facility]; Protocol Last Admin: 11/25/18 09:22 Dose: 40 mg Ergocalciferol (Drisdol 50,000 Intl Units Cap) 1 cap PO Q7D [facility] Last Admin: 11/24/18 21:40 Dose: 1 cap Famotidine (Pepcid) 20 mg PO DAILY [facility] Last Admin: 11/25/18 09:22 Dose: 20 mg Furosemide (Lasix) 20 mg IVP DAILY [facility] Last Admin: 11/25/18 09:23 Dose: 20 mg Gabapentin (Neurontin) 900 mg PO HS [facility]; Protocol Last Admin: 11/25/18 21:05 Dose: 900 mg Gabapentin (Neurontin) 600 mg PO BID [facility]; Protocol Last Admin: 11/25/18 17:48 Dose: 600 mg Levalbuterol HCl (Xopenex) 0.63 mg IH [id number] [facility] Last Admin: 11/26/18 08:05 Dose: Not Given Magnesium Oxide (Mag-Ox) 400 mg PO BID [facility] Last Admin: 11/25/18 17:48 Dose: 400 mg Ondansetron HCl (Zofran Inj) 4 mg IVP Q4H PRN PRN Reason: Nausea/Vomiting Polyethylene Glycol (Miralax) 17 gm PO BID [facility] Last Admin: 11/25/18 17:48 Dose: Not Given Tamsulosin HCl (Flomax) 0.4 mg PO HS [facility] Last Admin: 11/25/18 21:06 Dose: 0.4 mg - Labs Labs: 11/26/18 06:15 11/26/18 06:15 PT 13.7 SECONDS (9.4-12.5) H 11/24/18 19:14 INR 1.23 11/24/18 19:14 APTT 33.1 Seconds (26.9-38.3) 11/24/18 19:14 - Constitutional Appears: Well, Non-toxic - Head Exam Head Exam: ATRAUMATIC, NORMOCEPHALIC - Eye Exam Eye Exam: EOMI, Normal appearance - ENT Exam ENT Exam: Mucous Membranes Moist - Neck Exam Neck Exam: Normal Inspection - Respiratory Exam Respiratory Exam: Clear to Ausculation Bilateral, NORMAL BREATHING PATTERN. absent: Accessory Muscle Use - Cardiovascular Exam Cardiovascular Exam: RRR, +S1, +S2 - GI/Abdominal Exam GI & Abdominal Exam: Soft, Normal Bowel Sounds - Extremities Exam Extremities Exam: Normal Inspection. absent: Calf Tenderness - Neurological Exam Neurological Exam: Alert, Awake, Oriented x3 Neuro motor strength exam: Left Upper Extremity: 5, Right Upper Extremity: 5, Left Lower Extremity: 5, Right Lower Extremity: 5 - Psychiatric Exam Psychiatric exam: Normal Affect, Normal Mood - Skin Skin Exam: Dry, Intact, Normal Color, Warm Assessment and Plan - Assessment and Plan (Free Text) Assessment: 63 year old male with a past medical history of hypertension, CKD, prior CVA affecting the left posterior parietal lobe, and opioid dependence who presents with 3 days of visual changes and dizziness. Code stroke was called in the ED after the patient was given ativan and unable to follow commands. CT of the head showed no acute infarction while MRI of the brain showed no acute or subacute infarct. Given the patient's complaints of visual disturbance consisting of flashing lights with subsequent loss of consciousness, it is highly likely he experienced a seizure, especially in the setting of having a stroke more than a month ago. 1) Altered Mental Status, likely secondary to seizure - patient was ineligible for tPA due to having an acute infarct in the last 3 months (on 10/10/2018) - MRI of brain showed no acute intracranial abnormality. Chronic left MCA territory infarction involving the posterior parietal lobe. Moderate chronic microangiopathic changes and mild age-related global parenchymal volume loss. Chronic pansinusitis, worse in the ethmoid sinuses. - VEEG was normal - Keppra 500 q12h - For stroke prophylaxis, patient appears to already be on statin, aspirin, and plavix. - Patient given card and asked to follow up with Dr. Amos in the office in one month's time Case was reviewed and discussed with attending physician, Dr. Amos
[2018-11-26] MEDS: Magnesium Oxide 400 mg Tab UD PO SCH (10:07)
[2018-11-26] MEDS: Enoxaparin 40 mg Syringe SC SCH (10:08)
[2018-11-26] MEDS: POLYETHYLENE GLYCOL 3350 17 GM/Dose PACKET PO SCH (10:17)
--- NOTE | 2018-11-26 11:26 | PCM.VEEG ---
Video EEG - Procedure Start Date: 11/25/18 Start Time: 15:30 End Date: 11/26/18 End Time: 07:05 Technical Summary: DATA ACQUISITION: This was a multichannel inpatient video-EEG, a minimum of 22 channels were uti lized, performed in accordance with recommendations specified by the [place] [employer] (Grazyna Ruff et al. ACNS Guideline 1: Minimum Technical Requirements for Performing Clinical Electroencephalography. Journal of Clinical Neurophysiology 2016;33:303-7). The 10-20 electrode placement system was utilized in accordance with guidelines detailed by the International Federation of Clinical Neurophysiology (Beryl Cope et al. The Ten-Twenty Electrode System of the International Federation. Recommendations for the Practice of Clinical Neurophysiology: Guidelines of the International Federation of Clinical Physiology 1999; EEG Suppl. 52.). DATA REVIEW / SPIKE DETECTION / DIGITAL ANALYSIS: The entire EEG was scanned and reviewed. Synchronized audio and video recording were reviewed at the time of each alarm and whenever an abnormality or suspicious activity was noted. The entire recording was analyzed utilizing an automated digital spike and seizure analysis program and all automatic spike and seizure detections were manually reviewed. A compressed spectral array was displayed and reviewed alongside the raw EEG tracings. In addition, further analysis of the EEG was performed when abnormalities were identified, including montage changes, dipole source localization, and frequency band identification. Video portion of the study is necessary to correlate abnormal EEG activity with clinical behavior. This study was attended 24 hours per day. - Interpretation Description of the study: Indication; 63 y/o man with episodes of alteration of awareness. EEG Finding during wakefulness: During active states, the EEG was characterized by 14-25 Hz, 15-30 uV activity bilaterally in fronto-central regions. Resting wakefulness was characterized by a symmetric posterior dominant rhythm of 9 to 10 Hz, 30-50 uV, which was reactive to eye opening and closing. Drowsiness was associated with slow roving eye movements, slowing and fragmentation of the posterior dominant rhythm, and bilateral 4-7 Hz, 40-70 uV theta activity, sometimes with a shifting predominance. Hyperventilation and photic stimulation were not performed. EEG Finding during sleep: Light sleep was recorded and was characterized by fronto-central slowing at 5-7 H, 50-125 uV, sharp central vertex waves, bilateral sleep spindles, and K- complexes; shifting asymmetries were evident. Deeper stages of sleep were recorded and were characterized an increasing frequency of 1-4 Hz, 50-100 uV delta activity. REM sleep was also recorded and was characterized by mixed frequency (3-15 Hz) low voltage (< 20 uV) activity with clusters of rapid horizontal and vertical eye movements. There were no significant asymmetries noted during sleep. Interictal non-epileptiform abnormalities: None Interictal epileptiform abnormalities: None Ictal epileptiform abnormalities: None Induction procedures: None - Impression Impression: This is a normal inpatient Video EEG monitoring study.
--- NOTE | 2018-11-26 12:45 | PN ---
DATE: 11/26/2018 SUBJECTIVE: The patient is in room 272 bed 1. Overnight nurse's notes were reviewed. No documented altered mental status. No encephalopathy. No agitation. No restless and no seizure was noted. Overnight nurse's notes were reviewed. No adverse events were documented, notified, called for. PHYSICAL EXAMINATION: VITAL SIGNS: Today T-max 98, pulse 80, blood pressure 121/82 and 123/85, respirations 20, O2 sat is 98%. HEENT: Head examination normocephalic, atraumatic. HEENT examination shows pinkish pale conjunctivae. Anicteric sclerae. Dry oral mucosa. No neck rigidity. CHEST: Kyphosis. LUNGS: Examination shows no audible crackle, rales or wheezing. Decreased breath sound at the bases, left more than the right. CARDIOVASCULAR: S1 and S2, questionable soft systolic murmur at left sternal border, right second intercostal space, left second intercostal space. ABDOMEN: Protuberant, obese, positive bowel sounds. No palpable hepatosplenomegaly noted. GENITALIA: Male. RECTAL: Exam is deferred. EXTREMITY: Shows no pitting edema, no calf tenderness, no Homans' sign. NEUROLOGIC: The patient is alert, awake, oriented x3. The patient is able to ambulate independently. Motor strength of upper and lower extremities within normal limits. No deficits noted on neuro examination. Cranial nerves II through XII intact and limited. Gait examination is noted to be independent. VASCULAR: Palpable pulses. DIAGNOSTICS: In the last 24 hours, hemoglobin A1c 5.2. Vitamin D 25-hydroxy 19.5. MRI of the brain shows chronic left posterior parietal infarct and chronic left middle cerebral artery territory infarct, chronic microangiopathic disease of the brain and microvascular ischemic disease of the brain with cerebral cortical atrophy of the brain and ventriculomegaly and chronic pansinusitis. LABORATORY DATA: From 11/26/2018, WBC 5.3, hemoglobin and hematocrit 11.9 and 37, platelet 177. Sodium 140, potassium 3.8, chloride 103, CO2 of 29, BUN 22, creatinine 1.9, glucose 104. IMPRESSION: 1. Status post altered mental status, encephalopathy, episodic confusion, agitation. 2. Chronic left posterior parietal infarct and chronic left middle cerebral artery territory infarct. 3. 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 4. 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 5. Chronic pansinusitis. 6. Hypovitaminosis D. 7. Mild normocytic anemia. 8. Chronic kidney disease stage 3/4. 9. History of hypertension. 10. History of dilated cardiomyopathy. 11. History of systolic congestive heart failure. 12. History of opioid use disorder. 13. History of acute infarct in 10/2018. 14. History of questionable seizure disorder. PLAN: At this time, the patient's video EEG is pending, which the results are not available. The patient's further management will be dependent upon the patient's clinical condition, hemodynamic status and as per the patient's response to therapeutic intervention, as per the patient's diagnostic test results, and as per recommendation by all the physicians involved in the care of the patient. PRESENT CONSULT: Cardiology and Neurology. Pending test results of video EEG. The patient has been ordered repeat labs. The patient has been ordered all the medications as per the MAR including pharmacological and non-pharmacological GI and DVT prophylaxis. The patient is presently on dual antiplatelet therapy. We are awaiting further recommendation by Neurology and Cardiology. If the patient's all the diagnostic data is negative for any acute events and if the patient is cleared by Neurology and Cardiology, the patient will be considered for discharge. The patient updated about his condition, diagnosis, test results, recommendation by all physicians at length. All questions concerned answered to the patient's satisfaction. Dictated and electronically signed, not read. Barber Sharma MD
[2018-11-26 12:49] VITALS: BP 119/88; PULSE 78; TEMP 97.9
--- NOTE | 2018-11-26 12:54 | PN ---
DATE: 11/26/2018 SUBJECTIVE: The patient is without complaints. PHYSICAL EXAMINATION: VITAL SIGNS: Blood pressure 121/82, heart rate in the 80s. NECK: Negative JVD. LUNGS: Without rales. HEART: S1, S2. EXTREMITIES: Without edema. LABORATORY DATA: Hemoglobin is 11.9. Chemistries, BUN and creatinine 22 and 1.9. IMPRESSION: 1. Transient dizziness, which is now resolved. 2. No arrhythmias on the monitor. 3. Dilated cardiomyopathy. 4. No congestive heart failure. 5. Renal insufficiency. 6. Chronic oxycodone intake. PLAN: Given these findings, we will DC telemetry today. No further cardiac workup is necessary at this time. Mike Newberry MD
--- NOTE | 2018-11-26 15:41 | CP.PCM.DIS ---
Provider - Provider Date of Admission: 11/24/18 20:32 Attending physician: Barber Sharma MD Primary care physician: Barber Sharma MD Consults: 11/24/18 20:13 Neurology Consult Stat Comment: Consulting Provider: Dwayne Amos Consulting Physician: Dwayne Amos Reason for Consult: ams 11/25/18 00:30 Cardiology Consult Routine Comment: Consulting Provider: Mike Newberry Consulting Physician: Mike Newberry Reason for Consult: TIA; BP management Time Spent in preparation of Discharge (in minutes): 35 Hospital Course - Lab Results Lab Results: Micro Results 11/24/18 20:30 Urine Random Urine Culture - Final No Growth (<1,000 CFU/ML) Most Recent Lab Values WBC 5.3 10^3/uL (4.5-11.0) 11/26/18 06:15 RBC 3.96 10^6/uL (3.5-6.1) 11/26/18 06:15 Hgb 11.9 g/dL (14.0-18.0) L 11/26/18 06:15 Hct 36.9 % (42.0-52.0) L 11/26/18 06:15 MCV 93.2 fl (80.0-105.0) 11/26/18 06:15 MCH 30.1 pg (25.0-35.0) 11/26/18 06:15 MCHC 32.2 g/dl (31.0-37.0) 11/26/18 06:15 RDW 13.8 % (11.5-14.5) 11/26/18 06:15 Plt Count 177 10^3/uL (120.0-450.0) 11/26/18 06:15 MPV 10.7 fl (7.0-11.0) 11/26/18 06:15 Neut % (Auto) 43.3 % (50.0-68.0) L 11/26/18 06:15 Lymph % (Auto) 43.9 % (22.0-35.0) H 11/26/18 06:15 [place] % (Auto) 6.4 % (1.0-6.0) H 11/26/18 06:15 Eos % (Auto) 6.2 % (1.5-5.0) H 11/26/18 06:15 Baso % (Auto) 0.2 % (0.0-3.0) 11/26/18 06:15 Lymph # (Auto) 2.3 (1.2-3.4) 11/26/18 06:15 [place] # (Auto) 0.3 (0.1-0.6) 11/26/18 06:15 Eos # (Auto) 0.3 (0.0-0.7) 11/26/18 06:15 Baso # (Auto) 0.01 K/mm3 (0.0-2.0) 11/26/18 06:15 Absolute Neuts (auto) 2.31 (1.4-6.5) 11/26/18 06:15 PT 13.7 SECONDS (9.4-12.5) H 11/24/18 19:14 INR 1.23 11/24/18 19:14 APTT 33.1 Seconds (26.9-38.3) 11/24/18 19:14 Sodium 140 mmol/L (132-148) 11/26/18 06:15 Potassium 3.8 mmol/L (3.6-5.0) 11/26/18 06:15 Chloride 103 mmol/L (98-107) 11/26/18 06:15 Carbon Dioxide 29 mmol/L (21-33) 11/26/18 06:15 Anion Gap 12 (10-20) 11/26/18 06:15 BUN 22 mg/dL (7-21) H 11/26/18 06:15 Creatinine 1.9 mg/dl (0.8-1.5) H 11/26/18 06:15 Est GFR ( Amer) 43 11/26/18 06:15 Est GFR (Non-Af Amer) 36 11/26/18 06:15 POC Glucose (mg/dL) 147 mg/dL (65-110) H 11/24/18 19:11 Random Glucose 104 mg/dL (70-110) 11/26/18 06:15 Hemoglobin A1c 5.2 % (4.2-6.5) 11/25/18 06:00 Calcium 8.6 mg/dL (8.4-10.5) 11/26/18 06:15 Phosphorus 3.7 mg/dL (2.5-4.5) 11/25/18 06:00 Magnesium 2.1 mg/dL (1.7-2.2) 11/26/18 06:15 Total Bilirubin 0.4 mg/dL (0.2-1.3) 11/26/18 06:15 Direct Bilirubin 0.2 mg/dL (0.0-0.4) 11/25/18 06:00 AST 15 U/L (17-59) L D 11/26/18 06:15 ALT 11 U/L (7-56) 11/26/18 06:15 Alkaline Phosphatase 54 U/L (38-126) 11/26/18 06:15 Troponin I 0.04 ng/mL D 11/24/18 19:14 NT-Pro-B Natriuret Pep 3300 pg/mL (0-450) H 11/24/18 19:14 Total Protein 6.7 g/dL (5.8-8.3) 11/26/18 06:15 Albumin 3.6 g/dL (3.0-4.8) 11/26/18 06:15 Globulin 3.1 gm/dL 11/26/18 06:15 Albumin/Globulin Ratio 1.2 (1.1-1.8) 11/26/18 06:15 Triglycerides 97 mg/dL (35-160) 11/25/18 06:00 Cholesterol 98 mg/dL (130-200) L 11/25/18 06:00 LDL Cholesterol Direct 51 mg/dL (0-129) 11/25/18 06:00 HDL Cholesterol 33 mg/dL (29-60) 11/25/18 06:00 25-OH Vitamin D Total 19.5 NG/ML (30.0-100.0) L 11/25/18 06:00 Free T4 1.49 ng/dL (0.78-2.19) 11/25/18 06:00 Thyroxine (T4) 9.3 ug/dL (5.5-11.0) 11/25/18 06:00 TSH 3rd Generation 0.74 mIU/mL (0.46-4.68) 11/25/18 06:00 Urine Color Yellow (YELLOW) 11/24/18 20:30 Urine Appearance Clear (CLEAR) 11/24/18 20:30 Urine pH 6.5 (4.7-8.0) 11/24/18 20:30 Ur Specific [place] 1.010 (1.005-1.035) 11/24/18 20:30 Urine Protein Negative mg/dL (<30 mg/dL) 11/24/18 20:30 Urine Glucose (UA) Negative mg/dL (NEGATIVE) 11/24/18 20:30 Urine Ketones Negative mg/dL (NEGATIVE) 11/24/18 20:30 Urine Blood Negative (NEGATIVE) 11/24/18 20:30 Urine Nitrate Negative (NEGATIVE) 11/24/18 20:30 Urine Bilirubin Negative (NEGATIVE) 11/24/18 20:30 Urine Urobilinogen 0.2 E.U./dL (<1 E.U./dL) 11/24/18 20:30 Ur Leukocyte Esterase Negative Tim/uL (NEGATIVE) 11/24/18 20:30 Urine Opiates Screen Positive (NEGATIVE) H 11/24/18 20:30 Urine Methadone Screen Negative (NEGATIVE) 11/24/18 20:30 Ur Barbiturates Screen Negative (NEGATIVE) 11/24/18 20:30 Ur Phencyclidine Scrn Negative (NEGATIVE) 11/24/18 20:30 Ur Amphetamines Screen Negative (NEGATIVE) 11/24/18 20:30 U Benzodiazepines Scrn Negative (NEGATIVE) 11/24/18 20:30 U Oth Cocaine Metabols Negative (NEGATIVE) 11/24/18 20:30 U Cannabinoids Screen Negative (NEGATIVE) 11/24/18 20:30 RPR Nonreactive (NONREACTIVE) 11/25/18 06:00 - Hospital Course Hospital Course: 63 year old male with a past medical history of hypertension, dilated cardiomyopathy with EF of 21%, opioid dependence who was admitted with 3 days of dizziness and flashing lights. CODE STROKE was called. CTH reviewed with no evidence of hemorrhage. Patient was not a candidate for tPA. Neurology was consulted. 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 VEEG was done with no seizure-like activity. Patient was started on Keppra by Neurology. I called the Keppra into his preferred pharmacy ([facility]) at [facility] patient's request. Instructions were provided for him to follow-up with Dr. Sharma in [address] Amos in 1 month. Discharge Exam - Head Exam Head Exam: ATRAUMATIC, NORMOCEPHALIC - Eye Exam Eye Exam: EOMI, Normal appearance, PERRL Pupil Exam: NORMAL ACCOMODATION, PERRL - ENT Exam ENT Exam: Mucous Membranes Moist, Normal Exam - Neck Exam Neck exam: Full Rom, Normal Inspection - Respiratory Exam Respiratory Exam: NORMAL BREATHING PATTERN. absent: Respiratory Distress - Cardiovascular Exam Cardiovascular Exam: RRR, +S1, +S2 - GI/Abdominal Exam GI & Abdominal Exam: Normal Bowel Sounds, Soft. absent: Distended, Tenderness - Extremities Exam Extremities exam: full ROM, normal inspection - Back Exam Back exam: FULL ROM, NORMAL INSPECTION - Neurological Exam Neurological exam: Alert, Normal Gait, Oriented x3 - Skin Skin Exam: Dry, Intact, Normal Color, Warm Discharge Plan - Discharge Medications Prescriptions: levETIRAcetam [Keppra] 500 mg PO BID #60 tab - Follow Up Plan Condition: GOOD Disposition: HOME/ ROUTINE Instructions: Sinusitis, Adult (DC), Seizures, Adult (DC) Additional Instructions: - please follow up with Dr. Amos in office within 1 month - please follow up with Dr. Sharma within 1 week - please continue your home medications as previously prescribed - please start taking the newly prescribed anti-seizure medication Keppra 500mg twice daily which has been called into your home pharmacy. - if you experience any similar complaints or worsening of symptoms, please go to nearest ER for evaluation Referrals: Barber Sharma MD [Primary Care Provider] - Dwayne Amos MD [Staff Provider] -
== END 2018-11-26 17:14 | disposition home or self-care (01) | DRG 101 ==
LOC: ED 18:56 → ERH 20:32 → 2RSO 23:14
PROVIDERS: ADMIT Internal Medicine; ATTEND Internal Medicine
DX: G40.909 Epilepsy, unspecified, not intractable, without status epilepticus (principal); I42.0 Dilated cardiomyopathy; I13.0 Hypertensive heart and chronic kidney disease with heart failure and stage 1 through stage 4 chronic kidney disease, or unspecified chronic kidney disease; G93.40 Encephalopathy, unspecified; N18.4 Chronic kidney disease, stage 4 (severe); I50.22 Chronic systolic (congestive) heart failure; F11.20 Opioid dependence, uncomplicated; R47.81 Slurred speech; J32.4 Chronic pansinusitis; F41.9 Anxiety disorder, unspecified; D64.9 Anemia, unspecified; E55.9 Vitamin D deficiency, unspecified; F17.210 Nicotine dependence, cigarettes, uncomplicated; E83.42 Hypomagnesemia; E78.5 Hyperlipidemia, unspecified; I07.1 Rheumatic tricuspid insufficiency; I27.20 Pulmonary hypertension, unspecified; R73.9 Hyperglycemia, unspecified; N40.0 Benign prostatic hyperplasia without lower urinary tract symptoms; K59.00 Constipation, unspecified; M16.0 Bilateral primary osteoarthritis of hip; K76.0 Fatty (change of) liver, not elsewhere classified; G62.9 Polyneuropathy, unspecified; Z86.73 Personal history of transient ischemic attack (TIA), and cerebral infarction without residual deficits; Z91.19 Patient's noncompliance with other medical treatment and regimen; Z83.3 Family history of diabetes mellitus; Z79.02 Long term (current) use of antithrombotics/antiplatelets; Z79.82 Long term (current) use of aspirin; Z91.14 Patient's other noncompliance with medication regimen